=== PATIENT | female | born 1980 | race Caucasian/White ===

== ENCOUNTER 2018-03-03 20:35 | Emergency (ER) | END 2018-03-04 00:44 | disposition home or self-care (01) ==

== ENCOUNTER 2019-03-05 15:13 | Emergency (ER) | payer MEDICAID ==
[~2019-03-05] VITALS: Wt 90.0 kg
[~2019-03-05 15:13] MED LIST: AMOX500C2 PO; IBUP-1542 PO
--- NOTE | 2019-03-05 16:31 | ERD ---
ER Documentation Chief Complaint Chief Complaint FEVER SINCE WEDNESDAY NIGHT HPI Patient is a 38-year-old female with no past medical history presents the ER for concerns of "feeling tired" times 1 week. Patient states that she is also had a dry mouth. She states that she is often thirsty. She states 3 days ago she did notice that her urine was dark. She denies any dysuria or frequency, urgency or hematuria. Patient states days ago she did have a fever two days ago with a T- max of 101 however that has now resolved. Patient denies any chest pain, shortness breath, nausea, vomiting, abdominal pain or loss of consciousness. Patient states she did go to the pharmacy and buy some Pedialyte and after drinking Pedialyte she felt better. Patient does report right lower back pain. Patient denies any falls or trauma. Patient denies saddle anesthesia urine incontinence or stool incontinence. ROS All systems reviewed and are negative except as per history of present illness. Medications Home Meds Active Scripts Cephalexin* (Keflex*) 500 Mg Capsule, 500 MG PO TID for 7 Days, CAP Prov:SHAKEEL MCKINLEY PA-C 03/05/19 Amoxicillin* (Amoxicillin*) 500 Mg Cap, 500 MG PO TID for 10 Days, CAP Prov:ELIF BARON LINOTYPE OPERATOR 03/04/18 Ibuprofen* (Motrin*) 600 Mg Tab, 600 MG PO Q6H PRN for PAIN AND OR ELEVATED TEMP, #30 TAB Prov:ELIF BARON LINOTYPE OPERATOR 03/04/18 Allergies Allergies: Coded Allergies: No Known Allergy (Unverified , 03/03/18) PMhx/Soc Medical and Surgical Hx: pt denies Medical Hx, pt denies Surgical Hx Hx Alcohol Use: No Hx Substance Use: No Hx Tobacco Use: No FmHx Family History: No diabetes Physical Exam Vitals Vital Signs Date Temp Pulse Resp B/P (MAP) Pulse Ox O2 O2 Flow FiO2 Time Delivery Rate 03/05/19 99.1 90 18 130/78 99 15:23 (95) Physical Exam GENERAL: Well-developed, well-nourished female. Appears in no acute distress. Speaking in full sentences. HEAD: Normocephalic, atraumatic. EYES: Pupils are equally reactive bilaterally. EOMs grossly intact. No conjunctival erythema. ENT: Moist mucous membranes. No uvula deviation. No kissing tonsils. NECK: Supple. No meningismus. Normal range of motion of the neck. LUNG: Clear to auscultation bilaterally. No rhonchi, wheezing, rales or coarse breath sounds. HEART: Regular rate and rhythm. No murmurs, rubs or gallops. BACK: No midline tenderness. Tender to palpation of the right lumbar paraspinal muscles. EXTREMITIES: Equal pulses bilaterally. No peripheral clubbing, cyanosis or edema. No unilateral leg swelling. NEUROLOGIC: Alert and oriented. Moving all four extremities without any difficulty. Normal speech. Steady gait. SKIN: Normal color. Warm and dry. No rashes or lesions. Results 24 hrs Laboratory Tests Test 03/05/19 16:31 03/05/19 16:33 03/05/19 16:35 Bedside Urine pH (LAB) 6.0 Bedside Urine Protein (LAB) 1+ Bedside Urine Glucose (UA) Negative Bedside Urine Ketones (LAB) Negative Bedside Urine Blood 2+ Bedside Urine Nitrite (LAB) Negative Bedside Urine Leukocyte Esterase (L 3+ Bedside Glucose 114 mg/dL POC Beta HCG, Qualitative NEGATIVE Current Medications Medications Dose Sig/Yanira Start Time Status Last (Trade) Ordered Route PRN Stop Time Admin Dose Reason Admin Ceftriaxone 1 gm ONCE ONCE 03/05/19 Sodium IM 17:30 (Rocephin) 03/05/19 17:31 Lidocaine 20 ml ONCE ONCE 03/05/19 (Xylocaine SC 17:30 1% (Mdv) 20 03/05/19 17:31 ml) Procedures/MDM MEDICAL DECISION MAKING: This is a 38-year-old female with no past medical history presents the ER for concerns of "feeling tired times 1 week. Patient also admitted to dark urine.. Vital signs were reviewed. Patient was afebrile. UA did show 3+ leukocyte esterase. Urine was negative. Patient was given Rocephin here for concerns of UTI versus early pyelonephritis as patient was complaining of fevers 2 days ago. Patient will be discharged home with prescription for Keflex. Low suspicion for DKA, nephrolithiasis, appendicitis, diverticulitis, constipatis, ectopic , PID, ovarian torsion, or tubo-ovarian abscess. Patient was nontoxic, non-opening prior to discharge. PRESCRIPTIONS: Keflex DISCHARGE: At this time, patient is stable for discharge and outpatient management. I have instructed the patient to follow-up with his/her primary care physician in 1-2 days. Patient should repeat UA in 2 weeks to check for resolution of urinary tract infection. If symptoms persist, patient may need to see a specialist for further examinations and testing. I have instructed the patient to promptly return to the ER at any time for any new or worsening symptoms including increased pain, fever, nausea, vomiting, urinary changes or weakness. The patient and/or family expressed understanding of and agreement with this plan. All questions were answered. Home care instructions were provided. Disclaimer: Inadvertent spelling and grammatical errors are likely due to EHR/dictation software use and do not reflect on the overall quality of patient care. Also, please note that the electronic time recorded on this note does not necessarily reflect the actual time of the patient encounter. Departure Diagnosis: Primary Impression: UTI (urinary tract infection) Urinary tract infection type: site unspecified Hematuria presence: with hematuria Qualified Codes: N39.0 - Urinary tract infection, site not specified; R31.9 - Hematuria, unspecified Condition: Fair Patient Instructions: Understanding Urinary Tract Infections (UTIs) Referrals: [facility] YOU HAVE RECEIVED A MEDICAL SCREENING EXAM AND THE RESULTS INDICATE THAT YOU DO NOT HAVE A CONDITION THAT REQUIRES URGENT TREATMENT IN THE EMERGENCY DEPARTMENT. FURTHER EVALUATION AND TREATMENT OF YOUR CONDITION CAN WAIT UNTIL YOU ARE SEEN IN YOUR DOCTORS OFFICE WITHIN THE NEXT 1-2 DAYS. IT IS YOUR RESPONSIBILITY TO MAKE AN APPOINTMENT FOR FOLOW-UP CARE. IF YOU HAVE A PRIMARY DOCTOR --you should call your primary doctor and schedule an appointment IF YOU DO NOT HAVE A PRIMARY DOCTOR YOU CAN CALL OUR PHYSICIAN REFERRAL HOTLINE AT IF YOU CAN NOT AFFORD TO SEE A PHYSICIAN YOU CAN CHOSE FROM THE FOLLOWING [facility] [address] [facility] [address] [facility] [address] [facility] [address] [facility] [address] [facility]. [facility]. [address] [facility]. [facility] YOU HAVE RECEIVED A MEDICAL SCREENING EXAM AND THE RESULTS INDICATE THAT YOU DO NOT HAVE A CONDITION THAT REQUIRES URGENT TREATMENT IN THE EMERGENCY DEPARTMENT. FURTHER EVALUATION AND TREATMENT OF YOUR CONDITION CAN WAIT UNTIL YOU ARE SEEN IN YOUR DOCTORS OFFICE WITHIN THE NEXT 1-2 DAYS. IT IS YOUR RESPONSIBILITY TO MAKE AN APPOINTMENT FOR FOLOW-UP CARE. IF YOU HAVE A PRIMARY DOCTOR --you should call your primary doctor and schedule and appointment IF YOU DO NOT HAVE A PRIMARY DOCTOR YOU CAN CALL OUR PHYSICIAN REFERRAL HOTLINE AT . IF YOU CAN NOT AFFORD TO SEE A PHYSICIAN YOU CAN CHOSE FROM THE FOLLOWING [facility] INSTITUTIONS: [facility] [address] [place] [address] [facility] [address] [place] [address] [facility] [address] [place] [address] Additional Instructions: Call your primary care doctor TOMORROW for an appointment during the next 1-2 days.See the doctor sooner or return here if your condition worsens before your appointment time. SHAKEEL MCKINLEY PA-C Mar 05, 2019 16:31
[2019-03-05] MEDS ORDERED: CEPH-443 PO (17:07)
[2019-03-05] MEDS ORDERED: LIDOCAINE 1% (MDV) 20 ML INJ SC ONE (17:30)
[2019-03-05] MEDS ORDERED: CEFTRIAXONE 1 GM INJ IM ONE (17:30)
[2019-03-05 17:49] VITALS: BP 126/70; PULSE 88; RESP 18
== END 2019-03-05 17:51 | disposition home or self-care (01) ==
LOC: FTE 15:13
DX: N39.0 Urinary tract infection, site not specified (principal)
CPT/HCPCS: 81003; 81025; 82962; 96372; J0696; Z7502; Z7610

== ENCOUNTER 2019-04-12 19:27 | Inpatient (IN) | payer MEDICAID ==
[~2019-04-12] VITALS: Ht 162.6 cm; Wt 120.0 kg
[~2019-04-12 19:27] MED LIST changes: +CEPH-443 PO
[2019-04-12] MEDS ORDERED: SODIUM CHLORIDE 0.9% 1L BAG IV* STA (20:04)
--- NOTE | 2019-04-12 21:16 | ERD ---
ER Documentation Chief Complaint Chief Complaint R low back pain, dysuria x2d worse today. HPI This is a 38-year-old female with a past medical history of obesity, asthma who is presenting with 3 days of dysuria and right lower back pain. The patient reports that it started with a pressure-like discomfort while urinating. Over the last couple days, she started to develop right-sided lower back pain. She does endorse suprapubic pain. She reports nausea with an episode of nonbilious nonbloody vomiting. She does not endorse having had a fever at home, but she is febrile here. She was also found to be tachycardic. The patient has had no headache or vision changes. The patient does not endorse neck or back pain. The patient denies lightheadedness or dizziness. The patient has had no chest pain or trouble breathing. The patient denies changes to bowel movements. She denies constipation or diarrhea. She denies black or bloody or tarry stools. The patient has had no focal deficits. The patient has had no weakness or numbness or tingling to the face or extremities. ROS All systems reviewed and are negative except as per history of present illness. Medications Home Meds Active Scripts Ibuprofen* (Motrin*) 600 Mg Tab, 600 MG PO Q6H PRN for PAIN AND OR ELEVATED TEMP, #30 TAB Prov:ELIF BARON NP 03/04/18 Discontinued Scripts Cephalexin* (Keflex*) 500 Mg Capsule, 500 MG PO TID for 7 Days, CAP Prov:SHAKEEL MCKINLEY PA-C 03/05/19 Amoxicillin* (Amoxicillin*) 500 Mg Cap, 500 MG PO TID for 10 Days, CAP Prov:ELIF BARON NP 03/04/18 Allergies Allergies: Coded Allergies: No Known Allergy (Unverified , 04/12/19) PMhx/Soc Medical and Surgical Hx: pt denies Surgical Hx Hx Respiratory Disorders: Yes (asthma) Hx Alcohol Use: No Hx Substance Use: No Hx Tobacco Use: No Smoking Status: Never smoker FmHx Family History: No diabetes Physical Exam Vitals Vital Signs Date Temp Pulse Resp B/P (MAP) Pulse Ox O2 O2 Flow FiO2 Time Delivery Rate 04/12/19 98.3 111 20 125/55 100 Room Air 23:00 (78) 04/12/19 100.8 131 16 144/94 99 19:58 (111) Physical Exam Const: No acute distress Head: Atraumatic Eyes: Normal Conjunctiva ENT: Normal External Ears, Nose and Mouth. Neck: Full range of motion. No meningismus. Resp: Clear to auscultation bilaterally Cardio: Regular rhythm, tachycardia, no murmurs Abd: Soft, non distended. Mild suprapubic tenderness. Normal bowel sounds Skin: No petechiae or rashes Back: No midline or flank tenderness. Right lower back tenderness to palpation. Ext: No cyanosis, or edema Neur: Awake and alert. No obvious focal deficits. Psych: Normal Mood and Affect Result Diagram: 04/12/19200904/12/192007 Results 24 hrs Laboratory Tests Test 04/12/19 20:04 04/12/19 20:08 04/12/19 20:09 04/12/19 20:10 Urine NEGATIVE Test Prothrombin Time 14.6 Sec Prothrombin Time 1.1 Ratio INR 1.13 International Normalized Ratio Activated 31.8 Sec Partial Thrombop last Time Sodium Level 134 mmol/L Potassium Level 4.0 mmol/L Chloride Level 100 mmol/L Carbon Dioxide 25 mmol/L Level Anion Gap 9 Blood Urea 10 mg/dl Nitrogen Creatinine 0.92 mg/dl Est Glomerular > 60 mL/min Filtrat Rate mL/min Glucose Level 127 mg/dl Calcium Level 9.2 mg/dl Total Bilirubin 0.6 mg/dl Direct Bilirubin 0.00 mg/dl Indirect 0.6 mg/dl Bilirubin Aspartate Amino 18 IU/L Transf (AST/SGOT ) Alanine < 6 IU/L Aminotransferase (ALT/SGPT) Alkaline 135 IU/L Phosphatase Troponin I < 0.012 ng/ml Total Protein 10.0 g/dl Albumin 3.5 g/dl Globulin 6.50 g/dl Albumin/Globulin 0.53 Ratio POC Venous 1.9 mmol/L Lactate White Blood 25.6 10^3/ul Count Red Blood Count 3.44 10^6/ul Hemoglobin 7.4 g/dl Hematocrit 26.4 % Mean Corpuscular 76.7 fl Volume Mean Corpuscular 21.5 pg Hemoglobin Mean Corpuscular 28.0 g/dl Hemoglobin Rosalind nt Red Cell 20.0 % Distribution Width Platelet Count 834 10^3/UL Mean Platelet 8.5 fl Volume Immature 0.800 % Granulocytes % Neutrophils % % Segmented 67 % Neutrophils % (Manual) Band Neutrophils 3 % % (Manual) Lymphocytes % % Lymphocytes % 27 % (Manual) Monocytes % % Monocytes % 3 % (Manual) Eosinophils % % Basophils % % Nucleated Red 0.0 /100WBC Blood Cells % Immature 0.200 10^3/ul Granulocytes # Neutrophils # 10^3/ul Neutrophils # 17.3 10^3/ul (Manual) Band Neutrophils 0.7 10^3/ul # Lymphocytes 6.9 10^3/ul (Manual) Lymphocytes # 10^3/ul Monocytes # 10^3/ul Monocytes # 0.7 10^3/ul (Manual) Eosinophils # 10^3/ul Basophils # 10^3/ul Nucleated Red 10^3/ul Blood Cells # Pathologist YES Review (Hematolo gy) Platelet INCREASED Estimate Giant Platelets 2 % Polychromasia 3+ Hypochromasia 1+ Poikilocytosis 1+ Anisocytosis 2+ Microcytosis 1+ Test 04/12/19 21:08 Urine Color YELLOW Urine Clarity SLIGHTLY CLOUDY Urine pH 7.0 Urine Specific 1.008 Bono Urine Ketones NEGATIVE mg/dL Urine Nitrite NEGATIVE mg/dL Urine Bilirubin NEGATIVE mg/dL Urine 1+ mg/dL Urobilinogen Urine Leukocyte 3+ Susan/ul Esterase Urine 33 /HPF Microscopic RBC Urine 38 /HPF Microscopic WBC Urine Squamous FEW /HPF Epithelial Cells Urine Amorphous FEW /HPF Crystals Urine Bacteria FEW /HPF Urine Hemoglobin 3+ mg/dL Urine Glucose NEGATIVE mg/dL Urine Total NEGATIVE mg/dl Protein Current Medications Medications Dose Sig/Yanira Start Time Status Last (Trade) Ordered Route PRN Stop Time Admin Dose Reason Admin Sodium 3,620 ml BOLUS OVER 2 04/12/19 DC 04/12/19 Chloride HOURS STAT 20:04 20:25 (NS) IV* 04/12/19 20:05 Vancomycin 250 ml @ ONCE ONCE 04/12/19 DC 04/12/19 HCl 125 mls/hr IVPB 21:30 21:51 04/12/19 23:29 Cefepime HCl 50 ml @ ONCE ONCE 04/12/19 DC 04/12/19 100 mls/hr IVPB 21:30 21:25 04/12/19 21:59 650 mg ONCE ONCE 04/12/19 DC 04/12/19 Acetaminophen PO 22:00 22:47 (Tylenol 04/12/19 22:01 Tab) Ketorolac 15 mg ONCE STAT 04/12/19 DC 04/12/19 Tromethamine IV 21:40 22:46 (Toradol) 04/12/19 21:42 Procedures/MDM MDM The patient's presentation warrants further investigation. Previous medical records, if available, were reviewed. LABS The patient's laboratory testing was obtained and reviewed. No emergent treatment was required unless described below. CBC: Significant leukocytosis, concerning for an infection. Microcytic anemia, does not require emergent transfusion. Thrombocytosis, reactive. Chemistry: No E/o severe acidosis or alkalosis or renal failure or liver di sease or diabetic ketoacidosis PT/INR: No E/o significant coagulopathy Lactate: No E/o severe sepsis Troponin: No E/o acute ischemia Urine: E/o acute infection and hematuria EKG EKG read by me: Rate/Rhythm: Regular rate and rhythm at a rate of sinus tachycardia at 141 bpm Intervals: Normal Burwell: Normal Impression: Sinus tachycardia. Nonspecific repolarization changes without evidence of acute ischemia. IMAGING Imaging and Radiology interpretation reviewed. CXR FINDINGS: Lines/Tubes: None. The cardiomediastinal silhouette is normal in size and contour. No consolidation, pleural effusion, or pneumothorax is seen. Mild left basilar subsegmental atelectasis. Low lung volumes. The osseous structures are unremarkable. IMPRESSION: 1. Mild left basilar subsegmental atelectasis. No consolidation, pleural effusion, or pneumothorax. 2. Low lung volumes. Electronically viewed and signed by Physician Harman on 04/12/2019 20:55 CT Abd/Pelvis FINDINGS: CT abdomen: The lung bases are clear. The heart size is within normal limits. There is no significant pericardial effusion. Hepatic morphology is within normal limits. No gross contour deforming masses. The gallbladder is within normal limits. No evidence of intrahepatic or extrahepatic biliary dilatation. The spleen and pancreas are within normal limits. Both adrenal glands are within normal limits. Both kidneys are visualized. The right kidney is enlarged and there is severe right-sided hydronephrosis. A 2.2 x 1.5 cm stone is noted within the right renal pelvis. There is right renal cortical thinning. Right felipe nephric fatty stranding and fluid is noted. Left kidney appears to be within normal limits without evidence of obstruction or hydronephrosis. The visualized GI tract demonstrates normal caliber loops of small and large bowel. No evidence of bowel obstruction. Stool filled loops of large bowel suggestive of constipation. Unenhanced aorta is unremarkable. Multiple retroperitoneal aortocaval lymph nodes are noted. CT pelvis: The bladder is within normal limits. The uterus is not unremarkable. Rectosigmoid colon is within normal limits. No significant free fluid. No significant pelvic lymphadenopathy. The visualized osseous structures appears to be within normal limits. IMPRESSION: 1. Enlarged right kidney with severe right-sided hydronephrosis. There is a large 2.2 x 1.5 cm staghorn calculus within the right renal pelvis. Large amount of right perinephric fatty stranding and fluid is noted. Findings may be chronic. Findings suggestive of obstructive uropathy and underlying infection. 2. Multiple retroperitoneal aortocaval lymph nodes are noted, probably reactive. 3. No evidence of bowel obstruction. Stool filled loops of large bowel suggestive of constipation. 4. There is left kidney is unremarkable. Electronically viewed and signed by Physician Michael on 04/12/2019 23:36 TREATMENT/DISPOSITION The patient presents for symptoms concerning for urinary tract infection. She is febrile with a tachycardia and significant leukocytosis, meeting criteria for systemic inflammatory response. Given that there is a source, and concern for sepsis. The patient does endorse right-sided flank pain, given the full symptom complex, I am concerned about the possibility of pyelonephritis. The CT of the abdomen and pelvis confirm this. The patient was treated for sepsis. There is no evidence of endorgan damage. I do not suspect severe sepsis. The patient does not have any evidence of peritonitis. The patient does not have clinical symptoms concerning for mesenteric ischemia or ischemic colitis. The patient does not have right upper quadrant tenderness, and I have low suspicion for gallstones, cholecystitis or biliary colic. The patient does not have any epigastric pain. I have low suspicion for gastritis, PUD or GERD. The patient does not have left upper quadrant tenderness. I have low suspicion for pancreatitis. The patient does not have any right lower quadrant tenderness, or periumbilical tenderness. I have low suspicion for appendicitis. The patient d oes not have any left lower quadrant tenderness, and I have low suspicion for diverticulosis or diverticulitis. The patient does not have any flank tenderness. The patient does not have gross hematuria. I have decreased suspicion for nephrolithiasis or renal colic. The patient does not have any p alpable pulsatile mass or severe abdominal pain radiating to the back. I have low suspicion for aortic aneurysm, dissection or rupture. SEPSIS NOTE SIRS Criteria: Fever, tachycardia, leukocytosis Infectious source: UTI End organ damage indicated by: None SEPSIS MANAGEMENT Time to recognize sepsis: 2003. Time to recognize severe sepsis: No severe sepsis at this time. Time to recognize septic shock: No septic shock at this time. 3 HOUR BUNDLE Blood cultures x 2 before abx: Yes 30 ml/kg NS bolus completed Initial lactate 1.9 Repeat lactate not indicated SEPTIC SHOCK ASSESSMENT: NO lactic acid > 4.0 NO persistent hypotension (SBP < 90 or 40 mmHg drop, MAP < 65) despite 30 L/kg IV fluid bolus CRITICAL CARE Critical care time 35 minutes Emergent fluid management while maintaining close respiratory support. Provision of immediate and broad-spectrum antibiotic therapy. Simultaneous assessment for possible sources in order to direct targeted therapy. Consideration for invasive and chemical support to prevent cardiopulmonary collapse. Critical care time is independent of procedures performed. ADMISSION At this time, I feel that the patient requires admission for further evaluation and management. The patient will be admitted to [facility] in accordance with the [facility]'s insurance. The patient was accepted by Dr. Robles at 11:39 PM on April 12, 2019. Disclaimer: Inadvertent spelling and grammatical errors are likely due to EHR/dictation software use and do not reflect on the overall quality of patient care. Note that the electronic time recorded on this note does not necessarily reflect the actual time of the patient encounter. Departure Diagnosis: Primary Impression: Sepsis Sepsis type: sepsis due to unspecified organism Qualified Codes: A41.9 - Sepsis, unspecified organism Additional Impressions: UTI (urinary tract infection) Urinary tract infection type: acute cystitis Hematuria presence: without hematuria Qualified Codes: N30.00 - Acute cystitis without hematuria Fever Fever type: unspecified Qualified Codes: R50.9 - Fever, unspecified Tachycardia Leukocytosis Leukocytosis type: unspecified Qualified Codes: D72.829 - Elevated white blood cell count, unspecified Microcytic anemia Thrombocytosis Dysuria Pyelonephritis Hydronephrosis Hydronephrosis type: with renal calculous obstruction Qualified Codes: N13.2 - Hydronephrosis with renal and ureteral calculous obstruction Staghorn renal calculus Condition: Serious FRANCISCA BELLAMY MD April 12, 2019 21:14
[2019-04-12] MEDS ORDERED: VANCOMYCIN 1 GM (PMX) 250 ML IVPB ONE (21:30)
[2019-04-12] MEDS ORDERED: CEFEPIME 1GM/50 ML (PMX) 50 ML IVPB ONE (21:30)
[2019-04-12] MEDS ORDERED: KETOROLAC 15 MG INJ IV STA (21:40)
[2019-04-12] MEDS ORDERED: ACETAMINOPHEN 325 MG TAB PO ONE (22:00)
[2019-04-13] VITALS (10 sets, daily range): BP systolic 127–145; BP diastolic 61–80; PULSE 91–125; RESP 18–20; Ht 162.6 cm; Wt 120.0 kg
[2019-04-13] MEDS ORDERED: ACETAMINOPHEN 325 MG TAB PO PRN
[2019-04-13] MEDS ORDERED: NACL 0.9% 3 ML SYG IV SCH (00:30)
[2019-04-13] MEDS ORDERED: HYDROmorphONE 0.5 MG/0.5 ML SYG IV PRN (00:30)
[2019-04-13] MEDS ORDERED: BISACODYL (EC) 5 MG TAB PO PRN (00:30)
[2019-04-13] MEDS ORDERED: DOCUSATE SODIUM 100 MG CAP PO PRN (00:30)
[2019-04-13] MEDS ORDERED: TAMSULOSIN (SR) 0.4 MG CAP PO ONE (00:30)
[2019-04-13] MEDS ORDERED: ONDANSETRON 4 MG INJ IV PRN ×2 (00:30)
[2019-04-13] MEDS: SOD CHLORIDE 0.9% 1,000 ML IV SCH ×4 (00:32→22:26)
--- NOTE | 2019-04-13 01:08 | HP ---
Date/Time of Note Date/Time of Note DATE: 04/13/19 TIME: 01:02 Assessment/Plan VTE Prophylaxis SCD applied (from Nsg): Yes Pharmacological prophylaxis: NA/contraindicated Pharm contraindication: low risk/ambulating Assessment/Plan Hospital Course This is a 38-year-old female being admitted to the telemetry floor for: 1. sepsis: Secondary to pyelonephritis. Patient did receive vancomycin and cefepime in the emergency department. Will switch to ceftriaxone 2 g IV every 24 hours. Await urinalysis, urine culture results. Trend lactic acid levels, the initial one was less than 2. IV fluid hydration with normal saline. 2. Staghorn calculus causing obstructive uropathy: CT scan did show a staghorn colliculi with signs of possible obstruction. Creatinine at the current time is within normal values. IV fluid hydration with normal saline, Flomax daily. Strain the urine. Will consult urology 3. pyelonephritis: Antibiotics as per #1. 4. Microcytic anemia: Urinalysis does have hemoglobin however given infection this is not reliable for acute bleed. She denies any cintia hematuria. She denies any hematochezia. Or melena. Will check a stool occult blood. Will discuss with patient regarding her menstruation. Monitor CBC closely. Iron and ferritin in the a.m. 5. Morbid obesity: a1c, lipid panel, tsh. encourage diet and lifestyle modification 6. DVT GI prophylaxis: SCDs, no GI prophylaxis indicated next Further treatment strategy will be implemented as per the clinical course. Result Diagram: 04/12/19200904/12/192007 Results 24hrs Laboratory Tests Test 04/12/19 20:04 04/12/19 20:08 04/12/19 20:09 04/12/19 20:10 Urine NEGATIVE Test Prothrombin Time 14.6 Prothrombin Time 1.1 Ratio INR International 1.13 Normalized Ratio Activated 31.8 Partial Thrombopl ast Time Sodium Level 134 L Potassium Level 4.0 Chloride Level 100 Carbon Dioxide 25 Level Anion Gap 9 Blood Urea 10 Nitrogen Creatinine 0.92 Est Glomerular > 60 Filtrat Rate mL/min Glucose Level 127 Calcium Level 9.2 Total Bilirubin 0.6 Direct Bilirubin 0.00 Indirect 0.6 Bilirubin Aspartate Amino 18 Transf (AST/SGOT) Alanine < 6 L Aminotransferase (ALT/SGPT) Alkaline 135 H Phosphatase Troponin I < 0.012 Total Protein 10.0 H Albumin 3.5 Globulin 6.50 H Albumin/Globulin 0.53 Ratio POC Venous 1.9 Lactate White Blood Count 25.6 H Red Blood Count 3.44 L Hemoglobin 7.4 L Hematocrit 26.4 L Mean Corpuscular 76.7 L Volume Mean Corpuscular 21.5 L Hemoglobin Mean Corpuscular 28.0 L Hemoglobin Concen t Red Cell 20.0 H Distribution Width Platelet Count 834 H Mean Platelet 8.5 Volume Immature 0.800 H Granulocytes % Neutrophils % Segmented 67 Neutrophils % (Manual) Band Neutrophils 3 % (Manual) Lymphocytes % Lymphocytes % 27 (Manual) Monocytes % Monocytes % 3 (Manual) Eosinophils % Basophils % Nucleated Red 0.0 Blood Cells % Immature 0.200 H Granulocytes # Neutrophils # Neutrophils # 17.3 H (Manual) Band Neutrophils 0.7 H # Lymphocytes 6.9 H (Manual) Lymphocytes # Monocytes # Monocytes # 0.7 (Manual) Eosinophils # Basophils # Nucleated Red Blood Cells # Pathologist YES Review (Hematolog y) Platelet Estimate INCREASED Giant Platelets 2 H Polychromasia 3+ Hypochromasia 1+ Poikilocytosis 1+ Anisocytosis 2+ Microcytosis 1+ Test 04/12/19 21:08 Urine Color YELLOW Urine Clarity SLIGHTLY CLOUDY A Urine pH 7.0 Urine Specific 1.008 [place] Urine Ketones NEGATIVE Urine Nitrite NEGATIVE Urine Bilirubin NEGATIVE Urine 1+ H Urobilinogen Urine Leukocyte 3+ H Esterase Urine Microscopic 33 H RBC Urine Microscopic 38 H WBC Urine Squamous FEW Epithelial Cells Urine Amorphous FEW A Crystals Urine Bacteria FEW A Urine Hemoglobin 3+ H Urine Glucose NEGATIVE Urine Total NEGATIVE Protein HPI/ROS Admit Date/Time Admit Date/Time Hx of Present Illness Chief complaint: Dysuria, lower back pain x3 days This is a 38-year-old female with a past medical history of obesity, asthma who is presenting with 3 days of dysuria and right lower back pain. The patient reports that it started with a pressure-like discomfort while urinating. Over the last couple days, she started to develop right-sided lower back pain. Reports suprapubic pain. She reports nausea with an episode of nonbilious nonbl oody vomiting. Patient denies any fevers or chills at home. Upon arrival to the emergency department patient was found to be febrile as well as tachycardic. She had a CT of the abdomen pelvis performed in the emergency department which showed: Enlarged right kidney with severe right-sided hydronephrosis. There is a large 2.2 x 1.5 cm staghorn calculus within the right renal pelvis. Large amount of right perinephric fatty stranding and fluid is noted. Findings may be chronic. Findings suggestive of obstructive uropathy and underlying infection. Allergies: NKDA Medications: None ROS Const: As per HPI Eyes : No pain discharge or redness or change in visual acuity ENT: No pain, sore throat, congestion, congestion, dysphagia or discharge Respiratory: No shortness of breath, cough, sputum, wheezing, or pleuritic pain Cardiovascular: No chest pain, palpitation, PND, or edema GI : no change in appetite, abdominal pain, nausea, vomiting, diarrhea, con stipation, or change in the color his stool Genitourinary: As per HPI Musculoskeletal: No joint pain, back pain, neck pain, restricted range of motion in neck or joints Skin: No rash, bruising or hives Neuro: No headache, dizziness, syncope, seizure, focal weakness Endocrine: No polyuria, polydipsia, temperature intolerance Psych: No hallucination, depression, anxiety or suicidal ideation PMH/Family/Social Past Medical History Asthma Medications Current Medications Ondansetron HCl (Zofran Inj) 4 mg ER BRIDGE PRN IV NAUSEA/VOMITING; Start 04/13/19 at 00:00; Stop 04/13/19 at 23:59 Acetaminophen (Tylenol Tab) 650 mg ER BRIDGE PRN PO .MILD PAIN 1-3 OR TEMP; Start 04/13/19 at 00:00; Stop 04/13/19 at 23:59 Sodium Chloride 1,000 ml @ 100 mls/hr Q10H IV Last administered on 04/13/19at 00:32; Admin Dose 100 MLS/HR; Start 04/13/19 at 00:04 IV Flush (NS 3 ml) 3 ml PER PROTOCOL IV ; Start 04/13/19 at 00:30 Ondansetron HCl (Zofran Inj) 4 mg Q6H PRN IV NAUSEA/VOMITING; Start 04/13/19 at 00:30 Acetaminophen (Tylenol Tab) 650 mg Q6H PRN PO .PAIN 1-3 OR TEMP; Start 04/13/19 at 00:30 Hydromorphone HCl (Dilaudid) 0.5 mg Q4H PRN IV .PAIN 7-10; Start 04/13/19 at 00:30 Docusate Sodium (Colace) 100 mg Q12H PRN PO .CONSTIPATION; Start 04/13/19 at 00:30 Bisacodyl (Dulcolax) 5 mg DAILY PRN PO .CONSTIPATION; Start 04/13/19 at 00:30 Ceftriaxone Sodium 50 ml @ 100 mls/hr Q24H IVPB ; Start 04/13/19 at 04:00 Tamsulosin HCl (Flomax) 0.4 mg HS PO ; Start 04/13/19 at 21:00 Coded Allergies: No Known Allergy (Unverified , 04/12/19) Past Surgical History Past Surgical Hx: no surgical history Family History Significant Family History: no pertinent family hx Social History Alcohol Use: none Smoking Status: Never smoker Drug Use: none Exam/Review of Systems Vital Signs Vitals Vital Signs Date Temp Pulse Resp B/P (MAP) Pulse Ox O2 O2 Flow FiO2 Time Delivery Rate 04/12/19 98.3 117 21 129/73 99 Room Air 23:51 (91) Exam Exam General: Patient is currently lying in bed in no acute distress, patient skin does look pale but she states that that is her normal skin color. HEENT: Atraumatic, normocephalic. The pupils are equal, round and reactive. Extraocular motor are intact Neck: Supple with full range of motion. No rigidity or meningismus Chest: Nontender Lungs: Clear to auscultation bilaterally no crackles rales or wheezing Heart: Normal S1-S2, Regular rhythm and rate. No murmur, S3, or S4 Abdomen: Soft , nontender, nondistended , bowel sounds are present. No guarding no rebound tenderness , No masses or organomegaly. Genitourinary: Suprapubic tenderness palpation, Musculoskeletal: Right lower back pain to palpation Extremities: Normal to inspection, no edema no cyanosis Neurologic: Normal mental status, speech normal, cranial nerves II through XII are intact, motor and sensory are intact, Additional Comments PROCEDURE: XR Chest. CLINICAL INDICATION: Possible Sepsis. TECHNIQUE: Single view chest x-ray. COMPARISON: None. FINDINGS: Lines/Tubes: None. The cardiomediastinal silhouette is normal in size and contour. No consolidation, pleural effusion, or pneumothorax is seen. Mild left basilar subsegmental atelectasis. Low lung volumes. The osseous structures are unremarkable. IMPRESSION: 1. Mild left basilar subsegmental atelectasis. No consolidation, pleural effusion, or pneumothorax. 2. Low lung volumes. RPTAT: HH Physician Harman Date Time Electronically viewed and signed by Physician Harman on 04/12/2019 20:55 RP/ CC: FRANCISCA BELLAMY MD [id number] PROCEDURE: CT ABDOMEN AND PELVIS WITHOUT CONTRAST. CLINICAL INDICATION: Abdominal pain TECHNIQUE: CT scan of the abdomen and pelvis without contrast was performed on a multidetector high-resolution CT scanner. The patient was scanned without intravenous contrast. Coronal and sagittal reformatted images were obtained from the axial source images. Images were reviewed on a high-resolution PACS workstation. The total exam CTDI equals 23.6 mGy and the total exam DLP equals 1513.2 mGy-cm. One or more of the following dose reduction techniques were used: Automated exposure control. Adjustment of the mA and/or kV according to patient size. Use of iterative reconstruction technique. DICOM images are available COMPARISON: None FINDINGS: CT abdomen: The lung bases are clear. The heart size is within normal limits. There is no significant pericardial effusion. Hepatic morphology is within normal limits. No gross contour deforming masses. The gallbladder is within normal limits. No evidence of intrahepatic or extrahepatic biliary dilatation. The spleen and pancreas are within normal limits. Both adrenal glands are within normal limits. Both kidneys are visualized. The right kidney is enlarged and there is severe right-sided hydronephrosis. A 2.2 x 1.5 cm stone is noted within the right renal pelvis. There is right renal cortical thinning. Right perinephric fatty stranding and fluid is noted. Left kidney appears to be within normal limits without evidence of obstruction or hydronephrosis. The visualized GI tract demonstrates normal caliber loops of small and large bowel. No evidence of bowel obstruction. Stool filled loops of large bowel suggestive of constipation. Unenhanced aorta is unremarkable. Multiple retroperitoneal aortocaval lymph nodes are noted. CT pelvis: The bladder is within normal limits. The uterus is not unremarkable. Rectosigmoid colon is within normal limits. No significant free fluid. No significant pelvic lymphadenopathy. The visualized osseous structures appears to be within normal limits. IMPRESSION: 1. Enlarged right kidney with severe right-sided hydronephrosis. There is a large 2.2 x 1.5 cm staghorn calculus within the right renal pelvis. Large amount of right perinephric fatty stranding and fluid is noted. Findings may be chronic. Findings suggestive of obstructive uropathy and underlying infection. 2. Multiple retroperitoneal aortocaval lymph nodes are noted, probably reactive. 3. No evidence of bowel obstruction. Stool filled loops of large bowel suggestive of constipation. 4. There is left kidney is unremarkable. RPTAT: [facility] Physician Michael Date Time Electronically viewed and signed by Physician Michael on 04/12/2019 23:36 JL/ CC: FRANCISCA BELLAMY MD [id number] BETH MON April 13, 2019 01:08
[2019-04-13] MEDS: CEFTRIAXONE 2 GM/50 ML (PMX) 50 ML IVPB SCH (03:45)
--- NOTE | 2019-04-13 15:17 | PN ---
Date/Time of Note Date/Time of Note DATE: 04/13/19 TIME: 15:17 Assessment/Plan VTE Prophylaxis Risk score (from Ns)>0 risk: 2 SCD applied (from Ns): No SCD contraindicated: other Pharmacological prophylaxis: NA/contraindicated Pharm contraindication: anticoag not tolerated Lines/Catheters IV Catheter Type (from [facility]): Peripheral IV Urinary Cath still in place: No Assessment/Plan Hospital Course SUBJECTIVE: Denies any abdominal pain or flank pain. Remains afebrile. OBJECTIVE: Physical Exam General: Morbidly obese 38 year-old female lying in bed in no apparent distress. HEENT: Normocephalic, atraumatic. Eyes: Anicteric sclerae, conjunctivae clear. ENT: Nasal septum midline, oral mucosa moist. Neck: Short and obese. Respiratory: Bilaterally clear breath sounds. No use of accessory muscles of respiration. No adventitious breath sounds. Cardiovascular: S1, S2 heard. Regular rate and rhythm. Abdomen: Soft, nontender, and nondistended. Bowel sounds positive in all 4 quadrants. Genitourinary: Deferred. Extremities: No cyanosis, no clubbing, no edema. Peripheral pulses palpable. Neurologic: Cranial nerves II through XII grossly intact. The patient is awake, alert, and oriented. Skin: Normal skin turgor. No skin rashes. Labs & Vitals per chart ASSESSMENT & PLAN This is a 28-year-old female with comorbidities including obesity and asthma who presented to the emergency room with chief complaint of dysuria, lower back pain with CT scan showing severe right-sided hydronephrosis with a 2.2 x 1.5 cm staghorn calculus within the right renal pelvis. 1. Sepsis with leukocytosis, febrile illness, and tachycardia, present on admission. -Pancultures pending. -Continue empiric antimicrobials. -Continue IV fluids. 2. 2.2 x 1.5 cm staghorn calculus within the right renal pelvis. -Continue IV hydration. -Continue Flomax. -Urology consult has been obtained. -Continue pain control. 3. Microcytic, hypochromic anemia. -Iron panel showing iron deficiency. -Start iron supplements. 4. Morbid obesity. -BMI of more than 45 kg/m. -Weight reduction advised. 5. History of asthma. -No evidence of any exacerbation. 6. Fluids, electrolytes, and nutrition. -Regular diet. 7. DVT prophylaxis -Bilateral SCDs. 8. Plan. -Continue empiric antimicrobials. -Continue pain control. -Continue IV hydration. -Await urology evaluation. The patient was seen in collaboration with Dr. Mc. Result Diagram: 04/12/19200904/12/192007 Results 24hrs Laboratory Tests Test 04/12/19 20:04 04/12/19 20:08 04/12/19 20:09 04/12/19 20:10 Urine NEGATIVE Test Prothrombin Time 14.6 Prothrombin Time 1.1 Ratio INR International 1.13 Normalized Ratio Activated 31.8 Partial Thrombopl ast Time Sodium Level 134 L Potassium Level 4.0 Chloride Level 100 Carbon Dioxide 25 Level Anion Gap 9 Blood Urea 10 Nitrogen Creatinine 0.92 Est Glomerular > 60 Filtrat Rate mL/min Glucose Level 127 Calcium Level 9.2 Total Bilirubin 0.6 Direct Bilirubin 0.00 Indirect 0.6 Bilirubin Aspartate Amino 18 Transf (AST/SGOT) Alanine < 6 L Aminotransferase (ALT/SGPT) Alkaline 135 H Phosphatase Troponin I < 0.012 Total Protein 10.0 H Albumin 3.5 Globulin 6.50 H Albumin/Globulin 0.53 Ratio POC Venous 1.9 Lactate White Blood Count 25.6 H Red Blood Count 3.44 L Hemoglobin 7.4 L Hematocrit 26.4 L Mean Corpuscular 76.7 L Volume Mean Corpuscular 21.5 L Hemoglobin Mean Corpuscular 28.0 L Hemoglobin Concen t Red Cell 20.0 H Distribution Width Platelet Count 834 H Mean Platelet 8.5 Volume Immature 0.800 H Granulocytes % Neutrophils % Segmented 67 Neutrophils % (Manual) Band Neutrophils 3 % (Manual) Lymphocytes % Lymphocytes % 27 (Manual) Monocytes % Monocytes % 3 (Manual) Eosinophils % Basophils % Nucleated Red 0.0 Blood Cells % Immature 0.200 H Granulocytes # Neutrophils # Neutrophils # 17.3 H (Manual) Band Neutrophils 0.7 H # Lymphocytes 6.9 H (Manual) Lymphocytes # Monocytes # Monocytes # 0.7 (Manual) Eosinophils # Basophils # Nucleated Red Blood Cells # Pathologist YES Review (Hematolog y) Platelet Estimate INCREASED Giant Platelets 2 H Polychromasia 3+ Hypochromasia 1+ Poikilocytosis 1+ Anisocytosis 2+ Microcytosis 1+ Test 04/12/19 21:08 04/13/19 00:53 04/13/19 05:07 Urine Color YELLOW Urine Clarity SLIGHTLY CLOUDY A Urine pH 7.0 Urine Specific 1.008 [place] Urine Ketones NEGATIVE Urine Nitrite NEGATIVE Urine Bilirubin NEGATIVE Urine 1+ H Urobilinogen Urine Leukocyte 3+ H Esterase Urine Microscopic 33 H RBC Urine Microscopic 38 H WBC Urine Squamous FEW Epithelial Cells Urine Amorphous FEW A Crystals Urine Bacteria FEW A Urine Hemoglobin 3+ H Urine Glucose NEGATIVE Urine Total NEGATIVE Protein Lactic Acid Level 1.0 0.9 Iron Level 17 L Total Iron 153 L Binding Capacity Percent Iron 11 L Saturation Ferritin 229.0 H Exam/Review of Systems Exam Vitals Vital Signs Date Temp Pulse Resp B/P (MAP) Pulse Ox O2 O2 Flow FiO2 Time Delivery Rate 04/13/19 95 12:12 04/13/19 98.6 20 137/66 98 11:44 (89) 04/13/19 Room Air 02:39 Intake and Output 04/12/19 04/12/19 04/13/19 1515:00 23:00 07:00 IntakeIntake Total 550 ml BalanceBalance 550 ml Results Results 24hrs Laboratory Tests Test 04/12/19 20:04 04/12/19 20:08 04/12/19 20:09 04/12/19 20:10 Urine NEGATIVE Test Prothrombin Time 14.6 Prothrombin Time 1.1 Ratio INR International 1.13 Normalized Ratio Activated 31.8 Partial Thrombopl ast Time Sodium Level 134 L Potassium Level 4.0 Chloride Level 100 Carbon Dioxide 25 Level Anion Gap 9 Blood Urea 10 Nitrogen Creatinine 0.92 Est Glomerular > 60 Filtrat Rate mL/min Glucose Level 127 Calcium Level 9.2 Total Bilirubin 0.6 Direct Bilirubin 0.00 Indirect 0.6 Bilirubin Aspartate Amino 18 Transf (AST/SGOT) Alanine < 6 L Aminotransferase (ALT/SGPT) Alkaline 135 H Phosphatase Troponin I < 0.012 Total Protein 10.0 H Albumin 3.5 Globulin 6.50 H Albumin/Globulin 0.53 Ratio POC Venous 1.9 Lactate White Blood Count 25.6 H Red Blood Count 3.44 L Hemoglobin 7.4 L Hematocrit 26.4 L Mean Corpuscular 76.7 L Volume Mean Corpuscular 21.5 L Hemoglobin Mean Corpuscular 28.0 L Hemoglobin Concen t Red Cell 20.0 H Distribution Width Platelet Count 834 H Mean Platelet 8.5 Volume Immature 0.800 H Granulocytes % Neutrophils % Segmented 67 Neutrophils % (Manual) Band Neutrophils 3 % (Manual) Lymphocytes % Lymphocytes % 27 (Manual) Monocytes % Monocytes % 3 (Manual) Eosinophils % Basophils % Nucleated Red 0.0 Blood Cells % Immature 0.200 H Granulocytes # Neutrophils # Neutrophils # 17.3 H (Manual) Band Neutrophils 0.7 H # Lymphocytes 6.9 H (Manual) Lymphocytes # Monocytes # Monocytes # 0.7 (Manual) Eosinophils # Basophils # Nucleated Red Blood Cells # Pathologist YES Review (Hematolog y) Platelet Estimate INCREASED Giant Platelets 2 H Polychromasia 3+ Hypochromasia 1+ Poikilocytosis 1+ Anisocytosis 2+ Microcytosis 1+ Test 04/12/19 21:08 04/13/19 00:53 04/13/19 05:07 Urine Color YELLOW Urine Clarity SLIGHTLY CLOUDY A Urine pH 7.0 Urine Specific 1.008 [place] Urine Ketones NEGATIVE Urine Nitrite NEGATIVE Urine Bilirubin NEGATIVE Urine 1+ H Urobilinogen Urine Leukocyte 3+ H Esterase Urine Microscopic 33 H RBC Urine Microscopic 38 H WBC Urine Squamous FEW Epithelial Cells Urine Amorphous FEW A Crystals Urine Bacteria FEW A Urine Hemoglobin 3+ H Urine Glucose NEGATIVE Urine Total NEGATIVE Protein Lactic Acid Level 1.0 0.9 Iron Level 17 L Total Iron 153 L Binding Capacity Percent Iron 11 L Saturation Ferritin 229.0 H Medications Medication Current Medications Ondansetron HCl (Zofran Inj) 4 mg ER BRIDGE PRN IV NAUSEA/VOMITING; Start 04/13/19 at 00:00; Stop 04/13/19 at 23:59 Acetaminophen (Tylenol Tab) 650 mg ER BRIDGE PRN PO .MILD PAIN 1-3 OR TEMP; Start 04/13/19 at 00:00; Stop 04/13/19 at 23:59 Sodium Chloride 1,000 ml @ 100 mls/hr Q10H IV Last administered on 04/13/19at 10:42; Admin Dose 100 MLS/HR; Start 04/13/19 at 00:04 IV Flush (NS 3 ml) 3 ml PER PROTOCOL IV ; Start 04/13/19 at 00:30 Ondansetron HCl (Zofran Inj) 4 mg Q6H PRN IV NAUSEA/VOMITING; Start 04/13/19 at 00:30 Acetaminophen (Tylenol Tab) 650 mg Q6H PRN PO .PAIN 1-3 OR TEMP; Start 04/13/19 at 00:30 Hydromorphone HCl (Dilaudid) 0.5 mg Q4H PRN IV .PAIN 7-10; Start 04/13/19 at 00:30 Docusate Sodium (Colace) 100 mg Q12H PRN PO .CONSTIPATION; Start 04/13/19 at 00:30 Bisacodyl (Dulcolax) 5 mg DAILY PRN PO .CONSTIPATION; Start 04/13/19 at 00:30 Ceftriaxone Sodium 50 ml @ 100 mls/hr Q24H IVPB Last administered on 04/13/19at 03:45; Admin Dose 100 MLS/HR; Start 04/13/19 at 04:00 Tamsulosin HCl (Flomax) 0.4 mg HS PO ; Start 04/13/19 at 21:00 VIVEK PADGETT NP April 13, 2019 15:17
[2019-04-13] MEDS: SOD FERRIC GLUC COMPLX 125 MG in SOD CHLORIDE 0.9% 100 ML IVPB SCH (17:21)
--- NOTE | 2019-04-13 20:03 | CONS ---
Assessment/Plan Assessment/Plan Hospital Course (Demo Recall) 38-year-old female presented to the emergency room with a 3 days history of right flank pain , nausea and dysuria. She underwent a CT scan of the abdomen and pelvis and that showed: 1. Enlarged right kidney with severe right-sided hydronephrosis. There is a large 2.2 x 1.5 cm staghorn calculus within the right renal pelvis. Large amount of right perinephric fatty stranding and fluid is noted. Findings may be chronic. Findings suggestive of obstructive uropathy and underlying infection. 2. Multiple retroperitoneal aortocaval lymph nodes are noted, probably reactive. 3. No evidence of bowel obstruction. Stool filled loops of large bowel suggestive of constipation. 4. There is left kidney is unremarkable. Patient denies any prior history of kidney stone. She is a 3 para 3. Her youngest child is 2 years old and she denies having any kidney problem during her . Presently she is comfortable and has no severe pain. Her white count is very high. On the exam there is no flank tenderness. She has morbid obesity and weighs 264 pounds (120kg) Impression right renal stone measuring 2.2 x 1.5 cm. Pyelonephritis and urinary tract infection Plan: Continue the antibiotic, await results of urine culture, if her white count comes down and she responds to the antibiotic then she could be discharged on oral antibiotics and follow-up as an outpatient with [facility]. If however her white count remains high and she continues to have fever then we may have to do a cystoscopy and to put the JJ stent to drain the kidney. And at a later date deal was a stone. We could not break the stone when she is infected. And most likely to remove her stone she will need ureteroscopy and laser lithotripsy. She may not be a candidate for extracorporeal shockwave lithotripsy or for percutaneous nephrostolithotomy and that is because of her excessive weight which is mostly in her abdomen. Consultation Date/Type/Reason Admit Date/Time Date of Consultation: April 13, 2019 Type of Consult Urology Reason for Consultation Right renal staghorn calculus Requesting Provider: BETH MON Date/Time of Note DATE: 04/13/19 TIME: 19:51 Hx of Present Illness 38-year-old female presented to the emergency room with a 3 days history of right flank pain , nausea and dysuria. She underwent a CT scan of the abdomen and pelvis and that showed: 1. Enlarged right kidney with severe right-sided hydronephrosis. There is a large 2.2 x 1.5 cm staghorn calculus within the right renal pelvis. Large amount of right perinephric fatty stranding and fluid is noted. Findings may be chroni c. Findings suggestive of obstructive uropathy and underlying infection. 2. Multiple retroperitoneal aortocaval lymph nodes are noted, probably reactive. 3. No evidence of bowel obstruction. Stool filled loops of large bowel suggestive of constipation. 4. There is left kidney is unremarkable. Patient denies any prior history of kidney stone. She is a 3 para 3. Her youngest child is 2 years old and she denies having any kidney problem during her . Constitutional: febrile (She states that she did not feel febrile however when she came in she had fever) Eyes: no complaints ENT: no complaints Respiratory: other (History of asthma last asthmatic attack was at age 14) Cardiovascular: no complaints Gastrointestinal: nausea; No vomiting Genitourinary: flank pain (Right side) Musculoskeletal: no complaints Skin: no complaints Neurologic: no complaints Endocrine: no complaints Immunologic: no complaints Past Medical History Medical History: other (Morbid obesity and anemia) Home Meds Active Scripts Ibuprofen* (Motrin*) 600 Mg Tab, 600 MG PO Q6H PRN for PAIN AND OR ELEVATED TEMP, #30 TAB Prov:ELIF BARON NP 03/04/18 Discontinued Scripts Cephalexin* (Keflex*) 500 Mg Capsule, 500 MG PO TID for 7 Days, CAP Prov:SHAKEEL MCKINLEY PA-C 03/05/19 Amoxicillin* (Amoxicillin*) 500 Mg Cap, 500 MG PO TID for 10 Days, CAP Prov:ELIF BARON NP 03/04/18 Medications Current Medications Ondansetron HCl (Zofran Inj) 4 mg ER BRIDGE PRN IV NAUSEA/VOMITING; Start 04/13/19 at 00:00; Stop 04/13/19 at 23:59 Acetaminophen (Tylenol Tab) 650 mg ER BRIDGE PRN PO .MILD PAIN 1-3 OR TEMP; Start 04/13/19 at 00:00; Stop 04/13/19 at 23:59 Sodium Chloride 1,000 ml @ 100 mls/hr Q10H IV Last administered on 04/13/19at 10:42; Admin Dose 100 MLS/HR; Start 04/13/19 at 00:04 IV Flush (NS 3 ml) 3 ml PER PROTOCOL IV ; Start 04/13/19 at 00:30 Ondansetron HCl (Zofran Inj) 4 mg Q6H PRN IV NAUSEA/VOMITING; Start 04/13/19 at 00:30 Acetaminophen (Tylenol Tab) 650 mg Q6H PRN PO .PAIN 1-3 OR TEMP; Start 04/13/19 at 00:30 Hydromorphone HCl (Dilaudid) 0.5 mg Q4H PRN IV .PAIN 7-10; Start 04/13/19 at 00:30 Docusate Sodium (Colace) 100 mg Q12H PRN PO .CONSTIPATION; Start 04/13/19 at 00:30 Bisacodyl (Dulcolax) 5 mg DAILY PRN PO .CONSTIPATION; Start 04/13/19 at 00:30 Ceftriaxone Sodium 50 ml @ 100 mls/hr Q24H IVPB Last administered on 04/13/19at 03:45; Admin Dose 100 MLS/HR; Start 04/13/19 at 04:00 Tamsulosin HCl (Flomax) 0.4 mg HS PO ; Start 04/13/19 at 21:00 Ferric Sodium Gluconate Complex 125 mg/Sodium Chloride 100 ml @ 100 mls/hr DAILY@1300 IVPB Last administered on 04/13/19at 17:21; Admin Dose 100 MLS/HR; Start 04/13/19 at 17:30; Stop 04/15/19 at 13:59 Allergies: Coded Allergies: No Known Allergy (Unverified , 04/12/19) Past Surgical History Past Surgical Hx: no surgical history Social History Alcohol Use: none Smoking Status: Unknown if ever smoked Drug Use: none Exam/Review of Systems Exam Vitals Vital Signs Date Temp Pulse Resp B/P (MAP) Pulse Ox O2 O2 Flow FiO2 Time Delivery Rate 04/13/19 96 16:02 04/13/19 98.6 20 145/75 97 15:28 (98) 04/13/19 Room Air 02:39 Intake and Output 04/12/19 04/12/19 04/13/19 1515:00 23:00 07:00 IntakeIntake Total 550 ml BalanceBalance 550 ml Constitutional: alert, oriented Psych: no complaints Head: normocephalic Eyes: nl conjunctiva ENMT: nl external ears & nose Neck: supple Respiratory: normal air movement; No wheezing Cardiovascular: No jugular venous distention (JVD) Gastrointestinal: soft; No mass Genitourinary - Female: No CVA tenderness (At the moment there was no flank tenderness) Musculoskeletal: nl extremities to inspection Extremities: No calf tenderness Neurological: nl mental status Results Result Diagram: 04/12/19200904/12/192007 Results 24hrs Laboratory Tests Test 04/12/19 20:04 04/12/19 20:08 04/12/19 20:09 04/12/19 20:10 Urine NEGATIVE Test Prothrombin Time 14.6 Prothrombin Time 1.1 Ratio INR International 1.13 Normalized Ratio Activated 31.8 Partial Thrombopl ast Time Sodium Level 134 L Potassium Level 4.0 Chloride Level 100 Carbon Dioxide 25 Level Anion Gap 9 Blood Urea 10 Nitrogen Creatinine 0.92 Est Glomerular > 60 Filtrat Rate mL/min Glucose Level 127 Calcium Level 9.2 Total Bilirubin 0.6 Direct Bilirubin 0.00 Indirect 0.6 Bilirubin Aspartate Amino 18 Transf (AST/SGOT) Alanine < 6 L Aminotransferase (ALT/SGPT) Alkaline 135 H Phosphatase Troponin I < 0.012 Total Protein 10.0 H Albumin 3.5 Globulin 6.50 H Albumin/Globulin 0.53 Ratio POC Venous 1.9 Lactate White Blood Count 25.6 H Red Blood Count 3.44 L Hemoglobin 7.4 L Hematocrit 26.4 L Mean Corpuscular 76.7 L Volume Mean Corpuscular 21.5 L Hemoglobin Mean Corpuscular 28.0 L Hemoglobin Concen t Red Cell 20.0 H Distribution Width Platelet Count 834 H Mean Platelet 8.5 Volume Immature 0.800 H Granulocytes % Neutrophils % Segmented 67 Neutrophils % (Manual) Band Neutrophils 3 % (Manual) Lymphocytes % Lymphocytes % 27 (Manual) Monocytes % Monocytes % 3 (Manual) Eosinophils % Basophils % Nucleated Red 0.0 Blood Cells % Immature 0.200 H Granulocytes # Neutrophils # Neutrophils # 17.3 H (Manual) Band Neutrophils 0.7 H # Lymphocytes 6.9 H (Manual) Lymphocytes # Monocytes # Monocytes # 0.7 (Manual) Eosinophils # Basophils # Nucleated Red Blood Cells # Pathologist YES Review (Hematolog y) Platelet Estimate INCREASED Giant Platelets 2 H Polychromasia 3+ Hypochromasia 1+ Poikilocytosis 1+ Anisocytosis 2+ Microcytosis 1+ Test 04/12/19 21:08 04/13/19 00:53 04/13/19 05:07 Urine Color YELLOW Urine Clarity SLIGHTLY CLOUDY A Urine pH 7.0 Urine Specific 1.008 [place] Urine Ketones NEGATIVE Urine Nitrite NEGATIVE Urine Bilirubin NEGATIVE Urine 1+ H Urobilinogen Urine Leukocyte 3+ H Esterase Urine Microscopic 33 H RBC Urine Microscopic 38 H WBC Urine Squamous FEW Epithelial Cells Urine Amorphous FEW A Crystals Urine Bacteria FEW A Urine Hemoglobin 3+ H Urine Glucose NEGATIVE Urine Total NEGATIVE Protein Lactic Acid Level 1.0 0.9 Iron Level 17 L Total Iron 153 L Binding Capacity Percent Iron 11 L Saturation Ferritin 229.[address] scan of the abdomen and pelvis: 1. Enlarged right kidney with severe right-sided hydronephrosis. There is a large 2.2 x 1.5 cm staghorn calculus within the right renal pelvis. Large amount of right perinephric fatty stranding and fluid is noted. Findings may be c hronic. Findings suggestive of obstructive uropathy and underlying infection. 2. Multiple retroperitoneal aortocaval lymph nodes are noted, probably reactive. 3. No evidence of bowel obstruction. Stool filled loops of large bowel suggestive of constipation. 4. There is left kidney is unremarkable. Medications Medication Current Medications Ondansetron HCl (Zofran Inj) 4 mg ER BRIDGE PRN IV NAUSEA/VOMITING; Start 04/13/19 at 00:00; Stop 04/13/19 at 23:59 Acetaminophen (Tylenol Tab) 650 mg ER BRIDGE PRN PO .MILD PAIN 1-3 OR TEMP; Start 04/13/19 at 00:00; Stop 04/13/19 at 23:59 Sodium Chloride 1,000 ml @ 100 mls/hr Q10H IV Last administered on 04/13/19at 10:42; Admin Dose 100 MLS/HR; Start 04/13/19 at 00:04 IV Flush (NS 3 ml) 3 ml PER PROTOCOL IV ; Start 04/13/19 at 00:30 Ondansetron HCl (Zofran Inj) 4 mg Q6H PRN IV NAUSEA/VOMITING; Start 04/13/19 at 00:30 Acetaminophen (Tylenol Tab) 650 mg Q6H PRN PO .PAIN 1-3 OR TEMP; Start 04/13/19 at 00:30 Hydromorphone HCl (Dilaudid) 0.5 mg Q4H PRN IV .PAIN 7-10; Start 04/13/19 at 00:30 Docusate Sodium (Colace) 100 mg Q12H PRN PO .CONSTIPATION; Start 04/13/19 at 00:30 Bisacodyl (Dulcolax) 5 mg DAILY PRN PO .CONSTIPATION; Start 04/13/19 at 00:30 Ceftriaxone Sodium 50 ml @ 100 mls/hr Q24H IVPB Last administered on 04/13/19at 03:45; Admin Dose 100 MLS/HR; Start 04/13/19 at 04:00 Tamsulosin HCl (Flomax) 0.4 mg HS PO ; Start 04/13/19 at 21:00 Ferric Sodium Gluconate Complex 125 mg/Sodium Chloride 100 ml @ 100 mls/hr DAILY@1300 IVPB Last administered on 04/13/19at 17:21; Admin Dose 100 MLS/HR; Start 04/13/19 at 17:30; Stop 04/15/19 at 13:59 CORTNEY PETTY MD April 13, 2019 20:03
[2019-04-13] MEDS ORDERED: TAMSULOSIN (SR) 0.4 MG CAP PO SCH (21:00)
[2019-04-14 02:21] VITALS: BP 137/73; PULSE 116; RESP 20
[2019-04-14] MEDS: CEFTRIAXONE 2 GM/50 ML (PMX) 50 ML IVPB SCH (03:46)
[2019-04-14] MEDS ORDERED: SOD CHLORIDE 0.9% 250 ML IV* ONE (07:51)
[2019-04-14 08:13] VITALS: BP 137/73; PULSE 120; RESP 22
[2019-04-14] MEDS: SOD FERRIC GLUC COMPLX 125 MG in SOD CHLORIDE 0.9% 100 ML IVPB SCH (14:16)
[2019-04-14 15:06] VITALS: BP 123/57; PULSE 113; RESP 20
[2019-04-14] MEDS: SOD CHLORIDE 0.9% 1,000 ML IV SCH ×2 (16:04→20:00)
--- NOTE | 2019-04-14 17:24 | PN ---
Date/Time of Note Date/Time of Note DATE: 04/14/19 TIME: 17:21 Assessment/Plan VTE Prophylaxis Risk score (from Ns)>0 risk: 1 SCD applied (from [facility] [place] SCD contraindicated: other Pharmacological prophylaxis: NA/contraindicated Pharm contraindication: other Lines/Catheters IV Catheter Type (from [facility]): Peripheral IV Urinary Cath still in place: No Assessment/Plan Hospital Course SUBJECTIVE: Denies any abdominal pain or flank pain. Remains afebrile. OBJECTIVE: Physical Exam General: Morbidly obese 38 year-old female lying in bed in no apparent distress. HEENT: Normocephalic, atraumatic. Eyes: Anicteric sclerae, conjunctivae clear. ENT: Nasal septum midline, oral mucosa moist. Neck: Short and obese. Respiratory: Bilaterally clear breath sounds. No use of accessory muscles of respiration. No adventitious breath sounds. Cardiovascular: S1, S2 heard. Regular rate and rhythm. Abdomen: Soft, nontender, and nondistended. Bowel sounds positive in all 4 quadrants. Genitourinary: Deferred. Extremities: No cyanosis, no clubbing, no edema. Peripheral pulses palpable. Neurologic: Cranial nerves II through XII grossly intact. The patient is awake, alert, and oriented. Skin: Normal skin turgor. No skin rashes. Labs & Vitals per chart ASSESSMENT & PLAN This is a 28-year-old female with comorbidities including obesity and asthma who presented to the emergency room with chief complaint of dysuria, lower back pain with CT scan showing severe right-sided hydronephrosis with a 2.2 x 1.5 cm staghorn calculus within the right renal pelvis. 1. Sepsis with leukocytosis, febrile illness, and tachycardia, present on admission. -Urine culture positive for Gram-negative rods. -Continue empiric antimicrobials. -Continue IV fluids. 2. Complicated urinary tract infection. -Urine culture positive for gram-negative rods with colony count more than 100,000 CFU per mL. -Continue empiric antimicrobials. -Await final cultures. 3. 2.2 x 1.5 cm staghorn calculus within the right renal pelvis. -Continue IV hydration. -Continue Flomax. -Urology following. -Continue pain control. 3. Microcytic, hypochromic anemia. -Iron panel showing iron deficiency. -On iron supplements. -2 units of PRBC ordered. -Obtain fecal occult blood. 4. Morbid obesity. -BMI of more than 45 kg/m. -Weight reduction advised. 5. History of asthma. -No evidence of any exacerbation. 6. Fluids, electrolytes, and nutrition. -Regular diet. 7. DVT prophylaxis -Bilateral SCDs. 8. Plan. -Continue empiric antimicrobials. -Continue pain control. -Continue IV hydration. -Await further urology inputs. The patient was seen in collaboration with Dr. Mc. Result Diagram: 04/14/19 0611 04/14/19 0439 Results 24hrs Laboratory Tests Test 04/14/19 04:39 04/14/19 06:11 White Blood Count 14.9 #H 16.5 H Red Blood Count 2.77 L 2.93 L Hemoglobin 6.0 *L 6.3 *L Hematocrit 21.6 L 22.7 L Mean Corpuscular Volume 78.0 L 77.5 L Mean Corpuscular Hemoglobin 21.7 L 21.5 L Mean Corpuscular Hemoglobin Concent 27.8 L 27.8 L Red Cell Distribution Width 19.9 H 19.9 H Platelet Count 583 #H 605 H Mean Platelet Volume 8.6 8.4 Immature Granulocytes % 0.600 H 0.700 H Neutrophils % 68.4 64.9 Segmented Neutrophils % (Manual) 65 70 Band Neutrophils % (Manual) 2 Lymphocytes % 23.4 26.8 Lymphocytes % (Manual) 27 29 Monocytes % 6.7 6.7 Monocytes % (Manual) 6 Eosinophils % 0.5 0.5 Basophils % 0.4 0.4 Nucleated Red Blood Cells % 0.0 0.0 Immature Granulocytes # 0.090 H 0.120 H Neutrophils # 10.2 H 10.7 H Neutrophils # (Manual) 9.7 H Band Neutrophils # 0.2 Lymphocytes (Manual) 4.0 H 4.7 H Lymphocytes # 3.5 H 4.4 H Monocytes # 1.0 H 1.1 H Monocytes # (Manual) 0.8 Eosinophils # 0.1 0.1 Basophils # 0.1 0.1 Nucleated Red Blood Cells # 0.0 0.0 Platelet Estimate INCREASED INCREASED Giant Platelets 1 H 1 H Polychromasia 2+ 2+ Hypochromasia 1+ 2+ Anisocytosis 1+ 1+ Microcytosis 1+ 1+ Sodium Level 136 Potassium Level 3.8 Chloride Level 105 Carbon Dioxide Level 24 Anion Gap 7 Blood Urea Nitrogen 6 L Creatinine 0.71 Est Glomerular Filtrat Rate mL/min > 60 Glucose Level 99 Hemoglobin A1c Calcium Level 8.2 L Phosphorus Level 3.9 Magnesium Level 1.9 Total Bilirubin 0.3 Direct Bilirubin 0.00 Indirect Bilirubin 0.3 Aspartate Amino Transf (AST/SGOT) 22 Alanine Aminotransferase (ALT/SGPT) < 6 L Alkaline Phosphatase 111 Total Protein 7.8 # Albumin 2.8 L Globulin 5.00 H Albumin/Globulin Ratio 0.56 Triglycerides Level 101 Cholesterol Level 100 LDL Cholesterol, Calculated 66 HDL Cholesterol 14 L Cholesterol/HDL Ratio 7.1 Thyroid Stimulating Hormone (TSH) 2.360 Eosinophils % (Manual) 1 Pathologist Review (Hematology) YES Spherocytes 1+ Exam/Review of Systems Exam Vitals Vital Signs Date Temp Pulse Resp B/P (MAP) Pulse Ox O2 O2 Flow FiO2 Time Delivery Rate 04/14/19 98.9 113 20 123/57 98 15:06 (79) 04/13/19 Room Air 02:39 Intake and Output 04/13/19 04/13/19 04/14/19 1515:00 23:00 07:00 IntakeIntake Total 750 ml 1700 ml 700 ml BalanceBalance 750 ml 1700 ml 700 ml Results Results 24hrs Laboratory Tests Test 04/14/19 04:39 04/14/19 06:11 White Blood Count 14.9 #H 16.5 H Red Blood Count 2.77 L 2.93 L Hemoglobin 6.0 *L 6.3 *L Hematocrit 21.6 L 22.7 L Mean Corpuscular Volume 78.0 L 77.5 L Mean Corpuscular Hemoglobin 21.7 L 21.5 L Mean Corpuscular Hemoglobin Concent 27.8 L 27.8 L Red Cell Distribution Width 19.9 H 19.9 H Platelet Count 583 #H 605 H Mean Platelet Volume 8.6 8.4 Immature Granulocytes % 0.600 H 0.700 H Neutrophils % 68.4 64.9 Segmented Neutrophils % (Manual) 65 70 Band Neutrophils % (Manual) 2 Lymphocytes % 23.4 26.8 Lymphocytes % (Manual) 27 29 Monocytes % 6.7 6.7 Monocytes % (Manual) 6 Eosinophils % 0.5 0.5 Basophils % 0.4 0.4 Nucleated Red Blood Cells % 0.0 0.0 Immature Granulocytes # 0.090 H 0.120 H Neutrophils # 10.2 H 10.7 H Neutrophils # (Manual) 9.7 H Band Neutrophils # 0.2 Lymphocytes (Manual) 4.0 H 4.7 H Lymphocytes # 3.5 H 4.4 H Monocytes # 1.0 H 1.1 H Monocytes # (Manual) 0.8 Eosinophils # 0.1 0.1 Basophils # 0.1 0.1 Nucleated Red Blood Cells # 0.0 0.0 Platelet Estimate INCREASED INCREASED Giant Platelets 1 H 1 H Polychromasia 2+ 2+ Hypochromasia 1+ 2+ Anisocytosis 1+ 1+ Microcytosis 1+ 1+ Sodium Level 136 Potassium Level 3.8 Chloride Level 105 Carbon Dioxide Level 24 Anion Gap 7 Blood Urea Nitrogen 6 L Creatinine 0.71 Est Glomerular Filtrat Rate mL/min > 60 Glucose Level 99 Hemoglobin A1c Calcium Level 8.2 L Phosphorus Level 3.9 Magnesium Level 1.9 Total Bilirubin 0.3 Direct Bilirubin 0.00 Indirect Bilirubin 0.3 Aspartate Amino Transf (AST/SGOT) 22 Alanine Aminotransferase (ALT/SGPT) < 6 L Alkaline Phosphatase 111 Total Protein 7.8 # Albumin 2.8 L Globulin 5.00 H Albumin/Globulin Ratio 0.56 Triglycerides Level 101 Cholesterol Level 100 LDL Cholesterol, Calculated 66 HDL Cholesterol 14 L Cholesterol/HDL Ratio 7.1 Thyroid Stimulating Hormone (TSH) 2.360 Eosinophils % (Manual) 1 Pathologist Review (Hematology) YES Spherocytes 1+ Medications Medication Current Medications Sodium Chloride 1,000 ml @ 100 mls/hr Q10H IV Last administered on 04/13/19at 22:26; Admin Dose 100 MLS/HR; Start 04/13/19 at 00:04 IV Flush (NS 3 ml) 3 ml PER PROTOCOL IV ; Start 04/13/19 at 00:30 Ondansetron HCl (Zofran Inj) 4 mg Q6H PRN IV NAUSEA/VOMITING; Start 04/13/19 at 00:30 Acetaminophen (Tylenol Tab) 650 mg Q6H PRN PO .PAIN 1-3 OR TEMP; Start 04/13/19 at 00:30 Hydromorphone HCl (Dilaudid) 0.5 mg Q4H PRN IV .PAIN 7-10; Start 04/13/19 at 00:30 Docusate Sodium (Colace) 100 mg Q12H PRN PO .CONSTIPATION; Start 04/13/19 at 00:30 Bisacodyl (Dulcolax) 5 mg DAILY PRN PO .CONSTIPATION; Start 04/13/19 at 00:30 Ceftriaxone Sodium 50 ml @ 100 mls/hr Q24H IVPB Last administered on 04/14/19at 03:46; Admin Dose 100 MLS/HR; Start 04/13/19 at 04:00 Tamsulosin HCl (Flomax) 0.4 mg HS PO Last administered on 04/13/19at 21:33; Admin Dose 0.4 MG; Start 04/13/19 at 21:00 Ferric Sodium Gluconate Complex 125 mg/Sodium Chloride 100 ml @ 100 mls/hr DAILY@1300 IVPB Last administered on 04/14/19at 14:16; Admin Dose 100 MLS/HR; Start 04/13/19 at 17:30; Stop 04/15/19 at 13:59 VIVEK PADGETT NP April 14, 2019 17:24
--- NOTE | 2019-04-14 19:13 | CONS ---
Consult Date/Type/Reason Admit Date/Time April 12, 2019 at 23:42 Initial Consult Date 04/13/19 Type of Consultation: Urology Reason for Consultation Right renal stone and urinary tract infection Requesting Provider: BETH MON Date/Time of Note DATE: 04/14/19 TIME: 19:10 Subjective The patient states that she is feeling better, she has no pain and she denies any dysuria Objective Vitals Vital Signs Date Temp Pulse Resp B/P (MAP) Pulse Ox O2 O2 Flow FiO2 Time Delivery Rate 04/14/19 98.9 113 20 123/57 98 15:06 (79) 04/13/19 Room Air 02:39 Intake and Output 04/13/19 04/13/19 04/14/19 1515:00 23:00 07:00 IntakeIntake Total 750 ml 1700 ml 700 ml BalanceBalance 750 ml 1700 ml 700 ml Exam Obese abdomen, there is no flank tenderness. Urine culture showing 100,000 colony per mL of gram-negative rods. Results/Medications Result Diagram: 04/14/19 0611 04/14/19 0439 Results 24 hrs Laboratory Tests Test 04/14/19 04:39 04/14/19 06:11 White Blood Count 14.9 #H 16.5 H Red Blood Count 2.77 L 2.93 L Hemoglobin 6.0 *L 6.3 *L Hematocrit 21.6 L 22.7 L Mean Corpuscular Volume 78.0 L 77.5 L Mean Corpuscular Hemoglobin 21.7 L 21.5 L Mean Corpuscular Hemoglobin Concent 27.8 L 27.8 L Red Cell Distribution Width 19.9 H 19.9 H Platelet Count 583 #H 605 H Mean Platelet Volume 8.6 8.4 Immature Granulocytes % 0.600 H 0.700 H Neutrophils % 68.4 64.9 Segmented Neutrophils % (Manual) 65 70 Band Neutrophils % (Manual) 2 Lymphocytes % 23.4 26.8 Lymphocytes % (Manual) 27 29 Monocytes % 6.7 6.7 Monocytes % (Manual) 6 Eosinophils % 0.5 0.5 Basophils % 0.4 0.4 Nucleated Red Blood Cells % 0.0 0.0 Immature Granulocytes # 0.090 H 0.120 H Neutrophils # 10.2 H 10.7 H Neutrophils # (Manual) 9.7 H Band Neutrophils # 0.2 Lymphocytes (Manual) 4.0 H 4.7 H Lymphocytes # 3.5 H 4.4 H Monocytes # 1.0 H 1.1 H Monocytes # (Manual) 0.8 Eosinophils # 0.1 0.1 Basophils # 0.1 0.1 Nucleated Red Blood Cells # 0.0 0.0 Platelet Estimate INCREASED INCREASED Giant Platelets 1 H 1 H Polychromasia 2+ 2+ Hypochromasia 1+ 2+ Anisocytosis 1+ 1+ Microcytosis 1+ 1+ Sodium Level 136 Potassium Level 3.8 Chloride Level 105 Carbon Dioxide Level 24 Anion Gap 7 Blood Urea Nitrogen 6 L Creatinine 0.71 Est Glomerular Filtrat Rate mL/min > 60 Glucose Level 99 Hemoglobin A1c Calcium Level 8.2 L Phosphorus Level 3.9 Magnesium Level 1.9 Total Bilirubin 0.3 Direct Bilirubin 0.00 Indirect Bilirubin 0.3 Aspartate Amino Transf (AST/SGOT) 22 Alanine Aminotransferase (ALT/SGPT) < 6 L Alkaline Phosphatase 111 Total Protein 7.8 # Albumin 2.8 L Globulin 5.00 H Albumin/Globulin Ratio 0.56 Triglycerides Level 101 Cholesterol Level 100 LDL Cholesterol, Calculated 66 HDL Cholesterol 14 L Cholesterol/HDL Ratio 7.1 Thyroid Stimulating Hormone (TSH) 2.360 Eosinophils % (Manual) 1 Pathologist Review (Hematology) YES Spherocytes 1+ Home Meds Active Scripts Ibuprofen* (Motrin*) 600 Mg Tab, 600 MG PO Q6H PRN for PAIN AND OR ELEVATED TEMP, #30 TAB Prov:ELIF BARON NP 03/04/18 Discontinued Scripts Cephalexin* (Keflex*) 500 Mg Capsule, 500 MG PO TID for 7 Days, CAP Prov:SHAKEEL MCKINLEY PA-C 03/05/19 Amoxicillin* (Amoxicillin*) 500 Mg Cap, 500 MG PO TID for 10 Days, CAP Prov:ELIF BRAON NP 03/04/18 Medications Current Medications Sodium Chloride 1,000 ml @ 100 mls/hr Q10H IV Last administered on 04/13/19at 22:26; Admin Dose 100 MLS/HR; Start 04/13/19 at 00:04 IV Flush (NS 3 ml) 3 ml PER PROTOCOL IV ; Start 04/13/19 at 00:30 Ondansetron HCl (Zofran Inj) 4 mg Q6H PRN IV NAUSEA/VOMITING; Start 04/13/19 at 00:30 Acetaminophen (Tylenol Tab) 650 mg Q6H PRN PO .PAIN 1-3 OR TEMP; Start 04/13/19 at 00:30 Hydromorphone HCl (Dilaudid) 0.5 mg Q4H PRN IV .PAIN 7-10; Start 04/13/19 at 00:30 Docusate Sodium (Colace) 100 mg Q12H PRN PO .CONSTIPATION; Start 04/13/19 at 00:30 Bisacodyl (Dulcolax) 5 mg DAILY PRN PO .CONSTIPATION; Start 04/13/19 at 00:30 Ceftriaxone Sodium 50 ml @ 100 mls/hr Q24H IVPB Last administered on 04/14/19at 03:46; Admin Dose 100 MLS/HR; Start 04/13/19 at 04:00 Ferric Sodium Gluconate Complex 125 mg/Sodium Chloride 100 ml @ 100 mls/hr DAILY@1300 IVPB Last administered on 04/14/19at 14:16; Admin Dose 100 MLS/HR; Start 04/13/19 at 17:30; Stop 04/15/19 at 13:59 Assessment/Plan Hospital Course (Demo Recall) 38-year-old female presented to the emergency room with a 3 days history of right flank pain , nausea and dysuria. She underwent a CT scan of the abdomen and pelvis and that showed: 1. Enlarged right kidney with severe right-sided hydronephrosis. There is a large 2.2 x 1.5 cm staghorn calculus within the right renal pelvis. Large amount of right perinephric fatty stranding and fluid is noted. Findings may be chronic. Findings suggestive of obstructive uropathy and underlying infection. 2. Multiple retroperitoneal aortocaval lymph nodes are noted, probably reactive. 3. No evidence of bowel obstruction. Stool filled loops of large bowel suggestive of constipation. 4. There is left kidney is unremarkable. Patient denies any prior history of kidney stone. She is a 3 para 3. Her youngest child is 2 years old and she denies having any kidney problem during her . Presently she is comfortable and has no severe pain. Her white count is very high. On the exam there is no flank tenderness. She has morbid obesity and weighs 264 pounds (120kg) Impression right renal stone measuring 2.2 x 1.5 cm. Pyelonephritis and urinary tract infection Plan: Continue the antibiotic, urine culture did show 100,000 colony per mL of gram-negative rods, sensitivities pending. Because of her severe anemia she is getting blood transfusions today. Her white count did go up a little to 16.5. CORTNEY PETTY MD April 14, 2019 19:13
[2019-04-14 19:49] VITALS: BP 128/62; PULSE 117; RESP 20
[2019-04-15 01:47] VITALS: BP 127/59; PULSE 115; RESP 16
[2019-04-15] MEDS: CEFTRIAXONE 2 GM/50 ML (PMX) 50 ML IVPB SCH (04:02)
[2019-04-15] MEDS: SOD CHLORIDE 0.9% 1,000 ML IV SCH ×3 (05:53→18:58)
[2019-04-15 07:39] VITALS: BP 119/56; PULSE 114; RESP 18
[2019-04-15] MEDS: SOD FERRIC GLUC COMPLX 125 MG in SOD CHLORIDE 0.9% 100 ML IVPB SCH (14:12)
[2019-04-15 14:31] VITALS: BP 146/65; PULSE 120; RESP 18
--- NOTE | 2019-04-15 15:26 | PN ---
Date/Time of Note Date/Time of Note DATE: 04/15/19 TIME: 15:24 Assessment/Plan VTE Prophylaxis Risk score (from Ns)>0 risk: 1 SCD applied (from Ns): Yes Pharmacological prophylaxis: NA/contraindicated Pharm contraindication: low risk/ambulating Lines/Catheters IV C[facility]ter Type (from [facility]): Peripheral IV Urinary Cath still in place: No Assessment/Plan Hospital Course SUBJECTIVE: Denies any abdominal pain or flank pain. Remains afebrile. OBJECTIVE: Physical Exam General: Morbidly obese 38 year-old female lying in bed in no apparent distress. HEENT: Normocephalic, atraumatic. Eyes: Anicteric sclerae, conjunctivae clear. ENT: Nasal septum midline, oral mucosa moist. Neck: Short and obese. Respiratory: Bilaterally clear breath sounds. No use of accessory muscles of respiration. No adventitious breath sounds. Cardiovascular: S1, S2 heard. Regular rate and rhythm. Abdomen: Soft, nontender, and nondistended. Bowel sounds positive in all 4 quadrants. Genitourinary: Deferred. Extremities: No cyanosis, no clubbing, no edema. Peripheral pulses palpable. Neurologic: Cranial nerves II through XII grossly intact. The patient is awake, alert, and oriented. Skin: Normal skin turgor. No skin rashes. Labs & Vitals per chart ASSESSMENT & PLAN This is a 28-year-old female with comorbidities including obesity and asthma who presented to the emergency room with chief complaint of dysuria, lower back pain with CT scan showing severe right-sided hydronephrosis with a 2.2 x 1.5 cm staghorn calculus within the right renal pelvis. 1. Sepsis with leukocytosis, febrile illness, and tachycardia, present on admission. -Urine culture positive for Proteus mirabilis. -Continue antimicrobials as per sensitivities. -Continue IV fluids. 2. Complicated urinary tract infection. -Urine culture positive for Proteus mirabilis with colony count more than 100,000 CFU per mL. -Continue antimicrobials. 3. 2.2 x 1.5 cm staghorn calculus within the right renal pelvis. -Continue IV hydration. -Continue Flomax. -Urology following. -Continue pain control. 3. Microcytic, hypochromic anemia. -Iron panel showing iron deficiency. -On iron supplements. -S/P 2 units of PRBC on 04/14/2019. -Obtain fecal occult blood. 4. Morbid obesity. -BMI of more than 45 kg/m. -Weight reduction advised. 5. History of asthma. -No evidence of any exacerbation. 6. Fluids, electrolytes, and nutrition. -Regular diet. 7. DVT prophylaxis -Bilateral SCDs. 8. Plan. -Continue antimicrobials. -Continue pain control. -Await further urology inputs. The patient was seen in collaboration with Dr. Mc. Result Diagram: 04/15/1942704/15/19427 Results 24hrs Laboratory Tests Test 04/15/19 04:28 White Blood Count 16.6 H Red Blood Count 3.26 L Hemoglobin 7.5 L Hematocrit 25.7 L Mean Corpuscular Volume 78.8 L Mean Corpuscular Hemoglobin 23.0 L Mean Corpuscular Hemoglobin Concent 29.2 L Red Cell Distribution Width 19.9 H Platelet Count 522 H Mean Platelet Volume 8.5 Immature Granulocytes % 0.600 H Neutrophils % 67.5 Lymphocytes % 24.3 Monocytes % 6.8 Eosinophils % 0.4 Basophils % 0.4 Nucleated Red Blood Cells % 0.0 Immature Granulocytes # 0.100 H Neutrophils # 11.2 H Lymphocytes # 4.0 H Monocytes # 1.1 H Eosinophils # 0.1 Basophils # 0.1 Nucleated Red Blood Cells # 0.0 Sodium Level 137 Potassium Level 4.0 Chloride Level 106 Carbon Dioxide Level 24 Anion Gap 7 Blood Urea Nitrogen 5 L Creatinine 0.64 Est Glomerular Filtrat Rate mL/min > 60 Glucose Level 97 Calcium Level 8.2 L Phosphorus Level 4.3 Magnesium Level 1.8 Exam/Review of Systems Exam Vitals Vital Signs Date Temp Pulse Resp B/P (MAP) Pulse Ox O2 O2 Flow FiO2 Time Delivery Rate 04/15/19 99.8 120 18 146/65 97 14:31 (92) 04/13/19 Room Air 02:39 Intake and Output 04/14/19 04/14/19 04/15/19 1515:00 23:00 07:00 IntakeIntake Total 350 ml 1680 ml 1530 ml BalanceBalance 350 ml 1680 ml 1530 ml Results Results 24hrs Laboratory Tests Test 04/15/19 04:28 White Blood Count 16.6 H Red Blood Count 3.26 L Hemoglobin 7.5 L Hematocrit 25.7 L Mean Corpuscular Volume 78.8 L Mean Corpuscular Hemoglobin 23.0 L Mean Corpuscular Hemoglobin Concent 29.2 L Red Cell Distribution Width 19.9 H Platelet Count 522 H Mean Platelet Volume 8.5 Immature Granulocytes % 0.600 H Neutrophils % 67.5 Lymphocytes % 24.3 Monocytes % 6.8 Eosinophils % 0.4 Basophils % 0.4 Nucleated Red Blood Cells % 0.0 Immature Granulocytes # 0.100 H Neutrophils # 11.2 H Lymphocytes # 4.0 H Monocytes # 1.1 H Eosinophils # 0.1 Basophils # 0.1 Nucleated Red Blood Cells # 0.0 Sodium Level 137 Potassium Level 4.0 Chloride Level 106 Carbon Dioxide Level 24 Anion Gap 7 Blood Urea Nitrogen 5 L Creatinine 0.64 Est Glomerular Filtrat Rate mL/min > 60 Glucose Level 97 Calcium Level 8.2 L Phosphorus Level 4.3 Magnesium Level 1.8 Medications Medication Current Medications Sodium Chloride 1,000 ml @ 100 mls/hr Q10H IV Last administered on 04/15/19at 05:53; Admin Dose 100 MLS/HR; Start 04/13/19 at 00:04 IV Flush (NS 3 ml) 3 ml PER PROTOCOL IV ; Start 04/13/19 at 00:30 Ondansetron HCl (Zofran Inj) 4 mg Q6H PRN IV NAUSEA/VOMITING; Start 04/13/19 at 00:30 Acetaminophen (Tylenol Tab) 650 mg Q6H PRN PO .PAIN 1-3 OR TEMP; Start 04/13/19 at 00:30 Hydromorphone HCl (Dilaudid) 0.5 mg Q4H PRN IV .PAIN 7-10; Start 04/13/19 at 00:30 Docusate Sodium (Colace) 100 mg Q12H PRN PO .CONSTIPATION; Start 04/13/19 at 00:30 Bisacodyl (Dulcolax) 5 mg DAILY PRN PO .CONSTIPATION; Start 04/13/19 at 00:30 Ceftriaxone Sodium 50 ml @ 100 mls/hr Q24H IVPB Last administered on 04/15/19at 04:02; Admin Dose 100 MLS/HR; Start 04/13/19 at 04:00 VIVEK PADGETT NP Apr 15, 2019 15:26
--- NOTE | 2019-04-15 16:22 | CONS ---
Consult Date/Type/Reason Admit Date/Time April 12, 2019 at 23:42 Initial Consult Date 04/13/19 Type of Consultation: Urology Reason for Consultation Urinary tract infection, right renal staghorn calculus and hydronephrosis Requesting Provider: BETH MON Date/Time of Note DATE: 04/15/19 TIME: 16:19 Subjective Patient states that she is feeling comfortable, she denies any dysuria and no hematuria and no flank pain Objective Vitals Vital Signs Date Temp Pulse Resp B/P (MAP) Pulse Ox O2 O2 Flow FiO2 Time Delivery Rate 04/15/19 99.8 120 18 146/65 97 14:31 (92) 04/13/19 Room Air 02:39 Intake and Output 04/14/19 04/14/19 04/15/19 1515:00 23:00 07:00 IntakeIntake Total 350 ml 1680 ml 1530 ml BalanceBalance 350 ml 1680 ml 1530 ml Exam Obese abdomen, no tenderness. Results/Medications Result Diagram: 04/15/19 0428 04/15/19 0428 Results 24 hrs Laboratory Tests Test 04/15/19 04:28 White Blood Count 16.6 H Red Blood Count 3.26 L Hemoglobin 7.5 L Hematocrit 25.7 L Mean Corpuscular Volume 78.8 L Mean Corpuscular Hemoglobin 23.0 L Mean Corpuscular Hemoglobin Concent 29.2 L Red Cell Distribution Width 19.9 H Platelet Count 522 H Mean Platelet Volume 8.5 Immature Granulocytes % 0.600 H Neutrophils % 67.5 Lymphocytes % 24.3 Monocytes % 6.8 Eosinophils % 0.4 Basophils % 0.4 Nucleated Red Blood Cells % 0.0 Immature Granulocytes # 0.100 H Neutrophils # 11.2 H Lymphocytes # 4.0 H Monocytes # 1.1 H Eosinophils # 0.1 Basophils # 0.1 Nucleated Red Blood Cells # 0.0 Sodium Level 137 Potassium Level 4.0 Chloride Level 106 Carbon Dioxide Level 24 Anion Gap 7 Blood Urea Nitrogen 5 L Creatinine 0.64 Est Glomerular Filtrat Rate mL/min > 60 Glucose Level 97 Calcium Level 8.2 L Phosphorus Level 4.3 Magnesium Level 1.8 Home Meds Active Scripts Ibuprofen* (Motrin*) 600 Mg Tab, 600 MG PO Q6H PRN for PAIN AND OR ELEVATED TEMP, #30 TAB Prov:ELIF BARON NP 03/04/18 Discontinued Scripts Cephalexin* (Keflex*) 500 Mg Capsule, 500 MG PO TID for 7 Days, CAP Prov:SHAKEEL MCKINLEY PA-C 03/05/19 Amoxicillin* (Amoxicillin*) 500 Mg Cap, 500 MG PO TID for 10 Days, CAP Prov:ELIF BARON NP 03/04/18 Medications Current Medications Sodium Chloride 1,000 ml @ 100 mls/hr Q10H IV Last administered on 04/15/19at 05:53; Admin Dose 100 MLS/HR; Start 04/13/19 at 00:04 IV Flush (NS 3 ml) 3 ml PER PROTOCOL IV ; Start 04/13/19 at 00:30 Ondansetron HCl (Zofran Inj) 4 mg Q6H PRN IV NAUSEA/VOMITING; Start 04/13/19 at 00:30 Acetaminophen (Tylenol Tab) 650 mg Q6H PRN PO .PAIN 1-3 OR TEMP; Start 04/13/19 at 00:30 Hydromorphone HCl (Dilaudid) 0.5 mg Q4H PRN IV .PAIN 7-10; Start 04/13/19 at 00:30 Docusate Sodium (Colace) 100 mg Q12H PRN PO .CONSTIPATION; Start 04/13/19 at 00:30 Bisacodyl (Dulcolax) 5 mg DAILY PRN PO .CONSTIPATION; Start 04/13/19 at 00:30 Levofloxacin/ Dextrose 150 ml @ 100 mls/hr Q24H IVPB ; Start 04/15/19 at 17:00 Assessment/Plan Hospital Course (Demo Recall) 38-year-old female presented to the emergency room with a 3 days history of right flank pain , nausea and dysuria. She underwent a CT scan of the abdomen and pelvis and that showed: 1. Enlarged right kidney with severe right-sided hydronephrosis. There is a large 2.2 x 1.5 cm staghorn calculus within the right renal pelvis. Large amount of right perinephric fatty stranding and fluid is noted. Findings may be chronic. Findings suggestive of obstructive uropathy and underlying infection. 2. Multiple retroperitoneal aortocaval lymph nodes are noted, probably reactive. 3. No evidence of bowel obstruction. Stool filled loops of large bowel suggestive of constipation. 4. There is left kidney is unremarkable. Patient denies any prior history of kidney stone. She is a 3 para 3. Her youngest child is 2 years old and she denies having any kidney problem during her . Presently she is comfortable and has no severe pain. Her white count is high. On the exam there is no flank tenderness. She has morbid obesity and weighs 264 pounds (120kg) Impression right renal stone measuring 2.2 x 1.5 cm. Pyelonephritis and urinary tract infection Plan: Continue the antibiotic, urine culture did show 100,000 colony per mL of gram-negative rods, sensitive to all antibiotic tested. Her CBC continues to show leukocytosis. She may be discharged once her white count is normal. CORTNEY PETTY MD Apr 15, 2019 16:22
[2019-04-15] MEDS: LEVOFLOXACIN 750MG/D5W (PMX) 150 ML IVPB SCH (18:46)
[2019-04-15 20:00] VITALS: BP 111/56; PULSE 127; RESP 18
[2019-04-16] MEDS: ACETAMINOPHEN 325 MG TAB PO PRN ×2 (00:23→21:35)
[2019-04-16 02:00] VITALS: BP 139/84; PULSE 118; RESP 18
[2019-04-16 07:52] VITALS: BP 124/60; PULSE 121; RESP 18
--- NOTE | 2019-04-16 14:20 | CONS ---
DATE OF ADMISSION: 04/12/2019 DATE OF CONSULTATION: 04/16/2019 TYPE OF CONSULTATION: Infectious disease. REASON FOR CONSULTATION: Antibiotic management. HISTORY OF PRESENT ILLNESS: Jade Biggs is a 38-year-old female who came to the emergency room on 04/12/2019 with right lower back pain, dysuria for 2 days' duration. Problems include: 1. Obesity. 2. Asthma. She presents with 3 days of dysuria and right lower back pain. She noted pressure-like discomfort wh ile urinating. She developed right-sided lower back pain and also suprapubic pain. She reports naus ea with an episode of vomiting. She had no fever at home, but she has fever in the emergency room wh en admitted and was also tachycardic. PAST MEDICAL HISTORY: As outlined. FAMILY HISTORY: Noncontributory. SOCIAL HISTORY: She does not smoke, drink or abuse drugs. ALLERGIES: NONE TO PENICILLIN, SULFA OR FOODS. MEDICATIONS: Per chart. REVIEW OF SYSTEMS: Noncontributory. HOSPITAL COURSE: On admission, temperature was 100.8. White count was 25.6, H and H 7.4 and 26.4, p latelet count 834,000. BUN and creatinine 10/0.92, blood sugar was 127. She had 67 neutrophils, 3% bands. The patient was started on vancomycin and cefepime. Chest x-ray showed mild left basilar sub segmental atelectasis, no consolidation, pleural effusion or pneumothorax. CT scan of the abdomen an d pelvis showed enlarged right kidney with severe right-sided hydronephrosis, has a large 2.2 x 1.5 c m staghorn calculus within the right renal pelvis, large amount of right perinephric fat stranding an d fluid is noted. Findings may be chronic, suggestive of obstructive uropathy and underlying infecti on, multiple retroperitoneal aortocaval lymph nodes are noted, probably reactive, probable constipati on. Left kidney is unremarkable. She has right flank pain and probable pyelonephritis. Currently, she was started on vancomycin and cefepime. Urine cultures are growing out Proteus mirabilis sensiti ve to virtually everything. The patient was seen by Dr. Petty on 04/13/2019. Findings are suggest jahaira of obstructive uropathy and underlying infection. PHYSICAL EXAMINATION: HEENT: Within normal limits. NECK: Supple. LYMPH NODES: None palpable. CHEST: Decreased breath sounds at the bases. HEART: Without murmur or gallop. She is tachycardic. ABDOMEN: Soft, nontender. She has mild suprapubic tenderness and right flank pain. EXTREMITIES: Without cyanosis, clubbing or edema. RECTAL AND GENITAL: Deferred. NEUROLOGIC: No focal neurological abnormality. The patient felt better on 04/14/2019. She denied pain or dysuria. White count came down to 16.5. She has urinary tract infection with right renal staghorn calculus. Currently, she is on Levaquin an d the rest of her antibiotics were discontinued. I agree with the current regimen and the question i s whether something else to be done about the staghorn calculus to see if that can be broken up with lithotripsy or with some other method. According to Dr. Petty, she may be discharged once her whit e count is within normal limits. I will dictate my findings to the hospitalist and to Dr. Suazo. Dictated By: GAYLE LOCK MD, JD/NTS Conf#: [id number] DID#: [id number] CC: BETH MON MD; CORTNEY PETTY MD;*[facility]*
--- NOTE | 2019-04-16 14:33 | PN ---
Date/Time of Note Date/Time of Note DATE: 04/16/19 TIME: 14:32 Assessment/Plan VTE Prophylaxis Risk score (from Ns)>0 risk: 1 SCD applied (from Ns): Yes Pharmacological prophylaxis: NA/contraindicated Pharm contraindication: low risk/ambulating Lines/Catheters IV Catheter Type (from [facility]): Peripheral IV Urinary Cath still in place: No Assessment/Plan Hospital Course SUBJECTIVE: Denies any abdominal pain or flank pain. Remains afebrile. OBJECTIVE: Physical Exam General: Morbidly obese 38 year-old female lying in bed in no apparent distress. HEENT: Normocephalic, atraumatic. Eyes: Anicteric sclerae, conjunctivae clear. ENT: Nasal septum midline, oral mucosa moist. Neck: Short and obese. Respiratory: Bilaterally clear breath sounds. No use of accessory muscles of respiration. No adventitious breath sounds. Cardiovascular: S1, S2 heard. Regular rate and rhythm. Abdomen: Soft, nontender, and nondistended. Bowel sounds positive in all 4 quadrants. Genitourinary: Deferred. Extremities: No cyanosis, no clubbing, no edema. Peripheral pulses palpable. Neurologic: Cranial nerves II through XII grossly intact. The patient is awake, alert, and oriented. Skin: Normal skin turgor. No skin rashes. Labs & Vitals per chart ASSESSMENT & PLAN This is a 28-year-old female with comorbidities including obesity and asthma who presented to the emergency room with chief complaint of dysuria, lower back pain with CT scan showing severe right-sided hydronephrosis with a 2.2 x 1.5 cm staghorn calculus within the right renal pelvis. 1. Sepsis with leukocytosis, febrile illness, and tachycardia, present on admission. -Urine culture positive for Proteus mirabilis. -Continue antimicrobials as per sensitivities. -Continue IV fluids. 2. Complicated urinary tract infection. -Urine culture positive for Proteus mirabilis with colony count more than 100,000 CFU per mL. -Continue antimicrobials. 3. 2.2 x 1.5 cm staghorn calculus within the right renal pelvis. -Continue IV hydration. -Continue Flomax. -Urology following. -Continue pain control. 3. Microcytic, hypochromic anemia. -Iron panel showing iron deficiency. -On iron supplements. -S/P 2 units of PRBC on 04/14/2019. -Stool OBX1 negative. 4. Morbid obesity. -BMI of more than 45 kg/m. -Weight reduction advised. 5. History of asthma. -No evidence of any exacerbation. 6. Fluids, electrolytes, and nutrition. -Regular diet. 7. DVT prophylaxis -Bilateral SCDs. 8. Plan. -Continue antimicrobials. -Continue pain control. -WBC is trending up. Obtain ID consult for expert opinion. The patient was seen in collaboration with Dr. Mc. Result Diagram: 04/16/195 04/16/195 Results 24hrs Laboratory Tests Test 04/16/19 04:45 04/16/19 06:45 04/16/19 13:43 White Blood Count 25.6 #H Red Blood Count 3.91 L Hemoglobin 9.0 L Hematocrit 30.8 L Mean Corpuscular Volume 78.8 L Mean Corpuscular Hemoglobin 23.0 L Mean Corpuscular 29.2 L Hemoglobin Concent Red Cell Distribution Width 20.9 H Platelet Count 349 # Mean Platelet Volume 9.3 Immature Granulocytes % 1.100 H Neutrophils % 80.0 H Lymphocytes % 13.0 L Monocytes % 5.7 Eosinophils % 0.0 Basophils % 0.2 Nucleated Red Blood Cells % 0.0 Immature Granulocytes # 0.290 H Neutrophils # 20.5 H Lymphocytes # 3.3 H Monocytes # 1.5 H Eosinophils # 0.0 Basophils # 0.1 Nucleated Red Blood Cells # 0.0 Sodium Level 137 Potassium Level 3.8 Chloride Level 105 Carbon Dioxide Level 24 Anion Gap 8 Blood Urea Nitrogen 7 Creatinine 0.59 Est Glomerular Filtrat > 60 Rate mL/min Glucose Level 108 Calcium Level 8.5 Phosphorus Level 4.8 Magnesium Level 1.7 Lab Scanned Report BLOOD TRANSFUSION Stool Occult Blood NEGATIVE Exam/Review of Systems Exam Vitals Vital Signs Date Temp Pulse Resp B/P (MAP) Pulse Ox O2 O2 Flow FiO2 Time Delivery Rate 04/16/19 100.1 121 18 124/60 97 07:52 (81) 04/13/19 Room Air 02:39 Intake and Output 04/15/19 04/15/19 04/16/19 1515:00 23:00 07:00 IntakeIntake Total 1020 ml 1100 ml 1690 ml BalanceBalance 1020 ml 1100 ml 1690 ml Results Results 24hrs Laboratory Tests Test 04/16/19 04:45 04/16/19 06:45 04/16/19 13:43 White Blood Count 25.6 #H Red Blood Count 3.91 L Hemoglobin 9.0 L Hematocrit 30.8 L Mean Corpuscular Volume 78.8 L Mean Corpuscular Hemoglobin 23.0 L Mean Corpuscular 29.2 L Hemoglobin Concent Red Cell Distribution Width 20.9 H Platelet Count 349 # Mean Platelet Volume 9.3 Immature Granulocytes % 1.100 H Neutrophils % 80.0 H Lymphocytes % 13.0 L Monocytes % 5.7 Eosinophils % 0.0 Basophils % 0.2 Nucleated Red Blood Cells % 0.0 Immature Granulocytes # 0.290 H Neutrophils # 20.5 H Lymphocytes # 3.3 H Monocytes # 1.5 H Eosinophils # 0.0 Basophils # 0.1 Nucleated Red Blood Cells # 0.0 Sodium Level 137 Potassium Level 3.8 Chloride Level 105 Carbon Dioxide Level 24 Anion Gap 8 Blood Urea Nitrogen 7 Creatinine 0.59 Est Glomerular Filtrat > 60 Rate mL/min Glucose Level 108 Calcium Level 8.5 Phosphorus Level 4.8 Magnesium Level 1.7 Lab Scanned Report BLOOD TRANSFUSION Stool Occult Blood NEGATIVE Medications Medication Current Medications IV Flush (NS 3 ml) 3 ml PER PROTOCOL IV ; Start 04/13/19 at 00:30 Ondansetron HCl (Zofran Inj) 4 mg Q6H PRN IV NAUSEA/VOMITING; Start 04/13/19 at 00:30 Acetaminophen (Tylenol Tab) 650 mg Q6H PRN PO .PAIN 1-3 OR TEMP Last administered on 04/16/19 00:23; Admin Dose 650 MG; Start 04/13/19 at 00:30 Hydromorphone HCl (Dilaudid) 0.5 mg Q4H PRN IV .PAIN 7-10; Start 04/13/19 at 00:30 Docusate Sodium (Colace) 100 mg Q12H PRN PO .CONSTIPATION Last administered on 04/16/19 09:11; Admin Dose 100 MG; Start 04/13/19 at 00:30 Bisacodyl (Dulcolax) 5 mg DAILY PRN PO .CONSTIPATION Last administered on 04/16/19 09:11; Admin Dose 5 MG; Start 04/13/19 at 00:30 Levofloxacin/ Dextrose 150 ml @ 100 mls/hr Q24H IVPB Last administered on 6/1/19at 18:46; Admin Dose 100 MLS/HR; Start 04/15/19 at 17:00 VIVEK PADGETT NP Apr 16, 2019 14:33
[2019-04-16 15:26] VITALS: BP 139/65; PULSE 120; RESP 18
[2019-04-16] MEDS: LEVOFLOXACIN 750MG/D5W (PMX) 150 ML IVPB SCH (16:31)
--- NOTE | 2019-04-16 17:35 | CONS ---
Consult Date/Type/Reason Admit Date/Time April 12, 2019 at 23:42 Initial Consult Date 04/13/19 Type of Consultation: Urology Reason for Consultation Right kidney stone with urinary tract infection and hydronephrosis Requesting Provider: BETH MON Date/Time of Note DATE: 04/16/19 TIME: 17:32 Subjective Patient denies any pain. She has no fever. She voids well and the urine is clear Objective Vitals Vital Signs Date Temp Pulse Resp B/P (MAP) Pulse Ox O2 O2 Flow FiO2 Time Delivery Rate 04/16/19 98.7 120 18 139/65 97 15:26 (89) 04/13/19 Room Air 02:39 Intake and Output 04/15/19 04/15/19 04/16/19 1515:00 23:00 07:00 IntakeIntake Total 1020 ml 1100 ml 1690 ml BalanceBalance 1020 ml 1100 ml 1690 ml Exam There is no flank tenderness. The abdomen is obese. Results/Medications Result Diagram: 04/16/19 0445 04/16/19 0445 Results 24 hrs Laboratory Tests Test 04/16/19 04:45 04/16/19 06:45 04/16/19 13:43 White Blood Count 25.6 #H Red Blood Count 3.91 L Hemoglobin 9.0 L Hematocrit 30.8 L Mean Corpuscular Volume 78.8 L Mean Corpuscular Hemoglobin 23.0 L Mean Corpuscular 29.2 L Hemoglobin Concent Red Cell Distribution Width 20.9 H Platelet Count 349 # Mean Platelet Volume 9.3 Immature Granulocytes % 1.100 H Neutrophils % 80.0 H Lymphocytes % 13.0 L Monocytes % 5.7 Eosinophils % 0.0 Basophils % 0.2 Nucleated Red Blood Cells % 0.0 Immature Granulocytes # 0.290 H Neutrophils # 20.5 H Lymphocytes # 3.3 H Monocytes # 1.5 H Eosinophils # 0.0 Basophils # 0.1 Nucleated Red Blood Cells # 0.0 Sodium Level 137 Potassium Level 3.8 Chloride Level 105 Carbon Dioxide Level 24 Anion Gap 8 Blood Urea Nitrogen 7 Creatinine 0.59 Est Glomerular Filtrat > 60 Rate mL/min Glucose Level 108 Calcium Level 8.5 Phosphorus Level 4.8 Magnesium Level 1.7 Lab Scanned Report BLOOD TRANSFUSION Stool Occult Blood NEGATIVE Home Meds Active Scripts Ibuprofen* (Motrin*) 600 Mg Tab, 600 MG PO Q6H PRN for PAIN AND OR ELEVATED TEMP, #30 TAB Prov:ELIF BARON NP 03/04/18 Discontinued Scripts Cephalexin* (Keflex*) 500 Mg Capsule, 500 MG PO TID for 7 Days, CAP Prov:SHAKEEL MCKINLEY PA-C 03/05/19 Amoxicillin* (Amoxicillin*) 500 Mg Cap, 500 MG PO TID for 10 Days, CAP Prov:ELIF BARON [employer] 03/04/18 Medications Current Medications IV Flush (NS 3 ml) 3 ml PER PROTOCOL IV ; Start 04/13/19 at 00:30 Ondansetron HCl (Zofran Inj) 4 mg Q6H PRN IV NAUSEA/VOMITING; Start 04/13/19 at 00:30 Acetaminophen (Tylenol Tab) 650 mg Q6H PRN PO .PAIN 1-3 OR TEMP Last administered on 04/16/19at 00:23; Admin Dose 650 MG; Start 04/13/19 at 00:30 Hydromorphone HCl (Dilaudid) 0.5 mg Q4H PRN IV .PAIN 7-10; Start 04/13/19 at 00:30 Docusate Sodium (Colace) 100 mg Q12H PRN PO .CONSTIPATION Last administered on 04/16/19 09:11; Admin Dose 100 MG; Start 04/13/19 at 00:30 Bisacodyl (Dulcolax) 5 mg DAILY PRN PO .CONSTIPATION Last administered on 04/16/19 09:11; Admin Dose 5 MG; Start 04/13/19 at 00:30 Levofloxacin/ Dextrose 150 ml @ 100 mls/hr Q24H IVPB Last administered on 04/16/19 16:31; Admin Dose 100 MLS/HR; Start 04/15/19 at 17:00 Assessment/Plan Hospital Course (Demo Recall) 38-year-old female presented to the emergency room with a 3 days history of right flank pain , nausea and dysuria. She underwent a CT scan of the abdomen and pelvis and that showed: 1. Enlarged right kidney with severe right-sided hydronephrosis. There is a large 2.2 x 1.5 cm staghorn calculus within the right renal pelvis. Large amount of right perinephric fatty stranding and fluid is noted. Findings may be chronic. Findings suggestive of obstructive uropathy and underlying infection. 2. Multiple retroperitoneal aortocaval lymph nodes are noted, probably reactive. 3. No evidence of bowel obstruction. Stool filled loops of large bowel suggestive of constipation. 4. There is left kidney is unremarkable. Patient denies any prior history of kidney stone. She is a 3 para 3. Her youngest child is 2 years old and she denies having any kidney problem during her . Presently she is comfortable and has no pain. Her white count is did go higher. On the exam there is no flank tenderness. She has morbid obesity and weighs 264 pounds (120kg) Impression right renal stone measuring 2.2 x 1.5 cm. Pyelonephritis and urinary tract infection Plan: Continue the IV antibiotic, repeat the CT scan of the abdomen and pelvis without contrast. If she still hydronephrotic and the stone remains obstructing and her white count remains high then I will have to do a cystoscopy and inserted JJ stent to drain the kidney. I did explain that to her and the importance not to leave the JJ stent for too long to avoid any encrustation. CORTNEY PETTY MD Apr 16, 2019 17:35
[2019-04-16 19:40] VITALS: BP 130/65; RESP 18
[2019-04-16 19:50] VITALS: PULSE 114; RESP 18
[2019-04-17] VITALS (16 sets, daily range): BP systolic 117–144; BP diastolic 60–82; PULSE 98–109; RESP 16–25
--- NOTE | 2019-04-17 10:39 | PREAC ---
Date/Time of Note Date/Time of Note DATE: 04/17/19 TIME: 10:35 Anesthesia Eval and Record Evaluation Time Pre-Procedure Interview DATE: 04/17/19 TIME: 10:35 Age 38 Sex female NPO: 8 hrs (breakfast at 8:30 am today, case for 1729 as an add-on today. ) Preoperative diagnosis RIGHT hydronephrosis, RIGHT renal pelvis STAGHORN calculus, UTI Planned procedure cystoscopy, insertion R JJ stent Dr Peck, pt has UTI, already on abx and has ID consult Past Medical History Past Medical History: Includes Pulm: Asthma (last symptom was at age 14 ) GI: Morbid obesity (bmi 45) Heme: Anemia (s/p 2 units PRBC 04/14/19, stool OB x 1 negative ) Surgery & Anesthesia Issues No known issue (had an epidural for her 3rd baby) Meds Anticoagulation: No Beta Mandie within 24 hr: No Reason Beta Mandie not given: Pt. not on B-Mandie Active Scripts Ibuprofen* (Motrin*) 600 Mg Tab, 600 MG PO Q6H PRN for PAIN AND OR ELEVATED TEMP, #30 TAB Prov:ELIF BARON NP 03/04/18 Discontinued Scripts Cephalexin* (Keflex*) 500 Mg Capsule, 500 MG PO TID for 7 Days, CAP Prov:SHAKEEL MCKINLEY PA-C 03/05/19 Amoxicillin* (Amoxicillin*) 500 Mg Cap, 500 MG PO TID for 10 Days, CAP Prov:ELIF BARON NP 03/04/18 Current Medications IV Flush (NS 3 ml) 3 ml PER PROTOCOL IV ; Start 04/13/19 at 00:30 Ondansetron HCl (Zofran Inj) 4 mg Q6H PRN IV NAUSEA/VOMITING; Start 04/13/19 at 00:30 Acetaminophen (Tylenol Tab) 650 mg Q6H PRN PO .PAIN 1-3 OR TEMP Last administered on 04/16/19at 21:35; Admin Dose 650 MG; Start 04/13/19 at 00:30 Hydromorphone HCl (Dilaudid) 0.5 mg Q4H PRN IV .PAIN 7-10; Start 04/13/19 at 00:30 Docusate Sodium (Colace) 100 mg Q12H PRN PO .CONSTIPATION Last administered on 04/16/19at 09:11; Admin Dose 100 MG; Start 04/13/19 at 00:30 Bisacodyl (Dulcolax) 5 mg DAILY PRN PO .CONSTIPATION Last administered on 04/16/19at 09:11; Admin Dose 5 MG; Start 04/13/19 at 00:30 Levofloxacin/ Dextrose 150 ml @ 100 mls/hr Q24H IVPB Last administered on 04/16/19at 16:31; Admin Dose 100 MLS/HR; Start 04/15/19 at 17:00 Meds reviewed: Yes Allergies Coded Allergies: No Known Allergy (Unverified , 04/12/19) Allergies Reviewed: Yes Labs/Studies Labs Reviewed: Reviewed by anesthesiologist Result Diagram: 04/17/19 0434 04/17/194 Laboratory Tests 04/17/19 04:34 test: Negative Studies: CXR Pre-procedure Exam Last vitals Vital Signs Date Temp Pulse Resp B/P (MAP) Pulse Ox O2 O2 Flow FiO2 Time Delivery Rate 04/17/19 98.9 109 18 130/73 97 07:33 (92) 04/16/19 Room Air 19:50 Airway: Adequate mouth opening, Adequate thyromental dist Mallampati: Mallampati II (large face, thick short neck, morbidly obese, recommend glidescope) Teeth: Normal Lung: Normal Heart: Normal ASA Physical Status ASA physical status: 2 Emergency: E Planned Anesthetic General/MAC: ETT (patient informed about awake extubation to protect her airway and prevent respiratory complications. verbalized understanding. ) Planned Pain Management Parenteral pain med, Local by surgeon Pre-operative Attestations Prior to commencing anesthesia and surgery, the patient was re-evaluated, there was verification of: *The patient's identity *The results of appropriate recent lab work and preoperative vital signs *The above evaluation not changing prior to induction *Anesthetic plan, risk benefits, alternative and complications discussed with patient/family; questions answered; patient/family understands, accepts and wishes to proceed. SRINI DAY Apr 17, 2019 10:39
--- NOTE | 2019-04-17 13:38 | CONS ---
Assessment/Plan Assessment/Plan Hospital Course (Demo Recall) Patient is alert feels good looks comfortable still with low-grade fevers, T-max 102 current 98.9 WBC 24.6 platelets 469 neutrophils 79.6 BUN 9 creatinine 0.58 Microbiology: Blood cultures negative urine culture grew Proteus mirabilis resistant only to Macrobid Antimicrobials: Levaquin Physical examination: This is a morbidly obese well-developed middle-aged woman who is awake in no distress. Head atraumatic normocephalic neck is is obese chest rise symmetrical breath sounds diminished bases heart S1-S2 abdomen soft bowel sounds present Assessment: 1. Right-sided hydronephrosis with a staghorn calculus suggestive of obstructive uropathy and underlying infection 2. Morbid morbid obesity 3. Persistent leukocytosis secondary to #1 Plan: Patient remains stable scheduled for cystoscopy with JJ stent insertion, continue antibiotics, follow intraoperative cultures Consultation Date/Type/Reason Admit Date/Time April 12, 2019 at 23:42 Initial Consult Date 04/13/19 Type of Consult id Requesting Provider: BETH MON Date/Time of Note DATE: 04/17/19 TIME: 13:37 Exam/Review of Systems Exam Vitals Vital Signs Date Temp Pulse Resp B/P (MAP) Pulse Ox O2 O2 Flow FiO2 Time Delivery Rate 04/17/19 98.9 109 18 130/73 97 07:33 (92) 04/16/19 Room Air 19:50 Intake and Output 04/16/19 04/16/19 04/17/19 1515:00 23:00 07:00 IntakeIntake Total 1160 ml 520 ml BalanceBalance 1160 ml 520 ml Results Result Diagram: 04/17/19 0434 04/17/19 0434 Results 24hrs Laboratory Tests Test 04/16/19 13:43 04/17/19 04:34 04/17/19 08:13 Stool Occult Blood NEGATIVE White Blood Count 24.6 H Red Blood Count 3.49 L Hemoglobin 8.2 L Hematocrit 28.2 L Mean Corpuscular Volume 80.8 L Mean Corpuscular Hemoglobin 23.5 L Mean Corpuscular Hemoglobin Concent 29.1 L Red Cell Distribution Width 20.8 H Platelet Count 469 #H Mean Platelet Volume 9.0 Immature Granulocytes % 1.100 H Neutrophils % 79.6 H Lymphocytes % 13.2 L Monocytes % 5.7 Eosinophils % 0.2 Basophils % 0.2 Nucleated Red Blood Cells % 0.0 Immature Granulocytes # 0.280 H Neutrophils # 19.6 H Lymphocytes # 3.3 H Monocytes # 1.4 H Eosinophils # 0.0 Basophils # 0.1 Nucleated Red Blood Cells # 0.0 Sodium Level 136 Potassium Level 4.0 Chloride Level 103 Carbon Dioxide Level 27 Anion Gap 6 Blood Urea Nitrogen 9 Creatinine 0.58 Est Glomerular Filtrat Rate mL/min > 60 Glucose Level 93 Calcium Level 8.5 Phosphorus Level 4.2 Magnesium Level 1.9 Lab Scanned Report REFERENCE LAB Medications Medication Current Medications IV Flush (NS 3 ml) 3 ml PER PROTOCOL IV ; Start 04/13/19 at 00:30 Ondansetron HCl (Zofran Inj) 4 mg Q6H PRN IV NAUSEA/VOMITING; Start 04/13/19 at 00:30 Acetaminophen (Tylenol Tab) 650 mg Q6H PRN PO .PAIN 1-3 OR TEMP Last administered on 04/16/19 21:35; Admin Dose 650 MG; Start 04/13/19 at 00:30 Hydromorphone HCl (Dilaudid) 0.5 mg Q4H PRN IV .PAIN 7-10; Start 04/13/19 at 00:30 Docusate Sodium (Colace) 100 mg Q12H PRN PO .CONSTIPATION Last administered on 04/16/19 09:11; Admin Dose 100 MG; Start 04/13/19 at 00:30 Bisacodyl (Dulcolax) 5 mg DAILY PRN PO .CONSTIPATION Last administered on 04/16/19 09:11; Admin Dose 5 MG; Start 04/13/19 at 00:30 Levofloxacin/ Dextrose 150 ml @ 100 mls/hr Q24H IVPB Last administered on 04/16/19 16:31; Admin Dose 100 MLS/HR; Start 04/15/19 at 17:00 KVNG JI NP Apr 17, 2019 13:38
--- NOTE | 2019-04-17 14:33 | PN ---
Date/Time of Note Date/Time of Note DATE: 04/17/19 TIME: 14:25 Assessment/Plan VTE Prophylaxis Risk score (from Ns)>0 risk: 1 SCD applied (from [facility] [place]): Yes Pharmacological prophylaxis: NA/contraindicated Pharm contraindication: surgical contra Lines/Catheters IV [facility]atheter Type (from [facility] [place] Urinary Cath still in place: No Assessment/Plan Hospital Course This is a 28-year-old female with comorbidities including obesity and asthma who presented to the emergency room with chief complaint of dysuria, lower back pain with CT scan showing severe right-sided hydronephrosis with a 2.2 x 1.5 cm staghorn calculus within the right renal pelvis. 1. Sepsis with leukocytosis, febrile illness, and tachycardia, present on admission. -Urine culture positive for Proteus mirabilis. -Continue antimicrobials as per sensitivities. -Continue IV fluids. 2. Complicated urinary tract infection. -Urine culture positive for Proteus mirabilis with colony count more than 100,000 CFU per mL. -Continue antimicrobials. 3. 2.2 x 1.5 cm staghorn calculus within the right renal pelvis. -Continue IV hydration. -Continue Flomax. -Urology following, plan for cystoscopy and stent placement today -Continue pain control. 3. Microcytic, hypochromic anemia. -Iron panel showing iron deficiency. -On iron supplements. -S/P 2 units of PRBC on 04/14/2019. -Stool OBX1 negative. 4. Morbid obesity. -BMI of more than 45 kg/m. -Weight reduction advised. 5. History of asthma. -No evidence of any exacerbation. 6. Fluids, electrolytes, and nutrition. -Regular diet. 7. DVT prophylaxis -Bilateral SCDs. DC planning: Cystoscopy today Result Diagram: 04/17/19 0434 04/17/19 0434 Results 24hrs Laboratory Tests Test 04/17/19 04:34 04/17/19 08:13 White Blood Count 24.6 H Red Blood Count 3.49 L Hemoglobin 8.2 L Hematocrit 28.2 L Mean Corpuscular Volume 80.8 L Mean Corpuscular Hemoglobin 23.5 L Mean Corpuscular Hemoglobin Concent 29.1 L Red Cell Distribution Width 20.8 H Platelet Count 469 #H Mean Platelet Volume 9.0 Immature Granulocytes % 1.100 H Neutrophils % 79.6 H Lymphocytes % 13.2 L Monocytes % 5.7 Eosinophils % 0.2 Basophils % 0.2 Nucleated Red Blood Cells % 0.0 Immature Granulocytes # 0.280 H Neutrophils # 19.6 H Lymphocytes # 3.3 H Monocytes # 1.4 H Eosinophils # 0.0 Basophils # 0.1 Nucleated Red Blood Cells # 0.0 Sodium Level 136 Potassium Level 4.0 Chloride Level 103 Carbon Dioxide Level 27 Anion Gap 6 Blood Urea Nitrogen 9 Creatinine 0.58 Est Glomerular Filtrat Rate mL/min > 60 Glucose Level 93 Calcium Level 8.5 Phosphorus Level 4.2 Magnesium Level 1.9 Lab Scanned Report REFERENCE LAB Subjective 24 Hr Interval Summary Constitutional: no complaints Exam/Review of Systems Exam Vitals Vital Signs Date Temp Pulse Resp B/P (MAP) Pulse Ox O2 O2 Flow FiO2 Time Delivery Rate 04/17/19 98.9 109 18 130/73 97 07:33 (92) 04/16/19 Room Air 19:50 Intake and Output 04/16/19 04/16/19 04/17/19 1515:00 23:00 07:00 IntakeIntake Total 1160 ml 520 ml BalanceBalance 1160 ml 520 ml Constitutional: alert, oriented Respiratory: clear to auscultation Cardiovascular: regular rate and rhythm Gastrointestinal: soft; No distended Musculoskeletal: nl extremities to inspection Results Results 24hrs Laboratory Tests Test 04/17/19 04:34 04/17/19 08:13 White Blood Count 24.6 H Red Blood Count 3.49 L Hemoglobin 8.2 L Hematocrit 28.2 L Mean Corpuscular Volume 80.8 L Mean Corpuscular Hemoglobin 23.5 L Mean Corpuscular Hemoglobin Concent 29.1 L Red Cell Distribution Width 20.8 H Platelet Count 469 #H Mean Platelet Volume 9.0 Immature Granulocytes % 1.100 H Neutrophils % 79.6 H Lymphocytes % 13.2 L Monocytes % 5.7 Eosinophils % 0.2 Basophils % 0.2 Nucleated Red Blood Cells % 0.0 Immature Granulocytes # 0.280 H Neutrophils # 19.6 H Lymphocytes # 3.3 H Monocytes # 1.4 H Eosinophils # 0.0 Basophils # 0.1 Nucleated Red Blood Cells # 0.0 Sodium Level 136 Potassium Level 4.0 Chloride Level 103 Carbon Dioxide Level 27 Anion Gap 6 Blood Urea Nitrogen 9 Creatinine 0.58 Est Glomerular Filtrat Rate mL/min > 60 Glucose Level 93 Calcium Level 8.5 Phosphorus Level 4.2 Magnesium Level 1.9 Lab Scanned Report REFERENCE LAB Medications Medication Current Medications IV Flush (NS 3 ml) 3 ml PER PROTOCOL IV ; Start 04/13/19 at 00:30 Ondansetron HCl (Zofran Inj) 4 mg Q6H PRN IV NAUSEA/VOMITING; Start 04/13/19 at 00:30 Acetaminophen (Tylenol Tab) 650 mg Q6H PRN PO .PAIN 1-3 OR TEMP Last administered on 04/16/19 21:35; Admin Dose 650 MG; Start 04/13/19 at 00:30 Hydromorphone HCl (Dilaudid) 0.5 mg Q4H PRN IV .PAIN 7-10; Start 04/13/19 at 00:30 Docusate Sodium (Colace) 100 mg Q12H PRN PO .CONSTIPATION Last administered on 04/16/19 09:11; Admin Dose 100 MG; Start 04/13/19 at 00:30 Bisacodyl (Dulcolax) 5 mg DAILY PRN PO .CONSTIPATION Last administered on 04/16/19 09:11; Admin Dose 5 MG; Start 04/13/19 at 00:30 Levofloxacin/ Dextrose 150 ml @ 100 mls/hr Q24H IVPB Last administered on 04/16/19 16:31; Admin Dose 100 MLS/HR; Start 04/15/19 at 17:00 PIETER FIGUEROA Apr 17, 2019 14:33
[2019-04-17] MEDS ORDERED: IOHEXOL 300MG/ML 30 ML BTL ONE (17:34)
--- NOTE | 2019-04-17 17:35 | HPN ---
Date/Time of Note Date/Time of Note DATE: 04/17/19 TIME: 17:34 Interval H&P Admission Note Pt. seen H&P reviewed: No system changes Repeated CT scan of the abdomen and pelvis continue to show right hydronephrosis with obstruction. Therefore decision was made to do cystoscopy and inserted JJ stent. Once the kidney is drained and her white count is normal she may be discharged and then she will follow with [facility] for further management of the stone removal and replacement of the stent and eventually removal of the stent. I did discussed all of that with the patient in detail and she understood and she will follow-up as instructed. CORTNEY PETTY MD Apr 17, 2019 17:35
[2019-04-17] MEDS ORDERED: MIDAZOLAM 1 MG/ML 2 ML INJ ONE (17:46)
[2019-04-17] MEDS ORDERED: FENTAnyl 50 MCG/ML VIAL ONE (17:46)
[2019-04-17] MEDS ORDERED: CEFAZOLIN 1 GM INJ ONE (17:59)
[2019-04-17] MEDS ORDERED: ONDANSETRON 4 MG INJ ONE (18:07)
[2019-04-17] MEDS ORDERED: KETAMINE (50 MG/ML) 10 ML VIAL ONE (18:17)
--- NOTE | 2019-04-17 18:40 | PAC ---
Date/Time of Note Date/Time of Note DATE: 04/17/19 TIME: 18:39 Post-Anesthesia Notes Post-Anesthesia Note Last documented vital signs Vital Signs Date Temp Pulse Resp B/P (MAP) Pulse Ox O2 O2 Flow FiO2 Time Delivery Rate 04/17/19 98.5 109 18 136/82 98 1840 (100) 115/62 105 100% 18 98.5 04/16/19 Room Air 19:50 Activity: WNL Respiratory function: WNL Cardiovascular function: WNL Mental status: Baseline Pain reasonably controlled: Yes Hydration appropriate: Yes Nausea/Vomiting absent: Yes NIMA RUSSELL DO Apr 17, 2019 18:40
[2019-04-17] MEDS ORDERED: LABETALOL HCL 20MG INJ IV PRN (19:00)
[2019-04-17] MEDS ORDERED: hydrALAzine 20 MG INJ IV PRN (19:00)
[2019-04-17] MEDS ORDERED: ONDANSETRON 4 MG INJ IV PRN (19:00)
--- NOTE | 2019-04-17 19:01 | OPR ---
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 Patient has been on antibiotic and she continued to have leukocytosis ev en though she has no fever. Procedure Description The patient was brought to the operating room and was given spinal anesthesia. She already has been on antibiotic. Timeout was done and the patient was identified by her name, the birthdate, the procedure on the side of the procedure. The patient was positioned in the lithotomy position and the genital area was prepped and draped in the usual sterile manner. #21 Sur[place]amese cystoscope sheath was introduced into the bladder and urine was collected for culture and sensitivity. The right ureteral orifice was then visualized spot films were taken between the bladder all the way up to the kidney. The right ureteral orifice was then cannulated with a 5 Sur[place]amese open ended ureteral catheter. A 0.035 zip wire was advanced through the open ended under fluoroscopy all the way up to the kidney. The open-ended was advanced on the zip wire and into the kidney. The zip wire was removed and I did aspirate then from the kidney urine that was purulent urine and foul-smelling urine. That was sent for culture and sensitivity. Then I reintroduced the zip wire and removed the open ended. I then advanced the 6 Sur[place]amese by 24 cm long JJ stent on the wire. I had its proximal end curling into the kidney and the distal end curling into the bladder. One could see purulent urine draining out from the JJ stent into the bladder. The patient tolerated the procedure well and was transferred to the recovery room in a stable and satisfactory condition. CORTNEY PETTY MD Apr 17, 2019 19:01
[2019-04-17] MEDS: LEVOFLOXACIN 750MG/D5W (PMX) 150 ML IVPB SCH (21:36)
[2019-04-18 01:41] VITALS: BP 138/70; PULSE 105; RESP 18
[2019-04-18 07:46] VITALS: BP 161/72; PULSE 98; RESP 20
[2019-04-18] MEDS ORDERED: SOD CHLORIDE 0.9% 250 ML IV* ONE (10:21)
--- NOTE | 2019-04-18 13:59 | PN ---
Date/Time of Note Date/Time of Note DATE: 04/18/19 TIME: 13:58 Assessment/Plan VTE Prophylaxis Risk score (from Ns)>0 risk: 1 SCD applied (from Ns): Yes Pharmacological prophylaxis: NA/contraindicated Pharm contraindication: other Lines/Catheters IV Catheter Type [facility]from [facility]): Saline Lock Urinary Cath still in place: No Assessment/Plan Hospital Course This is a 28-year-old female with comorbidities including obesity and asthma who presented to the emergency room with chief complaint of dysuria, lower back pain with CT scan showing severe right-sided hydronephrosis with a 2.2 x 1.5 cm staghorn calculus within the right renal pelvis. 1. Sepsis with leukocytosis, febrile illness, and tachycardia, present on admission. -Urine culture positive for Proteus mirabilis. -Continue antimicrobials as per sensitivities. -Continue IV fluids -Patient with persistent leukocytosis and tachycardia 2. Complicated urinary tract infection. -Urine culture positive for Proteus mirabilis with colony count more than 100,000 CFU per mL. -Continue antimicrobials. 3. 2.2 x 1.5 cm staghorn calculus within the right renal pelvis. -Continue IV hydration. -Continue Flomax. -Urology following, status post cystoscopy and stent placement -Continue pain control. 3. Microcytic, hypochromic anemia. -Iron panel showing iron deficiency. -On iron supplements. -S/P 2 units of PRBC on 04/14/2019. -Stool OBX1 negative -Transfuse another unit today 4. Morbid obesity. -BMI of more than 45 kg/m. -Weight reduction advised. 5. History of asthma. -No evidence of any exacerbation. 6. Fluids, electrolytes, and nutrition. -Regular diet. 7. DVT prophylaxis -Bilateral SCDs. DC planning: Anticipate DC home tomorrow Result Diagram: 04/18/1942604/18/19426 Results 24hrs Laboratory Tests Test 04/18/19 04:27 White Blood Count 17.9 #H Red Blood Count 3.33 L Hemoglobin 7.8 L Hematocrit 27.1 L Mean Corpuscular Volume 81.4 L Mean Corpuscular Hemoglobin 23.4 L Mean Corpuscular Hemoglobin Concent 28.8 L Red Cell Distribution Width 20.7 H Platelet Count 484 H Mean Platelet Volume 8.9 Immature Granulocytes % 0.700 H Neutrophils % 74.3 Lymphocytes % 18.3 Monocytes % 6.1 Eosinophils % 0.3 Basophils % 0.3 Nucleated Red Blood Cells % 0.0 Immature Granulocytes # 0.130 H Neutrophils # 13.3 H Lymphocytes # 3.3 H Monocytes # 1.1 H Eosinophils # 0.1 Basophils # 0.1 Nucleated Red Blood Cells # 0.0 Sodium Level 138 Potassium Level 4.0 Chloride Level 105 Carbon Dioxide Level 26 Anion Gap 7 Blood Urea Nitrogen 10 Creatinine 0.61 Est Glomerular Filtrat Rate mL/min > 60 Glucose Level 85 Calcium Level 8.3 L Subjective 24 Hr Interval Summary Constitutional: no complaints Exam/Review of Systems Exam Vitals Vital Signs Date Temp Pulse Resp B/P (MAP) Pulse Ox O2 O2 Flow FiO2 Time Delivery Rate 04/18/19 98.6 98 20 161/72 98 07:46 (101) 04/17/19 Room Air 19:25 Intake and Output 04/17/19 04/17/19 04/18/19 1515:00 23:00 07:00 IntakeIntake Total 480 ml 340 ml 360 ml OutputOutput Total 700 ml BalanceBalance 480 ml 340 ml -340 ml Constitutional: alert, oriented Respiratory: clear to auscultation Cardiovascular: regular rate and rhythm Gastrointestinal: soft; No distended Musculoskeletal: nl extremities to inspection Results Results 24hrs Laboratory Tests Test 04/18/19 04:27 White Blood Count 17.9 #H Red Blood Count 3.33 L Hemoglobin 7.8 L Hematocrit 27.1 L Mean Corpuscular Volume 81.4 L Mean Corpuscular Hemoglobin 23.4 L Mean Corpuscular Hemoglobin Concent 28.8 L Red Cell Distribution Width 20.7 H Platelet Count 484 H Mean Platelet Volume 8.9 Immature Granulocytes % 0.700 H Neutrophils % 74.3 Lymphocytes % 18.3 Monocytes % 6.1 Eosinophils % 0.3 Basophils % 0.3 Nucleated Red Blood Cells % 0.0 Immature Granulocytes # 0.130 H Neutrophils # 13.3 H Lymphocytes # 3.3 H Monocytes # 1.1 H Eosinophils # 0.1 Basophils # 0.1 Nucleated Red Blood Cells # 0.0 Sodium Level 138 Potassium Level 4.0 Chloride Level 105 Carbon Dioxide Level 26 Anion Gap 7 Blood Urea Nitrogen 10 Creatinine 0.61 Est Glomerular Filtrat Rate mL/min > 60 Glucose Level 85 Calcium Level 8.3 L Medications Medication Current Medications IV Flush (NS 3 ml) 3 ml PER PROTOCOL IV ; Start 04/13/19 at 00:30 Ondansetron HCl (Zofran Inj) 4 mg Q6H PRN IV NAUSEA/VOMITING; Start 04/13/19 at 00:30 Acetaminophen (Tylenol Tab) 650 mg Q6H PRN PO .PAIN 1-3 OR TEMP Last administered on 04/16/19 21:35; Admin Dose 650 MG; Start 04/13/19 at 00:30 Hydromorphone HCl (Dilaudid) 0.5 mg Q4H PRN IV .PAIN 7-10; Start 04/13/19 at 00:30 Docusate Sodium (Colace) 100 mg Q12H PRN PO .CONSTIPATION Last administered on 04/16/19 09:11; Admin Dose 100 MG; Start 04/13/19 at 00:30 Bisacodyl (Dulcolax) 5 mg DAILY PRN PO .CONSTIPATION Last administered on 09:11; Admin Dose 5 MG; Start 04/13/19 at 00:30 Levofloxacin/ Dextrose 150 ml @ 100 mls/hr Q24H IVPB Last administered on 04/17/19 21:36; Admin Dose 100 MLS/HR; Start 04/15/19 at 17:00 PIETER FIGUEROA Apr 18, 2019 13:59
--- NOTE | 2019-04-18 14:33 | CONS ---
Assessment/Plan Assessment/Plan Hospital Course (Demo Recall) Patient feels better status post cystoscopy with JJ stent placement yesterday. No fevers overnight. WBC 17.9 neutrophils 74.3 BUN 10 creatinine 0.61 Microbiology: Blood cultures negative urine culture grew Proteus mirabilis resistant only to Macrobid Antimicrobials: Levaquin Physical examination: This is a morbidly obese well-developed middle-aged woman who is awake in no distress. Head atraumatic normocephalic neck is is obese chest rise symmetrical breath sounds diminished bases heart S1-S2 abdomen soft bowel sounds present Assessment: 1. Right-sided hydronephrosis with a staghorn calculus suggestive of obstructive uropathy and underlying infection 2. Morbid morbid obesity 3. Persistent leukocytosis secondary to #1 Plan: Patient is doing better, WBC trending down, continue antibiotics, follow urology recommendations, anticipate discharge on oral Levaquin Consultation Date/Type/Reason Admit Date/Time April 12, 2019 at 23:42 Initial Consult Date 04/13/19 Type of Consult id Requesting Provider: BETH MON Date/Time of Note DATE: 04/18/19 TIME: 14:31 Exam/Review of Systems Exam Vitals Vital Signs Date Temp Pulse Resp B/P (MAP) Pulse Ox O2 O2 Flow FiO2 Time Delivery Rate 04/18/19 98.6 98 20 161/72 98 07:46 (101) 04/17/19 Room Air 19:25 Intake and Output 04/17/19 04/17/19 04/18/19 1515:00 23:00 07:00 IntakeIntake Total 480 ml 340 ml 360 ml OutputOutput Total 700 ml BalanceBalance 480 ml 340 ml -340 ml Results Result Diagram: 04/18/19 0427 04/18/19 0427 Results 24hrs Laboratory Tests Test 04/18/19 04:27 White Blood Count 17.9 #H Red Blood Count 3.33 L Hemoglobin 7.8 L Hematocrit 27.1 L Mean Corpuscular Volume 81.4 L Mean Corpuscular Hemoglobin 23.4 L Mean Corpuscular Hemoglobin Concent 28.8 L Red Cell Distribution Width 20.7 H Platelet Count 484 H Mean Platelet Volume 8.9 Immature Granulocytes % 0.700 H Neutrophils % 74.3 Lymphocytes % 18.3 Monocytes % 6.1 Eosinophils % 0.3 Basophils % 0.3 Nucleated Red Blood Cells % 0.0 Immature Granulocytes # 0.130 H Neutrophils # 13.3 H Lymphocytes # 3.3 H Monocytes # 1.1 H Eosinophils # 0.1 Basophils # 0.1 Nucleated Red Blood Cells # 0.0 Sodium Level 138 Potassium Level 4.0 Chloride Level 105 Carbon Dioxide Level 26 Anion Gap 7 Blood Urea Nitrogen 10 Creatinine 0.61 Est Glomerular Filtrat Rate mL/min > 60 Glucose Level 85 Calcium Level 8.3 L Medications Medication Current Medications IV Flush (NS 3 ml) 3 ml PER PROTOCOL IV ; Start 04/13/19 at 00:30 Ondansetron HCl (Zofran Inj) 4 mg Q6H PRN IV NAUSEA/VOMITING; Start 04/13/19 at 00:30 Acetaminophen (Tylenol Tab) 650 mg Q6H PRN PO .PAIN 1-3 OR TEMP Last administered on 04/16/19 21:35; Admin Dose 650 MG; Start 04/13/19 at 00:30 Hydromorphone HCl (Dilaudid) 0.5 mg Q4H PRN IV .PAIN 7-10; Start 04/13/19 at 00:30 Docusate Sodium (Colace) 100 mg Q12H PRN PO .CONSTIPATION Last administered on 04/16/19 09:11; Admin Dose 100 MG; Start 04/13/19 at 00:30 Bisacodyl (Dulcolax) 5 mg DAILY PRN PO .CONSTIPATION Last administered on 04/16/19 09:11; Admin Dose 5 MG; Start 04/13/19 at 00:30 Levofloxacin/ Dextrose 150 ml @ 100 mls/hr Q24H IVPB Last administered on 04/17/19 21:36; Admin Dose 100 MLS/HR; Start 04/15/19 at 17:00 KVNG JI NP Apr 18, 2019 14:33
[2019-04-18] MEDS: LEVOFLOXACIN 750MG/D5W (PMX) 150 ML IVPB SCH (17:06)
--- NOTE | 2019-04-18 20:06 | CONS ---
Consult Date/Type/Reason Admit Date/Time April 12, 2019 at 23:42 Initial Consult Date 04/13/19 Type of Consultation: Urology Reason for Consultation Right renal stone ,hydronephrosis and urinary tract infection Requesting Provider: BETH MON Date/Time of Note DATE: 04/18/19 TIME: 20:00 Subjective And is feeling better and has no complaint except for some back ache Objective Vitals Vital Signs Date Temp Pulse Resp B/P (MAP) Pulse Ox O2 O2 Flow FiO2 Time Delivery Rate 04/18/19 98.6 98 20 161/72 98 07:46 (101) 04/17/19 Room Air 19:25 Intake and Output 04/17/19 04/17/19 04/18/19 1515:00 23:00 07:00 IntakeIntake Total 480 ml 340 ml 360 ml OutputOutput Total 700 ml BalanceBalance 480 ml 340 ml -340 ml Exam Abdomen very obese and there is no tenderness. Results/Medications Result Diagram: 04/18/19 0427 04/18/19 0427 Results 24 hrs Laboratory Tests Test 04/18/19 04:27 White Blood Count 17.9 #H Red Blood Count 3.33 L Hemoglobin 7.8 L Hematocrit 27.1 L Mean Corpuscular Volume 81.4 L Mean Corpuscular Hemoglobin 23.4 L Mean Corpuscular Hemoglobin Concent 28.8 L Red Cell Distribution Width 20.7 H Platelet Count 484 H Mean Platelet Volume 8.9 Immature Granulocytes % 0.700 H Neutrophils % 74.3 Lymphocytes % 18.3 Monocytes % 6.1 Eosinophils % 0.3 Basophils % 0.3 Nucleated Red Blood Cells % 0.0 Immature Granulocytes # 0.130 H Neutrophils # 13.3 H Lymphocytes # 3.3 H Monocytes # 1.1 H Eosinophils # 0.1 Basophils # 0.1 Nucleated Red Blood Cells # 0.0 Sodium Level 138 Potassium Level 4.0 Chloride Level 105 Carbon Dioxide Level 26 Anion Gap 7 Blood Urea Nitrogen 10 Creatinine 0.61 Est Glomerular Filtrat Rate mL/min > 60 Glucose Level 85 Calcium Level 8.3 L Home Meds Active Scripts Ibuprofen* (Motrin*) 600 Mg Tab, 600 MG PO Q6H PRN for PAIN AND OR ELEVATED TEMP, #30 TAB Prov:ELIF BARON NP 4/20/18 Discontinued Scripts Cephalexin* (Keflex*) 500 Mg Capsule, 500 MG PO TID for 7 Days, CAP Prov:SHAKEEL MCKINLEY PA-C 03/05/19 Amoxicillin* (Amoxicillin*) 500 Mg Cap, 500 MG PO TID for 10 Days, CAP Prov:ELIF BARON NP 03/04/18 Medications Current Medications IV Flush (NS 3 ml) 3 ml PER PROTOCOL IV ; Start 04/13/19 at 00:30 Ondansetron HCl (Zofran Inj) 4 mg Q6H PRN IV NAUSEA/VOMITING; Start 04/13/19 at 00:30 Acetaminophen (Tylenol Tab) 650 mg Q6H PRN PO .PAIN 1-3 OR TEMP Last administered on 04/16/19 21:35; Admin Dose 650 MG; Start 04/13/19 at 00:30 Hydromorphone HCl (Dilaudid) 0.5 mg Q4H PRN IV .PAIN 7-10; Start 04/13/19 at 00:30 Docusate Sodium (Colace) 100 mg Q12H PRN PO .CONSTIPATION Last administered on 04/16/19 09:11; Admin Dose 100 MG; Start 04/13/19 at 00:30 Bisacodyl (Dulcolax) 5 mg DAILY PRN PO .CONSTIPATION Last administered on 04/16/19 09:11; Admin Dose 5 MG; Start 04/13/19 at 00:30 Levofloxacin/ Dextrose 150 ml @ 100 mls/hr Q24H IVPB Last administered on 04/18/19 17:06; Admin Dose 100 MLS/HR; Start 04/15/19 at 17:00 Imaging KUB done today was reported as a stone is not seen. But as I looked at it and compared it to the x-rays at the time of the surgery the stone still at the same location. Assessment/Plan Hospital Course (Demo Recall) 38-year-old female presented to the emergency room with a 3 days history of right flank pain , nausea and dysuria. She underwent a CT scan of the abdomen and pelvis and that showed: 1. Enlarged right kidney with severe right-sided hydronephrosis. There is a lar ge 2.2 x 1.5 cm staghorn calculus within the right renal pelvis. Large amount of right perinephric fatty stranding and fluid is noted. Findings may be chronic. Findings suggestive of obstructive uropathy and underlying infection. 2. Multiple retroperitoneal aortocaval lymph nodes are noted, probably reactive. 3. No evidence of bowel obstruction. Stool filled loops of large bowel suggestive of constipation. 4. There is left kidney is unremarkable. Patient underwent a cystoscopy and insertion of right ureteral JJ stent on 04/17/2019. Large amount of purulent material was aspirated from the kidney. The patient is feeling better today. she does have some discomfort in her back. The white count has come down to 17.9 The urine cultures from the bladder and the right kidney are still pending Continue the antibiotics and recheck her CBC in a.m. CORTNEY PETTY MD Apr 18, 2019 20:06
[2019-04-18] MEDS: ACETAMINOPHEN 325 MG TAB PO PRN (20:14)
[2019-04-18 20:20] VITALS: BP 141/81; PULSE 102; RESP 18
[2019-04-19 01:18] VITALS: BP 140/70; PULSE 98; RESP 18
[2019-04-19 07:37] VITALS: BP 132/68; PULSE 92; RESP 17
--- NOTE | 2019-04-19 08:21 | CONS ---
Consult Date/Type/Reason Admit Date/Time April 12, 2019 at 23:42 Initial Consult Date 04/13/19 Type of Consultation: Urology Reason for Consultation Right renal stone and pyelonephritis Requesting Provider: BETH MON Date/Time of Note DATE: 04/19/19 TIME: 08:17 Subjective Patient is feeling much better, she denies having any pain. She is voiding well. Objective Vitals Vital Signs Date Temp Pulse Resp B/P (MAP) Pulse Ox O2 O2 Flow FiO2 Time Delivery Rate 04/19/19 99.6 92 17 132/68 97 Room Air 07:37 (89) Intake and Output 04/18/19 04/18/19 04/19/19 1515:00 23:00 07:00 IntakeIntake Total 480 ml 1300 ml 240 ml BalanceBalance 480 ml 1300 ml 240 ml Exam The abdomen is soft and obese. The KUB done today showed the stone to be on the upper edge of the JJ stent. Results/Medications Result Diagram: 04/19/19 0515 04/18/19 0427 Results 24 hrs Laboratory Tests Test 04/19/19 05:15 White Blood Count 13.1 #H Red Blood Count 3.60 L Hemoglobin 8.6 L Hematocrit 29.4 L Mean Corpuscular Volume 81.7 L Mean Corpuscular Hemoglobin 23.9 L Mean Corpuscular Hemoglobin Concent 29.3 L Red Cell Distribution Width 20.3 H Platelet Count 473 H Mean Platelet Volume 9.1 Immature Granulocytes % 0.900 H Neutrophils % 67.9 Lymphocytes % 23.4 Monocytes % 6.8 Eosinophils % 0.7 Basophils % 0.3 Nucleated Red Blood Cells % 0.0 Immature Granulocytes # 0.120 H Neutrophils # 8.9 H Lymphocytes # 3.1 H Monocytes # 0.9 Eosinophils # 0.1 Basophils # 0.0 Nucleated Red Blood Cells # 0.0 Home Meds Active Scripts Ibuprofen* (Motrin*) 600 Mg Tab, 600 MG PO Q6H PRN for PAIN AND OR ELEVATED TEMP, #30 TAB Prov:ELIF BARON NP 03/04/18 Discontinued Scripts Cephalexin* (Keflex*) 500 Mg Capsule, 500 MG PO TID for 7 Days, CAP Prov:SHAKEEL MCKINLEYC 03/05/19 Amoxicillin* (Amoxicillin*) 500 Mg Cap, 500 MG PO TID for 10 Days, CAP Prov:ELIF BARON FORMULA BOTTLER 03/04/18 Medications Current Medications IV Flush (NS 3 ml) 3 ml PER PROTOCOL IV ; Start 04/13/19 at 00:30 Ondansetron HCl (Zofran Inj) 4 mg Q6H PRN IV NAUSEA/VOMITING; Start 04/13/19 at 00:30 Acetaminophen (Tylenol Tab) 650 mg Q6H PRN PO .PAIN 1-3 OR TEMP Last administered on 04/18/19 20:14; Admin Dose 650 MG; Start 04/13/19 at 00:30 Hydromorphone HCl (Dilaudid) 0.5 mg Q4H PRN IV .PAIN 7-10; Start 04/13/19 at 00:30 Docusate Sodium (Colace) 100 mg Q12H PRN PO .CONSTIPATION Last administered on 04/16/19 09:11; Admin Dose 100 MG; Start 04/13/19 at 00:30 Bisacodyl (Dulcolax) 5 mg DAILY PRN PO .CONSTIPATION Last administered on 04/16/19 09:11; Admin Dose 5 MG; Start 04/13/19 at 00:30 Levofloxacin/ Dextrose 150 ml @ 100 mls/hr Q24H IVPB Last administered on 04/18/19 17:06; Admin Dose 100 MLS/HR; Start 04/15/19 at 17:00 Assessment/Plan Hospital Course (Demo Recall) 38-year-old female presented to the emergency room with a 3 days history of right flank pain , nausea and dysuria. She underwent a CT scan of the abdomen and pelvis and that showed: 1. Enlarged right kidney with severe right-sided hydronephrosis. There is a large 2.2 x 1.5 cm staghorn calculus within the right renal pelvis. Large amount of right perinephric fatty stranding and fluid is noted. Findings may be chronic. Findings suggestive of obstructive uropathy and underlying infection. 2. Multiple retroperitoneal aortocaval lymph nodes are noted, probably reactive. 3. No evidence of bowel obstruction. Stool filled loops of large bowel suggestive of constipation. 4. There is left kidney is unremarkable. Patient underwent a cystoscopy and insertion of right ureteral JJ stent on 04/17/2019. Large amount of purulent material was aspirated from the kidney. The patient is feeling better today. she does have some discomfort in her back. The white count has come down to 13.1 The urine cultures from the bladder and the right kidney are still pending but the original urine culture on 04/12/2019 showed Proteus mirabilis that is sensitive to all antibiotic except nitrofurantoin. The patient may be discharged home on Cipro 500 mg twice a day for the next 2 weeks and she should go to [facility] for follow-up in the next 1 to 2 weeks. I did show her the pictures of her stone and the JJ stent in the kidney and discussed with her the importance of the follow-up, treatment of the stone and removal of the JJ stent. He did understand and promised to do that CORTNEY PETTY MD Apr 19, 2019 08:21
[2019-04-19] MEDS ORDERED: CEFTRIAXONE 1 GM/50 ML (PMX) 50 ML IVPB SCH (10:30)
[2019-04-19] MEDS ORDERED: CIPR500T4 PO (11:31)
--- NOTE | 2019-04-19 11:32 | PDOCDIS ---
Discharge Instructions CONDITION [id number] Patient Condition: [id number] Good HOME CARE INSTRUCTIONS: [id number] Diet Instructions: [id number] Reduced Calorie ACTIVITY: [id number] Activity Restrictions: [id number] No Restrictions FOLLOW UP/APPOINTMENTS Follow-up Plan FOLLOW UP WITH A PCP IN 1-2 WEEKS, FOLLOW UP WITH A UROLOGIST FOR REMOVAL OF URETAL STENT PIETER FIGUEROA Apr 19, 2019 11:32
--- NOTE | 2019-04-19 14:49 | DS ---
Date/Time of Note Date/Time of Note DATE: 04/19/19 TIME: 14:46 Discharge Summary Admission/Discharge Info Admit Date/Time April 12, 2019 at 23:42 Discharge Date/Time Apr 19, 2019 at 13:20 Discharge Diagnosis This is a 28-year-old female with comorbidities including obesity and asthma who presented to the emergency room with chief complaint of dysuria, lower back pain with CT scan showing severe right-sided hydronephrosis with a 2.2 x 1.5 cm staghorn calculus within the right renal pelvis. 1. Sepsis with leukocytosis, febrile illness, and tachycardia, present on admission -Sepsis resolved -Urine culture positive for Proteus mirabilis. -Status post antibiotics and fluids 2. Complicated urinary tract infection. -Urine culture positive for Proteus mirabilis with colony count more than 100,000 CFU per mL. -Status post antibiotics, DC with Cipro 3. 2.2 x 1.5 cm staghorn calculus within the right renal pelvis. -Status post IV hydration and Flomax -Urology following, status post cystoscopy and stent placement 3. Microcytic, hypochromic anemia. -Iron panel showing iron deficiency. -On iron supplements. -S/P 3 units of PRBC -Stool OBX1 negative 4. Morbid obesity. -BMI of more than 45 kg/m. -Weight reduction advised. 5. History of asthma. -No evidence of any exacerbation. Patient Condition: Good Hospital Course Patient is a 28-year-old female with comorbidities including obesity and asthma who presented to the emergency room with chief complaint of dysuria, lower back pain with CT scan showing severe right-sided hydronephrosis with a 2.2 x 1.5 cm staghorn calculus within the right renal pelvis. Patient received IV antibiotics and fluids as well as Flomax, patient had persistent pain and sepsis and ultimately required a cystoscopy and stent placement with urology. Patient did have anemia and was transfused packed red blood cells. Sepsis did resolve and patient was stable for DC. On day of discharge patient vitals, labs and physical exam are stable. Home Meds Active Scripts Ciprofloxacin Hcl* (Ciprofloxacin Hcl*) 500 Mg Tablet, 500 MG PO BID for 4 Days, #8 TAB Prov:PIETER FIGUEROA 04/19/19 Ibuprofen* (Motrin*) 600 Mg Tab, 600 MG PO Q6H PRN for PAIN AND OR ELEVATED TEMP, #30 TAB Prov:ELIF BARON NP 03/04/18 Discontinued Scripts Cephalexin* (Keflex*) 500 Mg Capsule, 500 MG PO TID for 7 Days, CAP Prov:SHAKEEL MCKINLEY PA-C 03/05/19 Amoxicillin* (Amoxicillin*) 500 Mg Cap, 500 MG PO TID for 10 Days, CAP Prov:ELIF BARON NP 03/04/18 Follow-up Plan FOLLOW UP WITH A PCP IN 1-2 WEEKS, FOLLOW UP WITH A UROLOGIST FOR REMOVAL OF URETAL STENT Primary Care Provider Care Physician No Primary Time spent on discharge: > 30 minutes PIETER FIGUEROA Apr 19, 2019 14:49
--- NOTE | 2019-04-19 16:32 | CONS ---
Assessment/Plan Assessment/Plan Hospital Course (Demo Recall) 1230 Feels good Microbiology: Blood cultures negative urine culture grew Proteus mirabilis re sistant only to Macrobid Antimicrobials: Levaquin Physical examination: This is a morbidly obese well-developed middle-aged woman who is awake in no distress. Head atraumatic normocephalic neck is is obese chest rise symmetrical breath sounds diminished bases heart S1-S2 abdomen soft bowel sounds present Assessment: 1. Right-sided hydronephrosis with a staghorn calculus suggestive of obstruct jahaira uropathy and underlying infection 2. Morbid morbid obesity 3. Persistent leukocytosis secondary to #1 Plan: Stable, ok dc on oral Levaquin to complete 2 weeks Consultation Date/Type/Reason Admit Date/Time April 12, 2019 at 23:42 Initial Consult Date 04/13/19 Type of Consult id Requesting Provider: BETH MON Date/Time of Note DATE: 04/19/19 TIME: 16:31 Exam/Review of Systems Exam Vitals Vital Signs Date Temp Pulse Resp B/P (MAP) Pulse Ox O2 O2 Flow FiO2 Time Delivery Rate 04/19/19 99.6 92 17 132/68 97 Room Air 07:37 (89) Intake and Output 04/18/19 04/18/19 04/19/19 1515:00 23:00 07:00 IntakeIntake Total 480 ml 1300 ml 240 ml BalanceBalance 480 ml 1300 ml 240 ml Results Result Diagram: 04/19/19 0515 04/18/19 0427 Results 24hrs Laboratory Tests Test 04/19/19 05:15 White Blood Count 13.1 #H Red Blood Count 3.60 L Hemoglobin 8.6 L Hematocrit 29.4 L Mean Corpuscular Volume 81.7 L Mean Corpuscular Hemoglobin 23.9 L Mean Corpuscular Hemoglobin Concent 29.3 L Red Cell Distribution Width 20.3 H Platelet Count 473 H Mean Platelet Volume 9.1 Immature Granulocytes % 0.900 H Neutrophils % 67.9 Lymphocytes % 23.4 Monocytes % 6.8 Eosinophils % 0.7 Basophils % 0.3 Nucleated Red Blood Cells % 0.0 Immature Granulocytes # 0.120 H Neutrophils # 8.9 H Lymphocytes # 3.1 H Monocytes # 0.9 Eosinophils # 0.1 Basophils # 0.0 Nucleated Red Blood Cells # 0.0 KVNG JI NP Apr 19, 2019 16:32
== END 2019-04-19 13:20 | disposition home or self-care (01) | DRG 854 ==
LOC: E/R 19:27 → 6WM 23:42 → 2NE 04-13 21:50
PROVIDERS: ADMIT Family Medicine; ATTEND Internal Medicine
PROC: 30233N1 Transfusion of Nonautologous Red Blood Cells into Peripheral Vein, Percutaneous Approach (ICD-10-PCS; 2019-04-14)
PROC: 0T768DZ Dilation of Right Ureter with Intraluminal Device, Via Natural or Artificial Opening Endoscopic (ICD-10-PCS; principal; 2019-04-17 17:30)
DX: A41.9 Sepsis, unspecified organism (principal); N13.6 Pyonephrosis; Z68.42 Body mass index [BMI] 45.0-49.9, adult; N11.1 Chronic obstructive pyelonephritis; E66.01 Morbid (severe) obesity due to excess calories; N20.0 Calculus of kidney; D50.9 Iron deficiency anemia, unspecified; B96.4 Proteus (mirabilis) (morganii) as the cause of diseases classified elsewhere
CPT/HCPCS: 36415; 36430; 71045; 74018; 74176; 74430; 80048; 80053; 80061; 81001; 82270; 82728; 83036; 83540; 83605; 83735; 84100; 84443; 84484; 84703; 85025; 85610; 85730; 86850; 86900; 86901; 86920; 87045; 87075; 87086; 87102; 93005; 96374; 96375; C2617; J0690; J0692; J0696; J1885; J1956; J2250; J2405; J2916; J3010; J3370; J7030; J7040; P9016; Q9967

== ENCOUNTER 2019-05-08 22:19 | Inpatient (IN) | payer MEDICAID ==
[~2019-05-08] VITALS: Ht 162.6 cm; Wt 120.0 kg
[~2019-05-08 22:19] MED LIST changes: -AMOX500C2 PO; -CEPH-443 PO; +CIPR500T4 PO
[2019-05-08 22:28] VITALS: Ht 162.6 cm; Wt 120.0 kg
[2019-05-08] MEDS ORDERED: morphine 4 MG/ML VIAL IV STA (23:24)
[2019-05-08] MEDS ORDERED: SOD CHLORIDE 0.9% 1,000 ML IV STA (23:24)
[2019-05-08] MEDS ORDERED: ONDANSETRON 4 MG INJ IV STA (23:24)
[2019-05-09] MEDS ORDERED: ACET-141 PO (02:46)
[2019-05-09] MEDS ORDERED: ASCO500C7 PO (02:46)
[2019-05-09] MEDS ORDERED: FER325 PO (02:46)
[2019-05-09] MEDS ORDERED: ONDANSETRON 4 MG INJ IV PRN ×2 (03:00→03:30)
[2019-05-09] MEDS ORDERED: PIPER-TAZO 3.375 GM IV (PMX) 100 ML IVPB ONE (03:00)
[2019-05-09] MEDS ORDERED: ACETAMINOPHEN 325 MG TAB PO PRN (03:00)
[2019-05-09] MEDS ORDERED: VANCOMYCIN 1 GM (PMX) 250 ML IVPB ONE (03:00)
[2019-05-09] MEDS ORDERED: NACL 0.9% 3 ML SYG IV SCH (03:30)
[2019-05-09] MEDS ORDERED: HYDROmorphONE 0.5 MG/0.5 ML SYG IV PRN (03:30)
[2019-05-09] MEDS ORDERED: VANCOMYCIN IV PER PHARMACY XX SCH (03:30)
[2019-05-09] MEDS ORDERED: HYDROCODONE/APAP (5/325) TAB PO PRN (03:30)
[2019-05-09] MEDS ORDERED: VANCOMYCIN 1 GM in 250 ML IVPB ONE (06:00)
--- NOTE | 2019-05-09 07:29 | HP ---
Date/Time of Note Date/Time of Note DATE: 05/09/19 TIME: 07:26 Assessment/Plan VTE Prophylaxis SCD applied (from Nsg): Yes Pharmacological prophylaxis: NA/contraindicated Pharm contraindication: low risk/ambulating Lines/Catheters IV Catheter Type (from Nrsg): Saline Lock Assessment/Plan Hospital Course This is a 38-year-old female being admitted to the telemetry floor for: 1. sepsis: Secondary to pyelonephritis. Patient did receive vancomycin and cefepime in the emergency department. Previous urine micro showed Proteus mirabilis. Vancomycin and meropenem at the current time. 2. Complicated UTI with severe right-sided hydronephrosis: In the setting of stent placement and history of staghorn calculus. Patient did have a ureteral stent placed which he currently has. Renal function appears to be within normal values. Vancomycin and meropenem. Will consult urology 3.suspect right iliopsoas muscle abscess: CT of the abdomen pelvis shows: Right iliopsoas and iliacus muscles with surrounding stranding suspicious for underlying abscess. Broad-spectrum antibiotic to vancomycin and meropenem. General surgery has been consulted. 4. History of Staghorn calculus: s/p right ureteral stent. urology consult placed. 5. pyelonephritis: Antibiotics as per #1. 6. Iron deficiency anemia: Continue iron supplement, monitor H&H 7. Morbid obesity: a1c. encourage diet and lifestyle modification 6. DVT GI prophylaxis: SCDs, no GI prophylaxis indicated next Further treatment strategy will be implemented as per the clinical course Result Diagram: 05/09/19 0058 05/09/19 0058 Results 24hrs Laboratory Tests Test 05/08/19 23:10 05/08/19 23:14 05/09/19 00:58 Urine Color NADEEM Urine Clarity CLOUDY A Urine pH 5.0 Urine Specific [place] 1.021 Urine Ketones TRACE A Urine Nitrite NEGATIVE Urine Bilirubin NEGATIVE Urine Urobilinogen NEGATIVE Urine Leukocyte Esterase 2+ H Urine Microscopic RBC 0 Urine Microscopic WBC 85 H Urine Squamous Epithelial Cells MANY A Urine Bacteria FEW A Urine Mucus MODERATE Urine Hemoglobin NEGATIVE Urine Glucose NEGATIVE Urine Total Protein 2+ H Bedside Urine pH (LAB) 6.0 Bedside Urine Protein (LAB) 2+ H Bedside Urine Glucose (UA) Negative Bedside Urine Ketones (LAB) 1+ H Bedside Urine Blood Trace-intact H Bedside Urine Nitrite (LAB) Negative Bedside Urine Leukocyte Esterase 1+ H (L POC Beta HCG, Qualitative NEGATIVE White Blood Count 21.3 #H Red Blood Count 3.31 L Hemoglobin 8.1 L Hematocrit 27.2 L Mean Corpuscular Volume 82.2 Mean Corpuscular Hemoglobin 24.5 L Mean Corpuscular 29.8 L Hemoglobin Concent Red Cell Distribution Width 18.8 H Platelet Count 508 H Mean Platelet Volume 8.9 Immature Granulocytes % 0.700 H Neutrophils % 84.3 H Lymphocytes % 9.3 L Monocytes % 5.5 Eosinophils % 0.0 Basophils % 0.2 Nucleated Red Blood Cells % 0.0 Immature Granulocytes # 0.150 H Neutrophils # 17.9 H Lymphocytes # 2.0 Monocytes # 1.2 H Eosinophils # 0.0 Basophils # 0.0 Nucleated Red Blood Cells # 0.0 Sodium Level 137 Potassium Level 4.0 Chloride Level 101 Carbon Dioxide Level 24 Anion Gap 12 Blood Urea Nitrogen 8 Creatinine 0.59 Est Glomerular Filtrat > 60 Rate mL/min Glucose Level 96 Calcium Level 8.6 Total Bilirubin 0.4 Direct Bilirubin 0.00 Indirect Bilirubin 0.4 Aspartate Amino Transf (AST/SGOT) 19 Alanine 8 L Aminotransferase (ALT/SGPT) Alkaline Phosphatase 110 Total Protein 8.2 H Albumin 3.0 L Globulin 5.20 H Albumin/Globulin Ratio 0.57 Lipase 11 L HPI/ROS Admit Date/Time Admit Date/Time Hx of Present Illness Chief complaint: Right flank pain This is a 38-year female with a past medical history of nephrolithiasis status post ureteral stent who presents to the emergency department with complaints of right-sided flank pain. Patient reports that she started experiencing right- sided flank pain on Wednesday and then today started noticing some swelling in her right flank. She reported that her urine was clear however then prior to coming to the hospital he became dark. She denies any fevers. Allergies: NKDA Medications: See JAN ROS Const: As per HPI Eyes : No pain discharge or redness or change in visual acuity ENT: No pain, sore throat, congestion, congestion, dysphagia or discharge Respiratory: No shortness of breath, cough, sputum, wheezing, or pleuritic pain Cardiovascular: No chest pain, palpitation, PND, or edema GI : no change in appetite, abdominal pain, nausea, vomiting, diarrhea, constipation, or change in the color his stool Genitourinary: As per HPI Musculoskeletal: No joint pain, back pain, neck pain, restricted range of motion in neck or joints Skin: No rash, bruising or hives Neuro: No headache, dizziness, syncope, seizure, focal weakness Endocrine: No polyuria, polydipsia, temperature intolerance Psych: No hallucination, depression, anxiety or suicidal ideation PMH/Family/Social Past Medical History Asthma, nephrolithiasis Medications Current Medications Ondansetron HCl (Zofran Inj) 4 mg BRIDGE ORDER PRN IV NAUSEA/VOMITING; Start 05/09/19 at 03:00; Stop 05/10/19 at 02:59 Acetaminophen (Tylenol Tab) 650 mg ER BRIDGE PRN PO .MILD PAIN 1-3 OR TEMP; Start 05/09/19 at 03:00; Stop 05/10/19 at 02:59 Sodium Chloride 1,000 ml @ 80 mls/hr [id number] IV ; Start 05/09/19 at 03:07 IV Flush (NS 3 ml) 3 ml PER PROTOCOL IV ; Start 05/09/19 at 03:30 Ondansetron HCl (Zofran Inj) 4 mg Q6H PRN IV NAUSEA/VOMITING; Start 05/09/19 at 03:30 Acetaminophen (Tylenol Tab) 650 mg Q6H PRN PO .PAIN 1-3 OR TEMP; Start 05/09/19 at 03:30 Acetaminophen/ Hydrocodone Bitart ([place] (5/325)) 1 tab Q6H PRN PO .MOD PAIN 4- 6; Start 05/09/19 at 03:30 Hydromorphone HCl (Dilaudid) 1 mg Q4H PRN IV .SEVERE PAIN 7-10; Start 05/09/19 at 03:30 Vancomycin HCl (Vanco Iv Per Pharmacy) VANCOMYCIN PER PHARMACY PER PROTOCOL XX ; Start 05/09/19 at 03:30 Meropenem/Sodium Chloride 50 ml @ 100 mls/hr Q12 IVPB ; Start 05/09/19 at 09:00 Vancomycin HCl 250 ml @ 125 mls/hr ONCE ONCE IVPB ; Start 05/09/19 at 06:00; Stop 05/09/19 at 07:59 Vancomycin HCl 1.5 gm/Sodium Chloride 250 ml @ 83.333 mls/ hr Q12H IVPB ; Start 05/09/19 at 18:00 Coded Allergies: No Known Allergy (Unverified , 05/09/19) Past Surgical History Cystoscopy and insertion of right ureteral JJ stent on 04/17 Family History Significant Family History: no pertinent family hx Social History Alcohol Use: none Smoking Status: Never smoker Drug Use: none Exam/Review of Systems Vital Signs Vitals Vital Signs Date Temp Pulse Resp B/P (MAP) Pulse Ox O2 O2 Flow FiO2 Time Delivery Rate 05/09/19 115 16 123/71 97 Room Air 05:24 (88) 05/08/19 99.4 22:28 Exam Exam General: Patient currently lying in bed in no acute distress HEENT: Atraumatic, normocephalic. The pupils are equal, round and reactive. Extraocular motor are intact Neck: Supple with full range of motion. No rigidity or meningismus Chest: Nontender Lungs: Clear to auscultation bilaterally no crackles rales or wheezing Heart: Normal S1-S2, Regular rhythm and rate. No murmur, S3, or S4 Abdomen: Soft, morbidly obese, right flank pain to palpation Extremities: Normal to inspection, no edema no cyanosis Neurologic: Normal mental status, speech normal, cranial nerves II through XII are intact, motor and sensory are intact, Additional Comments PROCEDURE: CT Abdomen and pelvis without contrast. CLINICAL INDICATION: Abdominal pain. TECHNIQUE: CT scan of the abdomen and pelvis was performed on a multi- detector high-resolution CT scanner. Contiguous axial images were obtained from the lung bases to the ischial tuberosities without intravenous contrast. Coronal and sagittal reformatted images were also obtained. Images were reviewed on the PACS workstation. DICOM images are available. One or more of the following dose reduction techniques were used: - Automated exposure control. - Adjustment of the mA and/or kV according to patient size. - Use of iterative reconstruction technique. Exam CTD/vol = 23.10 mGy. Total exam DLP = 1472.35 mGy-cm. COMPARISON: 04/16/2019. FINDINGS: Evaluation of the lung bases demonstrates mild bibasilar atelectasis. Abdomen: The liver is normal in size. There is no focal mass or dilatation of the biliary tree. The gallbladder is distended with multiple isodense gallstones. The spleen, pancreas and bilateral adrenal glands are within normal limits. Again demonstrated is severe right-sided hydronephrosis with cortical thinning. There is moderate right-sided perinephric stranding and fluid. There is stranding and enlargement of the right iliopsoas and iliacus muscles with po brittany defined fluid collections. There is a right-sided ureteral stent with calcifications surrounding the proximal pigtail within the right renal pelvis. The left kidney is normal in size with no contour deforming mass identified. There is no radiopaque renal calculus identified. There is no retroperitoneal adenopathy. The abdominal aorta is of normal caliber. Evaluation of the bowel is limited by lack of contrast. There is no bowel obstruction or free air. A normal appendix is identified. There is no diverticulosis or diverticulitis. There is no ascites. Pelvis: The bladder contains a ureteral stent. The uterus and adnexa are within normal limits. There is no significant pelvic adenopathy or free fluid. Again demonstrated is a prominence of the left labia measuring approximately 3.5 x 2.7 cm. Evaluation of the osseous structures demonstrates no suspicious lytic or blastic lesion. IMPRESSION: Severe right-sided hydronephrosis with perinephric stranding and fluid, unc hanged from 04/16/2019. Underlying infection cannot be excluded. There is a right-sided ureteral stent with calcifications surrounding the proximal pigtail within the renal pelvis which is unchanged. Enlargement of the right iliopsoas and iliacus muscles with surrounding stranding suspicious for underlying abscess, increased compared with the prior study. There is increased posterior extension. Distended gallbladder with multiple gallstones. Prominence of the left labia, unchanged. Clinically correlate. .Wilmer Munguia MD, MD Date Time Electronically viewed and signed by .Wilmer Munguia MD, MD on 05/09/2019 01:12 .T/ CC: SHUN ZIMMERMAN [id number] BETH MON May 09, 2019 07:29
--- NOTE | 2019-05-09 08:44 | CONS ---
Assessment/Plan Assessment/Plan Hospital Course (Demo Recall) 38-year-old female was hospitalized earlier this month with right renal stone with obstruction. She underwent cystoscopy and insertion of right ureteral JJ stent on 04/17/2019. Patient was supposed to follow-up with [facility] but she did not. She comes back today feeling discomfort in the right side of the abdomen. She denies any fever or chills and no back pain. CT scan of the abdomen and pelvis showed: Severe right-sided hydronephrosis with perinephric stranding and fluid, unchanged from 04/16/2019. Underlying infection cannot be excluded. There is a right-sided ureteral stent with calcifications surrounding the proximal pigtail within the renal pelvis which is unchanged. Enlargement of the right iliopsoas and iliacus muscles with surrounding strandi ng suspicious for underlying abscess, increased compared with the prior study. There is increased posterior extension. Distended gallbladder with multiple gallstones. Prominence of the left labia, unchanged. Clinically correlate. We will do straight cath collect urine for culture and sensitivity. Cover her with antibiotics. If the inflammation around the psoas muscle does not improve then she will need the radiologist to do percutaneous drainage of the abscess. Once she is stable again she should go to [facility] for further care of her kidney problem. Consultation Date/Type/Reason Admit Date/Time May 09, 2019 Date of Consultation: May 09, 2019 Type of Consult Urology Reason for Consultation Right hydronephrosis and right renal stone Requesting Provider: BETH MON Date/Time of Note DATE: 05/09/19 TIME: 08:34 Hx of Present Illness 38-year-old female was hospitalized earlier this month with right renal stone with obstruction. She underwent cystoscopy and insertion of right ureteral JJ stent on 04/17/2019. Patient was supposed to follow-up with [facility] but she did not. She comes back today feeling discomfort in the right side of the abdomen. She denies any fever or chills and no back pain. Past Medical History Medical History: other (As per history of present illness) Home Meds Reported Medications Acetaminophen* (Acetaminophen*) 500 MG Extra Strength Tablet, 500 MG PO Q4H PRN for PAIN AND OR ELEVATED TEMP, TAB 05/09/19 Ferrous Sulfate* (Ferrous Sulfate*) 325 Mg Tabec, 325 MG PO DAILY, TAB 05/09/19 Ascorbic Acid* (Vitamin C*) 500 Mg Capsule.sa, 500 MG PO DAILY, CAP 05/09/19 Discontinued Scripts Ciprofloxacin Hcl* (Ciprofloxacin Hcl*) 500 Mg Tablet, 500 MG PO BID for 4 Days, #8 TAB Prov:PIETER FIGUEROA 04/19/19 Ibuprofen* (Motrin*) 600 Mg Tab, 600 MG PO Q6H PRN for PAIN AND OR ELEVATED TEMP, #30 TAB Prov:ELIF BARON NP 03/04/18 Medications Current Medications Ondansetron HCl (Zofran Inj) 4 mg BRIDGE ORDER PRN IV NAUSEA/VOMITING; Start 05/09/19 at 03:00; Stop 05/10/19 at 02:59 Acetaminophen (Tylenol Tab) 650 mg ER BRIDGE PRN PO .MILD PAIN 1-3 OR TEMP Last administered on 05/09/19at 07:56; Admin Dose 650 MG; Start 05/09/19 at 03:00; Stop 05/10/19 at 02:59 Sodium Chloride 1,000 ml @ 80 mls/hr [id number] IV ; Start 05/09/19 at 03:07 IV Flush (NS 3 ml) 3 ml PER PROTOCOL IV ; Start 05/09/19 at 03:30 Ondansetron HCl (Zofran Inj) 4 mg Q6H PRN IV NAUSEA/VOMITING; Start 05/09/19 at 03:30 Acetaminophen (Tylenol Tab) 650 mg Q6H PRN PO .PAIN 1-3 OR TEMP; Start 05/09/19 at 03:30 Acetaminophen/ Hydrocodone Bitart ([employer] (5/325)) 1 tab Q6H PRN PO .MOD PAIN 4-6; Start 05/09/19 at 03:30 Hydromorphone HCl (Dilaudid) 1 mg Q4H PRN IV .SEVERE PAIN 7-10; Start 05/09/19 at 03:30 Vancomycin HCl (Vanco Iv Per Pharmacy) VANCOMYCIN PER PHARMACY PER PROTOCOL XX ; Start 05/09/19 at 03:30 Meropenem/Sodium Chloride 50 ml @ 100 mls/hr Q12 IVPB ; Start 05/09/19 at 09:00 Vancomycin HCl 1.5 gm/Sodium Chloride 250 ml @ 83.333 mls/ hr Q12H IVPB ; Start 05/09/19 at 18:00 Ascorbic Acid (Vitamin C) 500 mg DAILY PO ; Start 05/09/19 at 09:00 Ferrous Sulfate (Ferrous Sulfate (Ec)) 325 mg DAILY PO ; Start 05/09/19 at 09:00 Allergies: Coded Allergies: No Known Allergy (Unverified , 05/09/19) Past Surgical History Past Surgical Hx: other (Cystoscopy and insertion of right ureteral JJ stent) Social History Alcohol Use: none Smoking Status: Never smoker Drug Use: none Exam/Review of Systems Exam Vitals Vital Signs Date Temp Pulse Resp B/P (MAP) Pulse Ox O2 O2 Flow FiO2 Time Delivery Rate 05/09/19 99.9 07:56 05/09/19 116 18 138/77 98 Room Air 07:52 (97) Exam Patient is awake and alert. There is no flank tenderness. Abdomen is very obese and she does have discomfort in the right side of the abdomen. Results Result Diagram: 05/09/19 0058 05/09/19 0058 Results 24hrs Laboratory Tests Test 05/08/19 23:10 05/08/19 23:14 05/09/19 00:58 05/09/19 07:59 Urine Color NADEEM Urine Clarity CLOUDY A Urine pH 5.0 Urine Specific 1.021 [place] Urine Ketones TRACE A Urine Nitrite NEGATIVE Urine Bilirubin NEGATIVE Urine Urobilinogen NEGATIVE Urine Leukocyte 2+ H Esterase Urine Microscopic 0 RBC Urine Microscopic 85 H WBC Urine Squamous MANY A Epithelial Cells Urine Bacteria FEW A Urine Mucus MODERATE Urine Hemoglobin NEGATIVE Urine Glucose NEGATIVE Urine Total 2+ H Protein Bedside Urine pH 6.0 (LAB) Bedside Urine 2+ H Protein (LAB) Bedside Urine Negative Glucose (UA) Bedside Urine 1+ H Ketones (LAB) Bedside Urine Trace-intact H Blood Bedside Urine Negative Nitrite (LAB) Bedside Urine 1+ H Leukocyte Esterase (L POC Beta HCG, NEGATIVE Qualitative White Blood Count 21.3 #H Red Blood Count 3.31 L Hemoglobin 8.1 L Hematocrit 27.2 L Mean Corpuscular 82.2 Volume Mean Corpuscular 24.5 L Hemoglobin Mean Corpuscular 29.8 L Hemoglobin Concent Red Cell 18.8 H Distribution Width Platelet Count 508 H Mean Platelet 8.9 Volume Immature 0.700 H Granulocytes % Neutrophils % 84.3 H Lymphocytes % 9.3 L Monocytes % 5.5 Eosinophils % 0.0 Basophils % 0.2 Nucleated Red 0.0 Blood Cells % Immature 0.150 H Granulocytes # Neutrophils # 17.9 H Lymphocytes # 2.0 Monocytes # 1.2 H Eosinophils # 0.0 Basophils # 0.0 Nucleated Red 0.0 Blood Cells # Sodium Level 137 Potassium Level 4.0 Chloride Level 101 Carbon Dioxide 24 Level Anion Gap 12 Blood Urea 8 Nitrogen Creatinine 0.59 Est Glomerular > 60 Filtrat Rate mL/min Glucose Level 96 Calcium Level 8.6 Total Bilirubin 0.4 Direct Bilirubin 0.00 Indirect Bilirubin 0.4 Aspartate Amino 19 Transf (AST/SGOT) Alanine 8 L Aminotransferase ( ALT/SGPT) Alkaline 110 Phosphatase Total Protein 8.2 H Albumin 3.0 L Globulin 5.20 H Albumin/Globulin 0.57 Ratio Lipase 11 L Prothrombin Time Pending Prothrombin Time 1.4 Ratio INR International 1.44 Normalized Ratio Activated 33.[address] Time Test 05/09/19 08:06 POC Venous Lactate 1.[address] scan of the abdomen and pelvis showed: Severe right-sided hydronephrosis with perinephric stranding and fluid, unchanged from 04/16/2019. Underlying infection cannot be excluded. There is a right-sided ureteral stent with calcifications surrounding the proximal pigtail within the renal pelvis which is unchanged. Enlargement of the right iliopsoas and iliacus muscles with surrounding stranding suspicious for underlying abscess, increased compared with the prior study. There is increased posterior extension. Distended gallbladder with multiple gallstones. Prominence of the left labia, unchanged. Clinically correlate. Medications Medication Current Medications Ondansetron HCl (Zofran Inj) 4 mg BRIDGE ORDER PRN IV NAUSEA/VOMITING; Start 05/09/19 at 03:00; Stop 05/10/19 at 02:59 Acetaminophen (Tylenol Tab) 650 mg ER BRIDGE PRN PO .MILD PAIN 1-3 OR TEMP Last administered on 05/09/19at 07:56; Admin Dose 650 MG; Start 05/09/19 at 03:00; Stop 05/10/19 at 02:59 Sodium Chloride 1,000 ml @ 80 mls/hr [id number] IV ; Start 05/09/19 at 03:07 IV Flush (NS 3 ml) 3 ml PER PROTOCOL IV ; Start 05/09/19 at 03:30 Ondansetron HCl (Zofran Inj) 4 mg Q6H PRN IV NAUSEA/VOMITING; Start 05/09/19 at 03:30 Acetaminophen (Tylenol Tab) 650 mg Q6H PRN PO .PAIN 1-3 OR TEMP; Start 05/09/19 at 03:30 Acetaminophen/ Hydrocodone Bitart ([employer] (5/325)) 1 tab Q6H PRN PO .MOD PAIN 4- 6; Start 05/09/19 at 03:30 Hydromorphone HCl (Dilaudid) 1 mg Q4H PRN IV .SEVERE PAIN 7-10; Start 05/09/19 at 03:30 Vancomycin HCl (Vanco Iv Per Pharmacy) VANCOMYCIN PER PHARMACY PER PROTOCOL XX ; Start 05/09/19 at 03:30 Meropenem/Sodium Chloride 50 ml @ 100 mls/hr Q12 IVPB ; Start 05/09/19 at 09:00 Vancomycin HCl 1.5 gm/Sodium Chloride 250 ml @ 83.333 mls/ hr Q12H IVPB ; Start 05/09/19 at 18:00 Ascorbic Acid (Vitamin C) 500 mg DAILY PO ; Start 05/09/19 at 09:00 Ferrous Sulfate (Ferrous Sulfate (Ec)) 325 mg DAILY PO ; Start 05/09/19 at 09:00 CORTNEY PETTY MD May 09, 2019 08:44
--- NOTE | 2019-05-09 09:03 | CONS ---
Assessment/Plan Assessment/Plan Problems: (1) Retroperitoneal abscess Assessment/Plan (Daily) Patient with infected right ureteral stent, hydronephrosis, retroperitoneal inflammation. Currently patient is stable no evidence of abscess to drain. Agree with antibiotics. Consultation Date/Type/Reason Admit Date/Time May 09, 2019 Date of Consultation: May 09, 2019 Type of Consult Surgical Date/Time of Note DATE: 05/09/19 TIME: 09:00 Hx of Present Illness 38-year-old female was hospitalized earlier this month with right renal stone with obstruction. She underwent cystoscopy and insertion of right ureteral JJ stent on 04/17/2019. Patient was supposed to follow-up with [facility] but she did not. She comes back today feeling discomfort in the right side of the abdomen. She denies any fever or chills and no back pain. CT scan of the abdomen and pelvis showed: Severe right-sided hydronephrosis with perinephric stranding and fluid, unchanged from 04/16/2019. Underlying infection cannot be excluded. There is a right-sided ureteral stent with calcifications surrounding the proximal pigtail within the renal pelvis which is unchanged. Enlargement of the right iliopsoas and iliacus muscles with surrounding stranding suspicious for underlying abscess, increased compared with the prior study. There is increased posterior extension. Distended gallbladder with multiple gallstones. Constitutional: no complaints, improved Eyes: no complaints ENT: no complaints Respiratory: no complaints Cardiovascular: no complaints Gastrointestinal: no complaints Genitourinary: dysuria, discharge, flank pain, hematuria Musculoskeletal: back pain Skin: no complaints Neurologic: no complaints Endocrine: no complaints Lymphatic: no complaints Psychological: no complaints, nl mood/affect Immunologic: no complaints Additional Comments Anemia Past Medical History Medical History: gallstones, other (As per history of present illness) Home Meds Reported Medications Acetaminophen* (Acetaminophen*) 500 MG Extra Strength Tablet, 500 MG PO Q4H PRN for PAIN AND OR ELEVATED TEMP, TAB 05/09/19 Ferrous Sulfate* (Ferrous Sulfate*) 325 Mg Tabec, 325 MG PO DAILY, TAB 05/09/19 Ascorbic Acid* (Vitamin C*) 500 Mg Capsule.sa, 500 MG PO DAILY, CAP 05/09/19 Discontinued Scripts Ciprofloxacin Hcl* (Ciprofloxacin Hcl*) 500 Mg Tablet, 500 MG PO BID for 4 Days, #8 TAB Prov:PIETER FIGUEROA 04/19/19 Ibuprofen* (Motrin*) 600 Mg Tab, 600 MG PO Q6H PRN for PAIN AND OR ELEVATED TEMP, #30 TAB Prov:ELIF BARON NP 03/04/18 Medications Current Medications Ondansetron HCl (Zofran Inj) 4 mg BRIDGE ORDER PRN IV NAUSEA/VOMITING; Start 05/09/19 at 03:00; Stop 05/10/19 at 02:59 Acetaminophen (Tylenol Tab) 650 mg ER BRIDGE PRN PO .MILD PAIN 1-3 OR TEMP Last administered on 05/09/19at 07:56; Admin Dose 650 MG; Start 05/09/19 at 03:00; Stop 05/10/19 at 02:59 Sodium Chloride 1,000 ml @ 80 mls/hr [id number] IV ; Start 05/09/19 at 03:07 IV Flush (NS 3 ml) 3 ml PER PROTOCOL IV ; Start 05/09/19 at 03:30 Ondansetron HCl (Zofran Inj) 4 mg Q6H PRN IV NAUSEA/VOMITING; Start 05/09/19 at 03:30 Acetaminophen (Tylenol Tab) 650 mg Q6H PRN PO .PAIN 1-3 OR TEMP; Start 05/09/19 at 03:30 Acetaminophen/ Hydrocodone Bitart ([place] (5/325)) 1 tab Q6H PRN PO .MOD PAIN 4- 6; Start 05/09/19 at 03:30 Hydromorphone HCl (Dilaudid) 1 mg Q4H PRN IV .SEVERE PAIN 7-10; Start 05/09/19 at 03:30 Vancomycin HCl (Vanco Iv Per Pharmacy) VANCOMYCIN PER PHARMACY PER PROTOCOL XX ; Start 05/09/19 at 03:30 Meropenem/Sodium Chloride 50 ml @ 100 mls/hr Q12 IVPB ; Start 05/09/19 at 09:00 Vancomycin HCl 1.5 gm/Sodium Chloride 250 ml @ 83.333 mls/ hr Q12H IVPB ; Start 05/09/19 at 18:00 Ascorbic Acid (Vitamin C) 500 mg DAILY PO ; Start 05/09/19 at 09:00 Ferrous Sulfate (Ferrous Sulfate (Ec)) 325 mg DAILY PO ; Start 05/09/19 at 09:00 Allergies: Coded Allergies: No Known Allergy (Unverified , 05/09/19) Past Surgical History Past Surgical Hx: other (Cystoscopy and insertion of right ureteral JJ stent) Social History Alcohol Use: none Smoking Status: Never smoker Drug Use: none Exam/Review of Systems Exam Vitals Vital Signs Date Temp Pulse Resp B/P (MAP) Pulse Ox O2 O2 Flow FiO2 Time Delivery Rate 05/09/19 99.9 07:56 05/09/19 116 18 138/77 98 Room Air 07:52 (97) Constitutional: alert, oriented, well developed Psych: no complaints, nl mood/affect Head: normocephalic, atraumatic Eyes: nl conjunctiva, EOMI, nl lids, nl sclera, PERRL ENMT: nl external ears & nose, nl lips & teeth, nl nasal mucosa & septum Neck: supple, non-tender Respiratory: clear to auscultation, normal air movement Cardiovascular: regular rate and rhythm, nl pulses Gastrointestinal: soft, nl liver, spleen, non-tender, other (Mild tenderness right flank.) Musculoskeletal: nl extremities to inspection, nl gait and stance Extremities: normal pulses Neurological: [employer]SPORTATION [employer] II-XII intact, nl mental status, nl speech, nl strength Skin: nl turgor; No rash or lesions Lymph: nl lymph nodes Results Result Diagram: 05/09/19 0058 05/09/19 0058 Results 24hrs Laboratory Tests Test 05/08/19 23:10 05/08/19 23:14 05/09/19 00:58 05/09/19 07:59 Urine Color NADEEM Urine Clarity CLOUDY A Urine pH 5.0 Urine Specific 1.021 [place] Urine Ketones TRACE A Urine Nitrite NEGATIVE Urine Bilirubin NEGATIVE Urine Urobilinogen NEGATIVE Urine Leukocyte 2+ H Esterase Urine Microscopic 0 RBC Urine Microscopic 85 H WBC Urine Squamous MANY A Epithelial Cells Urine Bacteria FEW A Urine Mucus MODERATE Urine Hemoglobin NEGATIVE Urine Glucose NEGATIVE Urine Total 2+ H Protein Bedside Urine pH 6.0 (LAB) Bedside Urine 2+ H Protein (LAB) Bedside Urine Negative Glucose (UA) Bedside Urine 1+ H Ketones (LAB) Bedside Urine Trace-intact H Blood Bedside Urine Negative Nitrite (LAB) Bedside Urine 1+ H Leukocyte Esterase (L POC Beta HCG, NEGATIVE Qualitative White Blood Count 21.3 #H Red Blood Count 3.31 L Hemoglobin 8.1 L Hematocrit 27.2 L Mean Corpuscular 82.2 Volume Mean Corpuscular 24.5 L Hemoglobin Mean Corpuscular 29.8 L Hemoglobin Concent Red Cell 18.8 H Distribution Width Platelet Count 508 H Mean Platelet 8.9 Volume Immature 0.700 H Granulocytes % Neutrophils % 84.3 H Lymphocytes % 9.3 L Monocytes % 5.5 Eosinophils % 0.0 Basophils % 0.2 Nucleated Red 0.0 Blood Cells % Immature 0.150 H Granulocytes # Neutrophils # 17.9 H Lymphocytes # 2.0 Monocytes # 1.2 H Eosinophils # 0.0 Basophils # 0.0 Nucleated Red 0.0 Blood Cells # Sodium Level 137 Potassium Level 4.0 Chloride Level 101 Carbon Dioxide 24 Level Anion Gap 12 Blood Urea 8 Nitrogen Creatinine 0.59 Est Glomerular > 60 Filtrat Rate mL/min Glucose Level 96 Calcium Level 8.6 Total Bilirubin 0.4 Direct Bilirubin 0.00 Indirect Bilirubin 0.4 Aspartate Amino 19 Transf (AST/SGOT) Alanine 8 L Aminotransferase ( ALT/SGPT) Alkaline 110 Phosphatase Total Protein 8.2 H Albumin 3.0 L Globulin 5.20 H Albumin/Globulin 0.57 Ratio Lipase 11 L Prothrombin Time 17.6 #H Prothrombin Time 1.4 Ratio INR International 1.44 Normalized Ratio Activated 33.[address] Time Test 05/09/19 08:06 POC Venous Lactate 1.0 Medications Medication Current Medications Ondansetron HCl (Zofran Inj) 4 mg BRIDGE ORDER PRN IV NAUSEA/VOMITING; Start 05/09/19 at 03:00; Stop 05/10/19 at 02:59 Acetaminophen (Tylenol Tab) 650 mg ER BRIDGE PRN PO .MILD PAIN 1-3 OR TEMP Last administered on 05/09/19at 07:56; Admin Dose 650 MG; Start 05/09/19 at 03:00; Stop 05/10/19 at 02:59 Sodium Chloride 1,000 ml @ 80 mls/hr [id number] IV ; Start 05/09/19 at 03:07 IV Flush (NS 3 ml) 3 ml PER PROTOCOL IV ; Start 05/09/19 at 03:30 Ondansetron HCl (Zofran Inj) 4 mg Q6H PRN IV NAUSEA/VOMITING; Start 05/09/19 at 03:30 Acetaminophen (Tylenol Tab) 650 mg Q6H PRN PO .PAIN 1-3 OR TEMP; Start 05/09/19 at 03:30 Acetaminophen/ Hydrocodone Bitart ([place] (5/325)) 1 tab Q6H PRN PO .MOD PAIN 4- 6; Start 05/09/19 at 03:30 Hydromorphone HCl (Dilaudid) 1 mg Q4H PRN IV .SEVERE PAIN 7-10; Start 05/09/19 at 03:30 Vancomycin HCl (Vanco Iv Per Pharmacy) VANCOMYCIN PER PHARMACY PER PROTOCOL XX ; Start 05/09/19 at 03:30 Meropenem/Sodium Chloride 50 ml @ 100 mls/hr Q12 IVPB ; Start 05/09/19 at 09:00 Vancomycin HCl 1.5 gm/Sodium Chloride 250 ml @ 83.333 mls/ hr Q12H IVPB ; Start 05/09/19 at 18:00 Ascorbic Acid (Vitamin C) 500 mg DAILY PO ; Start 05/09/19 at 09:00 Ferrous Sulfate (Ferrous Sulfate (Ec)) 325 mg DAILY PO ; Start 05/09/19 at 09:00 SVEN RAMOS MD May 09, 2019 09:03
[2019-05-09 09:31] VITALS: BP 126/65; PULSE 118
[2019-05-09] MEDS: MEROPENEM 1 GM/50ML(PMX) 50 ML IVPB SCH ×2 (09:54→21:12)
[2019-05-09] MEDS: SOD CHLORIDE 0.9% 1,000 ML IV SCH ×2 (09:54→15:37)
[2019-05-09] MEDS: FERROUS SULFATE (EC) 325 MG TAB PO SCH (09:54)
[2019-05-09] MEDS: ASCORBIC ACID 500 MG TAB PO SCH (09:55)
[2019-05-09 10:00] VITALS: BP 126/65; PULSE 118; RESP 18
--- NOTE | 2019-05-09 14:29 | PN ---
Date/Time of Note Date/Time of Note DATE: 05/09/19 TIME: 14:28 Assessment/Plan VTE Prophylaxis Pharmacological prophylaxis: NA/contraindicated Pharm contraindication: low risk/ambulating Lines/Catheters IV Catheter Type (from Nrs): Peripheral IV Urinary Cath still in place: No Assessment/Plan Hospital Course SUBJECTIVE: Continues to have some right-sided abdominal pain. OBJECTIVE: Physical Exam General: Morbidly obese 38 year-old female lying in bed in no apparent distress. HEENT: Normocephalic, atraumatic. Eyes: Anicteric sclerae, conjunctivae clear. ENT: Nasal septum midline, oral mucosa moist. Neck: Short and obese. Respiratory: Bilaterally clear breath sounds. No use of accessory muscles of respiration. No adventitious breath sounds. Cardiovascular: S1, S2 heard. Regular rate and rhythm. Abdomen: Soft and nondistended. Bowel sounds positive in all 4 quadrants. Genitourinary: Tenderness in the right flank. Extremities: No cyanosis, no clubbing, no edema. Peripheral pulses palpable. Neurologic: Cranial nerves II through XII grossly intact. The patient is awake, alert, and oriented. Skin: Normal skin turgor. No skin rashes. ASSESSMENT & PLAN 38-year-old female with comorbidities including obesity, asthma, and iron deficiency anemia with a staghorn calculus within the right renal pelvis status post cystoscopy and stent placement, who was discharged on April 19, 2019, to be followed up with [facility], who came back to the emergency room on 05/09/2019 with chief complaint of right flank pain with underlying sepsis and abdominal imaging showing severe right-sided hydronephrosis with perinephric stranding, who was admitted to inpatient setting for further treatment and evaluation. 1. Sepsis with leukocytosis and tachycardia, secondary to underlying complicated urinary tract infection, present on admission. Continue empiric antimicrobials. Urine cultures pending. Continue IV hydration. 2. Severe right-sided hydronephrosis. Status post right ureteral stenting on 04/17/2019. Being followed by urology. 3. Enlargement of the right iliopsoas and iliacus muscles. Is status post evaluation by general surgery who recommended no surgical intervention as there is no evidence of any underlying abscess. 4. Iron deficiency anemia. Continue iron supplements. 5. History of asthma. No evidence of any exacerbation. 6. Morbid obesity. Weight reduction and lifestyle changes advised. 7. DVT prophylaxis. Bilateral SCDs. 8. Plan. Continue antimicrobials. Await clinical improvement. The patient was seen in collaboration with Dr. Mc. Result Diagram: 05/09/19 0058 05/09/19 0058 Results 24hrs Laboratory Tests Test 05/08/19 23:10 05/08/19 23:14 05/09/19 00:58 05/09/19 07:59 Urine Color NADEEM Urine Clarity CLOUDY A Urine pH 5.0 Urine Specific 1.021 [place] Urine Ketones TRACE A Urine Nitrite NEGATIVE Urine Bilirubin NEGATIVE Urine Urobilinogen NEGATIVE Urine Leukocyte 2+ H Esterase Urine Microscopic 0 RBC Urine Microscopic 85 H WBC Urine Squamous MANY A Epithelial Cells Urine Bacteria FEW A Urine Mucus MODERATE Urine Hemoglobin NEGATIVE Urine Glucose NEGATIVE Urine Total 2+ H Protein Bedside Urine pH 6.0 (LAB) Bedside Urine 2+ H Protein (LAB) Bedside Urine Negative Glucose (UA) Bedside Urine 1+ H Ketones (LAB) Bedside Urine Trace-intact H Blood Bedside Urine Negative Nitrite (LAB) Bedside Urine 1+ H Leukocyte Esterase (L POC Beta HCG, NEGATIVE Qualitative White Blood Count 21.3 #H Red Blood Count 3.31 L Hemoglobin 8.1 L Hematocrit 27.2 L Mean Corpuscular 82.2 Volume Mean Corpuscular 24.5 L Hemoglobin Mean Corpuscular 29.8 L Hemoglobin Concent Red Cell 18.8 H Distribution Width Platelet Count 508 H Mean Platelet 8.9 Volume Immature 0.700 H Granulocytes % Neutrophils % 84.3 H Lymphocytes % 9.3 L Monocytes % 5.5 Eosinophils % 0.0 Basophils % 0.2 Nucleated Red 0.0 Blood Cells % Immature 0.150 H Granulocytes # Neutrophils # 17.9 H Lymphocytes # 2.0 Monocytes # 1.2 H Eosinophils # 0.0 Basophils # 0.0 Nucleated Red 0.0 Blood Cells # Sodium Level 137 Potassium Level 4.0 Chloride Level 101 Carbon Dioxide 24 Level Anion Gap 12 Blood Urea 8 Nitrogen Creatinine 0.59 Est Glomerular > 60 Filtrat Rate mL/min Glucose Level 96 Calcium Level 8.6 Total Bilirubin 0.4 Direct Bilirubin 0.00 Indirect Bilirubin 0.4 Aspartate Amino 19 Transf (AST/SGOT) Alanine 8 L Aminotransferase ( ALT/SGPT) Alkaline 110 Phosphatase Total Protein 8.2 H Albumin 3.0 L Globulin 5.20 H Albumin/Globulin 0.57 Ratio Lipase 11 L Prothrombin Time 17.6 #H Prothrombin Time 1.4 Ratio INR International 1.44 Normalized Ratio Activated 33.[address] Time Test 05/09/19 08:06 POC Venous Lactate 1.0 Exam/Review of Systems Exam Vitals Vital Signs Date Temp Pulse Resp B/P (MAP) Pulse Ox O2 O2 Flow FiO2 Time Delivery Rate 05/09/19 98.4 14:06 05/09/19 118 18 126/65 99 Room Air 10:00 (85) Results Results 24hrs Laboratory Tests Test 05/08/19 23:10 05/08/19 23:14 05/09/19 00:58 05/09/19 07:59 Urine Color NADEEM Urine Clarity CLOUDY A Urine pH 5.0 Urine Specific 1.021 [place] Urine Ketones TRACE A Urine Nitrite NEGATIVE Urine Bilirubin NEGATIVE Urine Urobilinogen NEGATIVE Urine Leukocyte 2+ H Esterase Urine Microscopic 0 RBC Urine Microscopic 85 H WBC Urine Squamous MANY A Epithelial Cells Urine Bacteria FEW A Urine Mucus MODERATE Urine Hemoglobin NEGATIVE Urine Glucose NEGATIVE Urine Total 2+ H Protein Bedside Urine pH 6.0 (LAB) Bedside Urine 2+ H Protein (LAB) Bedside Urine Negative Glucose (UA) Bedside Urine 1+ H Ketones (LAB) Bedside Urine Trace-intact H Blood Bedside Urine Negative Nitrite (LAB) Bedside Urine 1+ H Leukocyte Esterase (L POC Beta HCG, NEGATIVE Qualitative White Blood Count 21.3 #H Red Blood Count 3.31 L Hemoglobin 8.1 L Hematocrit 27.2 L Mean Corpuscular 82.2 Volume Mean Corpuscular 24.5 L Hemoglobin Mean Corpuscular 29.8 L Hemoglobin Concent Red Cell 18.8 H Distribution Width Platelet Count 508 H Mean Platelet 8.9 Volume Immature 0.700 H Granulocytes % Neutrophils % 84.3 H Lymphocytes % 9.3 L Monocytes % 5.5 Eosinophils % 0.0 Basophils % 0.2 Nucleated Red 0.0 Blood Cells % Immature 0.150 H Granulocytes # Neutrophils # 17.9 H Lymphocytes # 2.0 Monocytes # 1.2 H Eosinophils # 0.0 Basophils # 0.0 Nucleated Red 0.0 Blood Cells # Sodium Level 137 Potassium Level 4.0 Chloride Level 101 Carbon Dioxide 24 Level Anion Gap 12 Blood Urea 8 Nitrogen Creatinine 0.59 Est Glomerular > 60 Filtrat Rate mL/min Glucose Level 96 Calcium Level 8.6 Total Bilirubin 0.4 Direct Bilirubin 0.00 Indirect Bilirubin 0.4 Aspartate Amino 19 Transf (AST/SGOT) Alanine 8 L Aminotransferase ( ALT/SGPT) Alkaline 110 Phosphatase Total Protein 8.2 H Albumin 3.0 L Globulin 5.20 H Albumin/Globulin 0.57 Ratio Lipase 11 L Prothrombin Time 17.6 #H Prothrombin Time 1.4 Ratio INR International 1.44 Normalized Ratio Activated 33.[address] Time Test 05/09/19 08:06 POC Venous Lactate 1.0 Medications Medication Current Medications Sodium Chloride 1,000 ml @ 80 mls/hr [id number] IV Last administered on 05/09/19at 09:54; Admin Dose 80 MLS/HR; Start 05/09/19 at 03:07 IV Flush (NS 3 ml) 3 ml PER PROTOCOL IV ; Start 05/09/19 at 03:30 Ondansetron HCl (Zofran Inj) 4 mg Q6H PRN IV NAUSEA/VOMITING; Start 05/09/19 at 03:30 Acetaminophen (Tylenol Tab) 650 mg Q6H PRN PO .PAIN 1-3 OR TEMP; Start 05/09/19 at 03:30 Acetaminophen/ Hydrocodone Bitart ([place] (5/325)) 1 tab Q6H PRN PO .MOD PAIN 4- 6; Start 05/09/19 at 03:30 Hydromorphone HCl (Dilaudid) 1 mg Q4H PRN IV .SEVERE PAIN 7-10; Start 05/09/19 at 03:30 Vancomycin HCl (Vanco Iv Per Pharmacy) VANCOMYCIN PER PHARMACY PER PROTOCOL XX ; Start 05/09/19 at 03:30 Meropenem/Sodium Chloride 50 ml @ 100 mls/hr Q12 IVPB Last administered on 05/09/19at 09:54; Admin Dose 100 MLS/HR; Start 05/09/19 at 09:00 Vancomycin HCl 1.5 gm/Sodium Chloride 250 ml @ 83.333 mls/ hr Q12H IVPB ; Start 05/09/19 at 18:00 Ascorbic Acid (Vitamin C) 500 mg DAILY PO Last administered on 05/09/19at 09:55; Admin Dose 500 MG; Start 05/09/19 at 09:00 Ferrous Sulfate (Ferrous Sulfate (Ec)) 325 mg DAILY PO Last administered on 05/09/19at 09:54; Admin Dose 325 MG; Start 05/09/19 at 09:00 VIVEK PADGETT NP 25, 2019 14:28
[2019-05-09 14:45] VITALS: BP 139/70; PULSE 100; RESP 18
[2019-05-09] MEDS: VANCOMYCIN HCL 1.5 GM in SOD CHLORIDE 0.9% 250 ML IVPB SCH (17:27)
--- NOTE | 2019-05-09 18:06 | CONS ---
DATE OF ADMISSION: 05/09/2019 DATE OF CONSULTATION: 05/09/2019 TYPE OF CONSULTATION: Infectious disease. REASON FOR CONSULTATION: Antibiotic management. HISTORY OF PRESENT ILLNESS: Jade Biggs is a 38-year-old female who comes in with right fl ank pain. She has medical history of nephrolithiasis status post ureteral stent. She presents to [facility] emergency department with complaints of right-sided flank pain. She reports that she started exper iencing right-sided flank pain on Wednesday which was 3 days ago and then today started noticing some swelling in her right flank. Her urine was clear; however prior to coming to the hospital, it became dark. She denies fever. PAST MEDICAL HISTORY: As outlined, includes asthma and nephrolithiasis. PAST SURGICAL HISTORY: Cystoscopy and insertion of right ureteral JJ stent on 04/17/2019. FAMILY HISTORY: Noncontributory. SOCIAL HISTORY: She does not smoke, drink or abuse drugs. ALLERGIES: NONE TO PENICILLIN, SULFA OR FOODS. MEDICATIONS: Per chart. REVIEW OF SYSTEMS: As per HPI. PHYSICAL EXAMINATION: GENERAL: The patient is lying in bed in no acute distress. VITAL SIGNS: Stable. She is afebrile. SKIN: Without generalized rash. HEENT: Within normal limits. NECK: Supple. LYMPH NODES: None palpable. CHEST: Decreased breath sounds at the bases. HEART: Without murmur or gallop. ABDOMEN: Soft, morbidly obese. She has right flank pain on palpation. EXTREMITIES: Without cyanosis, clubbing or edema. RECTAL AND GENITAL: Deferred. NEUROLOGIC: No focal neurological abnormality. HOSPITAL COURSE: CT scan of the abdomen and pelvis without contrast shows severe right-sided hydrone phrosis with perinephric stranding and fluid unchanged from 04/16/2019. Underlying infection cannot be excluded. There is a right-sided ureteral stent with calcifications surrounding the proximal pigt ail within the right pelvis which is unchanged. Enlargement of the right iliopsoas and iliacus muscl e with surrounding stranding suspicious for underlying abscess, increased compared with prior study, there is increased posterior extension, distended gallbladder with multiple stones, prominence of lef t labia unchanged. As noted, she was afebrile. White count was 21.3 with 84% neutrophils, H and H o f 8.1 and 27.2, platelet count 508,000. BUN and creatinine is 8/0.59, glucose of 96. The patient wa s felt to be septic secondary to pyelonephritis. She was started on vancomycin and cefepime. Previo us urine micro showed Proteus mirabilis. Vancomycin and meropenem is now on board. She was seen by Dr. Petty in urology and he was the one who put the JJ stent. She has no flank tenderness as of no w. We will continue her on current regimen. She was seen by . She has a history of gallst ones as well. We will continue her on her current regimen of vancomycin and meropenem. I will dicta te my findings to the hospitalist and the aforementioned consultants. Dictated By: GAYLE LOCK MD, JD/NTS Conf#: [id number] DID#: [id number] CC: CORTNEY PETTY MD; BETH MON MD;*[facility]*
[2019-05-09] MEDS: ACETAMINOPHEN 325 MG TAB PO PRN (18:53)
[2019-05-09 19:14] VITALS: BP 130/74; PULSE 114; RESP 18
[2019-05-10 01:25] VITALS: BP 124/65; PULSE 112; RESP 18
[2019-05-10] MEDS: SOD CHLORIDE 0.9% 1,000 ML IV SCH ×2 (01:31→16:48)
[2019-05-10] MEDS: ACETAMINOPHEN 325 MG TAB PO PRN ×2 (05:10→16:48)
--- NOTE | 2019-05-10 05:42 | PN ---
Date/Time of Note Date/Time of Note DATE: 05/10/19 TIME: 05:42 Assessment/Plan VTE Prophylaxis Risk score (from Ns)>0 risk: 2 SCD applied (from Ns): Yes Pharmacological prophylaxis: NA/contraindicated Pharm contraindication: other Lines/Catheters IV C[facility]ter Type (from [facility] Peripheral IV Urinary Cath still in place: No Assessment/Plan Hospital Course SUBJECTIVE: Continues to have some right-sided abdominal pain. OBJECTIVE: Physical Exam General: Morbidly obese 38 year-old female lying in bed in no apparent distress. HEENT: Normocephalic, atraumatic. Eyes: Anicteric sclerae, conjunctivae clear. ENT: Nasal septum midline, oral mucosa moist. Neck: Short and obese. Respiratory: Bilaterally clear breath sounds. No use of accessory muscles of respiration. No adventitious breath sounds. Cardiovascular: S1, S2 heard. Regular rate and rhythm. Abdomen: Soft and nondistended. Bowel sounds positive in all 4 quadrants. Genitourinary: Tenderness in the right flank. Extremities: No cyanosis, no clubbing, no edema. Peripheral pulses palpable. Neurologic: Cranial nerves II through XII grossly intact. The patient is awake, alert, and oriented. Skin: Normal skin turgor. No skin rashes. ASSESSMENT & PLAN 38-year-old female with comorbidities including obesity, asthma, and iron deficiency anemia with a staghorn calculus within the right renal pelvis status post cystoscopy and stent placement, who was discharged on April 19, 2019, to be followed up with [facility], who came back to the emergency room on 05/09/2019 with chief complaint of right flank pain with underlying sepsis and abdominal imaging showing severe right-sided hydronephrosis with perinephric stranding, who was admitted to inpatient setting for further treatment and evaluation. 1. Sepsis with leukocytosis and tachycardia, secondary to underlying complicated urinary tract infection, present on admission. Continue empiric antimicrobials. Urine cultures pending. Continue IV hydration. 2. Severe right-sided hydronephrosis. Status post right ureteral stenting on 04/17/2019. Being followed by urology. 3. Enlargement of the right iliopsoas and iliacus muscles. Is status post evaluation by general surgery who recommended no surgical intervention as there is no evidence of any underlying abscess. 4. Iron deficiency anemia. Continue iron supplements. 5. History of asthma. No evidence of any exacerbation. 6. Morbid obesity. Weight reduction and lifestyle changes advised. 7. DVT prophylaxis. Bilateral SCDs. 8. Plan. Continue antimicrobials. Await clinical improvement. The patient was seen in collaboration with Dr. Mc. Result Diagram: 05/09/19 0058 05/09/19 0058 Results 24hrs Laboratory Tests Test 05/09/19 07:59 05/09/19 08:06 05/10/19 04:51 Prothrombin Time 17.6 #H Prothrombin Time Ratio 1.4 INR International Normalized Ratio 1.44 Activated Partial Thromboplast Time 33.9 POC Venous Lactate 1.0 White Blood Count Pending Red Blood Count Pending Hemoglobin Pending Hematocrit Pending Mean Corpuscular Volume Pending Mean Corpuscular Hemoglobin Pending Mean Corpuscular Hemoglobin Concent Pending Red Cell Distribution Width Pending Platelet Count Pending Mean Platelet Volume Pending Exam/Review of Systems Exam Vitals Vital Signs Date Temp Pulse Resp B/P (MAP) Pulse Ox O2 O2 Flow FiO2 Time Delivery Rate 05/10/19 98.2 112 18 124/65 96 Room Air 01:25 (84) Intake and Output 05/09/19 05/09/19 05/10/19 1515:00 23:00 07:00 IntakeIntake Total 530 ml 1420 ml 1100 ml OutputOutput Total 300 ml BalanceBalance 530 ml 1120 ml 1100 ml Results Results 24hrs Laboratory Tests Test 05/09/19 07:59 05/09/19 08:06 05/10/19 04:51 Prothrombin Time 17.6 #H Prothrombin Time Ratio 1.4 INR International Normalized Ratio 1.44 Activated Partial Thromboplast Time 33.9 POC Venous Lactate 1.0 White Blood Count Pending Red Blood Count Pending Hemoglobin Pending Hematocrit Pending Mean Corpuscular Volume Pending Mean Corpuscular Hemoglobin Pending Mean Corpuscular Hemoglobin Concent Pending Red Cell Distribution Width Pending Platelet Count Pending Mean Platelet Volume Pending Medications Medication Current Medications Sodium Chloride 1,000 ml @ 80 mls/hr [id number] IV Last administered on 05/10/19at 01:31; Admin Dose 80 MLS/HR; Start 05/09/19 at 03:07 IV Flush (NS 3 ml) 3 ml PER PROTOCOL IV ; Start 05/09/19 at 03:30 Ondansetron HCl (Zofran Inj) 4 mg Q6H PRN IV NAUSEA/VOMITING; Start 05/09/19 at 03:30 Acetaminophen (Tylenol Tab) 650 mg Q6H PRN PO .PAIN 1-3 OR TEMP Last administered on 05/10/19at 05:10; Admin Dose 650 MG; Start 05/09/19 at 03:30 Acetaminophen/ Hydrocodone Bitart ([place] (5/325)) 1 tab Q6H PRN PO .MOD PAIN 4- 6; Start 05/09/19 at 03:30 Hydromorphone HCl (Dilaudid) 1 mg Q4H PRN IV .SEVERE PAIN 7-10; Start 05/09/19 at 03:30 Vancomycin HCl (Vanco Iv Per Pharmacy) VANCOMYCIN PER PHARMACY PER PROTOCOL XX ; Start 05/09/19 at 03:30 Meropenem/Sodium Chloride 50 ml @ 100 mls/hr Q12 IVPB Last administered on 05/09/19at 21:12; Admin Dose 100 MLS/HR; Start 05/09/19 at 09:00 Vancomycin HCl 1.5 gm/Sodium Chloride 250 ml @ 83.333 mls/ hr Q12H IVPB Last administered on 05/09/19at 17:27; Admin Dose 83.333 MLS/HR; Start 05/09/19 at 18:00 Ascorbic Acid (Vitamin C) 500 mg DAILY PO Last administered on 05/09/19at 09:55; Admin Dose 500 MG; Start 05/09/19 at 09:00 Ferrous Sulfate (Ferrous Sulfate (Ec)) 325 mg DAILY PO Last administered on 05/09/19at 09:54; Admin Dose 325 MG; Start 05/09/19 at 09:00 Miscellaneous Information (*Rx Drug Level Order Reminder*) ROMY TR AT 1700 1700 ONCE XX ; Start 05/10/19 at 17:00; Stop 05/10/19 at 17:01 VIVEK PADGETT NP May 10, 2019 05:42
[2019-05-10] MEDS: VANCOMYCIN HCL 1.5 GM in SOD CHLORIDE 0.9% 250 ML IVPB SCH ×2 (05:59→18:10)
[2019-05-10 08:23] VITALS: BP 130/76; PULSE 111; RESP 18
--- NOTE | 2019-05-10 08:37 | CONS ---
Consult Date/Type/Reason Admit Date/Time May 09, 2019 at 03:01 Initial Consult Date 05/09/19 Type of Consultation: Urology Reason for Consultation Right hydronephrosis and right renal stones and urinary tract infection Requesting Provider: BETH MON Date/Time of Note DATE: 05/10/19 TIME: 08:35 Subjective Patient states that she is feeling better, she has mild right flank pain. Objective Vitals Vital Signs Date Temp Pulse Resp B/P (MAP) Pulse Ox O2 O2 Flow FiO2 Time Delivery Rate 05/10/19 98.9 111 18 130/76 98 Room Air 08:23 (94) Intake and Output 05/09/19 05/09/19 05/10/19 1515:00 23:00 07:00 IntakeIntake Total 530 ml 1420 ml 1460 ml OutputOutput Total 300 ml BalanceBalance 530 ml 1120 ml 1460 ml Exam Very obese abdomen and soft abdomen. Results/Medications Result Diagram: 05/10/19 0451 05/10/19 0451 Results 24 hrs Laboratory Tests Test 05/10/19 04:51 White Blood Count 19.8 H Red Blood Count 3.12 L Hemoglobin 7.5 L Hematocrit 26.2 L Mean Corpuscular Volume 84.0 Mean Corpuscular Hemoglobin 24.0 L Mean Corpuscular Hemoglobin Concent 28.6 L Red Cell Distribution Width 19.3 H Platelet Count 503 H Mean Platelet Volume 8.6 Immature Granulocytes % 0.700 H Neutrophils % 74.5 Lymphocytes % 16.8 Monocytes % 7.2 Eosinophils % 0.5 Basophils % 0.3 Nucleated Red Blood Cells % 0.0 Immature Granulocytes # 0.140 H Neutrophils # 14.8 H Lymphocytes # 3.3 H Monocytes # 1.4 H Eosinophils # 0.1 Basophils # 0.1 Nucleated Red Blood Cells # 0.0 Sodium Level 136 Potassium Level 4.1 Chloride Level 105 Carbon Dioxide Level 25 Anion Gap 6 Blood Urea Nitrogen 5 L Creatinine 0.56 Est Glomerular Filtrat Rate mL/min > 60 Glucose Level 94 Calcium Level 8.0 L Phosphorus Level 3.8 Magnesium Level 1.8 Total Bilirubin 0.3 Direct Bilirubin 0.00 Indirect Bilirubin 0.3 Aspartate Amino Transf (AST/SGOT) 20 Alanine Aminotransferase (ALT/SGPT) 8 L Alkaline Phosphatase 104 Total Protein 7.6 Albumin 2.7 L Globulin 4.90 H Albumin/Globulin Ratio 0.55 Home Meds Reported Medications Acetaminophen* (Acetaminophen*) 500 MG Extra Strength Tablet, 500 MG PO Q4H PRN for PAIN AND OR ELEVATED TEMP, TAB 05/09/19 Ferrous Sulfate* (Ferrous Sulfate*) 325 Mg Tabec, 325 MG PO DAILY, TAB 05/09/19 Ascorbic Acid* (Vitamin C*) 500 Mg Capsule.sa, 500 MG PO DAILY, CAP 05/09/19 Discontinued Scripts Ciprofloxacin Hcl* (Ciprofloxacin Hcl*) 500 Mg Tablet, 500 MG PO BID for 4 Days, #8 TAB Prov:PIETER FIGUEROA 04/19/19 Ibuprofen* (Motrin*) 600 Mg Tab, 600 MG PO Q6H PRN for PAIN AND OR ELEVATED TEMP, #30 TAB Prov:ELIF BARON NP 03/04/18 Medications Current Medications Sodium Chloride 1,000 ml @ 80 mls/hr [id number] IV Last administered on 05/10/19at 01:31; Admin Dose 80 MLS/HR; Start 05/09/19 at 03:07 IV Flush (NS 3 ml) 3 ml PER PROTOCOL IV ; Start 05/09/19 at 03:30 Ondansetron HCl (Zofran Inj) 4 mg Q6H PRN IV NAUSEA/VOMITING; Start 05/09/19 at 03:30 Acetaminophen (Tylenol Tab) 650 mg Q6H PRN PO .PAIN 1-3 OR TEMP Last administered on 05/10/19at 05:10; Admin Dose 650 MG; Start 05/09/19 at 03:30 Acetaminophen/ Hydrocodone Bitart ([place] (5/325)) 1 tab Q6H PRN PO .MOD PAIN 4- 6; Start 05/09/19 at 03:30 Hydromorphone HCl (Dilaudid) 1 mg Q4H PRN IV .SEVERE PAIN 7-10; Start 05/09/19 at 03:30 Vancomycin HCl (Vanco Iv Per Pharmacy) VANCOMYCIN PER PHARMACY PER PROTOCOL XX ; Start 05/09/19 at 03:30 Meropenem/Sodium Chloride 50 ml @ 100 mls/hr Q12 IVPB Last administered on 05/09/19at 21:12; Admin Dose 100 MLS/HR; Start 05/09/19 at 09:00 Vancomycin HCl 1.5 gm/Sodium Chloride 250 ml @ 83.333 mls/ hr Q12H IVPB Last administered on 05/10/19at 05:59; Admin Dose 83.333 MLS/HR; Start 05/09/19 at 18:00 Ascorbic Acid (Vitamin C) 500 mg DAILY PO Last administered on 05/09/19at 09:55; Admin Dose 500 MG; Start 05/09/19 at 09:00 Ferrous Sulfate (Ferrous Sulfate (Ec)) 325 mg DAILY PO Last administered on 05/09/19at 09:54; Admin Dose 325 MG; Start 05/09/19 at 09:00 Miscellaneous Information (*Rx Drug Level Order Reminder*) VANCO TR AT 1700 1700 ONCE XX ; Start 05/10/19 at 17:00; Stop 05/10/19 at 17:01 Assessment/Plan Hospital Course (Demo Recall) 38-year-old female was hospitalized earlier this month with right renal stone with obstruction. She underwent cystoscopy and insertion of right ureteral JJ stent on 04/17/2019. Patient was supposed to follow-up with [facility] ut she did not. She comes back today feeling discomfort in the right side of the abdomen. She denies any fever or chills and no back pain. CT scan of the abdomen and pelvis showed: Severe right-sided hydronephrosis with perinephric stranding and fluid, unchanged from 04/16/2019. Underlying infection cannot be excluded. There is a right-sided ureteral stent with calcifications surrounding the proximal pigtail within the renal pelvis which is unchanged. Enlargement of the right iliopsoas and iliacus muscles with surrounding stranding suspicious for underlying abscess, increased compared with the prior study. There is increased posterior extension. Distended gallbladder with multiple gallstones. Prominence of the left labia, unchanged. Clinically correlate. The patient is feeling better today her white count has come down a little. She did let the nurse do straight cath on her yesterday for a urine culture. The result is pending. She is also anemic Continue the IV antibiotics and monitor her CBC. CORTNEY PETTY MD May 10, 2019 08:37
[2019-05-10] MEDS: ASCORBIC ACID 500 MG TAB PO SCH (09:14)
[2019-05-10] MEDS: MEROPENEM 1 GM/50ML(PMX) 50 ML IVPB SCH ×2 (09:14→23:48)
[2019-05-10] MEDS: FERROUS SULFATE (EC) 325 MG TAB PO SCH (09:15)
--- NOTE | 2019-05-10 16:14 | CONS ---
Assessment/Plan Assessment/Plan Hospital Course (Demo Recall) Patient is alert feels better still with right flank pain, no fevers overnight. T-max 100 WBC 19.8 H&H 7.5 and 26.2 platelets 543 no shift BUN 5 creatinine 0.56 Microbiology: Urine culture preliminary negative Antimicrobials: Patient is on Vanco Merrem CT of the abdomen revealed severe right-sided hydronephrosis with perinephric stranding and fluid unchanged from previous. Right-sided ureteral stent unchanged. Enlargement of the right iliopsoas psoas and iliopsoas muscles with surrounding stranding suspicious for underlying abscess, increased compared with prior study. Distended gallbladder with multiple gallstones. Please see full report in the chart Physical examination: This is a morbidly obese well-developed middle-aged woman who is alert in no distress. Head atraumatic normocephalic sclera nonicteric neck is obese chest rise symmetrical breath sounds diminished bases. Heart: S1- S2. Abdomen soft bowel sounds present. Extremities without cyanosis Assessment: 1. Right hydronephrosis/acute pyelonephritis/kidney stones 2. Resolving sepsis 3. Morbid obesity Plan: Patient is doing better, continue on current antibiotics, follow urology recommendations, no evidence of abscess per surgical note Consultation Date/Type/Reason Admit Date/Time May 09, 2019 at 03:01 Initial Consult Date 05/09/19 Type of Consult id Requesting Provider: BETH MON Date/Time of Note DATE: 05/10/19 TIME: 16:11 Exam/Review of Systems Exam Vitals Vital Signs Date Temp Pulse Resp B/P (MAP) Pulse Ox O2 O2 Flow FiO2 Time Delivery Rate 05/10/19 98.9 111 18 130/76 98 Room Air 08:23 (94) Intake and Output 05/09/19 05/09/19 05/10/19 1515:00 23:00 07:00 IntakeIntake Total 530 ml 1420 ml 1460 ml OutputOutput Total 300 ml BalanceBalance 530 ml 1120 ml 1460 ml Results Result Diagram: 05/10/19 0451 05/10/19 0451 Results 24hrs Laboratory Tests Test 05/10/19 04:51 White Blood Count 19.8 H Red Blood Count 3.12 L Hemoglobin 7.5 L Hematocrit 26.2 L Mean Corpuscular Volume 84.0 Mean Corpuscular Hemoglobin 24.0 L Mean Corpuscular Hemoglobin Concent 28.6 L Red Cell Distribution Width 19.3 H Platelet Count 503 H Mean Platelet Volume 8.6 Immature Granulocytes % 0.700 H Neutrophils % 74.5 Lymphocytes % 16.8 Monocytes % 7.2 Eosinophils % 0.5 Basophils % 0.3 Nucleated Red Blood Cells % 0.0 Immature Granulocytes # 0.140 H Neutrophils # 14.8 H Lymphocytes # 3.3 H Monocytes # 1.4 H Eosinophils # 0.1 Basophils # 0.1 Nucleated Red Blood Cells # 0.0 Sodium Level 136 Potassium Level 4.1 Chloride Level 105 Carbon Dioxide Level 25 Anion Gap 6 Blood Urea Nitrogen 5 L Creatinine 0.56 Est Glomerular Filtrat Rate mL/min > 60 Glucose Level 94 Hemoglobin A1c 5.3 Calcium Level 8.0 L Phosphorus Level 3.8 Magnesium Level 1.8 Total Bilirubin 0.3 Direct Bilirubin 0.00 Indirect Bilirubin 0.3 Aspartate Amino Transf (AST/SGOT) 20 Alanine Aminotransferase (ALT/SGPT) 8 L Alkaline Phosphatase 104 Total Protein 7.6 Albumin 2.7 L Globulin 4.90 H Albumin/Globulin Ratio 0.55 Medications Medication Current Medications Sodium Chloride 1,000 ml @ 80 mls/hr [id number] IV Last administered on 05/10/19at 01:31; Admin Dose 80 MLS/HR; Start 05/09/19 at 03:07 IV Flush (NS 3 ml) 3 ml PER PROTOCOL IV ; Start 05/09/19 at 03:30 Ondansetron HCl (Zofran Inj) 4 mg Q6H PRN IV NAUSEA/VOMITING; Start 05/09/19 at 03:30 Acetaminophen (Tylenol Tab) 650 mg Q6H PRN PO .PAIN 1-3 OR TEMP Last administered on 05/10/19at 05:10; Admin Dose 650 MG; Start 05/09/19 at 03:30 Acetaminophen/ Hydrocodone Bitart ([place] (5/325)) 1 tab Q6H PRN PO .MOD PAIN 4- 6; Start 05/09/19 at 03:30 Hydromorphone HCl (Dilaudid) 1 mg Q4H PRN IV .SEVERE PAIN 7-10; Start 05/09/19 at 03:30 Vancomycin HCl (Vanco Iv Per Pharmacy) VANCOMYCIN PER PHARMACY PER PROTOCOL XX ; Start 05/09/19 at 03:30 Meropenem/Sodium Chloride 50 ml @ 100 mls/hr Q12 IVPB Last administered on 05/10/19 09:14; Admin Dose 100 MLS/HR; Start 05/09/19 at 09:00 Vancomycin HCl 1.5 gm/Sodium Chloride 250 ml @ 83.333 mls/ hr Q12H IVPB Last administered on 05/10/19at 05:59; Admin Dose 83.333 MLS/HR; Start 05/09/19 at 18:00 Ascorbic Acid (Vitamin C) 500 mg DAILY PO Last administered on 05/10/19at 09:14; Admin Dose 500 MG; Start 05/09/19 at 09:00 Ferrous Sulfate (Ferrous Sulfate (Ec)) 325 mg DAILY PO Last administered on 05/10/19at 09:15; Admin Dose 325 MG; Start 05/09/19 at 09:00 Miscellaneous Information (*Rx Drug Level Order Reminder*) VANCO TR AT 1700 1700 ONCE XX ; Start 05/10/19 at 17:00; Stop 05/10/19 at 17:01 KVNG JI NP May 10, 2019 16:14
[2019-05-10 19:20] VITALS: BP 134/67; PULSE 110; RESP 20
[2019-05-11 02:15] VITALS: BP 129/59; PULSE 125; RESP 20
[2019-05-11] MEDS: ACETAMINOPHEN 325 MG TAB PO PRN (02:18)
[2019-05-11] MEDS: SOD CHLORIDE 0.9% 1,000 ML IV SCH ×2 (05:07→20:57)
[2019-05-11] MEDS: VANCOMYCIN HCL 1.5 GM in SOD CHLORIDE 0.9% 250 ML IVPB SCH ×2 (05:47→20:45)
[2019-05-11 07:16] VITALS: BP 136/61; PULSE 115; RESP 18
[2019-05-11] MEDS: ASCORBIC ACID 500 MG TAB PO SCH (08:33)
[2019-05-11] MEDS: FERROUS SULFATE (EC) 325 MG TAB PO SCH (08:33)
--- NOTE | 2019-05-11 08:42 | CONS ---
Consult Date/Type/Reason Admit Date/Time May 09, 2019 at 03:01 Initial Consult Date 05/09/19 Type of Consultation: Urology Reason for Consultation Right hydronephrosis, possible psoas abscess Requesting Provider: BETH MON Date/Time of Note DATE: 05/11/19 TIME: 08:39 Subjective States that she feels some pain in her back Objective Vitals Vital Signs Date Temp Pulse Resp B/P (MAP) Pulse Ox O2 O2 Flow FiO2 Time Delivery Rate 05/11/19 98.9 115 18 136/61 96 07:16 (86) 05/10/19 Room Air 08:23 Intake and Output 05/10/19 05/10/19 05/11/19 1515:00 23:00 07:00 IntakeIntake Total 1140 ml 1610 ml 700 ml OutputOutput Total 650 ml 1150 ml 700 ml BalanceBalance 490 ml 460 ml 0 ml Exam I tried to check for any area of pain over the flank and if there is any erythematous area and it is very hard to feel any mass. I did review the CT scan with the radiologist and she may have a collection of fluid/abscess in the right psoas and flank area. Results/Medications Result Diagram: 05/11/19 0448 05/11/19 0436 Results 24 hrs Laboratory Tests Test 05/10/19 17:07 05/11/19 04:36 05/11/19 04:48 Vancomycin Level Trough 9.6 L Sodium Level 138 Potassium Level 3.5 Chloride Level 106 Carbon Dioxide Level 24 Anion Gap 8 Blood Urea Nitrogen 6 L Creatinine 0.53 Est Glomerular Filtrat Rate mL/min > 60 Glucose Level 102 Calcium Level 7.6 L Total Bilirubin 0.3 Direct Bilirubin 0.00 Indirect Bilirubin 0.3 Aspartate Amino Transf (AST/SGOT) 22 Alanine Aminotransferase (ALT/SGPT) 9 L Alkaline Phosphatase 103 Total Protein 7.2 Albumin 2.6 L Globulin 4.60 H Albumin/Globulin Ratio 0.56 White Blood Count 20.8 H Red Blood Count 3.10 L Hemoglobin 7.5 L Hematocrit 26.2 L Mean Corpuscular Volume 84.5 Mean Corpuscular Hemoglobin 24.2 L Mean Corpuscular Hemoglobin Concent 28.6 L Red Cell Distribution Width 18.9 H Platelet Count 526 H Mean Platelet Volume 8.8 Immature Granulocytes % 1.200 H Neutrophils % 73.9 Lymphocytes % 17.6 Monocytes % 6.5 Eosinophils % 0.5 Basophils % 0.3 Nucleated Red Blood Cells % 0.0 Immature Granulocytes # 0.250 H Neutrophils # 15.4 H Lymphocytes # 3.7 H Monocytes # 1.3 H Eosinophils # 0.1 Basophils # 0.1 Nucleated Red Blood Cells # 0.0 Phosphorus Level 3.9 Magnesium Level 1.8 Home Meds Reported Medications Acetaminophen* (Acetaminophen*) 500 MG Extra Strength Tablet, 500 MG PO Q4H PRN for PAIN AND OR ELEVATED TEMP, TAB 05/09/19 Ferrous Sulfate* (Ferrous Sulfate*) 325 Mg Tabec, 325 MG PO DAILY, TAB 05/09/19 Ascorbic Acid* (Vitamin C*) 500 Mg Capsule.sa, 500 MG PO DAILY, CAP 05/09/19 Discontinued Scripts Ciprofloxacin Hcl* (Ciprofloxacin Hcl*) 500 Mg Tablet, 500 MG PO BID for 4 Days, #8 TAB Prov:PIETER FIGUEROA 04/19/19 Ibuprofen* (Motrin*) 600 Mg Tab, 600 MG PO Q6H PRN for PAIN AND OR ELEVATED TEMP, #30 TAB Prov:ELIF BARON NP 03/04/18 Medications Current Medications Sodium Chloride 1,000 ml @ 80 mls/hr [id number] IV Last administered on 05/10/19at 16:48; Admin Dose 80 MLS/HR; Start 05/09/19 at 03:07 IV Flush (NS 3 ml) 3 ml PER PROTOCOL IV ; Start 05/09/19 at 03:30 Ondansetron HCl (Zofran Inj) 4 mg Q6H PRN IV NAUSEA/VOMITING; Start 05/09/19 at 03:30 Acetaminophen (Tylenol Tab) 650 mg Q6H PRN PO .PAIN 1-3 OR TEMP Last administered on 05/11/19at 02:18; Admin Dose 650 MG; Start 05/09/19 at 03:30 Acetaminophen/ Hydrocodone Bitart ([place] (5/325)) 1 tab Q6H PRN PO .MOD PAIN 4- 6; Start 05/09/19 at 03:30 Hydromorphone HCl (Dilaudid) 1 mg Q4H PRN IV .SEVERE PAIN 7-10; Start 05/09/19 at 03:30 Vancomycin HCl (Vanco Iv Per Pharmacy) VANCOMYCIN PER PHARMACY PER PROTOCOL XX ; Start 05/09/19 at 03:30 Meropenem/Sodium Chloride 50 ml @ 100 mls/hr Q12 IVPB Last administered on 05/10/19at 23:48; Admin Dose 100 MLS/HR; Start 05/09/19 at 09:00 Vancomycin HCl 1.5 gm/Sodium Chloride 250 ml @ 83.333 mls/ hr Q12H IVPB Last administered on 05/11/19at 05:47; Admin Dose 83.333 MLS/HR; Start 05/09/19 at 18:00 Ascorbic Acid (Vitamin C) 500 mg DAILY PO Last administered on 05/11/19at 08:33; Admin Dose 500 MG; Start 05/09/19 at 09:00 Ferrous Sulfate (Ferrous Sulfate (Ec)) 325 mg DAILY PO Last administered on 05/11/19at 08:33; Admin Dose 325 MG; Start 05/09/19 at 09:00 Assessment/Plan Hospital Course (Demo Recall) 38-year-old female was hospitalized earlier this month with right renal stone with obstruction. She underwent cystoscopy and insertion of right ureteral JJ stent on 04/17/2019. Patient was supposed to follow-up with [facility] but she did not. She comes back today feeling discomfort in the right side of the abdomen. She denies any fever or chills and no back pain. CT scan of the abdomen and pelvis showed: Severe right-sided hydronephrosis with perinephric stranding and fluid, unchanged from 04/16/2019. Underlying infection cannot be excluded. There is a right-sided ureteral stent with calcifications surrounding the proximal pigtail within the renal pelvis which is unchanged. Enlargement of the right iliopsoas and iliacus muscles with surrounding stranding suspicious for underlying abscess, increased compared with the prior study. There is increased posterior extension. Distended gallbladder with multiple gallstones. Prominence of the left labia, unchanged. Clinically correlate. Patient states she has some pain in the back. I tried to check for any area of pain over the flank and if there is any erythematous area and it is very hard to feel any mass. I did review the CT scan with the radiologist and she may have a collection of fluid/abscess in the right psoas and flank area. I did order a CT scan of the abdomen and pelvis with IV contrast to better delineate the area of the abscess and if she does have an abscess we will need the radiologist to drain it under CT guidance. CORTNEY PETTY MD May 11, 2019 08:42
[2019-05-11] MEDS ORDERED: SOD CHLORIDE 0.9% 100 ML ONE (08:52)
[2019-05-11] MEDS ORDERED: IOHEXOL 300MG/ML 150 ML BTL ONE (08:52)
--- NOTE | 2019-05-11 09:43 | PN ---
Date/Time of Note Date/Time of Note DATE: 05/11/19 TIME: 09:42 Assessment/Plan VTE Prophylaxis Risk score (from Ns)>0 risk: 2 SCD applied (from Ns): Yes Pharmacological prophylaxis: NA/contraindicated Pharm contraindication: other (Anemia) Lines/Catheters IV Catheter Type (from [facility], [place]): Peripheral IV Urinary Cath still in place: No Assessment/Plan Hospital Course SUBJECTIVE: Continues to have some right-sided abdominal pain. OBJECTIVE: Physical Exam General: Morbidly obese 38 year-old female lying in bed in no apparent distress. HEENT: Normocephalic, atraumatic. Eyes: Anicteric sclerae, conjunctivae clear. ENT: Nasal septum midline, oral mucosa moist. Neck: Short and obese. Respiratory: Bilaterally clear breath sounds. No use of accessory muscles of respiration. No adventitious breath sounds. Cardiovascular: S1, S2 heard. Regular rate and rhythm. Abdomen: Soft and nondistended. Bowel sounds positive in all 4 quadrants. Genitourinary: Tenderness in the right flank. Extremities: No cyanosis, no clubbing, no edema. Peripheral pulses palpable. Neurologic: Cranial nerves II through XII grossly intact. The patient is awake, alert, and oriented. Skin: Normal skin turgor. No skin rashes. ASSESSMENT & PLAN 38-year-old female with comorbidities including obesity, asthma, and iron deficiency anemia with a staghorn calculus within the right renal pelvis status post cystoscopy and stent placement, who was discharged on April 19, 2019, to be followed up with [facility], who came back to the emergency room on 05/09/2019 with chief complaint of right flank pain with underlying sepsis and abdominal imaging showing severe right-sided hydronephrosis with perinephric stranding, who was admitted to inpatient setting for further treatment and evaluation. 1. S/P sepsis with leukocytosis and tachycardia, secondary to underlying complicated urinary tract infection, present on admission. Continue empiric antimicrobials. Urine cultures inconclusive. 2. Severe right-sided hydronephrosis. Status post right ureteral stenting on 04/17/2019. Being followed by urology. 3. Enlargement of the right iliopsoas and iliacus muscles. Status post evaluation by general surgery who recommended no surgical i ntervention as there is no evidence of any underlying abscess. Repeat CT scan of the abdomen and pelvis with IV contrast ordered for further evaluation. 4. Iron deficiency anemia. Continue iron supplements. 5. History of asthma. No evidence of any exacerbation. 6. Morbid obesity. Weight reduction and lifestyle changes advised. 7. DVT prophylaxis. Bilateral SCDs. 8. Plan. Continue antimicrobials. Await repeat CT scan. Await clinical improvement. The patient was seen in collaboration with Dr. Mc. Result Diagram: 05/11/19 0448 05/11/19 0436 Results 24hrs Laboratory Tests Test 05/10/19 17:07 05/11/19 04:36 05/11/19 04:48 Vancomycin Level Trough 9.6 L Sodium Level 138 Potassium Level 3.5 Chloride Level 106 Carbon Dioxide Level 24 Anion Gap 8 Blood Urea Nitrogen 6 L Creatinine 0.53 Est Glomerular Filtrat Rate mL/min > 60 Glucose Level 102 Calcium Level 7.6 L Total Bilirubin 0.3 Direct Bilirubin 0.00 Indirect Bilirubin 0.3 Aspartate Amino Transf (AST/SGOT) 22 Alanine Aminotransferase (ALT/SGPT) 9 L Alkaline Phosphatase 103 Total Protein 7.2 Albumin 2.6 L Globulin 4.60 H Albumin/Globulin Ratio 0.56 White Blood Count 20.8 H Red Blood Count 3.10 L Hemoglobin 7.5 L Hematocrit 26.2 L Mean Corpuscular Volume 84.5 Mean Corpuscular Hemoglobin 24.2 L Mean Corpuscular Hemoglobin Concent 28.6 L Red Cell Distribution Width 18.9 H Platelet Count 526 H Mean Platelet Volume 8.8 Immature Granulocytes % 1.200 H Neutrophils % 73.9 Lymphocytes % 17.6 Monocytes % 6.5 Eosinophils % 0.5 Basophils % 0.3 Nucleated Red Blood Cells % 0.0 Immature Granulocytes # 0.250 H Neutrophils # 15.4 H Lymphocytes # 3.7 H Monocytes # 1.3 H Eosinophils # 0.1 Basophils # 0.1 Nucleated Red Blood Cells # 0.0 Phosphorus Level 3.9 Magnesium Level 1.8 Exam/Review of Systems Exam Vitals Vital Signs Date Temp Pulse Resp B/P (MAP) Pulse Ox O2 O2 Flow FiO2 Time Delivery Rate 05/11/19 98.9 115 18 136/61 96 07:16 (86) 05/10/19 Room Air 08:23 Intake and Output 05/10/19 05/10/19 05/11/19 1515:00 23:00 07:00 IntakeIntake Total 1140 ml 1610 ml 700 ml OutputOutput Total 650 ml 1150 ml 700 ml BalanceBalance 490 ml 460 ml 0 ml Results Results 24hrs Laboratory Tests Test 05/10/19 17:07 05/11/19 04:36 05/11/19 04:48 Vancomycin Level Trough 9.6 L Sodium Level 138 Potassium Level 3.5 Chloride Level 106 Carbon Dioxide Level 24 Anion Gap 8 Blood Urea Nitrogen 6 L Creatinine 0.53 Est Glomerular Filtrat Rate mL/min > 60 Glucose Level 102 Calcium Level 7.6 L Total Bilirubin 0.3 Direct Bilirubin 0.00 Indirect Bilirubin 0.3 Aspartate Amino Transf (AST/SGOT) 22 Alanine Aminotransferase (ALT/SGPT) 9 L Alkaline Phosphatase 103 Total Protein 7.2 Albumin 2.6 L Globulin 4.60 H Albumin/Globulin Ratio 0.56 White Blood Count 20.8 H Red Blood Count 3.10 L Hemoglobin 7.5 L Hematocrit 26.2 L Mean Corpuscular Volume 84.5 Mean Corpuscular Hemoglobin 24.2 L Mean Corpuscular Hemoglobin Concent 28.6 L Red Cell Distribution Width 18.9 H Platelet Count 526 H Mean Platelet Volume 8.8 Immature Granulocytes % 1.200 H Neutrophils % 73.9 Lymphocytes % 17.6 Monocytes % 6.5 Eosinophils % 0.5 Basophils % 0.3 Nucleated Red Blood Cells % 0.0 Immature Granulocytes # 0.250 H Neutrophils # 15.4 H Lymphocytes # 3.7 H Monocytes # 1.3 H Eosinophils # 0.1 Basophils # 0.1 Nucleated Red Blood Cells # 0.0 Phosphorus Level 3.9 Magnesium Level 1.8 Medications Medication Current Medications Sodium Chloride 1,000 ml @ 80 mls/hr [id number] IV Last administered on 05/10/19at 16:48; Admin Dose 80 MLS/HR; Start 05/09/19 at 03:07 IV Flush (NS 3 ml) 3 ml PER PROTOCOL IV ; Start 05/09/19 at 03:30 Ondansetron HCl (Zofran Inj) 4 mg Q6H PRN IV NAUSEA/VOMITING; Start 05/09/19 at 03:30 Acetaminophen (Tylenol Tab) 650 mg Q6H PRN PO .PAIN 1-3 OR TEMP Last administered on 05/11/19at 02:18; Admin Dose 650 MG; Start 05/09/19 at 03:30 Acetaminophen/ Hydrocodone Bitart ([place] (5/325)) 1 tab Q6H PRN PO .MOD PAIN 4- 6; Start 05/09/19 at 03:30 Hydromorphone HCl (Dilaudid) 1 mg Q4H PRN IV .SEVERE PAIN 7-10; Start 05/09/19 at 03:30 Vancomycin HCl (Vanco Iv Per Pharmacy) VANCOMYCIN PER PHARMACY PER PROTOCOL XX ; Start 05/09/19 at 03:30 Meropenem/Sodium Chloride 50 ml @ 100 mls/hr Q12 IVPB Last administered on 05/10/19at 23:48; Admin Dose 100 MLS/HR; Start 05/09/19 at 09:00 Vancomycin HCl 1.5 gm/Sodium Chloride 250 ml @ 83.333 mls/ hr Q12H IVPB Last administered on 05/11/19at 05:47; Admin Dose 83.333 MLS/HR; Start 05/09/19 at 18:00 Ascorbic Acid (Vitamin C) 500 mg DAILY PO Last administered on 05/11/19at 08:33; Admin Dose 500 MG; Start 05/09/19 at 09:00 Ferrous Sulfate (Ferrous Sulfate (Ec)) 325 mg DAILY PO Last administered on 05/11/19 08:33; Admin Dose 325 MG; Start 05/09/19 at 09:00 VIVEK PADGETT NP May 11, 2019 09:43
[2019-05-11] MEDS: MEROPENEM 1 GM/50ML(PMX) 50 ML IVPB SCH (09:47)
[2019-05-11 14:22] VITALS: BP 137/64; PULSE 115; RESP 18
--- NOTE | 2019-05-11 15:00 | CONS ---
Assessment/Plan Assessment/Plan Hospital Course (Demo Recall) Patient is alert feels ok, no fevers Microbiology: Urine culture negative Antimicrobials: Vanco, Merrem CT of the abdomen: 1. Right xanthogranulomatous pyelonephritis. There is a large abscess infiltrating into the right psoas muscle measuring approximately 3.8 x 4.1 x 13.6 cm. There is infiltration of the right iliacus muscle and right lateral abdominal wall muscles. With extension of the abscess posteriorly into the right paraspinal soft tissues at the level of L5 with component measuring approximately 3.6 x 8.1 x 9.5 cm. Findings appear slightly increased when compared to the prior examination. 2. 1.3 cm calculus remains within the right renal pelvis. A right double-J ureteral stent is in place. 3. Gallbladder sludge versus cholelithiasis. Physical examination: This is a morbidly obese well-developed middle-aged woman who is alert in no distress. Head atraumatic normocephalic sclera nonicteric neck is obese chest rise symmetrical breath sounds diminished bases. Heart: S1- S2. Abdomen soft bowel sounds present. Extremities without cyanosis Assessment: 1. Acute pyelonephritis with abscess 2. Resolving sepsis 3. Morbid obesity Plan: Stable, continue antibiotics, plan for IR guided abscess drainage, follow urology recommendations Consultation Date/Type/Reason Admit Date/Time May 09, 2019 at 03:01 Initial Consult Date 05/09/19 Type of Consult id Requesting Provider: BETH MON Date/Time of Note DATE: 05/11/19 TIME: 14:58 Exam/Review of Systems Exam Vitals Vital Signs Date Temp Pulse Resp B/P (MAP) Pulse Ox O2 O2 Flow FiO2 Time Delivery Rate 05/11/19 98.3 115 18 137/64 98 14:22 (88) 05/10/19 Room Air 08:23 Intake and Output 05/10/19 05/10/19 05/11/19 1515:00 23:00 07:00 IntakeIntake Total 1140 ml 1610 ml 700 ml OutputOutput Total 650 ml 1150 ml 700 ml BalanceBalance 490 ml 460 ml 0 ml Results Result Diagram: 05/11/19 0448 05/11/19 0436 Results 24hrs Laboratory Tests Test 05/10/19 17:07 05/11/19 04:36 05/11/19 04:48 Vancomycin Level Trough 9.6 L Sodium Level 138 Potassium Level 3.5 Chloride Level 106 Carbon Dioxide Level 24 Anion Gap 8 Blood Urea Nitrogen 6 L Creatinine 0.53 Est Glomerular Filtrat Rate mL/min > 60 Glucose Level 102 Calcium Level 7.6 L Total Bilirubin 0.3 Direct Bilirubin 0.00 Indirect Bilirubin 0.3 Aspartate Amino Transf (AST/SGOT) 22 Alanine Aminotransferase (ALT/SGPT) 9 L Alkaline Phosphatase 103 Total Protein 7.2 Albumin 2.6 L Globulin 4.60 H Albumin/Globulin Ratio 0.56 White Blood Count 20.8 H Red Blood Count 3.10 L Hemoglobin 7.5 L Hematocrit 26.2 L Mean Corpuscular Volume 84.5 Mean Corpuscular Hemoglobin 24.2 L Mean Corpuscular Hemoglobin Concent 28.6 L Red Cell Distribution Width 18.9 H Platelet Count 526 H Mean Platelet Volume 8.8 Immature Granulocytes % 1.200 H Neutrophils % 73.9 Lymphocytes % 17.6 Monocytes % 6.5 Eosinophils % 0.5 Basophils % 0.3 Nucleated Red Blood Cells % 0.0 Immature Granulocytes # 0.250 H Neutrophils # 15.4 H Lymphocytes # 3.7 H Monocytes # 1.3 H Eosinophils # 0.1 Basophils # 0.1 Nucleated Red Blood Cells # 0.0 Phosphorus Level 3.9 Magnesium Level 1.8 Medications Medication Current Medications Sodium Chloride 1,000 ml @ 80 mls/hr [id number] IV Last administered on 05/10/19at 16:48; Admin Dose 80 MLS/HR; Start 05/09/19 at 03:07 IV Flush (NS 3 ml) 3 ml PER PROTOCOL IV ; Start 05/09/19 at 03:30 Ondansetron HCl (Zofran Inj) 4 mg Q6H PRN IV NAUSEA/VOMITING; Start 05/09/19 at 03:30 Acetaminophen (Tylenol Tab) 650 mg Q6H PRN PO .PAIN 1-3 OR TEMP Last adminis tered on 05/11/19at 02:18; Admin Dose 650 MG; Start 05/09/19 at 03:30 Acetaminophen/ Hydrocodone Bitart ([place] (5/325)) 1 tab Q6H PRN PO .MOD PAIN 4- 6; Start 05/09/19 at 03:30 Hydromorphone HCl (Dilaudid) 1 mg Q4H PRN IV .SEVERE PAIN 7-10; Start 05/09/19 at 03:30 Vancomycin HCl (Vanco Iv Per Pharmacy) VANCOMYCIN PER PHARMACY PER PROTOCOL XX ; Start 05/09/19 at 03:30 Meropenem/Sodium Chloride 50 ml @ 100 mls/hr Q12 IVPB Last administered on 05/11/19 09:47; Admin Dose 100 MLS/HR; Start 05/09/19 at 09:00 Vancomycin HCl 1.5 gm/Sodium Chloride 250 ml @ 83.333 mls/ hr Q12H IVPB Last administered on 05/11/19 05:47; Admin Dose 83.333 MLS/HR; Start 05/09/19 at 18:00 Ascorbic Acid (Vitamin C) 500 mg DAILY PO Last administered on 05/11/19 08:33; Admin Dose 500 MG; Start 05/09/19 at 09:00 Ferrous Sulfate (Ferrous Sulfate (Ec)) 325 mg DAILY PO Last administered on 05/11/19 08:33; Admin Dose 325 MG; Start 05/09/19 at 09:00 KVNG JI NP May 11, 2019 15:00
[2019-05-11] MEDS ORDERED: FENTAnyl 50 MCG/ML VIAL ONE (16:58)
[2019-05-11] MEDS ORDERED: MIDAZOLAM 1 MG/ML 2 ML INJ ONE (16:58)
[2019-05-11] MEDS ORDERED: LIDOCAINE 1% (MDV) 20 ML INJ ONE (16:59)
--- NOTE | 2019-05-11 18:23 | HPN ---
Date/Time of Note Date/Time of Note DATE: 05/11/19 TIME: 18:22 Interval H&P Admission Note Pt. seen H&P reviewed: No system changes ANTONINA ESTES MD May 11, 2019 18:22
[2019-05-11 19:45] VITALS: BP 135/63; PULSE 111; RESP 20
[2019-05-12 00:12] VITALS: BP 128/60; PULSE 106; RESP 18
[2019-05-12] MEDS: MEROPENEM 1 GM/50ML(PMX) 50 ML IVPB SCH ×3 (00:30→23:26)
[2019-05-12] MEDS: SOD CHLORIDE 0.9% 1,000 ML IV SCH ×2 (04:00→18:41)
[2019-05-12] MEDS: VANCOMYCIN HCL 1.5 GM in SOD CHLORIDE 0.9% 250 ML IVPB SCH ×2 (05:56→19:44)
[2019-05-12 07:23] VITALS: BP 127/61; PULSE 110; RESP 18
--- NOTE | 2019-05-12 07:48 | CONS ---
Consult Date/Type/Reason Admit Date/Time May 09, 2019 at 03:01 Initial Consult Date 05/09/19 Type of Consultation: Urology Reason for Consultation Right renal stone, right psoas and flank area abscess Requesting Provider: BETH MON Date/Time of Note DATE: 05/12/19 TIME: 07:44 Subjective Patient is feeling much better now. She underwent aspiration and drainage of the perirenal and psoas abscess yesterday. Objective Vitals Vital Signs Date Temp Pulse Resp B/P (MAP) Pulse Ox O2 O2 Flow FiO2 Time Delivery Rate 05/12/19 98.0 110 18 127/61 97 Room Air 07:23 (83) Intake and Output 05/11/19 05/11/19 05/12/19 1515:00 23:00 07:00 IntakeIntake Total 300 ml 1030 ml 490 ml OutputOutput Total 1600 ml 200 ml 700 ml BalanceBalance -1300 ml 830 ml -210 ml Exam The drain is draining large amount of purulent material. It drained 400 mL last night. Results/Medications Result Diagram: 05/12/19 0456 05/12/19 0456 Results 24 hrs Laboratory Tests Test 05/12/19 04:56 White Blood Count 15.9 #H Red Blood Count 3.09 L Hemoglobin 7.5 L Hematocrit 25.2 L Mean Corpuscular Volume 81.6 L Mean Corpuscular Hemoglobin 24.3 L Mean Corpuscular Hemoglobin Concent 29.8 L Red Cell Distribution Width 19.1 H Platelet Count 527 H Mean Platelet Volume 8.8 Immature Granulocytes % 0.800 H Neutrophils % 63.4 Lymphocytes % 25.9 Monocytes % 7.8 Eosinophils % 1.6 Basophils % 0.5 Nucleated Red Blood Cells % 0.0 Immature Granulocytes # 0.120 H Neutrophils # 10.1 H Lymphocytes # 4.1 H Monocytes # 1.2 H Eosinophils # 0.3 Basophils # 0.1 Nucleated Red Blood Cells # 0.0 Sodium Level 138 Potassium Level 3.6 Chloride Level 105 Carbon Dioxide Level 27 Anion Gap 6 Blood Urea Nitrogen 6 L Creatinine 0.57 Est Glomerular Filtrat Rate mL/min > 60 Glucose Level 96 Calcium Level 7.8 L Phosphorus Level 4.5 Magnesium Level 2.0 Total Bilirubin 0.2 Direct Bilirubin 0.00 Indirect Bilirubin 0.2 Aspartate Amino Transf (AST/SGOT) 32 Alanine Aminotransferase (ALT/SGPT) 16 Alkaline Phosphatase 104 Total Protein 7.1 Albumin 2.5 L Globulin 4.60 H Albumin/Globulin Ratio 0.54 Home Meds Reported Medications Acetaminophen* (Acetaminophen*) 500 MG Extra Strength Tablet, 500 MG PO Q4H PRN for PAIN AND OR ELEVATED TEMP, TAB 05/09/19 Ferrous Sulfate* (Ferrous Sulfate*) 325 Mg Tabec, 325 MG PO DAILY, TAB 05/09/19 Ascorbic Acid* (Vitamin C*) 500 Mg Capsule.sa, 500 MG PO DAILY, CAP 05/09/19 Discontinued Scripts Ciprofloxacin Hcl* (Ciprofloxacin Hcl*) 500 Mg Tablet, 500 MG PO BID for 4 Days, #8 TAB Prov:PIETER FIGUEROA 04/19/19 Ibuprofen* (Motrin*) 600 Mg Tab, 600 MG PO Q6H PRN for PAIN AND OR ELEVATED TE MP, #30 TAB Prov:ELIF BARON ELECTRICIAN 03/04/18 Medications Current Medications IV Flush (NS 3 ml) 3 ml PER PROTOCOL IV ; Start 05/09/19 at 03:30 Ondansetron HCl (Zofran Inj) 4 mg Q6H PRN IV NAUSEA/VOMITING; Start 05/09/19 at 03:30 Acetaminophen (Tylenol Tab) 650 mg Q6H PRN PO .PAIN 1-3 OR TEMP Last administered on 05/11/19at 02:18; Admin Dose 650 MG; Start 05/09/19 at 03:30 Acetaminophen/ Hydrocodone Bitart ([place] (5/325)) 1 tab Q6H PRN PO .MOD PAIN 4- 6; Start 05/09/19 at 03:30 Hydromorphone HCl (Dilaudid) 1 mg Q4H PRN IV .SEVERE PAIN 7-10; Start 05/09/19 at 03:30 Vancomycin HCl (Vanco Iv Per Pharmacy) VANCOMYCIN PER PHARMACY PER PROTOCOL XX ; Start 05/09/19 at 03:30 Meropenem/Sodium Chloride 50 ml @ 100 mls/hr Q12 IVPB Last administered on 05/12/19at 00:30; Admin Dose 100 MLS/HR; Start 05/09/19 at 09:00 Vancomycin HCl 1.5 gm/Sodium Chloride 250 ml @ 83.333 mls/ hr Q12H IVPB Last administered on 05/12/19at 05:56; Admin Dose 83.333 MLS/HR; Start 05/09/19 at 18:00 Ascorbic Acid (Vitamin C) 500 mg DAILY PO Last administered on 05/11/19at 08:33; Admin Dose 500 MG; Start 05/09/19 at 09:00 Ferrous Sulfate (Ferrous Sulfate (Ec)) 325 mg DAILY PO Last administered on 05/11/19at 08:33; Admin Dose 325 MG; Start 05/09/19 at 09:00 Miscellaneous Information (*Order Clarification Bulletin) MEDICATION REQUIRES CLARIFICATI... Q8H XX ; Start 05/12/19 at 03:30 Sodium Chloride 1,000 ml @ 80 mls/hr [id number] IV ; Start 05/12/19 at 04:00 Assessment/Plan Hospital Course (Demo Recall) 38-year-old female was hospitalized earlier this month with right renal stone with obstruction. She underwent cystoscopy and insertion of right ureteral JJ stent on 04/17/2019. Patient was supposed to follow-up with [facility] but she did not. She comes back today feeling discomfort in the right side of the abdomen. She denies any fever or chills and no back pain. CT scan of the abdomen and pelvis showed: Severe right-sided hydronephrosis with perinephric stranding and fluid, unchanged from 04/16/2019. Underlying infection cannot be excluded. There is a right-sided ureteral stent with calcifications surrounding the proximal pigtail within the renal pelvis which is unchanged. Enlargement of the right iliopsoas and iliacus muscles with surrounding stranding suspicious for underlying abscess, increased compared with the prior study. There is increased posterior extension. Distended gallbladder with multiple gallstones. Prominence of the left labia, unchanged. Clinically correlate. CT scan of the abdomen and pelvis with IV contrast done on 05/11/2019 showed: 1. Right xanthogranulomatous pyelonephritis. There is a large abscess infiltrating into the right psoas muscle measuring approximately 3.8 x 4.1 x 13.6 cm. There is infiltration of the right iliacus muscle and right lateral a bdominal wall muscles. With extension of the abscess posteriorly into the right paraspinal soft tissues at the level of L5 with component measuring approximately 3.6 x 8.1 x 9.5 cm. Findings appear slightly increased when compared to the prior examination. 2. 1.3 cm calculus remains within the right renal pelvis. A right double-J ureteral stent is in place. 3. Gallbladder sludge versus cholelithiasis. With these findings on the CT scan the patient underwent aspiration and drainage of the abscess. The drain had a 400 mL output last night. Continue the antibiotics and keep the drain in place. CORTNEY PETTY MD May 12, 2019 07:48
--- NOTE | 2019-05-12 09:04 | PN ---
Date/Time of Note Date/Time of Note DATE: 05/12/19 TIME: 09:04 Assessment/Plan VTE Prophylaxis Risk score (from Ns)>0 risk: 2 SCD applied (from Ns): Yes Pharmacological prophylaxis: NA/contraindicated Pharm contraindication: other (Anemia) Lines/Catheters [facility] ([facility] Peripheral IV Urinary Cath still in place: No Assessment/Plan Hospital Course SUBJECTIVE: Continues to have some right-sided abdominal pain. OBJECTIVE: Physical Exam General: Morbidly obese 38 year-old female lying in bed in no apparent distress. HEENT: Normocephalic, atraumatic. Eyes: Anicteric sclerae, conjunctivae clear. ENT: Nasal septum midline, oral mucosa moist. Neck: Short and obese. Respiratory: Bilaterally clear breath sounds. No use of accessory muscles of respiration. No adventitious breath sounds. Cardiovascular: S1, S2 heard. Regular rate and rhythm. Abdomen: Soft and nondistended. Bowel sounds positive in all 4 quadrants. Right flank area drain that is draining milky secretions. Genitourinary: Tenderness in the right flank. Extremities: No cyanosis, no clubbing, no edema. Peripheral pulses palpable. Neurologic: Cranial nerves II through XII grossly intact. The patient is awake, alert, and oriented. Skin: Normal skin turgor. No skin rashes. ASSESSMENT & PLAN 38-year-old female with comorbidities including obesity, asthma, and iron deficiency anemia with a staghorn calculus within the right renal pelvis status post cystoscopy and stent placement, who was discharged on April 19, 2019, to be followed up with [facility], who came back to the emergency room on 05/09/2019 with chief complaint of right flank pain with underlying sepsis and abdominal imaging showing severe right-sided hydronephrosis with perinephric stranding, who was admitted to inpatient setting for further treatment and evaluation. 1. S/P sepsis with leukocytosis and tachycardia, secondary to underlying complicated urinary tract infection, present on admission. Continue empiric antimicrobials. Urine cultures inconclusive. 2. Severe right-sided hydronephrosis. Status post right ureteral stenting on 04/17/2019. Being followed by urology. 3. Right psoas muscle abscess. Status post IR guided drain placement on 05/11/2019. 4. Iron deficiency anemia. Continue iron supplements. 5. History of asthma. No evidence of any exacerbation. 6. Morbid obesity. Weight reduction and lifestyle changes advised. 7. DVT prophylaxis. Bilateral SCDs. 8. Plan. Continue antimicrobials. Await cultures from the drain. Await clinical improvement. The patient was seen in collaboration with Dr. Mc. Result Diagram: 05/12/19 0456 05/12/19 0456 Results 24hrs Laboratory Tests Test 05/12/19 04:56 White Blood Count 15.9 #H Red Blood Count 3.09 L Hemoglobin 7.5 L Hematocrit 25.2 L Mean Corpuscular Volume 81.6 L Mean Corpuscular Hemoglobin 24.3 L Mean Corpuscular Hemoglobin Concent 29.8 L Red Cell Distribution Width 19.1 H Platelet Count 527 H Mean Platelet Volume 8.8 Immature Granulocytes % 0.800 H Neutrophils % 63.4 Lymphocytes % 25.9 Monocytes % 7.8 Eosinophils % 1.6 Basophils % 0.5 Nucleated Red Blood Cells % 0.0 Immature Granulocytes # 0.120 H Neutrophils # 10.1 H Lymphocytes # 4.1 H Monocytes # 1.2 H Eosinophils # 0.3 Basophils # 0.1 Nucleated Red Blood Cells # 0.0 Sodium Level 138 Potassium Level 3.6 Chloride Level 105 Carbon Dioxide Level 27 Anion Gap 6 Blood Urea Nitrogen 6 L Creatinine 0.57 Est Glomerular Filtrat Rate mL/min > 60 Glucose Level 96 Calcium Level 7.8 L Phosphorus Level 4.5 Magnesium Level 2.0 Total Bilirubin 0.2 Direct Bilirubin 0.00 Indirect Bilirubin 0.2 Aspartate Amino Transf (AST/SGOT) 32 Alanine Aminotransferase (ALT/SGPT) 16 Alkaline Phosphatase 104 Total Protein 7.1 Albumin 2.5 L Globulin 4.60 H Albumin/Globulin Ratio 0.54 Exam/Review of Systems Exam Vitals Vital Signs Date Temp Pulse Resp B/P (MAP) Pulse Ox O2 O2 Flow FiO2 Time Delivery Rate 05/12/19 98.0 110 18 127/61 97 Room Air 07:23 (83) Intake and Output 05/11/19 05/11/19 05/12/19 1515:00 23:00 07:00 IntakeIntake Total 300 ml 1030 ml 490 ml OutputOutput Total 1600 ml 200 ml 700 ml BalanceBalance -1300 ml 830 ml -210 ml Results Results 24hrs Laboratory Tests Test 05/12/19 04:56 White Blood Count 15.9 #H Red Blood Count 3.09 L Hemoglobin 7.5 L Hematocrit 25.2 L Mean Corpuscular Volume 81.6 L Mean Corpuscular Hemoglobin 24.3 L Mean Corpuscular Hemoglobin Concent 29.8 L Red Cell Distribution Width 19.1 H Platelet Count 527 H Mean Platelet Volume 8.8 Immature Granulocytes % 0.800 H Neutrophils % 63.4 Lymphocytes % 25.9 Monocytes % 7.8 Eosinophils % 1.6 Basophils % 0.5 Nucleated Red Blood Cells % 0.0 Immature Granulocytes # 0.120 H Neutrophils # 10.1 H Lymphocytes # 4.1 H Monocytes # 1.2 H Eosinophils # 0.3 Basophils # 0.1 Nucleated Red Blood Cells # 0.0 Sodium Level 138 Potassium Level 3.6 Chloride Level 105 Carbon Dioxide Level 27 Anion Gap 6 Blood Urea Nitrogen 6 L Creatinine 0.57 Est Glomerular Filtrat Rate mL/min > 60 Glucose Level 96 Calcium Level 7.8 L Phosphorus Level 4.5 Magnesium Level 2.0 Total Bilirubin 0.2 Direct Bilirubin 0.00 Indirect Bilirubin 0.2 Aspartate Amino Transf (AST/SGOT) 32 Alanine Aminotransferase (ALT/SGPT) 16 Alkaline Phosphatase 104 Total Protein 7.1 Albumin 2.5 L Globulin 4.60 H Albumin/Globulin Ratio 0.54 Medications Medication Current Medications IV Flush (NS 3 ml) 3 ml PER PROTOCOL IV ; Start 05/09/19 at 03:30 Ondansetron HCl (Zofran Inj) 4 mg Q6H PRN IV NAUSEA/VOMITING; Start 05/09/19 at 03:30 Acetaminophen (Tylenol Tab) 650 mg Q6H PRN PO .PAIN 1-3 OR TEMP Last administered on 05/11/19at 02:18; Admin Dose 650 MG; Start 05/09/19 at 03:30 Acetaminophen/ Hydrocodone Bitart ([place] (5/325)) 1 tab Q6H PRN PO .MOD PAIN 4- 6; Start 05/09/19 at 03:30 Hydromorphone HCl (Dilaudid) 1 mg Q4H PRN IV .SEVERE PAIN 7-10; Start 05/09/19 at 03:30 Vancomycin HCl (Vanco Iv Per Pharmacy) VANCOMYCIN PER PHARMACY PER PROTOCOL XX ; Start 05/09/19 at 03:30 Meropenem/Sodium Chloride 50 ml @ 100 mls/hr Q12 IVPB Last administered on 05/12/19at 00:30; Admin Dose 100 MLS/HR; Start 05/09/19 at 09:00 Vancomycin HCl 1.5 gm/Sodium Chloride 250 ml @ 83.333 mls/ hr Q12H IVPB Last administered on 05/12/19 05:56; Admin Dose 83.333 MLS/HR; Start 05/09/19 at 18:00 Ascorbic Acid (Vitamin C) 500 mg DAILY PO Last administered on 05/11/19 08:33; Admin Dose 500 MG; Start 05/09/19 at 09:00 Ferrous Sulfate (Ferrous Sulfate (Ec)) 325 mg DAILY PO Last administered on 05/11/19 08:33; Admin Dose 325 MG; Start 05/09/19 at 09:00 Miscellaneous Information (*Order Clarification Bulletin) MEDICATION REQUIRES CLARIFICATI... Q8H XX ; Start 05/12/19 at 03:30 Sodium Chloride 1,000 ml @ 80 mls/hr [id number] IV ; Start 05/12/19 at 04:00 VIVEK PADGETT NP May 12, 2019 09:04
[2019-05-12] MEDS: ASCORBIC ACID 500 MG TAB PO SCH (09:17)
[2019-05-12] MEDS: FERROUS SULFATE (EC) 325 MG TAB PO SCH (09:17)
[2019-05-12 14:32] VITALS: BP 130/62; RESP 18
--- NOTE | 2019-05-12 14:40 | CONS ---
Assessment/Plan Assessment/Plan Hospital Course (Demo Recall) Patient is alert feels good status post right-sided psoas muscle abscess drainage this morning Microbiology: Urine culture negative Antimicrobials: Vanco, Merrem Physical examination: This is a morbidly obese well-developed middle-aged woman who is alert in no distress. Head atraumatic normocephalic sclera nonicteric neck is obese chest rise symmetrical breath sounds diminished bases. Heart: S1- S2. Abdomen soft bowel sounds present, right sided intra-abdominal drainage catheter with bag full of pus like fluid. Extremities without cyanosis Assessment: 1. Acute pyelonephritis with psoas abscess, status post IR guided drainage 2. Resolving sepsis 3. Morbid obesity Plan: Stable, continue antibiotics, await for cultures Consultation Date/Type/Reason Admit Date/Time May 09, 2019 at 03:01 Initial Consult Date 05/09/19 Type of Consult id Requesting Provider: BETH MON Date/Time of Note DATE: 05/12/19 TIME: 14:39 Exam/Review of Systems Exam Vitals Vital Signs Date Temp Pulse Resp B/P (MAP) Pulse Ox O2 O2 Flow FiO2 Time Delivery Rate 05/12/19 98.0 18 130/62 94 Room Air 14:32 (84) 05/12/19 110 07:23 Intake and Output 05/11/19 05/11/19 05/12/19 1515:00 23:00 07:00 IntakeIntake Total 300 ml 1030 ml 490 ml OutputOutput Total 1600 ml 200 ml 700 ml BalanceBalance -1300 ml 830 ml -210 ml Results Result Diagram: 05/12/19 0456 05/12/19 0456 Results 24hrs Laboratory Tests Test 05/12/19 04:56 White Blood Count 15.9 #H Red Blood Count 3.09 L Hemoglobin 7.5 L Hematocrit 25.2 L Mean Corpuscular Volume 81.6 L Mean Corpuscular Hemoglobin 24.3 L Mean Corpuscular Hemoglobin Concent 29.8 L Red Cell Distribution Width 19.1 H Platelet Count 527 H Mean Platelet Volume 8.8 Immature Granulocytes % 0.800 H Neutrophils % 63.4 Lymphocytes % 25.9 Monocytes % 7.8 Eosinophils % 1.6 Basophils % 0.5 Nucleated Red Blood Cells % 0.0 Immature Granulocytes # 0.120 H Neutrophils # 10.1 H Lymphocytes # 4.1 H Monocytes # 1.2 H Eosinophils # 0.3 Basophils # 0.1 Nucleated Red Blood Cells # 0.0 Sodium Level 138 Potassium Level 3.6 Chloride Level 105 Carbon Dioxide Level 27 Anion Gap 6 Blood Urea Nitrogen 6 L Creatinine 0.57 Est Glomerular Filtrat Rate mL/min > 60 Glucose Level 96 Calcium Level 7.8 L Phosphorus Level 4.5 Magnesium Level 2.0 Total Bilirubin 0.2 Direct Bilirubin 0.00 Indirect Bilirubin 0.2 Aspartate Amino Transf (AST/SGOT) 32 Alanine Aminotransferase (ALT/SGPT) 16 Alkaline Phosphatase 104 Total Protein 7.1 Albumin 2.5 L Globulin 4.60 H Albumin/Globulin Ratio 0.54 Medications Medication Current Medications IV Flush (NS 3 ml) 3 ml PER PROTOCOL IV ; Start 05/09/19 at 03:30 Ondansetron HCl (Zofran Inj) 4 mg Q6H PRN IV NAUSEA/VOMITING; Start 05/09/19 at 03:30 Acetaminophen (Tylenol Tab) 650 mg Q6H PRN PO .PAIN 1-3 OR TEMP Last administered on 05/11/19at 02:18; Admin Dose 650 MG; Start 05/09/19 at 03:30 Acetaminophen/ Hydrocodone Bitart ([place] (5/325)) 1 tab Q6H PRN PO .MOD PAIN 4- 6; Start 05/09/19 at 03:30 Hydromorphone HCl (Dilaudid) 1 mg Q4H PRN IV .SEVERE PAIN 7-10; Start 05/09/19 at 03:30 Vancomycin HCl (Vanco Iv Per Pharmacy) VANCOMYCIN PER PHARMACY PER PROTOCOL XX ; Start 05/09/19 at 03:30 Meropenem/Sodium Chloride 50 ml @ 100 mls/hr Q12 IVPB Last administered on 05/12/19at 09:17; Admin Dose 100 MLS/HR; Start 05/09/19 at 09:00 Vancomycin HCl 1.5 gm/Sodium Chloride 250 ml @ 83.333 mls/ hr Q12H IVPB Last administered on 05/12/19at 05:56; Admin Dose 83.333 MLS/HR; Start 05/09/19 at 18:00 Ascorbic Acid (Vitamin C) 500 mg DAILY PO Last administered on 05/12/19at 09:17; Admin Dose 500 MG; Start 05/09/19 at 09:00 Ferrous Sulfate (Ferrous Sulfate (Ec)) 325 mg DAILY PO Last administered on 05/12/19at 09:17; Admin Dose 325 MG; Start 05/09/19 at 09:00 Miscellaneous Information (*Order Clarification Bulletin) MEDICATION REQUIRES CLARIFICATI... Q8H XX ; Start 05/12/19 at 03:30 Sodium Chloride 1,000 ml @ 80 mls/hr [id number] IV ; Start 05/12/19 at 04:00 Miscellaneous Information (*Rx Drug Level Order Reminder*) ROMY YUEN LEVEL PRIOR... 1700 ONCE XX ; Start 05/12/19 at 17:00; Stop 05/12/19 at 17:01 KVNG JI NP May 12, 2019 14:40
[2019-05-12 19:59] VITALS: BP 150/80; PULSE 102; RESP 20
[2019-05-12] MEDS: POLYETHYLENE GLYCOL 17 GM PACKET PO SCH (22:12)
[2019-05-12] MEDS: DOCUSATE SODIUM 100 MG CAP PO SCH (22:13)
[2019-05-13 01:30] VITALS: BP 137/76; PULSE 104; RESP 20
[2019-05-13 02:00] VITALS: BP 138/71; PULSE 100; RESP 17
[2019-05-13] MEDS: SOD CHLORIDE 0.9% 1,000 ML IV SCH (05:00)
[2019-05-13] MEDS: VANCOMYCIN HCL 1.5 GM in SOD CHLORIDE 0.9% 250 ML IVPB SCH ×2 (05:45→17:50)
[2019-05-13 08:01] VITALS: BP 127/82; PULSE 89; RESP 20
[2019-05-13] MEDS: MEROPENEM 1 GM/50ML(PMX) 50 ML IVPB SCH ×2 (08:51→21:33)
[2019-05-13] MEDS: DOCUSATE SODIUM 100 MG CAP PO SCH ×2 (08:51→21:34)
[2019-05-13] MEDS: POLYETHYLENE GLYCOL 17 GM PACKET PO SCH (08:51)
[2019-05-13] MEDS: FERROUS SULFATE (EC) 325 MG TAB PO SCH (08:51)
[2019-05-13] MEDS: ASCORBIC ACID 500 MG TAB PO SCH (08:51)
--- NOTE | 2019-05-13 09:23 | PN ---
Date/Time of Note Date/Time of Note DATE: 05/13/19 TIME: 09:22 Assessment/Plan VTE Prophylaxis Risk score (from Ns)>0 risk: 2 SCD applied (from Ns): Yes Pharmacological prophylaxis: NA/contraindicated Pharm contraindication: other (Anemia) Lines/Catheters IV [facility]ter Type (from [facility]): Peripheral IV Urinary Cath still in place: No Assessment/Plan Hospital Course SUBJECTIVE: Continues to have some right-sided abdominal pain. OBJECTIVE: Physical Exam General: Morbidly obese 38 year-old female lying in bed in no apparent distress. HEENT: Normocephalic, atraumatic. Eyes: Anicteric sclerae, conjunctivae clear. ENT: Nasal septum midline, oral mucosa moist. Neck: Short and obese. Respiratory: Bilaterally clear breath sounds. No use of accessory muscles of respiration. No adventitious breath sounds. Cardiovascular: S1, S2 heard. Regular rate and rhythm. Abdomen: Soft and nondistended. Bowel sounds positive in all 4 quadrants. Right flank area drain that is draining milky secretions. Genitourinary: Tenderness in the right flank. Extremities: No cyanosis, no clubbing, no edema. Peripheral pulses palpable. Neurologic: Cranial nerves II through XII grossly intact. The patient is awake, alert, and oriented. Skin: Normal skin turgor. No skin rashes. ASSESSMENT & PLAN 38-year-old female with comorbidities including obesity, asthma, and iron deficiency anemia with a staghorn calculus within the right renal pelvis status post cystoscopy and stent placement, who was discharged on April 19, 2019, to be followed up with [facility], who came back to the emergency room on 05/09/2019 with chief complaint of right flank pain with underlying sepsis and abdominal imaging showing severe right-sided hydronephrosis with perinephric stranding, who was admitted to inpatient setting for further treatment and evaluation. 1. S/P sepsis with leukocytosis and tachycardia, secondary to underlying complicated urinary tract infection, present on admission. Continue empiric antimicrobials. Urine cultures inconclusive. 2. Severe right-sided hydronephrosis. Status post right ureteral stenting on 04/17/2019. Being followed by urology. 3. Right psoas muscle abscess. Status post IR guided drain placement on 05/11/2019. 4. Iron deficiency anemia. Continue iron supplements. 5. History of asthma. No evidence of any exacerbation. 6. Morbid obesity. Weight reduction and lifestyle changes advised. 7. DVT prophylaxis. Bilateral SCDs. 8. Plan. Continue antimicrobials. Await cultures from the drain. Await clinical improvement. The patient was seen in collaboration with Dr. Mc. Result Diagram: 05/13/19 0455 05/13/19 0455 Results 24hrs Laboratory Tests Test 05/12/19 17:12 05/13/19 04:55 Vancomycin Level Trough 11.7 White Blood Count 10.7 # Red Blood Count 3.13 L Hemoglobin 7.6 L Hematocrit 25.9 L Mean Corpuscular Volume 82.7 Mean Corpuscular Hemoglobin 24.3 L Mean Corpuscular Hemoglobin Concent 29.3 L Red Cell Distribution Width 19.1 H Platelet Count 507 H Mean Platelet Volume 9.0 Immature Granulocytes % 0.500 H Neutrophils % 56.3 Lymphocytes % 32.2 Monocytes % 7.0 Eosinophils % 3.6 Basophils % 0.4 Nucleated Red Blood Cells % 0.0 Immature Granulocytes # 0.050 H Neutrophils # 6.1 Lymphocytes # 3.5 H Monocytes # 0.8 Eosinophils # 0.4 Basophils # 0.0 Nucleated Red Blood Cells # 0.0 Sodium Level 138 Potassium Level 3.6 Chloride Level 106 Carbon Dioxide Level 27 Anion Gap 5 Blood Urea Nitrogen 9 Creatinine 0.43 L Est Glomerular Filtrat Rate mL/min > 60 Glucose Level 101 Calcium Level 7.7 L Phosphorus Level 4.3 Magnesium Level 2.0 Total Bilirubin 0.2 Direct Bilirubin 0.00 Indirect Bilirubin 0.2 Aspartate Amino Transf (AST/SGOT) 29 Alanine Aminotransferase (ALT/SGPT) 15 Alkaline Phosphatase 79 Total Protein 6.9 Albumin 2.4 L Globulin 4.50 H Albumin/Globulin Ratio 0.53 Exam/Review of Systems Exam Vitals Vital Signs Date Temp Pulse Resp B/P (MAP) Pulse Ox O2 O2 Flow FiO2 Time Delivery Rate 05/13/19 97.7 89 20 127/82 97 Room Air 08:01 (97) Intake and Output 05/12/19 05/12/19 05/13/19 1515:00 23:00 07:00 IntakeIntake Total 600 ml 1650 ml 350 ml OutputOutput Total 500 ml 850 ml 850 ml BalanceBalance 100 ml 800 ml -500 ml Results Results 24hrs Laboratory Tests Test 05/12/19 17:12 05/13/19 04:55 Vancomycin Level Trough 11.7 White Blood Count 10.7 # Red Blood Count 3.13 L Hemoglobin 7.6 L Hematocrit 25.9 L Mean Corpuscular Volume 82.7 Mean Corpuscular Hemoglobin 24.3 L Mean Corpuscular Hemoglobin Concent 29.3 L Red Cell Distribution Width 19.1 H Platelet Count 507 H Mean Platelet Volume 9.0 Immature Granulocytes % 0.500 H Neutrophils % 56.3 Lymphocytes % 32.2 Monocytes % 7.0 Eosinophils % 3.6 Basophils % 0.4 Nucleated Red Blood Cells % 0.0 Immature Granulocytes # 0.050 H Neutrophils # 6.1 Lymphocytes # 3.5 H Monocytes # 0.8 Eosinophils # 0.4 Basophils # 0.0 Nucleated Red Blood Cells # 0.0 Sodium Level 138 Potassium Level 3.6 Chloride Level 106 Carbon Dioxide Level 27 Anion Gap 5 Blood Urea Nitrogen 9 Creatinine 0.43 L Est Glomerular Filtrat Rate mL/min > 60 Glucose Level 101 Calcium Level 7.7 L Phosphorus Level 4.3 Magnesium Level 2.0 Total Bilirubin 0.2 Direct Bilirubin 0.00 Indirect Bilirubin 0.2 Aspartate Amino Transf (AST/SGOT) 29 Alanine Aminotransferase (ALT/SGPT) 15 Alkaline Phosphatase 79 Total Protein 6.9 Albumin 2.4 L Globulin 4.50 H Albumin/Globulin Ratio 0.53 Medications Medication Current Medications IV Flush (NS 3 ml) 3 ml PER PROTOCOL IV ; Start 05/09/19 at 03:30 Ondansetron HCl (Zofran Inj) 4 mg Q6H PRN IV NAUSEA/VOMITING; Start 05/09/19 at 03:30 Acetaminophen (Tylenol Tab) 650 mg Q6H PRN PO .PAIN 1-3 OR TEMP Last adminis tered on 05/11/19at 02:18; Admin Dose 650 MG; Start 05/09/19 at 03:30 Acetaminophen/ Hydrocodone Bitart ([place] (5/325)) 1 tab Q6H PRN PO .MOD PAIN 4- 6; Start 05/09/19 at 03:30 Hydromorphone HCl (Dilaudid) 1 mg Q4H PRN IV .SEVERE PAIN 7-10; Start 05/09/19 at 03:30 Vancomycin HCl (Vanco Iv Per Pharmacy) VANCOMYCIN PER PHARMACY PER PROTOCOL XX ; Start 05/09/19 at 03:30 Meropenem/Sodium Chloride 50 ml @ 100 mls/hr Q12 IVPB Last administered on 05/13/19 08:51; Admin Dose 100 MLS/HR; Start 05/09/19 at 09:00 Vancomycin HCl 1.5 gm/Sodium Chloride 250 ml @ 83.333 mls/ hr Q12H IVPB Last administered on 05/13/19 05:45; Admin Dose 83.333 MLS/HR; Start 05/09/19 at 18:00 Ascorbic Acid (Vitamin C) 500 mg DAILY PO Last administered on 05/13/19 08:51; Admin Dose 500 MG; Start 05/09/19 at 09:00 Ferrous Sulfate (Ferrous Sulfate (Ec)) 325 mg DAILY PO Last administered on 05/13/19 08:51; Admin Dose 325 MG; Start 05/09/19 at 09:00 Miscellaneous Information (*Order Clarification Bulletin) MEDICATION REQUIRES CLARIFICATI... Q8H XX ; Start 05/12/19 at 03:30 Sodium Chloride 1,000 ml @ 80 mls/hr [id number] IV Last administered on 05/12/19 18:41; Admin Dose 80 MLS/HR; Start 05/12/19 at 04:00 Docusate Sodium (Colace) 100 mg BID PO Last administered on 05/13/19 08:51; Admin Dose 100 MG; Start 05/12/19 at 21:00 Polyethylene Glycol (Miralax) 17 gm DAILY PO Last administered on 05/13/19 08:51; Admin Dose 17 GM; Start 05/12/19 at 21:00 VIVEK PADGETT NP May 13, 2019 09:23
--- NOTE | 2019-05-13 09:54 | CONS ---
Consult Date/Type/Reason Admit Date/Time May 09, 2019 at 03:01 Initial Consult Date 05/09/19 Type of Consultation: Urology Reason for Consultation Right renal stone, right hydronephrosis and right psoas abscess Requesting Provider: BETH MON Date/Time of Note DATE: 05/13/19 TIME: 09:51 Subjective Patient states that she is feeling much better and has no pain. Objective Vitals Vital Signs Date Temp Pulse Resp B/P (MAP) Pulse Ox O2 O2 Flow FiO2 Time Delivery Rate 05/13/19 97.7 89 20 127/82 97 Room Air 08:01 (97) Intake and Output 05/12/19 05/12/19 05/13/19 1515:00 23:00 07:00 IntakeIntake Total 600 ml 1650 ml 350 ml OutputOutput Total 500 ml 850 ml 850 ml BalanceBalance 100 ml 800 ml -500 ml Exam The drain from the right abscess area is draining a lot of purulent material,500 mL in the past 12 hours Results/Medications Result Diagram: 05/13/19 0455 05/13/19 0455 Results 24 hrs Laboratory Tests Test 05/12/19 17:12 05/13/19 04:55 Vancomycin Level Trough 11.7 White Blood Count 10.7 # Red Blood Count 3.13 L Hemoglobin 7.6 L Hematocrit 25.9 L Mean Corpuscular Volume 82.7 Mean Corpuscular Hemoglobin 24.3 L Mean Corpuscular Hemoglobin Concent 29.3 L Red Cell Distribution Width 19.1 H Platelet Count 507 H Mean Platelet Volume 9.0 Immature Granulocytes % 0.500 H Neutrophils % 56.3 Lymphocytes % 32.2 Monocytes % 7.0 Eosinophils % 3.6 Basophils % 0.4 Nucleated Red Blood Cells % 0.0 Immature Granulocytes # 0.050 H Neutrophils # 6.1 Lymphocytes # 3.5 H Monocytes # 0.8 Eosinophils # 0.4 Basophils # 0.0 Nucleated Red Blood Cells # 0.0 Sodium Level 138 Potassium Level 3.6 Chloride Level 106 Carbon Dioxide Level 27 Anion Gap 5 Blood Urea Nitrogen 9 Creatinine 0.43 L Est Glomerular Filtrat Rate mL/min > 60 Glucose Level 101 Calcium Level 7.7 L Phosphorus Level 4.3 Magnesium Level 2.0 Total Bilirubin 0.2 Direct Bilirubin 0.00 Indirect Bilirubin 0.2 Aspartate Amino Transf (AST/SGOT) 29 Alanine Aminotransferase (ALT/SGPT) 15 Alkaline Phosphatase 79 Total Protein 6.9 Albumin 2.4 L Globulin 4.50 H Albumin/Globulin Ratio 0.53 Home Meds Reported Medications Acetaminophen* (Acetaminophen*) 500 MG Extra Strength Tablet, 500 MG PO Q4H PRN for PAIN AND OR ELEVATED TEMP, TAB 05/09/19 Ferrous Sulfate* (Ferrous Sulfate*) 325 Mg Tabec, 325 MG PO DAILY, TAB 05/09/19 Ascorbic Acid* (Vitamin C*) 500 Mg Capsule.sa, 500 MG PO DAILY, CAP 05/09/19 Discontinued Scripts Ciprofloxacin Hcl* (Ciprofloxacin Hcl*) 500 Mg Tablet, 500 MG PO BID for 4 Days, #8 TAB Prov:PIETER FIGUEROA 04/19/19 Ibuprofen* (Motrin*) 600 Mg Tab, 600 MG PO Q6H PRN for PAIN AND OR ELEVATED TEMP, #30 TAB Prov:ELIF BARON NP 03/04/18 Medications Current Medications IV Flush (NS 3 ml) 3 ml PER PROTOCOL IV ; Start 05/09/19 at 03:30 Ondansetron HCl (Zofran Inj) 4 mg Q6H PRN IV NAUSEA/VOMITING; Start 05/09/19 at 03:30 Acetaminophen (Tylenol Tab) 650 mg Q6H PRN PO .PAIN 1-3 OR TEMP Last administered on 05/11/19at 02:18; Admin Dose 650 MG; Start 05/09/19 at 03:30 Acetaminophen/ Hydrocodone Bitart ([place] (5/325)) 1 tab Q6H PRN PO .MOD PAIN 4- 6; Start 05/09/19 at 03:30 Hydromorphone HCl (Dilaudid) 1 mg Q4H PRN IV .SEVERE PAIN 7-10; Start 05/09/19 at 03:30 Vancomycin HCl (Vanco Iv Per Pharmacy) VANCOMYCIN PER PHARMACY PER PROTOCOL XX ; Start 05/09/19 at 03:30 Meropenem/Sodium Chloride 50 ml @ 100 mls/hr Q12 IVPB Last administered on 05/13/19at 08:51; Admin Dose 100 MLS/HR; Start 05/09/19 at 09:00 Vancomycin HCl 1.5 gm/Sodium Chloride 250 ml @ 83.333 mls/ hr Q12H IVPB Last administered on 05/13/19 05:45; Admin Dose 83.333 MLS/HR; Start 05/09/19 at 18:00 Ascorbic Acid (Vitamin C) 500 mg DAILY PO Last administered on 05/13/19 08:51; Admin Dose 500 MG; Start 05/09/19 at 09:00 Ferrous Sulfate (Ferrous Sulfate (Ec)) 325 mg DAILY PO Last administered on 05/13/19 08:51; Admin Dose 325 MG; Start 05/09/19 at 09:00 Miscellaneous Information (*Order Clarification Bulletin) MEDICATION REQUIRES CLARIFICATI... Q8H XX ; Start 05/12/19 at 03:30 Docusate Sodium (Colace) 100 mg BID PO Last administered on 05/13/19 08:51; Admin Dose 100 MG; Start 05/12/19 at 21:00 Polyethylene Glycol (Miralax) 17 gm DAILY PO Last administered on 05/13/19 08:51; Admin Dose 17 GM; Start 05/12/19 at 21:00 Assessment/Plan Hospital Course (Demo Recall) 38-year-old female was hospitalized earlier this month with right renal stone with obstruction. She underwent cystoscopy and insertion of right ureteral JJ stent on 04/17/2019. Patient was supposed to follow[facility] with [facility] but she did not. She comes back today feeling discomfort in the right side of the abdomen. She denies any fever or chills and no back pain. CT scan of the abdomen and pelvis showed: Severe right-sided hydronephrosis with perinephric stranding and fluid, unchanged from 04/16/2019. Underlying infection cannot be excluded. There is a right-sided ureteral stent with calcifications surrounding the proximal pigtail within the renal pelvis which is unchanged. Enlargement of the right iliopsoas and iliacus muscles with surrounding stranding suspicious for underlying abscess, increased compared with the prior study. There is increased posterior extension. Distended gallbladder with multiple gallstones. Prominence of the left labia, unchanged. Clinically correlate. CT scan of the abdomen and pelvis with IV contrast done on 05/11/2019 showed: 1. Right xanthogranulomatous pyelonephritis. There is a large abscess infiltrating into the right psoas muscle measuring approximately 3.8 x 4.1 x 13.6 cm. There is infiltration of the right iliacus muscle and right lateral abdominal wall muscles. With extension of the abscess posteriorly into the right paraspinal soft tissues at the level of L5 with component measuring approximately 3.6 x 8.1 x 9.5 cm. Findings appear slightly increased when compared to the prior examination. 2. 1.3 cm calculus remains within the right renal pelvis. A right double-J ureteral stent is in place. 3. Gallbladder sludge versus cholelithiasis. With these findings on the CT scan the patient underwent aspiration and drainage of the abscess. The drain had a 500 mL output the past 12 hours. The patient i s feeling better and has less pain. She is voiding well. She denies any dysuria and there is no hematuria. Cultures from the abscess are still pending.. Continue the antibiotics and keep the drain in place. CORTNEY PETTY MD May 13, 2019 09:53
[2019-05-13 14:15] VITALS: BP 139/79; PULSE 84; RESP 18
--- NOTE | 2019-05-13 16:01 | CONS ---
Consultation Date/Type/Reason Admit Date/Time May 09, 2019 at 03:01 Initial Consult Date SUBJECTIVE: Patient is awake, alert, afebrile. Feeling good. S/P abd abscess drainage. Microbiology: Urine culture negative ABD FLUID Cx: GRAM STAIN Final POLYMORPH. LEUKOCYTE 3+ . NO ORGANISM SEEN BODY FLUID CULTURE Preliminary Culture too young to evaluate Antimicrobials: [place], Merrem Physical examination: GEN: This is a morbidly obese well-developed middle-aged woman who is alert in no distress. HENT: Head atraumatic normocephalic, sclera nonicteric, neck is obese PULM: chest rise symmetrical breath sounds diminished bases. Heart: S1-S2. Abdomen: soft, bowel sounds present, right sided intra-abdominal drainage catheter. Extremities without cyanosis Assessment: 1. Acute pyelonephritis with psoas abscess, status post IR guided drainage 2. Resolving sepsis 3. Morbid obesity Plan: Pt is continuing to improve. Stable. Will continue current antibiotics and await for final cultures. Requesting Provider: BETH MON Date/Time of Note DATE: 05/13/19 TIME: 15:55 Exam/Review of Systems Exam Vitals Vital Signs Date Temp Pulse Resp B/P (MAP) Pulse Ox O2 O2 Flow FiO2 Time Delivery Rate 05/13/19 97.8 84 18 139/79 98 14:15 (99) 05/13/19 Room Air 08:01 Intake and Output 05/12/19 05/12/19 05/13/19 1515:00 23:00 07:00 IntakeIntake Total 600 ml 1650 ml 350 ml OutputOutput Total 500 ml 850 ml 850 ml BalanceBalance 100 ml 800 ml -500 ml Results Result Diagram: 05/13/19 0455 05/13/19 0455 Results 24hrs Laboratory Tests Test 05/12/19 17:12 05/13/19 04:55 Vancomycin Level Trough 11.7 White Blood Count 10.7 # Red Blood Count 3.13 L Hemoglobin 7.6 L Hematocrit 25.9 L Mean Corpuscular Volume 82.7 Mean Corpuscular Hemoglobin 24.3 L Mean Corpuscular Hemoglobin Concent 29.3 L Red Cell Distribution Width 19.1 H Platelet Count 507 H Mean Platelet Volume 9.0 Immature Granulocytes % 0.500 H Neutrophils % 56.3 Lymphocytes % 32.2 Monocytes % 7.0 Eosinophils % 3.6 Basophils % 0.4 Nucleated Red Blood Cells % 0.0 Immature Granulocytes # 0.050 H Neutrophils # 6.1 Lymphocytes # 3.5 H Monocytes # 0.8 Eosinophils # 0.4 Basophils # 0.0 Nucleated Red Blood Cells # 0.0 Sodium Level 138 Potassium Level 3.6 Chloride Level 106 Carbon Dioxide Level 27 Anion Gap 5 Blood Urea Nitrogen 9 Creatinine 0.43 L Est Glomerular Filtrat Rate mL/min > 60 Glucose Level 101 Calcium Level 7.7 L Phosphorus Level 4.3 Magnesium Level 2.0 Total Bilirubin 0.2 Direct Bilirubin 0.00 Indirect Bilirubin 0.2 Aspartate Amino Transf (AST/SGOT) 29 Alanine Aminotransferase (ALT/SGPT) 15 Alkaline Phosphatase 79 Total Protein 6.9 Albumin 2.4 L Globulin 4.50 H Albumin/Globulin Ratio 0.53 Medications Medication Current Medications IV Flush (NS 3 ml) 3 ml PER PROTOCOL IV ; Start 05/09/19 at 03:30 Ondansetron HCl (Zofran Inj) 4 mg Q6H PRN IV NAUSEA/VOMITING; Start 05/09/19 at 03:30 Acetaminophen (Tylenol Tab) 650 mg Q6H PRN PO .PAIN 1-3 OR TEMP Last administered on 05/11/19at 02:18; Admin Dose 650 MG; Start 05/09/19 at 03:30 Acetaminophen/ Hydrocodone Bitart ([place] (5/325)) 1 tab Q6H PRN PO .MOD PAIN 4- 6; Start 05/09/19 at 03:30 Hydromorphone HCl (Dilaudid) 1 mg Q4H PRN IV .SEVERE PAIN 7-10; Start 05/09/19 at 03:30 Vancomycin HCl (Vanco Iv Per Pharmacy) VANCOMYCIN PER PHARMACY PER PROTOCOL XX ; Start 05/09/19 at 03:30 Meropenem/Sodium Chloride 50 ml @ 100 mls/hr Q12 IVPB Last administered on 05/13/19at 08:51; Admin Dose 100 MLS/HR; Start 05/09/19 at 09:00 Vancomycin HCl 1.5 gm/Sodium Chloride 250 ml @ 83.333 mls/ hr Q12H IVPB Last administered on 05/13/19at 05:45; Admin Dose 83.333 MLS/HR; Start 05/09/19 at 18:00 Ascorbic Acid (Vitamin C) 500 mg DAILY PO Last administered on 05/13/19 08:51; Admin Dose 500 MG; Start 05/09/19 at 09:00 Ferrous Sulfate (Ferrous Sulfate (Ec)) 325 mg DAILY PO Last administered on 05/13/19 08:51; Admin Dose 325 MG; Start 05/09/19 at 09:00 Miscellaneous Information (*Order Clarification Bulletin) MEDICATION REQUIRES CLARIFICATI... Q8H XX ; Start 05/12/19 at 03:30 Docusate Sodium (Colace) 100 mg BID PO Last administered on 05/13/19 08:51; Admin Dose 100 MG; Start 05/12/19 at 21:00 Polyethylene Glycol (Miralax) 17 gm DAILY PO Last administered on 05/13/19 08:51; Admin Dose 17 GM; Start 05/12/19 at 21:00 ANTONIA DENT May 13, 2019 16:01
[2019-05-13 19:55] VITALS: BP 124/87; PULSE 89; RESP 18
[2019-05-14] MEDS: ACETAMINOPHEN 325 MG TAB PO PRN (01:48)
[2019-05-14] MEDS: VANCOMYCIN HCL 1.5 GM in SOD CHLORIDE 0.9% 250 ML IVPB SCH ×2 (06:26→17:26)
--- NOTE | 2019-05-14 08:29 | PN ---
Date/Time of Note Date/Time of Note DATE: 05/14/19 TIME: 08:27 Assessment/Plan VTE Prophylaxis Risk score (from Nsg)>0 risk: 2 SCD applied (from Nsg): Yes Pharmacological prophylaxis: NA/contraindicated Pharm contraindication: other (Anemia) Lines/Catheters IV Catheter Type (from Nrs): Peripheral IV Urinary Cath still in place: No Assessment/Plan Hospital Course SUBJECTIVE: Denies any abdominal pain. The patient very tearful because her son is hospitalized at [facility]. OBJECTIVE: Physical Exam General: Morbidly obese 38 year-old female lying in bed in no apparent distress. HEENT: Normocephalic, atraumatic. Eyes: Anicteric sclerae, conjunctivae clear. ENT: Nasal septum midline, oral mucosa moist. Neck: Short and obese. Respiratory: Bilaterally clear breath sounds. No use of accessory muscles of respiration. No adventitious breath sounds. Cardiovascular: S1, S2 heard. Regular rate and rhythm. Abdomen: Soft and nondistended. Bowel sounds positive in all 4 quadrants. Right flank area drain that is draining milky secretions. Genitourinary: Tenderness in the right flank. Extremities: No cyanosis, no clubbing, no edema. Peripheral pulses palpable. Neurologic: Cranial nerves II through XII grossly intact. The patient is awake, alert, and oriented. Skin: Normal skin turgor. No skin rashes. ASSESSMENT & PLAN 38-year-old female with comorbidities including obesity, asthma, and iron deficiency anemia with a staghorn calculus within the right renal pelvis status post cystoscopy and stent placement, who was discharged on April 19, 2019, to be followed up with [facility], who came back to the emergency room on 05/09/2019 with chief complaint of right flank pain with underlying sepsis and abdominal imaging showing severe right-sided hydronephrosis with perinephric stranding, who was admitted to inpatient setting for further treatment and evaluation. 1. S/P sepsis with leukocytosis and tachycardia, secondary to underlying complicated urinary tract infection, present on admission. Continue empiric antimicrobials. Urine cultures inconclusive. 2. Severe right-sided hydronephrosis. Status post right ureteral stenting on 04/17/2019. Being followed by urology. 3. Right psoas muscle abscess. Status post IR guided drain placement on 05/11/2019. 4. Iron deficiency anemia. Continue iron supplements. 5. History of asthma. No evidence of any exacerbation. 6. Morbid obesity. Weight reduction and lifestyle changes advised. 7. DVT prophylaxis. Bilateral SCDs. 8. Plan. Continue antimicrobials. Await final cultures from the drain. Await clinical improvement. The patient was seen in collaboration with Dr. Mc. Result Diagram: 05/14/199 05/14/19 0439 Results 24hrs Laboratory Tests Test 05/14/19 04:39 White Blood Count 8.7 Red Blood Count 4.47 # Hemoglobin 10.8 #L Hematocrit 37.0 # Mean Corpuscular Volume 82.8 Mean Corpuscular Hemoglobin 24.2 L Mean Corpuscular Hemoglobin Concent 29.2 L Red Cell Distribution Width 19.0 H Platelet Count 304 # Mean Platelet Volume 9.1 Immature Granulocytes % 0.600 H Neutrophils % 62.0 Lymphocytes % 28.7 Monocytes % 5.7 Eosinophils % 2.4 Basophils % 0.6 Nucleated Red Blood Cells % 0.0 Immature Granulocytes # 0.050 H Neutrophils # 5.4 Lymphocytes # 2.5 Monocytes # 0.5 Eosinophils # 0.2 Basophils # 0.1 Nucleated Red Blood Cells # 0.0 Sodium Level 139 Potassium Level 4.2 Chloride Level 108 Carbon Dioxide Level 26 Anion Gap 5 Blood Urea Nitrogen 9 Creatinine 0.37 L Est Glomerular Filtrat Rate mL/min > 60 Glucose Level 95 Calcium Level 8.0 L Phosphorus Level 4.1 Magnesium Level 2.1 Exam/Review of Systems Exam Vitals Vital Signs Date Temp Pulse Resp B/P (MAP) Pulse Ox O2 O2 Flow FiO2 Time Delivery Rate 05/13/19 98.3 89 18 124/87 98 19:55 (99) 05/13/19 Room Air 08:01 Intake and Output 05/13/19 05/13/19 05/14/19 1515:00 23:00 07:00 IntakeIntake Total 1100 ml 960 ml 480 ml OutputOutput Total 1 ml 200 ml 460 ml BalanceBalance 1099 ml 760 ml 20 ml Results Results 24hrs Laboratory Tests Test 05/14/19 04:39 White Blood Count 8.7 Red Blood Count 4.47 # Hemoglobin 10.8 #L Hematocrit 37.0 # Mean Corpuscular Volume 82.8 Mean Corpuscular Hemoglobin 24.2 L Mean Corpuscular Hemoglobin Concent 29.2 L Red Cell Distribution Width 19.0 H Platelet Count 304 # Mean Platelet Volume 9.1 Immature Granulocytes % 0.600 H Neutrophils % 62.0 Lymphocytes % 28.7 Monocytes % 5.7 Eosinophils % 2.4 Basophils % 0.6 Nucleated Red Blood Cells % 0.0 Immature Granulocytes # 0.050 H Neutrophils # 5.4 Lymphocytes # 2.5 Monocytes # 0.5 Eosinophils # 0.2 Basophils # 0.1 Nucleated Red Blood Cells # 0.0 Sodium Level 139 Potassium Level 4.2 Chloride Level 108 Carbon Dioxide Level 26 Anion Gap 5 Blood Urea Nitrogen 9 Creatinine 0.37 L Est Glomerular Filtrat Rate mL/min > 60 Glucose Level 95 Calcium Level 8.0 L Phosphorus Level 4.1 Magnesium Level 2.1 Medications Medication Current Medications IV Flush (NS 3 ml) 3 ml PER PROTOCOL IV ; Start 05/09/19 at 03:30 Ondansetron HCl (Zofran Inj) 4 mg Q6H PRN IV NAUSEA/VOMITING; Start 05/09/19 at 03:30 Acetaminophen (Tylenol Tab) 650 mg Q6H PRN PO .PAIN 1-3 OR TEMP Last administered on 05/14/19at 01:48; Admin Dose 650 MG; Start 05/09/19 at 03:30 Acetaminophen/ Hydrocodone Bitart ([place] (5/325)) 1 tab Q6H PRN PO .MOD PAIN 4- 6; Start 05/09/19 at 03:30 Hydromorphone HCl (Dilaudid) 1 mg Q4H PRN IV .SEVERE PAIN 7-10; Start 05/09/19 at 03:30 Vancomycin HCl (Vanco Iv Per Pharmacy) VANCOMYCIN PER PHARMACY PER PROTOCOL XX ; Start 05/09/19 at 03:30 Meropenem/Sodium Chloride 50 ml @ 100 mls/hr Q12 IVPB Last administered on 05/13/19at 21:33; Admin Dose 100 MLS/HR; Start 05/09/19 at 09:00 Vancomycin HCl 1.5 gm/Sodium Chloride 250 ml @ 83.333 mls/ hr Q12H IVPB Last administered on 05/14/19at 06:26; Admin Dose 83.333 MLS/HR; Start 05/09/19 at 18:00 Ascorbic Acid (Vitamin C) 500 mg DAILY PO Last administered on 05/13/19at 08:51; Admin Dose 500 MG; Start 05/09/19 at 09:00 Ferrous Sulfate (Ferrous Sulfate (Ec)) 325 mg DAILY PO Last administered on 05/13/19 08:51; Admin Dose 325 MG; Start 05/09/19 at 09:00 Miscellaneous Information (*Order Clarification Bulletin) MEDICATION REQUIRES CLARIFICATI... Q8H XX ; Start 05/12/19 at 03:30 Docusate Sodium (Colace) 100 mg BID PO Last administered on 05/13/19at 21:34; Admin Dose 100 MG; Start 05/12/19 at 21:00 Polyethylene Glycol (Miralax) 17 gm DAILY PO Last administered on 05/13/19 08:51; Admin Dose 17 GM; Start 05/12/19 at 21:00 VIVEK PADGETT NP May 14, 2019 08:29
[2019-05-14 08:36] VITALS: BP 118/75; PULSE 65; RESP 18
[2019-05-14] MEDS: POLYETHYLENE GLYCOL 17 GM PACKET PO SCH (09:28)
[2019-05-14] MEDS: DOCUSATE SODIUM 100 MG CAP PO SCH ×2 (09:28→21:24)
[2019-05-14] MEDS: FERROUS SULFATE (EC) 325 MG TAB PO SCH (09:28)
[2019-05-14] MEDS: ASCORBIC ACID 500 MG TAB PO SCH (09:28)
[2019-05-14] MEDS: MEROPENEM 1 GM/50ML(PMX) 50 ML IVPB SCH ×2 (09:29→21:24)
--- NOTE | 2019-05-14 12:02 | CONS ---
Consultation Date/Type/Reason Admit Date/Time May 09, 2019 at 03:01 Initial Consult Date SUBJECTIVE: Patient is awake, alert, afebrile. Feeling good. S/P abd abscess drainage. Microbiology: Urine culture negative ABD FLUID Cx: GRAM STAIN Final POLYMORPH. LEUKOCYTE 3+ . NO ORGANISM SEEN BODY FLUID CULTURE Preliminary Organism 1 GRAM NEGATIVE [place] QUANTITY 2+ Antimicrobials: Vanco, Merrem Physical examination: GEN: This is a morbidly obese well-developed middle-aged woman who is alert in no distress. HENT: Head atraumatic normocephalic, sclera nonicteric, neck is obese PULM: chest rise symmetrical breath sounds diminished bases. Heart: S1-S2. Abdomen: soft, bowel sounds present, right sided intra-abdominal drainage catheter. Extremities without cyanosis Assessment: 1. Acute pyelonephritis with psoas abscess, status post IR guided drainage 2. Resolving sepsis 3. Morbid obesity Plan: Pt is continuing to improve and remains stable. Will continue current antibiotics and await for final cultures. WBC has improved with current treatment and no fevers. Requesting Provider: BETH MON Date/Time of Note DATE: 05/14/19 TIME: 12:01 Exam/Review of Systems Exam Vitals Vital Signs Date Temp Pulse Resp B/P (MAP) Pulse Ox O2 O2 Flow FiO2 Time Delivery Rate 05/14/19 97.4 65 18 118/75 100 Room Air 08:36 (89) Intake and Output 05/13/19 05/13/19 05/14/19 1515:00 23:00 07:00 IntakeIntake Total 1100 ml 960 ml 480 ml OutputOutput Total 1 ml 200 ml 460 ml BalanceBalance 1099 ml 760 ml 20 ml Results Result Diagram: 05/14/19 0439 05/14/19 0439 Results 24hrs Laboratory Tests Test 05/14/19 04:39 White Blood Count 8.7 Red Blood Count 4.47 # Hemoglobin 10.8 #L Hematocrit 37.0 # Mean Corpuscular Volume 82.8 Mean Corpuscular Hemoglobin 24.2 L Mean Corpuscular Hemoglobin Concent 29.2 L Red Cell Distribution Width 19.0 H Platelet Count 304 # Mean Platelet Volume 9.1 Immature Granulocytes % 0.600 H Neutrophils % 62.0 Lymphocytes % 28.7 Monocytes % 5.7 Eosinophils % 2.4 Basophils % 0.6 Nucleated Red Blood Cells % 0.0 Immature Granulocytes # 0.050 H Neutrophils # 5.4 Lymphocytes # 2.5 Monocytes # 0.5 Eosinophils # 0.2 Basophils # 0.1 Nucleated Red Blood Cells # 0.0 Sodium Level 139 Potassium Level 4.2 Chloride Level 108 Carbon Dioxide Level 26 Anion Gap 5 Blood Urea Nitrogen 9 Creatinine 0.37 L Est Glomerular Filtrat Rate mL/min > 60 Glucose Level 95 Calcium Level 8.0 L Phosphorus Level 4.1 Magnesium Level 2.1 Medications Medication Current Medications IV Flush (NS 3 ml) 3 ml PER PROTOCOL IV ; Start 05/09/19 at 03:30 Ondansetron HCl (Zofran Inj) 4 mg Q6H PRN IV NAUSEA/VOMITING; Start 05/09/19 at 03:30 Acetaminophen (Tylenol Tab) 650 mg Q6H PRN PO .PAIN 1-3 OR TEMP Last administered on 05/14/19at 01:48; Admin Dose 650 MG; Start 05/09/19 at 03:30 Acetaminophen/ Hydrocodone Bitart ([place] (5/325)) 1 tab Q6H PRN PO .MOD PAIN 4- 6; Start 05/09/19 at 03:30 Hydromorphone HCl (Dilaudid) 1 mg Q4H PRN IV .SEVERE PAIN 7-10; Start 05/09/19 at 03:30 Vancomycin HCl (Vanco Iv Per Pharmacy) VANCOMYCIN PER PHARMACY PER PROTOCOL XX ; Start 05/09/19 at 03:30 Meropenem/Sodium Chloride 50 ml @ 100 mls/hr Q12 IVPB Last administered on 05/14/19at 09:29; Admin Dose 100 MLS/HR; Start 05/09/19 at 09:00 Vancomycin HCl 1.5 gm/Sodium Chloride 250 ml @ 83.333 mls/ hr Q12H IVPB Last administered on 05/14/19 06:26; Admin Dose 83.333 MLS/HR; Start 05/09/19 at 18:00 Ascorbic Acid (Vitamin C) 500 mg DAILY PO Last administered on 05/14/19 09:28; Admin Dose 500 MG; Start 05/09/19 at 09:00 Ferrous Sulfate (Ferrous Sulfate (Ec)) 325 mg DAILY PO Last administered on 05/14/19 09:28; Admin Dose 325 MG; Start 05/09/19 at 09:00 Miscellaneous Information (*Order Clarification Bulletin) MEDICATION REQUIRES CLARIFICATI... Q8H XX ; Start 05/12/19 at 03:30 Docusate Sodium (Colace) 100 mg BID PO Last administered on 05/14/19at 09:28; Admin Dose 100 MG; Start 05/12/19 at 21:00 Polyethylene Glycol (Miralax) 17 gm DAILY PO Last administered on 05/14/19at 09:28; Admin Dose 17 GM; Start 05/12/19 at 21:00 ANTONIA DENT May 14, 2019 12:02
[2019-05-14 20:06] VITALS: BP 138/79; PULSE 87; RESP 18
--- NOTE | 2019-05-14 20:41 | CONS ---
Consult Date/Type/Reason Admit Date/Time May 09, 2019 at 03:01 Initial Consult Date 05/09/19 Type of Consultation: Urology Reason for Consultation Right psoas abscess, right renal stone and hydronephrosis Requesting Provider: BETH MON Date/Time of Note DATE: 05/14/19 TIME: 20:35 Subjective Patient states that physically she is okay but mentally she is stressed out because her son who is 13 years old was taken to [facility] Objective Vitals Vital Signs Date Temp Pulse Resp B/P (MAP) Pulse Ox O2 O2 Flow FiO2 Time Delivery Rate 05/14/19 97.4 65 18 118/75 100 Room Air 08:36 (89) Intake and Output 05/13/19 05/13/19 05/14/19 1515:00 23:00 07:00 IntakeIntake Total 1100 ml 960 ml 480 ml OutputOutput Total 1 ml 200 ml 460 ml BalanceBalance 1099 ml 760 ml 20 ml Exam The accordion drain in the left flank area is draining less 100ml in the past 12 hours. Her white count has come down to normal. The culture from the right flank and psoas abscess grew gram-negative rods Results/Medications Result Diagram: 05/14/19 0439 05/14/19 0439 Results 24 hrs Laboratory Tests Test 05/14/19 04:39 White Blood Count 8.7 Red Blood Count 4.47 # Hemoglobin 10.8 #L Hematocrit 37.0 # Mean Corpuscular Volume 82.8 Mean Corpuscular Hemoglobin 24.2 L Mean Corpuscular Hemoglobin Concent 29.2 L Red Cell Distribution Width 19.0 H Platelet Count 304 # Mean Platelet Volume 9.1 Immature Granulocytes % 0.600 H Neutrophils % 62.0 Lymphocytes % 28.7 Monocytes % 5.7 Eosinophils % 2.4 Basophils % 0.6 Nucleated Red Blood Cells % 0.0 Immature Granulocytes # 0.050 H Neutrophils # 5.4 Lymphocytes # 2.5 Monocytes # 0.5 Eosinophils # 0.2 Basophils # 0.1 Nucleated Red Blood Cells # 0.0 Sodium Level 139 Potassium Level 4.2 Chloride Level 108 Carbon Dioxide Level 26 Anion Gap 5 Blood Urea Nitrogen 9 Creatinine 0.37 L Est Glomerular Filtrat Rate mL/min > 60 Glucose Level 95 Calcium Level 8.0 L Phosphorus Level 4.1 Magnesium Level 2.1 Home Meds Reported Medications Acetaminophen* (Acetaminophen*) 500 MG Extra Strength Tablet, 500 MG PO Q4H PRN for PAIN AND OR ELEVATED TEMP, TAB 05/09/19 Ferrous Sulfate* (Ferrous Sulfate*) 325 Mg Tabec, 325 MG PO DAILY, TAB 05/09/19 Ascorbic Acid* (Vitamin C*) 500 Mg Capsule.sa, 500 MG PO DAILY, CAP 05/09/19 Discontinued Scripts Ciprofloxacin Hcl* (Ciprofloxacin Hcl*) 500 Mg Tablet, 500 MG PO BID for 4 Days, #8 TAB Prov:PIETER FIGUEROA 04/19/19 Ibuprofen* (Motrin*) 600 Mg Tab, 600 MG PO Q6H PRN for PAIN AND OR ELEVATED TEMP, #30 TAB Prov:ELIF BARON NP 03/04/18 Medications Current Medications IV Flush (NS 3 ml) 3 ml PER PROTOCOL IV ; Start 05/09/19 at 03:30 Ondansetron HCl (Zofran Inj) 4 mg Q6H PRN IV NAUSEA/VOMITING; Start 05/09/19 at 03:30 Acetaminophen (Tylenol Tab) 650 mg Q6H PRN PO .PAIN 1-3 OR TEMP Last administered on 05/14/19at 01:48; Admin Dose 650 MG; Start 05/09/19 at 03:30 Acetaminophen/ Hydrocodone Bitart ([place] (5/325)) 1 tab Q6H PRN PO .MOD PAIN 4- 6; Start 05/09/19 at 03:30 Hydromorphone HCl (Dilaudid) 1 mg Q4H PRN IV .SEVERE PAIN 7-10; Start 05/09/19 at 03:30 Vancomycin HCl (Vanco Iv Per Pharmacy) VANCOMYCIN PER PHARMACY PER PROTOCOL XX ; Start 05/09/19 at 03:30 Meropenem/Sodium Chloride 50 ml @ 100 mls/hr Q12 IVPB Last administered on 05/14/19at 09:29; Admin Dose 100 MLS/HR; Start 05/09/19 at 09:00 Vancomycin HCl 1.5 gm/Sodium Chloride 250 ml @ 83.333 mls/ hr Q12H IVPB Last administered on 05/14/19at 17:26; Admin Dose 83.333 MLS/HR; Start 05/09/19 at 18:00 Ascorbic Acid (Vitamin C) 500 mg DAILY PO Last administered on 05/14/19 09:28; Admin Dose 500 MG; Start 05/09/19 at 09:00 Ferrous Sulfate (Ferrous Sulfate (Ec)) 325 mg DAILY PO Last administered on 05/14/19:; Admin Dose 325 MG; Start 05/09/19 at 09:00 Docusate Sodium (Colace) 100 mg BID PO Last administered on 05/14/19:; Admin Dose 100 MG; Start 05/12/19 at 21:00 Polyethylene Glycol (Miralax) 17 gm DAILY PO Last administered on 05/14/19; Admin Dose 17 GM; Start 05/12/19 at 21:00 Assessment/Plan Hospital Course (Demo Recall) 38-year-old female was hospitalized earlier this month with right renal stone with obstruction. She underwent cystoscopy and insertion of right ureteral JJ stent on 04/17/2019. Patient was supposed to follow-up with [facility] but she did not. She comes back today feeling discomfort in the right side of the abdomen. She denies any fever or chills and no back pain. CT scan of the abdomen and pelvis showed: Severe right-sided hydronephrosis with perinephric stranding and fluid, unchanged from 04/16/2019. Underlying infection cannot be excluded. There is a right-sided ureteral stent with calcifications surrounding the proximal pigtail within the renal pelvis which is unchanged. Enlargement of the right iliopsoas and iliacus muscles with surrounding stranding suspicious for underlying abscess, increased compared with the prior study. There is increased posterior extension. Distended gallbladder with multiple gallstones. Prominence of the left labia, unchanged. Clinically correlate. CT scan of the abdomen and pelvis with IV contrast done on 05/11/2019 showed: 1. Right xanthogranulomatous pyelonephritis. There is a large abscess infiltrating into the right psoas muscle measuring approximately 3.8 x 4.1 x 13.6 cm. There is infiltration of the right iliacus muscle and right lateral abdominal wall muscles. With extension of the abscess posteriorly into the right paraspinal soft tissues at the level of L5 with component measuring approximately 3.6 x 8.1 x 9.5 cm. Findings appear slightly increased when compared to the prior examination. 2. 1.3 cm calculus remains within the right renal pelvis. A right double-J ureteral stent is in place. 3. Gallbladder sludge versus cholelithiasis. With these findings on the CT scan the patient underwent aspiration and drainage of the abscess. The drainage from the accordion drain is coming down from 500 to 180 to100 The culture showing gram-negative rods. The patient is on vancomycin and meropenem. Continue the present treatment CORTNEY PETTY MD May 14, 2019 20:41
[2019-05-15 01:56] VITALS: BP 133/77; PULSE 89; RESP 16
[2019-05-15] MEDS: VANCOMYCIN HCL 1.5 GM in SOD CHLORIDE 0.9% 250 ML IVPB SCH (05:34)
--- NOTE | 2019-05-15 07:30 | PN ---
Date/Time of Note Date/Time of Note DATE: 05/15/19 TIME: 07:29 Assessment/Plan VTE Prophylaxis Risk score (from Ns)>0 risk: 2 SCD applied (from Ns): Yes Pharmacological prophylaxis: NA/contraindicated Pharm contraindication: other (Anemia) Lines/Catheters IV [facility]ter [facility] (from [facility]): Peripheral IV Urinary Cath still in place: No Assessment/Plan Hospital Course SUBJECTIVE: Denies any abdominal pain. OBJECTIVE: Physical Exam General: Morbidly obese 38 year-old female lying in bed in no apparent distress. HEENT: Normocephalic, atraumatic. Eyes: Anicteric sclerae, conjunctivae clear. ENT: Nasal septum midline, oral mucosa moist. Neck: Short and obese. Respiratory: Bilaterally clear breath sounds. No use of accessory muscles of respiration. No adventitious breath sounds. Cardiovascular: S1, S2 heard. Regular rate and rhythm. Abdomen: Soft and nondistended. Bowel sounds positive in all 4 quadrants. Right flank area drain that is draining milky secretions. Genitourinary: Tenderness in the right flank. Extremities: No cyanosis, no clubbing, no edema. Peripheral pulses palpable. Neurologic: Cranial nerves II through XII grossly intact. The patient is awake, alert, and oriented. Skin: Normal skin turgor. No skin rashes. 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 1. S/P sepsis with leukocytosis and tachycardia, secondary to underlying complicated urinary tract infection, present on admission. Continue empiric antimicrobials. Urine cultures inconclusive. 2. Severe right-sided hydronephrosis. Status post right ureteral stenting on 04/17/2019. Being followed by urology. 3. Right psoas muscle abscess. Status post IR guided drain placement on 05/11/2019. 4. Iron deficiency anemia. Continue iron supplements. 5. History of asthma. No evidence of any exacerbation. 6. Morbid obesity. Weight reduction and lifestyle changes advised. 7. DVT prophylaxis. Bilateral SCDs. 8. Plan. Continue antimicrobials. Await final cultures from the drain. Await clinical improvement. The patient was seen in collaboration with Dr. Guidry. Result Diagram: 05/15/195 05/15/19 0425 Results 24hrs Laboratory Tests Test 05/15/19 04:25 White Blood Count 8.3 Red Blood Count 3.21 #L Hemoglobin 7.8 #L Hematocrit 26.6 #L Mean Corpuscular Volume 82.9 Mean Corpuscular Hemoglobin 24.3 L Mean Corpuscular Hemoglobin Concent 29.3 L Red Cell Distribution Width 18.9 H Platelet Count 512 #H Mean Platelet Volume 9.1 Immature Granulocytes % 0.700 H Neutrophils % 54.1 Lymphocytes % 34.8 Monocytes % 6.2 Eosinophils % 3.4 Basophils % 0.8 Nucleated Red Blood Cells % 0.0 Immature Granulocytes # 0.060 H Neutrophils # 4.5 Lymphocytes # 2.9 Monocytes # 0.5 Eosinophils # 0.3 Basophils # 0.1 Nucleated Red Blood Cells # 0.0 Sodium Level 141 Potassium Level 4.1 Chloride Level 109 Carbon Dioxide Level 26 Anion Gap 6 Blood Urea Nitrogen 8 Creatinine 0.45 Est Glomerular Filtrat Rate mL/min > 60 Glucose Level 92 Calcium Level 8.0 L Phosphorus Level 4.5 Magnesium Level 2.1 Exam/Review of Systems Exam Vitals Vital Signs Date Temp Pulse Resp B/P (MAP) Pulse Ox O2 O2 Flow FiO2 Time Delivery Rate 05/15/19 97.8 89 16 133/77 96 Room Air 01:56 (95) Intake and Output 05/14/19 05/14/19 05/15/19 1515:00 23:00 07:00 IntakeIntake Total 300 ml 1300 ml OutputOutput Total 550 ml 345 ml BalanceBalance 300 ml 750 ml -345 ml Results Results 24hrs Laboratory Tests Test 05/15/19 04:25 White Blood Count 8.3 Red Blood Count 3.21 #L Hemoglobin 7.8 #L Hematocrit 26.6 #L Mean Corpuscular Volume 82.9 Mean Corpuscular Hemoglobin 24.3 L Mean Corpuscular Hemoglobin Concent 29.3 L Red Cell Distribution Width 18.9 H Platelet Count 512 #H Mean Platelet Volume 9.1 Immature Granulocytes % 0.700 H Neutrophils % 54.1 Lymphocytes % 34.8 Monocytes % 6.2 Eosinophils % 3.4 Basophils % 0.8 Nucleated Red Blood Cells % 0.0 Immature Granulocytes # 0.060 H Neutrophils # 4.5 Lymphocytes # 2.9 Monocytes # 0.5 Eosinophils # 0.3 Basophils # 0.1 Nucleated Red Blood Cells # 0.0 Sodium Level 141 Potassium Level 4.1 Chloride Level 109 Carbon Dioxide Level 26 Anion Gap 6 Blood Urea Nitrogen 8 Creatinine 0.45 Est Glomerular Filtrat Rate mL/min > 60 Glucose Level 92 Calcium Level 8.0 L Phosphorus Level 4.5 Magnesium Level 2.1 Medications Medication Current Medications IV Flush (NS 3 ml) 3 ml PER PROTOCOL IV Last administered on 05/15/19 05:34; Admin Dose 3 ML; Start 05/09/19 at 03:30 Ondansetron HCl (Zofran Inj) 4 mg Q6H PRN IV NAUSEA/VOMITING; Start 05/09/19 at 03:30 Acetaminophen (Tylenol Tab) 650 mg Q6H PRN PO .PAIN 1-3 OR TEMP Last administered on 05/14/19at 01:48; Admin Dose 650 MG; Start 05/09/19 at 03:30 Acetaminophen/ Hydrocodone Bitart ([place] (5/325)) 1 tab Q6H PRN PO .MOD PAIN 4- 6; Start 05/09/19 at 03:30 Hydromorphone HCl (Dilaudid) 1 mg Q4H PRN IV .SEVERE PAIN 7-10; Start 05/09/19 at 03:30 Vancomycin HCl (Vanco Iv Per Pharmacy) VANCOMYCIN PER PHARMACY PER PROTOCOL XX ; Start 05/09/19 at 03:30 Meropenem/Sodium Chloride 50 ml @ 100 mls/hr Q12 IVPB Last administered on 05/14/19at 21:24; Admin Dose 100 MLS/HR; Start 05/09/19 at 09:00 Vancomycin HCl 1.5 gm/Sodium Chloride 250 ml @ 83.333 mls/ hr Q12H IVPB Last administered on 05/15/19 05:34; Admin Dose 83.333 MLS/HR; Start 05/09/19 at 18:00 Ascorbic Acid (Vitamin C) 500 mg DAILY PO Last administered on 05/14/19 09:28; Admin Dose 500 MG; Start 6/25/19 at 09:00 Ferrous Sulfate (Ferrous Sulfate (Ec)) 325 mg DAILY PO Last administered on 05/14/19 09:28; Admin Dose 325 MG; Start 05/09/19 at 09:00 Docusate Sodium (Colace) 100 mg BID PO Last administered on 05/14/19at 21:24; Admin Dose 100 MG; Start 05/12/19 at 21:00 Polyethylene Glycol (Miralax) 17 gm DAILY PO Last administered on 05/14/19 09:28; Admin Dose 17 GM; Start 05/12/19 at 21:00 VIVEK PADEGTT NP May 15, 2019 07:30
[2019-05-15 07:43] VITALS: BP 137/73; PULSE 81; RESP 18
[2019-05-15] MEDS: DOCUSATE SODIUM 100 MG CAP PO SCH ×2 (08:56→20:41)
[2019-05-15] MEDS: FERROUS SULFATE (EC) 325 MG TAB PO SCH (08:56)
[2019-05-15] MEDS: ASCORBIC ACID 500 MG TAB PO SCH (08:57)
[2019-05-15] MEDS: POLYETHYLENE GLYCOL 17 GM PACKET PO SCH (08:57)
[2019-05-15] MEDS: MEROPENEM 1 GM/50ML(PMX) 50 ML IVPB SCH (08:57)
[2019-05-15] MEDS: LEVOFLOXACIN 750 MG TABLET PO SCH (13:55)
--- NOTE | 2019-05-15 14:29 | CONS ---
Assessment/Plan Assessment/Plan Hospital Course (Demo Recall) Patient is alert feels good drainage is much less now WBC 8.3 no shift no bands BUN 8 creatinine 0.45 fluid culture grew Proteus mirabilis Microbiology: Urine culture negative, fluid culture grew Proteus mirabilis Antimicrobials: Vanco, Merrem Physical examination: This is a morbidly obese well-developed middle-aged woman who is alert in no distress. Head atraumatic normocephalic sclera nonicteric neck is obese chest rise symmetrical breath sounds diminished bases. Heart: S1- S2. Abdomen soft bowel sounds present, right sided intra-abdominal drainage catheter with bag full of pus like fluid. Extremities without cyanosis Assessment: 1. Acute pyelonephritis with psoas abscess, status post IR guided drainage 2. Resolving sepsis 3. Morbid obesity Plan: Stable, we are going to change antibiotics to oral Levaquin Consultation Date/Type/Reason Admit Date/Time May 09, 2019 at 03:01 Initial Consult Date 05/09/19 Type of Consult id Requesting Provider: BETH MON Date/Time of Note DATE: 05/15/19 TIME: 14:28 Exam/Review of Systems Exam Vitals Vital Signs Date Temp Pulse Resp B/P (MAP) Pulse Ox O2 O2 Flow FiO2 Time Delivery Rate 05/15/19 98.8 81 18 137/73 98 07:43 (94) 05/15/19 Room Air 01:56 Intake and Output 05/14/19 05/14/19 05/15/19 1515:00 23:00 07:00 IntakeIntake Total 300 ml 1300 ml OutputOutput Total 550 ml 345 ml BalanceBalance 300 ml 750 ml -345 ml Results Result Diagram: 05/15/19 0425 05/15/19 0425 Results 24hrs Laboratory Tests Test 05/15/19 04:25 White Blood Count 8.3 Red Blood Count 3.21 #L Hemoglobin 7.8 #L Hematocrit 26.6 #L Mean Corpuscular Volume 82.9 Mean Corpuscular Hemoglobin 24.3 L Mean Corpuscular Hemoglobin Concent 29.3 L Red Cell Distribution Width 18.9 H Platelet Count 512 #H Mean Platelet Volume 9.1 Immature Granulocytes % 0.700 H Neutrophils % 54.1 Lymphocytes % 34.8 Monocytes % 6.2 Eosinophils % 3.4 Basophils % 0.8 Nucleated Red Blood Cells % 0.0 Immature Granulocytes # 0.060 H Neutrophils # 4.5 Lymphocytes # 2.9 Monocytes # 0.5 Eosinophils # 0.3 Basophils # 0.1 Nucleated Red Blood Cells # 0.0 Sodium Level 141 Potassium Level 4.1 Chloride Level 109 Carbon Dioxide Level 26 Anion Gap 6 Blood Urea Nitrogen 8 Creatinine 0.45 Est Glomerular Filtrat Rate mL/min > 60 Glucose Level 92 Calcium Level 8.0 L Phosphorus Level 4.5 Magnesium Level 2.1 Medications Medication Current Medications IV Flush (NS 3 ml) 3 ml PER PROTOCOL IV Last administered on 05/15/19 05:34; Admin Dose 3 ML; Start 05/09/19 at 03:30 Ondansetron HCl (Zofran Inj) 4 mg Q6H PRN IV NAUSEA/VOMITING; Start 05/09/19 at 03:30 Acetaminophen (Tylenol Tab) 650 mg Q6H PRN PO .PAIN 1-3 OR TEMP Last administered on 05/14/19 01:48; Admin Dose 650 MG; Start 05/09/19 at 03:30 Acetaminophen/ Hydrocodone Bitart ([place] (5/325)) 1 tab Q6H PRN PO .MOD PAIN 4- 6; Start 05/09/19 at 03:30 Hydromorphone HCl (Dilaudid) 1 mg Q4H PRN IV .SEVERE PAIN 7-10; Start 05/09/19 at 03:30 Ascorbic Acid (Vitamin C) 500 mg DAILY PO Last administered on 05/15/19 08:57; Admin Dose 500 MG; Start 05/09/19 at 09:00 Ferrous Sulfate (Ferrous Sulfate (Ec)) 325 mg DAILY PO Last administered on 05/15/19 08:56; Admin Dose 325 MG; Start 05/09/19 at 09:00 Docusate Sodium (Colace) 100 mg BID PO Last administered on 05/15/19 08:56; Admin Dose 100 MG; Start 05/12/19 at 21:00 Polyethylene Glycol (Miralax) 17 gm DAILY PO Last administered on 05/14/19 09:28; Admin Dose 17 GM; Start 05/12/19 at 21:00 Levofloxacin (Levaquin) 750 mg DAILY@06 PO Last administered on 05/15/19 13:55; Admin Dose 750 MG; Start 05/15/19 at 13:00 KVNG JI NP May 15, 2019 14:29
[2019-05-15 14:41] VITALS: BP 129/87; PULSE 78; RESP 18
[2019-05-15 20:04] VITALS: BP 135/80; PULSE 84; RESP 18
[2019-05-15 23:58] VITALS: BP 111/87; PULSE 82; RESP 18
[2019-05-16] MEDS: LEVOFLOXACIN 750 MG TABLET PO SCH (05:36)
[2019-05-16 07:24] VITALS: BP 121/78; PULSE 78; RESP 19
--- NOTE | 2019-05-16 07:36 | PN ---
Date/Time of Note Date/Time of Note DATE: 05/16/19 TIME: 07:34 Assessment/Plan VTE Prophylaxis Risk score (from Ns)>0 risk: 1 SCD applied (from Ns): Yes Pharmacological prophylaxis: NA/contraindicated Pharm contraindication: other (Anemia) Lines/Catheters [facility] [place] Urinary Cath still in place: No Assessment/Plan Hospital Course SUBJECTIVE: Denies any abdominal pain. OBJECTIVE: Physical Exam General: Morbidly obese 38 year-old female lying in bed in no apparent distress. HEENT: Normocephalic, atraumatic. Eyes: Anicteric sclerae, conjunctivae clear. ENT: Nasal septum midline, oral mucosa moist. Neck: Short and obese. Respiratory: Bilaterally clear breath sounds. No use of accessory muscles of respiration. No adventitious breath sounds. Cardiovascular: S1, S2 heard. Regular rate and rhythm. Abdomen: Soft and nondistended. Bowel sounds positive in all 4 quadrants. Right flank area drain that is draining milky secretions. Genitourinary: Tenderness in the right flank. Extremities: No cyanosis, no clubbing, no edema. Peripheral pulses palpable. Neurologic: Cranial nerves II through XII grossly intact. The patient is awake, alert, and oriented. Skin: Normal skin turgor. No skin rashes. 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 1. S/P sepsis with leukocytosis and tachycardia, secondary to underlying complicated urinary tract infection, present on admission. Continue empiric antimicrobials. Urine cultures inconclusive. 2. Severe right-sided hydronephrosis. Status post right ureteral stenting on 04/17/2019. Being followed by urology. 3. Right psoas muscle abscess. Status post IR guided drain placement on 05/11/2019. Culture showing Proteus mirabilis. 4. Iron deficiency anemia. Continue iron supplements. 5. History of asthma. No evidence of any exacerbation. 6. Morbid obesity. Weight reduction and lifestyle changes advised. 7. DVT prophylaxis. Bilateral SCDs. 8. Plan. Continue antimicrobials as per ID. Await the drain to be minimal before considering drain discontinuation. DC planning is to home once a decision on the drain is made. The patient was seen in collaboration with Dr. Guidry. Result Diagram: 05/16/199 05/16/19428 Results 24hrs Laboratory Tests Test 05/16/19 04:29 White Blood Count 11.7 #H Red Blood Count 3.56 L Hemoglobin 8.7 L Hematocrit 29.4 L Mean Corpuscular Volume 82.6 Mean Corpuscular Hemoglobin 24.4 L Mean Corpuscular Hemoglobin Concent 29.6 L Red Cell Distribution Width 19.6 H Platelet Count 591 H Mean Platelet Volume 8.8 Immature Granulocytes % 0.700 H Neutrophils % 53.7 Lymphocytes % 36.7 Monocytes % 6.0 Eosinophils % 2.2 Basophils % 0.7 Nucleated Red Blood Cells % 0.0 Immature Granulocytes # 0.080 H Neutrophils # 6.3 Lymphocytes # 4.3 H Monocytes # 0.7 Eosinophils # 0.3 Basophils # 0.1 Nucleated Red Blood Cells # 0.0 Sodium Level 142 Potassium Level 3.8 Chloride Level 108 Carbon Dioxide Level 27 Anion Gap 7 Blood Urea Nitrogen 7 Creatinine 0.60 Est Glomerular Filtrat Rate mL/min > 60 Glucose Level 89 Calcium Level 8.4 Phosphorus Level 4.9 Magnesium Level 2.1 Exam/Review of Systems Exam Vitals Vital Signs Date Temp Pulse Resp B/P (MAP) Pulse Ox O2 O2 Flow FiO2 Time Delivery Rate 05/16/19 98.1 78 19 121/78 98 07:24 (92) 05/15/19 Room Air 23:58 Intake and Output 05/15/19 05/15/19 05/16/19 1515:00 23:00 07:00 IntakeIntake Total 550 ml 400 ml OutputOutput Total 300 ml 1585 ml BalanceBalance 250 ml -1185 ml Results Results 24hrs Laboratory Tests Test 05/16/19 04:29 White Blood Count 11.7 #H Red Blood Count 3.56 L Hemoglobin 8.7 L Hematocrit 29.4 L Mean Corpuscular Volume 82.6 Mean Corpuscular Hemoglobin 24.4 L Mean Corpuscular Hemoglobin Concent 29.6 L Red Cell Distribution Width 19.6 H Platelet Count 591 H Mean Platelet Volume 8.8 Immature Granulocytes % 0.700 H Neutrophils % 53.7 Lymphocytes % 36.7 Monocytes % 6.0 Eosinophils % 2.2 Basophils % 0.7 Nucleated Red Blood Cells % 0.0 Immature Granulocytes # 0.080 H Neutrophils # 6.3 Lymphocytes # 4.3 H Monocytes # 0.7 Eosinophils # 0.3 Basophils # 0.1 Nucleated Red Blood Cells # 0.0 Sodium Level 142 Potassium Level 3.8 Chloride Level 108 Carbon Dioxide Level 27 Anion Gap 7 Blood Urea Nitrogen 7 Creatinine 0.60 Est Glomerular Filtrat Rate mL/min > 60 Glucose Level 89 Calcium Level 8.4 Phosphorus Level 4.9 Magnesium Level 2.1 Medications Medication Current Medications IV Flush (NS 3 ml) 3 ml PER PROTOCOL IV Last administered on 05/15/19 05:34; Admin Dose 3 ML; Start 05/09/19 at 03:30 Ondansetron HCl (Zofran Inj) 4 mg Q6H PRN IV NAUSEA/VOMITING; Start 05/09/19 at 03:30 Acetaminophen (Tylenol Tab) 650 mg Q6H PRN PO .PAIN 1-3 OR TEMP Last administered on 05/14/19at 01:48; Admin Dose 650 MG; Start 05/09/19 at 03:30 Acetaminophen/ Hydrocodone Bitart ([place] (5/325)) 1 tab Q6H PRN PO .MOD PAIN 4- 6; Start 05/09/19 at 03:30 Hydromorphone HCl (Dilaudid) 1 mg Q4H PRN IV .SEVERE PAIN 7-10; Start 05/09/19 at 03:30 Ascorbic Acid (Vitamin C) 500 mg DAILY PO Last administered on 05/15/19at 08:57; Admin Dose 500 MG; Start 05/09/19 at 09:00 Ferrous Sulfate (Ferrous Sulfate (Ec)) 325 mg DAILY PO Last administered on 05/15/19 08:56; Admin Dose 325 MG; Start 05/09/19 at 09:00 Docusate Sodium (Colace) 100 mg BID PO Last administered on 05/15/19 08:56; Admin Dose 100 MG; Start 05/12/19 at 21:00 Polyethylene Glycol (Miralax) 17 gm DAILY PO Last administered on 05/14/19 09:28; Admin Dose 17 GM; Start 05/12/19 at 21:00 Levofloxacin (Levaquin) 750 mg DAILY@06 PO Last administered on 05/16/19at 05:36; Admin Dose 750 MG; Start 05/15/19 at 13:00 VIVEK PADGETT NP May 16, 2019 07:36
--- NOTE | 2019-05-16 08:10 | CONS ---
Consult Date/Type/Reason Admit Date/Time May 09, 2019 at 03:01 Initial Consult Date 05/09/19 Type of Consultation: Urology Reason for Consultation Right psoas abscess, right renal stone and hydronephrosis Requesting Provider: BETH MON Date/Time of Note DATE: 05/16/19 TIME: 08:07 Subjective Patient is feeling better. She is ambulating. Objective Vitals Vital Signs Date Temp Pulse Resp B/P (MAP) Pulse Ox O2 O2 Flow FiO2 Time Delivery Rate 05/16/19 98.1 78 19 121/78 98 07:24 (92) 05/15/19 Room Air 23:58 Intake and Output 05/15/19 05/15/19 05/16/19 1515:00 23:00 07:00 IntakeIntake Total 550 ml 400 ml OutputOutput Total 300 ml 1585 ml BalanceBalance 250 ml -1185 ml Exam The drainage tube drained only 85 mL last night. I did hand irrigated with 10 mL of normal saline and it does irrigate well. Results/Medications Result Diagram: 05/16/19 0429 05/16/19 0429 Results 24 hrs Laboratory Tests Test 05/16/19 04:29 White Blood Count 11.7 #H Red Blood Count 3.56 L Hemoglobin 8.7 L Hematocrit 29.4 L Mean Corpuscular Volume 82.6 Mean Corpuscular Hemoglobin 24.4 L Mean Corpuscular Hemoglobin Concent 29.6 L Red Cell Distribution Width 19.6 H Platelet Count 591 H Mean Platelet Volume 8.8 Immature Granulocytes % 0.700 H Neutrophils % 53.7 Lymphocytes % 36.7 Monocytes % 6.0 Eosinophils % 2.2 Basophils % 0.7 Nucleated Red Blood Cells % 0.0 Immature Granulocytes # 0.080 H Neutrophils # 6.3 Lymphocytes # 4.3 H Monocytes # 0.7 Eosinophils # 0.3 Basophils # 0.1 Nucleated Red Blood Cells # 0.0 Sodium Level 142 Potassium Level 3.8 Chloride Level 108 Carbon Dioxide Level 27 Anion Gap 7 Blood Urea Nitrogen 7 Creatinine 0.60 Est Glomerular Filtrat Rate mL/min > 60 Glucose Level 89 Calcium Level 8.4 Phosphorus Level 4.9 Magnesium Level 2.1 Home Meds Reported Medications Acetaminophen* (Acetaminophen*) 500 MG Extra Strength Tablet, 500 MG PO Q4H PRN for PAIN AND OR ELEVATED TEMP, TAB 05/09/19 Ferrous Sulfate* (Ferrous Sulfate*) 325 Mg Tabec, 325 MG PO DAILY, TAB 05/09/19 Ascorbic Acid* (Vitamin C*) 500 Mg Capsule.sa, 500 MG PO DAILY, CAP 05/09/19 Discontinued Scripts Ciprofloxacin Hcl* (Ciprofloxacin Hcl*) 500 Mg Tablet, 500 MG PO BID for 4 Days, #8 TAB Prov:PIETER FIGUEROA 04/19/19 Ibuprofen* (Motrin*) 600 Mg Tab, 600 MG PO Q6H PRN for PAIN AND OR ELEVATED TEMP, #30 TAB Prov:ELIF BARON NP 03/04/18 Medications Current Medications IV Flush (NS 3 ml) 3 ml PER PROTOCOL IV Last administered on 05/15/19at 05:34; Admin Dose 3 ML; Start 05/09/19 at 03:30 Ondansetron HCl (Zofran Inj) 4 mg Q6H PRN IV NAUSEA/VOMITING; Start 05/09/19 at 03:30 Acetaminophen (Tylenol Tab) 650 mg Q6H PRN PO .PAIN 1-3 OR TEMP Last administered on 05/14/19at 01:48; Admin Dose 650 MG; Start 05/09/19 at 03:30 Acetaminophen/ Hydrocodone Bitart ([place] (5/325)) 1 tab Q6H PRN PO .MOD PAIN 4- 6; Start 05/09/19 at 03:30 Hydromorphone HCl (Dilaudid) 1 mg Q4H PRN IV .SEVERE PAIN 7-10; Start 05/09/19 at 03:30 Ascorbic Acid (Vitamin C) 500 mg DAILY PO Last administered on 05/15/19at 08:57; Admin Dose 500 MG; Start 05/09/19 at 09:00 Ferrous Sulfate (Ferrous Sulfate (Ec)) 325 mg DAILY PO Last administered on 05/15/19 08:56; Admin Dose 325 MG; Start 05/09/19 at 09:00 Docusate Sodium (Colace) 100 mg BID PO Last administered on 05/15/19at 08:56; Admin Dose 100 MG; Start 05/12/19 at 21:00 Polyethylene Glycol (Miralax) 17 gm DAILY PO Last administered on 05/14/19at 09:28; Admin Dose 17 GM; Start 05/12/19 at 21:00 Levofloxacin (Levaquin) 750 mg DAILY@06 PO Last administered on 05/16/19at 05:36; Admin Dose 750 MG; Start 05/15/19 at 13:00 Assessment/Plan Hospital Course (Demo Recall) 38-year-old female was hospitalized earlier this month with right renal stone with obstruction. She underwent cystoscopy and insertion of right ureteral JJ stent on 04/17/2019. Patient was supposed to follow-up with [facility] but she did not. She comes back today feeling discomfort in the right side of the abdomen. She denies any fever or chills and no back pain. CT scan of the abdomen and pelvis showed: Severe right-sided hydronephrosis with perinephric stranding and fluid, unchanged from 04/16/2019. Underlying infection cannot be excluded. There is a right-sided ureteral stent with calcifications surrounding the proximal pigtail within the renal pelvis which is unchanged. Enlargement of the right iliopsoas and iliacus muscles with surrounding stranding suspicious for underlying abscess, increased compared with the prior study. There is increased posterior extension. Distended gallbladder with multiple gallstones. Prominence of the left labia, unchanged. Clinically correlate. CT scan of the abdomen and pelvis with IV contrast done on 05/11/2019 showed: 1. Right xanthogranulomatous pyelonephritis. There is a large abscess infiltrating into the right psoas muscle measuring approximately 3.8 x 4.1 x 13.6 cm. There is infiltration of the right iliacus muscle and right lateral abdominal wall muscles. With extension of the abscess posteriorly into the right paraspinal soft tissues at the level of L5 with component measuring approximately 3.6 x 8.1 x 9.5 cm. Findings appear slightly increased when compared to the prior examination. 2. 1.3 cm calculus remains within the right renal pelvis. A right double-J ureteral stent is in place. 3. Gallbladder sludge versus cholelithiasis. With these findings on the CT scan the patient underwent aspiration and drainage of the abscess. The drainage from the accordion drain is 85 mL in the past 12 hours. We will watch her and when the drainage is minimal then we could do a CT scan again and if there is no more collection then we could take the drain out and then could discharge her. Then she should go to [facility] for further care of her kidney stone. CORTNEY PETTY MD May 16, 2019 08:10
[2019-05-16] MEDS: POLYETHYLENE GLYCOL 17 GM PACKET PO SCH (09:00)
[2019-05-16] MEDS: ASCORBIC ACID 500 MG TAB PO SCH (09:09)
[2019-05-16] MEDS: DOCUSATE SODIUM 100 MG CAP PO SCH ×2 (09:09→21:19)
[2019-05-16] MEDS: FERROUS SULFATE (EC) 325 MG TAB PO SCH (09:09)
--- NOTE | 2019-05-16 12:17 | CONS ---
Assessment/Plan Assessment/Plan Hospital Course (Demo Recall) No acute changes, afebrile, nad Microbiology: Urine culture negative, fluid culture grew Proteus mirabilis Antimicrobials: Levaquin Physical examination: This is a morbidly obese well-developed middle-aged woman who is alert in no distress. Head atraumatic normocephalic sclera nonicteric neck is obese chest rise symmetrical breath sounds diminished bases. Heart: S1- S2. Abdomen soft bowel sounds present, right sided intra-abdominal drainage catheter with bag full of pus like fluid. Extremities without cyanosis Assessment: 1. Acute pyelonephritis with psoas abscess, status post IR guided drainage 2. Resolving sepsis 3. Morbid obesity Plan: Stable, continue abx, monitor drain output Consultation Date/Type/Reason Admit Date/Time May 09, 2019 at 03:01 Initial Consult Date 05/09/19 Type of Consult id Requesting Provider: BETH MON Date/Time of Note DATE: 05/16/19 TIME: 12:15 Exam/Review of Systems Exam Vitals Vital Signs Date Temp Pulse Resp B/P (MAP) Pulse Ox O2 O2 Flow FiO2 Time Delivery Rate 05/16/19 98.1 78 19 121/78 98 07:24 (92) 05/15/19 Room Air 23:58 Intake and Output 05/15/19 05/15/19 05/16/19 1515:00 23:00 07:00 IntakeIntake Total 550 ml 400 ml OutputOutput Total 300 ml 1585 ml BalanceBalance 250 ml -1185 ml Results Result Diagram: 05/16/19 0429 05/16/19 0429 Results 24hrs Laboratory Tests Test 05/16/19 04:29 White Blood Count 11.7 #H Red Blood Count 3.56 L Hemoglobin 8.7 L Hematocrit 29.4 L Mean Corpuscular Volume 82.6 Mean Corpuscular Hemoglobin 24.4 L Mean Corpuscular Hemoglobin Concent 29.6 L Red Cell Distribution Width 19.6 H Platelet Count 591 H Mean Platelet Volume 8.8 Immature Granulocytes % 0.700 H Neutrophils % 53.7 Lymphocytes % 36.7 Monocytes % 6.0 Eosinophils % 2.2 Basophils % 0.7 Nucleated Red Blood Cells % 0.0 Immature Granulocytes # 0.080 H Neutrophils # 6.3 Lymphocytes # 4.3 H Monocytes # 0.7 Eosinophils # 0.3 Basophils # 0.1 Nucleated Red Blood Cells # 0.0 Sodium Level 142 Potassium Level 3.8 Chloride Level 108 Carbon Dioxide Level 27 Anion Gap 7 Blood Urea Nitrogen 7 Creatinine 0.60 Est Glomerular Filtrat Rate mL/min > 60 Glucose Level 89 Calcium Level 8.4 Phosphorus Level 4.9 Magnesium Level 2.1 Medications Medication Current Medications IV Flush (NS 3 ml) 3 ml PER PROTOCOL IV Last administered on 05/15/19 05:34; Admin Dose 3 ML; Start 05/09/19 at 03:30 Ondansetron HCl (Zofran Inj) 4 mg Q6H PRN IV NAUSEA/VOMITING; Start 05/09/19 at 03:30 Acetaminophen (Tylenol Tab) 650 mg Q6H PRN PO .PAIN 1-3 OR TEMP Last administered on 05/14/19 01:48; Admin Dose 650 MG; Start 05/09/19 at 03:30 Acetaminophen/ Hydrocodone Bitart ([place] (5/325)) 1 tab Q6H PRN PO .MOD PAIN 4- 6; Start 05/09/19 at 03:30 Hydromorphone HCl (Dilaudid) 1 mg Q4H PRN IV .SEVERE PAIN 7-10; Start 05/09/19 at 03:30 Ascorbic Acid (Vitamin C) 500 mg DAILY PO Last administered on 05/16/19 09:09; Admin Dose 500 MG; Start 05/09/19 at 09:00 Ferrous Sulfate (Ferrous Sulfate (Ec)) 325 mg DAILY PO Last administered on 05/16/19 09:09; Admin Dose 325 MG; Start 05/09/19 at 09:00 Docusate Sodium (Colace) 100 mg BID PO Last administered on 05/16/19 09:09; Admin Dose 100 MG; Start 05/12/19 at 21:00 Polyethylene Glycol (Miralax) 17 gm DAILY PO Last administered on 05/14/19 09:28; Admin Dose 17 GM; Start 05/12/19 at 21:00 Levofloxacin (Levaquin) 750 mg DAILY@06 PO Last administered on 05/16/19 05:36; Admin Dose 750 MG; Start 05/15/19 at 13:00 KVNG JI NP May 16, 2019 12:17
[2019-05-16 19:58] VITALS: BP 137/65; PULSE 82; RESP 16
[2019-05-17 01:59] VITALS: BP 139/65; PULSE 88; RESP 20
[2019-05-17] MEDS: LEVOFLOXACIN 750 MG TABLET PO SCH (06:21)
--- NOTE | 2019-05-17 08:02 | CONS ---
Consult Date/Type/Reason Admit Date/Time May 09, 2019 at 03:01 Initial Consult Date 05/09/19 Type of Consultation: Urology Reason for Consultation Right psoas abscess, right hydronephrosis, right renal stone Requesting Provider: BETH MON Date/Time of Note DATE: 05/17/19 TIME: 08:00 Subjective Patient is feeling better physically but she is still concerned about her son who was hospitalized at [facility] Objective Vitals Vital Signs Date Temp Pulse Resp B/P (MAP) Pulse Ox O2 O2 Flow FiO2 Time Delivery Rate 05/17/19 97.7 88 20 139/65 98 01:59 (89) 05/15/19 Room Air 23:58 Intake and Output 05/16/19 05/16/19 05/17/19 1515:00 23:00 07:00 IntakeIntake Total 400 ml 680 ml OutputOutput Total 600 ml 30 ml 945 ml BalanceBalance -200 ml 650 ml -945 ml Exam The accordion drain is draining less 75 mL in the last 24 hours Results/Medications Result Diagram: 05/17/19 0424 05/17/19 0424 Results 24 hrs Laboratory Tests Test 05/17/19 04:24 White Blood Count 12.6 H Red Blood Count 3.20 L Hemoglobin 7.9 L Hematocrit 26.7 L Mean Corpuscular Volume 83.4 Mean Corpuscular Hemoglobin 24.7 L Mean Corpuscular Hemoglobin Concent 29.6 L Red Cell Distribution Width 20.2 H Platelet Count 526 H Mean Platelet Volume 8.8 Immature Granulocytes % 0.500 H Neutrophils % 59.1 Lymphocytes % 32.4 Monocytes % 5.7 Eosinophils % 1.9 Basophils % 0.4 Nucleated Red Blood Cells % 0.0 Immature Granulocytes # 0.060 H Neutrophils # 7.4 Lymphocytes # 4.1 H Monocytes # 0.7 Eosinophils # 0.2 Basophils # 0.1 Nucleated Red Blood Cells # 0.0 Sodium Level 141 Potassium Level 3.7 Chloride Level 107 Carbon Dioxide Level 30 Anion Gap 4 L Blood Urea Nitrogen 7 Creatinine 0.57 Est Glomerular Filtrat Rate mL/min > 60 Glucose Level 93 Calcium Level 8.1 L Phosphorus Level 5.1 H Magnesium Level 2.0 Home Meds Reported Medications Acetaminophen* (Acetaminophen*) 500 MG Extra Strength Tablet, 500 MG PO Q4H PRN for PAIN AND OR ELEVATED TEMP, TAB 05/09/19 Ferrous Sulfate* (Ferrous Sulfate*) 325 Mg Tabec, 325 MG PO DAILY, TAB 05/09/19 Ascorbic Acid* (Vitamin C*) 500 Mg Capsule.sa, 500 MG PO DAILY, CAP 05/09/19 Medications Current Medications IV Flush (NS 3 ml) 3 ml PER PROTOCOL IV Last administered on 05/15/19at 05:34; Admin Dose 3 ML; Start 05/09/19 at 03:30 Ondansetron HCl (Zofran Inj) 4 mg Q6H PRN IV NAUSEA/VOMITING; Start 05/09/19 at 03:30 Acetaminophen (Tylenol Tab) 650 mg Q6H PRN PO .PAIN 1-3 OR TEMP Last admin istered on 05/14/19at 01:48; Admin Dose 650 MG; Start 05/09/19 at 03:30 Acetaminophen/ Hydrocodone Bitart ([place] (5/325)) 1 tab Q6H PRN PO .MOD PAIN 4- 6; Start 05/09/19 at 03:30 Hydromorphone HCl (Dilaudid) 1 mg Q4H PRN IV .SEVERE PAIN 7-10; Start 05/09/19 at 03:30 Ascorbic Acid (Vitamin C) 500 mg DAILY PO Last administered on 05/16/19at 09:09; Admin Dose 500 MG; Start 05/09/19 at 09:00 Ferrous Sulfate (Ferrous Sulfate (Ec)) 325 mg DAILY PO Last administered on 05/16/19at 09:09; Admin Dose 325 MG; Start 05/09/19 at 09:00 Docusate Sodium (Colace) 100 mg BID PO Last administered on 05/16/19at 21:19; Admin Dose 100 MG; Start 05/12/19 at 21:00 Polyethylene Glycol (Miralax) 17 gm DAILY PO Last administered on 05/14/19at 09:28; Admin Dose 17 GM; Start 05/12/19 at 21:00 Levofloxacin (Levaquin) 750 mg DAILY@06 PO Last administered on 05/17/19 06:21; Admin Dose 750 MG; Start 05/15/19 at 13:00 Assessment/Plan Hospital Course (Demo Recall) 38-year-old female was hospitalized earlier this month with right renal stone with obstruction. She underwent cystoscopy and insertion of right ureteral JJ stent on 04/17/2019. Patient was supposed to follow-up with [facility] but she did not. She comes back today feeling discomfort in the right side of the abdomen. She denies any fever or chills and no back pain. CT scan of the abdomen and pelvis showed: Severe right-sided hydronephrosis with perinephric stranding and fluid, unchanged from 04/16/2019. Underlying infection cannot be excluded. There is a right-sided ureteral stent with calcifications surrounding the proximal pigtail within the renal pelvis which is unchanged. Enlargement of the right iliopsoas and iliacus muscles with surrounding stranding suspicious for underlying abscess, increased compared with the prior study. There is increased posterior extension. Distended gallbladder with multiple gallstones. Prominence of the left labia, unchanged. Clinically correlate. CT scan of the abdomen and pelvis with IV contrast done on 05/11/2019 showed: 1. Right xanthogranulomatous pyelonephritis. There is a large abscess infiltrating into the right psoas muscle measuring approximately 3.8 x 4.1 x 13.6 cm. There is infiltration of the right iliacus muscle and right lateral abdominal wall muscles. With extension of the abscess posteriorly into the right paraspinal soft tissues at the level of L5 with component measuring approximately 3.6 x 8.1 x 9.5 cm. Findings appear slightly increased when compared to the prior examination. 2. 1.3 cm calculus remains within the right renal pelvis. A right double-J ureteral stent is in place. 3. Gallbladder sludge versus cholelithiasis. With these findings on the CT scan the patient underwent aspiration and drainage of the abscess. The drainage from the accordion drain is 75 mL in the past 24 hours. We will watch her and when the drainage is minimal then we could do a CT scan again and if there is no more collection then we could take the drain out and then could discharge her. Then she should go to [facility] for further care of her kidney stone. CORTNEY PETTY MD May 17, 2019 08:02
[2019-05-17 08:30] VITALS: BP 129/70; PULSE 78; RESP 20
[2019-05-17] MEDS: POLYETHYLENE GLYCOL 17 GM PACKET PO SCH (09:00)
[2019-05-17] MEDS: ASCORBIC ACID 500 MG TAB PO SCH (09:07)
[2019-05-17] MEDS: FERROUS SULFATE (EC) 325 MG TAB PO SCH (09:07)
[2019-05-17] MEDS: DOCUSATE SODIUM 100 MG CAP PO SCH ×2 (09:07→21:00)
--- NOTE | 2019-05-17 13:55 | CONS ---
Assessment/Plan Assessment/Plan Hospital Course (Demo Recall) Patient is alert and feels good denies pain no fevers abdominal drainage decreasing Microbiology: Urine culture negative, fluid culture grew Proteus mirabilis Antimicrobials: Levaquin Physical examination: This is a morbidly obese well-developed middle-aged woman who is alert in no distress. Head atraumatic normocephalic sclera nonicteric neck is obese chest rise symmetrical breath sounds diminished bases. Heart: S1- S2. Abdomen soft bowel sounds present, right sided intra-abdominal drainage catheter with bag full of pus like fluid. Extremities without cyanosis Assessment: 1. Acute pyelonephritis with psoas abscess, status post IR guided drainage 2. Resolving sepsis 3. Morbid obesity Plan: Remains stable, continue abx, monitor drain output, if white blood cell c ount continues to increase consider repeat CT of the abdomen Consultation Date/Type/Reason Admit Date/Time May 09, 2019 at 03:01 Initial Consult Date 05/09/19 Type of Consult id Requesting Provider: BETH MON Date/Time of Note DATE: 05/17/19 TIME: 13:54 Exam/Review of Systems Exam Vitals Vital Signs Date Temp Pulse Resp B/P (MAP) Pulse Ox O2 O2 Flow FiO2 Time Delivery Rate 05/17/19 98.0 78 20 129/70 96 08:30 (89) 05/15/19 Room Air 23:58 Intake and Output 05/16/19 05/16/19 05/17/19 1414:59 22:59 06:59 IntakeIntake Total 400 ml 680 ml OutputOutput Total 600 ml 30 ml 945 ml BalanceBalance -200 ml 650 ml -945 ml Results Result Diagram: 05/17/19 0424 05/17/19 0424 Results 24hrs Laboratory Tests Test 05/17/19 04:24 White Blood Count 12.6 H Red Blood Count 3.20 L Hemoglobin 7.9 L Hematocrit 26.7 L Mean Corpuscular Volume 83.4 Mean Corpuscular Hemoglobin 24.7 L Mean Corpuscular Hemoglobin Concent 29.6 L Red Cell Distribution Width 20.2 H Platelet Count 526 H Mean Platelet Volume 8.8 Immature Granulocytes % 0.500 H Neutrophils % 59.1 Lymphocytes % 32.4 Monocytes % 5.7 Eosinophils % 1.9 Basophils % 0.4 Nucleated Red Blood Cells % 0.0 Immature Granulocytes # 0.060 H Neutrophils # 7.4 Lymphocytes # 4.1 H Monocytes # 0.7 Eosinophils # 0.2 Basophils # 0.1 Nucleated Red Blood Cells # 0.0 Sodium Level 141 Potassium Level 3.7 Chloride Level 107 Carbon Dioxide Level 30 Anion Gap 4 L Blood Urea Nitrogen 7 Creatinine 0.57 Est Glomerular Filtrat Rate mL/min > 60 Glucose Level 93 Calcium Level 8.1 L Phosphorus Level 5.1 H Magnesium Level 2.0 Medications Medication Current Medications IV Flush (NS 3 ml) 3 ml PER PROTOCOL IV Last administered on 05/15/19 05:34; Admin Dose 3 ML; Start 05/09/19 at 03:30 Ondansetron HCl (Zofran Inj) 4 mg Q6H PRN IV NAUSEA/VOMITING; Start 05/09/19 at 03:30 Acetaminophen (Tylenol Tab) 650 mg Q6H PRN PO .PAIN 1-3 OR TEMP Last administered on 05/14/19 01:48; Admin Dose 650 MG; Start 05/09/19 at 03:30 Acetaminophen/ Hydrocodone Bitart ([place] (5/325)) 1 tab Q6H PRN PO .MOD PAIN 4- 6; Start 05/09/19 at 03:30 Hydromorphone HCl (Dilaudid) 1 mg Q4H PRN IV .SEVERE PAIN 7-10; Start 05/09/19 at 03:30 Ascorbic Acid (Vitamin C) 500 mg DAILY PO Last administered on 05/17/19 09:07; Admin Dose 500 MG; Start 05/09/19 at 09:00 Ferrous Sulfate (Ferrous Sulfate (Ec)) 325 mg DAILY PO Last administered on 05/17/19 09:07; Admin Dose 325 MG; Start 05/09/19 at 09:00 Docusate Sodium (Colace) 100 mg BID PO Last administered on 05/17/19 09:07; Admin Dose 100 MG; Start 05/12/19 at 21:00 Polyethylene Glycol (Miralax) 17 gm DAILY PO Last administered on 05/14/19 09:28; Admin Dose 17 GM; Start 05/12/19 at 21:00 Levofloxacin (Levaquin) 750 mg DAILY@06 PO Last administered on 05/17/19 06:21; Admin Dose 750 MG; Start 05/15/19 at 13:00 KVNG JI NP May 17, 2019 13:55
[2019-05-17 15:32] VITALS: BP 133/70; PULSE 82; RESP 20
--- NOTE | 2019-05-17 19:46 | PN ---
Date/Time of Note Date/Time of Note DATE: 05/17/19 TIME: 19:42 Assessment/Plan VTE Prophylaxis Risk score (from Ns)>0 risk: 3 SCD applied (from Ns): Yes SCD contraindicated: low risk/ambulating Pharmacological prophylaxis: NA/contraindicated Pharm contraindication: low risk/ambulating Lines/Catheters IV Catheter Type (from [facility]): [place] [facility] Urinary Cath still in place: No Assessment/Plan Hospital Course A/P 1. Rt Psoas abscess; sp IR drain placement; cont drain care; home w drain care/ outpt CT possible, im concerned about lack of f/u on last dc. 2. Nephrolithiasis; chr [place]. sp JJ stent 3. Anemia 4. Cholelithiasis 5. Asthma 6. Ac stress 7. Obesity 8. [place]/ [facility]? 9. Sepsis/ pyelo; proteus 10. S: events noted O: vss PE no pallor reg s1s2 no mrg ctab bs dimin; mild tender no rrg no edema Result Diagram: 05/17/19 0424 05/17/19 0424 Results 24hrs Laboratory Tests Test 05/17/19 04:24 White Blood Count 12.6 H Red Blood Count 3.20 L Hemoglobin 7.9 L Hematocrit 26.7 L Mean Corpuscular Volume 83.4 Mean Corpuscular Hemoglobin 24.7 L Mean Corpuscular Hemoglobin Concent 29.6 L Red Cell Distribution Width 20.2 H Platelet Count 526 H Mean Platelet Volume 8.8 Immature Granulocytes % 0.500 H Neutrophils % 59.1 Lymphocytes % 32.4 Monocytes % 5.7 Eosinophils % 1.9 Basophils % 0.4 Nucleated Red Blood Cells % 0.0 Immature Granulocytes # 0.060 H Neutrophils # 7.4 Lymphocytes # 4.1 H Monocytes # 0.7 Eosinophils # 0.2 Basophils # 0.1 Nucleated Red Blood Cells # 0.0 Sodium Level 141 Potassium Level 3.7 Chloride Level 107 Carbon Dioxide Level 30 Anion Gap 4 L Blood Urea Nitrogen 7 Creatinine 0.57 Est Glomerular Filtrat Rate mL/min > 60 Glucose Level 93 Calcium Level 8.1 L Phosphorus Level 5.1 H Magnesium Level 2.0 Exam/Review of Systems Exam Vitals Vital Signs Date Temp Pulse Resp B/P (MAP) Pulse Ox O2 O2 Flow FiO2 Time Delivery Rate 05/17/19 98.3 82 20 133/70 98 Room Air 15:32 (91) Intake and Output 05/16/19 05/16/19 05/17/19 1515:00 23:00 07:00 IntakeIntake Total 400 ml 680 ml OutputOutput Total 600 ml 30 ml 945 ml BalanceBalance -200 ml 650 ml -945 ml Results Results 24hrs Laboratory Tests Test 05/17/19 04:24 White Blood Count 12.6 H Red Blood Count 3.20 L Hemoglobin 7.9 L Hematocrit 26.7 L Mean Corpuscular Volume 83.4 Mean Corpuscular Hemoglobin 24.7 L Mean Corpuscular Hemoglobin Concent 29.6 L Red Cell Distribution Width 20.2 H Platelet Count 526 H Mean Platelet Volume 8.8 Immature Granulocytes % 0.500 H Neutrophils % 59.1 Lymphocytes % 32.4 Monocytes % 5.7 Eosinophils % 1.9 Basophils % 0.4 Nucleated Red Blood Cells % 0.0 Immature Granulocytes # 0.060 H Neutrophils # 7.4 Lymphocytes # 4.1 H Monocytes # 0.7 Eosinophils # 0.2 Basophils # 0.1 Nucleated Red Blood Cells # 0.0 Sodium Level 141 Potassium Level 3.7 Chloride Level 107 Carbon Dioxide Level 30 Anion Gap 4 L Blood Urea Nitrogen 7 Creatinine 0.57 Est Glomerular Filtrat Rate mL/min > 60 Glucose Level 93 Calcium Level 8.1 L Phosphorus Level 5.1 H Magnesium Level 2.0 Medications Medication Current Medications IV Flush (NS 3 ml) 3 ml PER PROTOCOL IV Last administered on 05/15/19at 05:34; Admin Dose 3 ML; Start 05/09/19 at 03:30 Ondansetron HCl (Zofran Inj) 4 mg Q6H PRN IV NAUSEA/VOMITING; Start 05/09/19 at 03:30 Acetaminophen (Tylenol Tab) 650 mg Q6H PRN PO .PAIN 1-3 OR TEMP Last administered on 05/14/19at 01:48; Admin Dose 650 MG; Start 05/09/19 at 03:30 Acetaminophen/ Hydrocodone Bitart ([place] (5/325)) 1 tab Q6H PRN PO .MOD PAIN 4- 6; Start 05/09/19 at 03:30 Hydromorphone HCl (Dilaudid) 1 mg Q4H PRN IV .SEVERE PAIN 7-10; Start 05/09/19 at 03:30 Ascorbic Acid (Vitamin C) 500 mg DAILY PO Last administered on 05/17/19 09:07; Admin Dose 500 MG; Start 05/09/19 at 09:00 Ferrous Sulfate (Ferrous Sulfate (Ec)) 325 mg DAILY PO Last administered on 05/17/19 09:07; Admin Dose 325 MG; Start 05/09/19 at 09:00 Docusate Sodium (Colace) 100 mg BID PO Last administered on 05/17/19 09:07; Admin Dose 100 MG; Start 05/12/19 at 21:00 Polyethylene Glycol (Miralax) 17 gm DAILY PO Last administered on 05/14/19 09:28; Admin Dose 17 GM; Start 05/12/19 at 21:00 Levofloxacin (Levaquin) 750 mg DAILY@06 PO Last administered on 05/17/19 06:21; Admin Dose 750 MG; Start 05/15/19 at 13:00 GONZALEZ DAVIS MD May 17, 2019 19:46
[2019-05-17 19:57] VITALS: BP 130/79; PULSE 84; RESP 18
[2019-05-17] MEDS ORDERED: ALBUTEROL HFA 8 GM INHALER INH PRN (20:00)
[2019-05-17] MEDS ORDERED: HYDROCODONE/APAP (10/325) TAB PO PRN (20:00)
[2019-05-18 02:02] VITALS: BP 127/80; PULSE 108; RESP 18
[2019-05-18] MEDS: LEVOFLOXACIN 750 MG TABLET PO SCH (05:58)
[2019-05-18 07:45] VITALS: BP 129/70; PULSE 93; RESP 18
[2019-05-18] MEDS: ENOXAPARIN 40 MG/0.4 ML SYG SC SCH (09:00)
[2019-05-18] MEDS: DOCUSATE SODIUM 100 MG CAP PO SCH ×2 (09:00→21:21)
[2019-05-18] MEDS: FAMOTIDINE 20 MG TAB PO SCH (09:00)
[2019-05-18] MEDS: POLYETHYLENE GLYCOL 17 GM PACKET PO SCH (09:00)
[2019-05-18] MEDS: FERROUS SULFATE (EC) 325 MG TAB PO SCH (09:11)
[2019-05-18] MEDS: ASCORBIC ACID 500 MG TAB PO SCH (09:12)
--- NOTE | 2019-05-18 11:56 | CONS ---
Assessment/Plan Assessment/Plan Hospital Course (Demo Recall) ID PROGRESS NOTE CURRENT ABX: DAY # 9.5 =>Levaquin s/p Merrem 05/09 - 05/1505/17/19 0424 05/17/19 0424 24H INTERVAL SUMMARY * POD #7-> S/P 05/11/[address] guided left back/psoas fluid collection catheter placement. * Awake, ambulatory in room -- still draining per RN DRAINED 40ML OF PURULENT DRAINAGE * Taking POs, feeling well, no complaints, positive affect DIAGNOSTIC IMAGING * 05/11/19 CT: IMPRESSION: * 1. Right xanthogranulomatous pyelonephritis. There is a large abscess infiltrating into the right psoas muscle measuring approximately 3.8 x 4.1 x 13.6 cm. There is infiltration of the right iliacus muscle and right lateral abdominal wall muscles. With extension of the abscess posteriorly into the right paraspinal soft tissues at the level of L5 with component measuring approximately 3.6 x 8.1 x 9.5 cm. Findings appear slightly increased when compared to the prior examination. * 2. 1.3 cm calculus remains within the right renal pelvis. A right double-J ureteral stent is in place. * 3. Gallbladder sludge versus cholelithiasis. MICRO * 05/12/19 FLUID CX (+) BODY FLUID CULTURE Final Organism 1 PROTEUS MIRABILIS QUANTITY 2+ P. MIRAB M.I.C. RX --------- --- AMPICILLIN <=2 S CEFOTAXIME S CIPROFLOXACIN <=0.25 S GENTAMICIN <=1 S LEVOFLOXACIN <=0.12 S TOBRAMYCIN <=1 S TRIMETHOPRIM/SULFAMETHOXAZOLE <=20 S * 04/17/19 CYSTOSCOPY Proteus Mirabilis PHYSICAL EXAMINATION: GENERAL: VSS, NAD HEENT: AT, NC, NECK: Supple, CHEST: Rise symmetrical HEART: Pulse RRR ABDOMEN: Soft, obese -- DRAIN NOTED Right side EXTREMITIES: Warm, dry SKIN: No rash, no diaphoresis ID ASSESSMENT 38 yo F admit with: 1. SIRS -> Resolving sepsis 2. Acute GNR pyelonephritis with psoas abscess * POD #7-> S/P 05/11/[address] guided left back/psoas fluid collection catheter placement. 3. Hx of obstructive uropathy w/nephrolithiasis * s/p cystoscopy w/right JJ Stent placement 04/17/19 4. Gallbladder sludge versus cholelithiasis per CT 5. Anemia 6. Hx of COPD-> ASTHMA 7. Morbid obesity w/possible Obesity hypoventilation ABX ALLERGIES: KNDA INVASIVES: PIV CURRENT ABX: DAY # 9.5 =>Levaquin #3.5 s/p Merrem 05/09 - 05/15 ID RECOMMENDATIONS/PLAN: 1. Continue current ABX -- will check CBC, ESR in am Consultation Date/Type/Reason Admit Date/Time May 09, 2019 at 03:01 Initial Consult Date 05/09/19 Requesting Provider: BETH MON Date/Time of Note DATE: 05/18/19 TIME: 11:54 Exam/Review of Systems Exam Vitals Vital Signs Date Temp Pulse Resp B/P (MAP) Pulse Ox O2 O2 Flow FiO2 Time Delivery Rate 05/18/19 98.0 93 18 129/70 96 07:45 (89) 05/17/19 Room Air 15:32 Intake and Output 05/17/19 05/17/19 05/18/19 1515:00 23:00 07:00 IntakeIntake Total 600 ml 800 ml OutputOutput Total 60 ml BalanceBalance 600 ml 740 ml Results Result Diagram: 05/17/19 0424 05/17/19 0424 Medications Medication Current Medications IV Flush (NS 3 ml) 3 ml PER PROTOCOL IV Last administered on 05/15/19at 05:34; Admin Dose 3 ML; Start 05/09/19 at 03:30 Ondansetron HCl (Zofran Inj) 4 mg Q6H PRN IV NAUSEA/VOMITING; Start 05/09/19 at 03:30 Acetaminophen (Tylenol Tab) 650 mg Q6H PRN PO .PAIN 1-3 OR TEMP Last administered on 05/14/19at 01:48; Admin Dose 650 MG; Start 05/09/19 at 03:30 Hydromorphone HCl (Dilaudid) 1 mg Q4H PRN IV .SEVERE PAIN 7-10; Start 05/09/19 at 03:30 Ascorbic Acid (Vitamin C) 500 mg DAILY PO Last administered on 05/18/19at 09:12; Admin Dose 500 MG; Start 05/09/19 at 09:00 Ferrous Sulfate (Ferrous Sulfate (Ec)) 325 mg DAILY PO Last administered on 05/18/19at 09:11; Admin Dose 325 MG; Start 05/09/19 at 09:00 Docusate Sodium (Colace) 100 mg BID PO Last administered on 05/17/19at 09:07; Admin Dose 100 MG; Start 05/12/19 at 21:00 Polyethylene Glycol (Miralax) 17 gm DAILY PO Last administered on 05/14/19at 09:28; Admin Dose 17 GM; Start 05/12/19 at 21:00 Levofloxacin (Levaquin) 750 mg DAILY@06 PO Last administered on 05/18/19at 05:58; Admin Dose 750 MG; Start 05/15/19 at 13:00 Enoxaparin Sodium (Lovenox) 40 mg DAILY SC ; Start 05/18/19 at 09:00 Acetaminophen/ Hydrocodone Bitart ([place] (10/325)) 1 tab Q4H PRN PO MODERATE PAIN LEVEL 4-6; Start 05/17/19 at 20:00 Famotidine (Pepcid) 20 mg DAILY PO ; Start 05/18/19 at 09:00 Albuterol (Ventolin Hfa) 2 puff Q4H RESP THERAPY PRN INH SHORTNESS OF BREATH; Start 05/17/19 at 20:00 FABY MALLORY NP May 18, 2019 11:56
[2019-05-18 14:07] VITALS: BP 134/74; PULSE 89; RESP 16
--- NOTE | 2019-05-18 15:02 | PN ---
Date/Time of Note Date/Time of Note DATE: 05/18/19 TIME: 15:01 Assessment/Plan VTE Prophylaxis Risk score (from Nsg)>0 risk: 7 SCD applied (from Nsg): Yes SCD contraindicated: low risk/ambulating Pharmacological prophylaxis: LMWH Lines/Catheters IV Catheter Type (from Nrsg): [place] Urinary Cath still in place: No Assessment/Plan Hospital Course A/P 1. Rt Psoas abscess; sp IR drain placement; cont drain care; home w drain care/ outpt CT possible, however, im concerned about lack of f/u on last dc. 2. Nephrolithiasis; chr [place]. sp JJ stent 3. Anemia 4. Cholelithiasis 5. Asthma 6. Ac stress 7. Obesity 8. [place]/ [facility]? 9. Sepsis/ pyelo; proteus S: 05/17 events noted 05/18 no fever O: vss PE no pallor reg s1s2 no mrg ctab bs dimin; mild tender no rrg; overweight. drain c/d/i no edema Result Diagram: 05/17/1942305/17/19423 Exam/Review of Systems Exam Vitals Vital Signs Date Temp Pulse Resp B/P (MAP) Pulse Ox O2 O2 Flow FiO2 Time Delivery Rate 05/18/19 98.7 89 16 134/74 98 Room Air 14:07 (94) Intake and Output 05/17/19 05/17/19 05/18/19 1414:59 22:59 06:59 IntakeIntake Total 600 ml 800 ml OutputOutput Total 60 ml BalanceBalance 600 ml 740 ml Medications Medication Current Medications IV Flush (NS 3 ml) 3 ml PER PROTOCOL IV Last administered on 05/15/19at 05:34; Admin Dose 3 ML; Start 05/09/19 at 03:30 Ondansetron HCl (Zofran Inj) 4 mg Q6H PRN IV NAUSEA/VOMITING; Start 05/09/19 at 03:30 Acetaminophen (Tylenol Tab) 650 mg Q6H PRN PO .PAIN 1-3 OR TEMP Last administered on 05/14/19at 01:48; Admin Dose 650 MG; Start 05/09/19 at 03:30 Hydromorphone HCl (Dilaudid) 1 mg Q4H PRN IV .SEVERE PAIN 7-10; Start 05/09/19 at 03:30 Ascorbic Acid (Vitamin C) 500 mg DAILY PO Last administered on 05/18/19at 09:12; Admin Dose 500 MG; Start 05/09/19 at 09:00 Ferrous Sulfate (Ferrous Sulfate (Ec)) 325 mg DAILY PO Last administered on 05/18/19at 09:11; Admin Dose 325 MG; Start 05/09/19 at 09:00 Docusate Sodium (Colace) 100 mg BID PO Last administered on 05/17/19at 09:07; Admin Dose 100 MG; Start 05/12/19 at 21:00 Polyethylene Glycol (Miralax) 17 gm DAILY PO Last administered on 05/14/19at 0 9:28; Admin Dose 17 GM; Start 05/12/19 at 21:00 Levofloxacin (Levaquin) 750 mg DAILY@06 PO Last administered on 05/18/19at 05:58; Admin Dose 750 MG; Start 05/15/19 at 13:00 Enoxaparin Sodium (Lovenox) 40 mg DAILY SC ; Start 05/18/19 at 09:00 Acetaminophen/ Hydrocodone Bitart ([place] (10/325)) 1 tab Q4H PRN PO MODERATE PAIN LEVEL 4-6; Start 05/17/19 at 20:00 Famotidine (Pepcid) 20 mg DAILY PO ; Start 05/18/19 at 09:00 Albuterol (Ventolin Hfa) 2 puff Q4H RESP THERAPY PRN INH SHORTNESS OF BREATH; Start 05/17/19 at 20:00 GONZALEZ DAVIS MD May 18, 2019 15:02
[2019-05-18 19:45] VITALS: BP 119/69; PULSE 87; RESP 20
[2019-05-19 02:10] VITALS: BP 136/74; PULSE 96; RESP 20
[2019-05-19] MEDS: LEVOFLOXACIN 750 MG TABLET PO SCH (05:53)
[2019-05-19 07:14] VITALS: BP 126/74; PULSE 97; RESP 18
[2019-05-19] MEDS: DOCUSATE SODIUM 100 MG CAP PO SCH ×2 (08:30→21:00)
[2019-05-19] MEDS: ASCORBIC ACID 500 MG TAB PO SCH (08:30)
[2019-05-19] MEDS: FAMOTIDINE 20 MG TAB PO SCH (08:30)
[2019-05-19] MEDS: FERROUS SULFATE (EC) 325 MG TAB PO SCH (08:30)
[2019-05-19] MEDS: ENOXAPARIN 40 MG/0.4 ML SYG SC SCH (08:38)
[2019-05-19] MEDS: POLYETHYLENE GLYCOL 17 GM PACKET PO SCH (09:00)
--- NOTE | 2019-05-19 11:31 | CONS ---
Assessment/Plan Assessment/Plan Hospital Course (Demo Recall) ID PROGRESS NOTE CURRENT ABX: DAY # 10.5 =>Levaquin #4.5 s/p Merrem 05/09 - 05/1505/19/19 0432 05/19/19 0432 24H INTERVAL SUMMARY * POD #8-> S/P 05/11/[address] guided left back/psoas fluid collection catheter placement. * WBC slightly improved -- ESR HIGH @ 125 -- concern persistent infection * Awake, ambulatory in room -- Minimal drainage per patient overnight * Yesterday -- RN reporting about 30 + 40 ml per shift on 05/18/19 = Total ~70cc * Taking POs, feeling well, no complaints, positive affect DIAGNOSTIC IMAGING * 05/11/19 CT: IMPRESSION: * 1. Right xanthogranulomatous pyelonephritis. There is a large abscess infiltrating into the right psoas muscle measuring approximately 3.8 x 4.1 x 13.6 cm. There is infiltration of the right iliacus muscle and right lateral abdominal wall muscles. With extension of the abscess posteriorly into the right paraspinal soft tissues at the level of L5 with component measuring approximately 3.6 x 8.1 x 9.5 cm. Findings appear slightly increased when compared to the prior examination. * 2. 1.3 cm calculus remains within the right renal pelvis. A right double-J ureteral stent is in place. * 3. Gallbladder sludge versus cholelithiasis. MICRO * 05/12/19 FLUID CX (+) BODY FLUID CULTURE Final Organism 1 PROTEUS MIRABILIS QUANTITY 2+ P. MIRAB M.I.C. RX --------- --- AMPICILLIN <=2 S CEFOTAXIME S CIPROFLOXACIN <=0.25 S GENTAMICIN <=1 S LEVOFLOXACIN <=0.12 S TOBRAMYCIN <=1 S TRIMETHOPRIM/SULFAMETHOXAZOLE <=20 S * 04/17/19 CYSTOSCOPY Proteus Mirabilis PHYSICAL EXAMINATION: GENERAL: VSS, NAD HEENT: AT, NC, NECK: Supple, CHEST: Rise symmetrical HEART: Pulse RRR ABDOMEN: Soft, obese -- DRAIN NOTED Right side EXTREMITIES: Warm, dry SKIN: No rash, no diaphoresis ID ASSESSMENT 38 yo F admit with: 1. SIRS -> Resolving sepsis 2. Acute GNR pyelonephritis with psoas abscess * POD #8-> S/P 05/11/[address] guided left back/psoas fluid collection catheter placement. 3. Hx of obstructive uropathy w/nephrolithiasis * s/p cystoscopy w/right JJ Stent placement 04/17/19 4. Gallbladder sludge versus cholelithiasis per CT 5. Anemia 6. Hx of COPD-> ASTHMA 7. Morbid obesity w/possible Obesity hypoventilation ABX ALLERGIES: KNDA INVASIVES: PIV CURRENT ABX: DAY # 10.5 =>Levaquin #4.5 s/p Merrem 05/09 - 05/15 ID RECOMMENDATIONS/PLAN: 1. Continue current ABX -- concern with elevated ESR @ 125 and persistent leukocytosis is that she needs IV ABX * If the plan is for DC to [facility] when stable -- we could add additional PO coverage w/Augmentin until she can f/u there * Today she agrees to IV ABX - she has PIV in place RUEXT -- Will Rx Unasyn 2. Per Dr. Peck plan is repeat CT when drainage resolves Consultation Date/Type/Reason Admit Date/Time May 09, 2019 at 03:01 Initial Consult Date 05/09/19 Requesting Provider: BETH MON Date/Time of Note DATE: 05/19/19 TIME: 11:18 Exam/Review of Systems Exam Vitals Vital Signs Date Temp Pulse Resp B/P (MAP) Pulse Ox O2 O2 Flow FiO2 Time Delivery Rate 05/19/19 98.1 97 18 126/74 99 Room Air 07:14 (91) Intake and Output 05/18/19 05/18/19 05/19/19 1414:59 22:59 06:59 IntakeIntake Total 200 ml 340 ml OutputOutput Total 10 ml 20 ml BalanceBalance 200 ml 330 ml -20 ml Results Result Diagram: 05/19/19 0432 05/19/19 0432 Results 24hrs Laboratory Tests Test 05/19/19 04:32 White Blood Count 12.2 H Red Blood Count 3.26 L Hemoglobin 8.0 L Hematocrit 27.3 L Mean Corpuscular Volume 83.7 Mean Corpuscular Hemoglobin 24.5 L Mean Corpuscular Hemoglobin Concent 29.3 L Red Cell Distribution Width 20.9 H Platelet Count 516 H Mean Platelet Volume 8.7 Immature Granulocytes % 0.600 H Neutrophils % 52.9 Lymphocytes % 38.2 Monocytes % 6.1 Eosinophils % 1.8 Basophils % 0.4 Nucleated Red Blood Cells % 0.0 Immature Granulocytes # 0.070 H Neutrophils # 6.4 Lymphocytes # 4.7 H Monocytes # 0.7 Eosinophils # 0.2 Basophils # 0.1 Nucleated Red Blood Cells # 0.0 Erythrocyte Sedimentation Rate 135 H Sodium Level 143 Potassium Level 3.8 Chloride Level 107 Carbon Dioxide Level 29 Anion Gap 7 Blood Urea Nitrogen 9 Creatinine 0.77 Est Glomerular Filtrat Rate mL/min > 60 Glucose Level 95 Calcium Level 8.4 Phosphorus Level 5.2 H Magnesium Level 2.0 Total Bilirubin 0.3 Direct Bilirubin 0.00 Indirect Bilirubin 0.3 Aspartate Amino Transf (AST/SGOT) 16 Alanine Aminotransferase (ALT/SGPT) 28 Alkaline Phosphatase 209 H Total Protein 7.5 Albumin 2.9 L Globulin 4.60 H Albumin/Globulin Ratio 0.63 Medications Medication Current Medications IV Flush (NS 3 ml) 3 ml PER PROTOCOL IV Last administered on 05/15/19 05:34; Admin Dose 3 ML; Start 05/09/19 at 03:30 Ondansetron HCl (Zofran Inj) 4 mg Q6H PRN IV NAUSEA/VOMITING; Start 05/09/19 at 03:30 Acetaminophen (Tylenol Tab) 650 mg Q6H PRN PO .PAIN 1-3 OR TEMP Last administered on 05/14/19 01:48; Admin Dose 650 MG; Start 05/09/19 at 03:30 Hydromorphone HCl (Dilaudid) 1 mg Q4H PRN IV .SEVERE PAIN 7-10; Start 05/09/19 at 03:30 Ascorbic Acid (Vitamin C) 500 mg DAILY PO Last administered on 05/19/19 08:30; Admin Dose 500 MG; Start 05/09/19 at 09:00 Ferrous Sulfate (Ferrous Sulfate (Ec)) 325 mg DAILY PO Last administered on 05/19/19 08:30; Admin Dose 325 MG; Start 05/09/19 at 09:00 Docusate Sodium (Colace) 100 mg BID PO Last administered on 05/19/19 08:30; Admin Dose 100 MG; Start 05/12/19 at 21:00 Polyethylene Glycol (Miralax) 17 gm DAILY PO Last administered on 6/30/19at 09:28; Admin Dose 17 GM; Start 05/12/19 at 21:00 Levofloxacin (Levaquin) 750 mg DAILY@06 PO Last administered on 05/19/19at 05:53; Admin Dose 750 MG; Start 05/15/19 at 13:00 Enoxaparin Sodium (Lovenox) 40 mg DAILY SC Last administered on 05/19/19at 08:38; Admin Dose 40 MG; Start 05/18/19 at 09:00 Acetaminophen/ Hydrocodone Bitart ([place] (10/325)) 1 tab Q4H PRN PO MODERATE PAIN LEVEL 4-6; Start 05/17/19 at 20:00 Famotidine (Pepcid) 20 mg DAILY PO Last administered on 05/19/19at 08:30; Admin Dose 20 MG; Start 05/18/19 at 09:00 Albuterol (Ventolin Hfa) 2 puff Q4H RESP THERAPY PRN INH SHORTNESS OF BREATH; Start 05/17/19 at 20:00 FABY MALLORY NP May 19, 2019 11:28
--- NOTE | 2019-05-19 12:38 | CONS ---
Consult Date/Type/Reason Admit Date/Time May 09, 2019 at 03:01 Initial Consult Date 05/09/19 Type of Consultation: Urology Reason for Consultation Right renal stones, right psoas abscess status post drainage. Requesting Provider: BETH MON Date/Time of Note DATE: 05/19/19 TIME: 12:36 Subjective Patient is feeling much better. Objective Vitals Vital Signs Date Temp Pulse Resp B/P (MAP) Pulse Ox O2 O2 Flow FiO2 Time Delivery Rate 05/19/19 98.1 97 18 126/74 99 Room Air 07:14 (91) Intake and Output 05/18/19 05/18/19 05/19/19 1414:59 22:59 06:59 IntakeIntake Total 200 ml 340 ml OutputOutput Total 10 ml 20 ml BalanceBalance 200 ml 330 ml -20 ml Exam The drainage from the accordion drain is decreasing. 30 mL in the past 24 hours. Results/Medications Result Diagram: 05/19/19 0432 05/19/19 0432 Results 24 hrs Laboratory Tests Test 05/19/19 04:32 White Blood Count 12.2 H Red Blood Count 3.26 L Hemoglobin 8.0 L Hematocrit 27.3 L Mean Corpuscular Volume 83.7 Mean Corpuscular Hemoglobin 24.5 L Mean Corpuscular Hemoglobin Concent 29.3 L Red Cell Distribution Width 20.9 H Platelet Count 516 H Mean Platelet Volume 8.7 Immature Granulocytes % 0.600 H Neutrophils % 52.9 Lymphocytes % 38.2 Monocytes % 6.1 Eosinophils % 1.8 Basophils % 0.4 Nucleated Red Blood Cells % 0.0 Immature Granulocytes # 0.070 H Neutrophils # 6.4 Lymphocytes # 4.7 H Monocytes # 0.7 Eosinophils # 0.2 Basophils # 0.1 Nucleated Red Blood Cells # 0.0 Erythrocyte Sedimentation Rate 135 H Sodium Level 143 Potassium Level 3.8 Chloride Level 107 Carbon Dioxide Level 29 Anion Gap 7 Blood Urea Nitrogen 9 Creatinine 0.77 Est Glomerular Filtrat Rate mL/min > 60 Glucose Level 95 Calcium Level 8.4 Phosphorus Level 5.2 H Magnesium Level 2.0 Total Bilirubin 0.3 Direct Bilirubin 0.00 Indirect Bilirubin 0.3 Aspartate Amino Transf (AST/SGOT) 16 Alanine Aminotransferase (ALT/SGPT) 28 Alkaline Phosphatase 209 H Total Protein 7.5 Albumin 2.9 L Globulin 4.60 H Albumin/Globulin Ratio 0.63 Home Meds Reported Medications Acetaminophen* (Acetaminophen*) 500 MG Extra Strength Tablet, 500 MG PO Q4H PRN for PAIN AND OR ELEVATED TEMP, TAB 05/09/19 Ferrous Sulfate* (Ferrous Sulfate*) 325 Mg Tabec, 325 MG PO DAILY, TAB 05/09/19 Ascorbic Acid* (Vitamin C*) 500 Mg Capsule.sa, 500 MG PO DAILY, CAP 05/09/19 Medications Current Medications IV Flush (NS 3 ml) 3 ml PER PROTOCOL IV Last administered on 05/15/19 05:34; Admin Dose 3 ML; Start 05/09/19 at 03:30 Ondansetron HCl (Zofran Inj) 4 mg Q6H PRN IV NAUSEA/VOMITING; Start 05/09/19 at 03:30 Acetaminophen (Tylenol Tab) 650 mg Q6H PRN PO .PAIN 1-3 OR TEMP Last administered on 05/14/19 01:48; Admin Dose 650 MG; Start 05/09/19 at 03:30 Hydromorphone HCl (Dilaudid) 1 mg Q4H PRN IV .SEVERE PAIN 7-10; Start 05/09/19 at 03:30 Ascorbic Acid (Vitamin C) 500 mg DAILY PO Last administered on 05/19/19 08:30; Admin Dose 500 MG; Start 05/09/19 at 09:00 Ferrous Sulfate (Ferrous Sulfate (Ec)) 325 mg DAILY PO Last administered on 05/19/19 08:30; Admin Dose 325 MG; Start 05/09/19 at 09:00 Docusate Sodium (Colace) 100 mg BID PO Last administered on 05/19/19 08:30; Admin Dose 100 MG; Start 05/12/19 at 21:00 Polyethylene Glycol (Miralax) 17 gm DAILY PO Last administered on 05/14/19 09:28; Admin Dose 17 GM; Start 05/12/19 at 21:00 Levofloxacin (Levaquin) 750 mg DAILY@06 PO Last administered on 05/19/19 05:53; Admin Dose 750 MG; Start 05/15/19 at 13:00 Enoxaparin Sodium (Lovenox) 40 mg DAILY SC Last administered on 05/19/19 08:38; Admin Dose 40 MG; Start 05/18/19 at 09:00 Acetaminophen/ Hydrocodone Bitart ([place] (10/325)) 1 tab Q4H PRN PO MODERATE PAIN LEVEL 4-6; Start 05/17/19 at 20:00 Famotidine (Pepcid) 20 mg DAILY PO Last administered on 05/19/19at 08:30; Admin Dose 20 MG; Start 05/18/19 at 09:00 Albuterol (Ventolin Hfa) 2 puff Q4H RESP THERAPY PRN INH SHORTNESS OF BREATH; Start 05/17/19 at 20:00 Ampicillin Sodium/ Sulbactam Sodium 100 ml @ 100 mls/hr Q6 IVPB ; Start 05/19/19 at 13:00 Assessment/Plan Hospital Course (Demo Recall) 38-year-old female was hospitalized earlier this month with right renal stone with obstruction. She underwent cystoscopy and insertion of right ureteral JJ stent on 04/17/2019. Patient was supposed to follow-up with [facility] but she did not. She comes back today feeling discomfort in the right side of the abdomen. She denies any fever or chills and no back pain. CT scan of the abdomen and pelvis showed: Severe right-sided hydronephrosis with perinephric stranding and fluid, unchanged from 04/16/2019. Underlying infection cannot be excluded. There is a right-sided ureteral stent with calcifications surrounding the proximal pigtail within the renal pelvis which is unchanged. Enlargement of the right iliopsoas and iliacus muscles with surrounding stranding suspicious for underlying abscess, increased compared with the prior study. There is increased posterior extension. Distended gallbladder with multiple gallstones. Prominence of the left labia, unchanged. Clinically correlate. CT scan of the abdomen and pelvis with IV contrast done on 05/11/2019 showed: 1. Right xanthogranulomatous pyelonephritis. There is a large abscess infiltrating into the right psoas muscle measuring approximately 3.8 x 4.1 x 13.6 cm. There is infiltration of the right iliacus muscle and right lateral abdominal wall muscles. With extension of the abscess posteriorly into the right paraspinal soft tissues at the level of L5 with component measuring approximately 3.6 x 8.1 x 9.5 cm. Findings appear slightly increased when compared to the prior examination. 2. 1.3 cm calculus remains within the right renal pelvis. A right double-J ureteral stent is in place. 3. Gallbladder sludge versus cholelithiasis. With these findings on the CT scan the patient underwent aspiration and drainage of the abscess. The drainage from the accordion drain is 30mL in the past 24 hours. We will repeat the CT scan in a.m. without and with IV contrast. Then we will decide whether to keep the drain or remove it. CORTNEY PETTY MD May 19, 2019 12:38
--- NOTE | 2019-05-19 13:59 | PN ---
Date/Time of Note Date/Time of Note DATE: 05/19/19 TIME: 13:58 Assessment/Plan VTE Prophylaxis Risk score (from Nsg)>0 risk: 6 SCD applied (from Nsg): Yes SCD contraindicated: low risk/ambulating Pharmacological prophylaxis: LMWH Lines/Catheters IV Catheter Type (from Nrsg): Saline Lock Urinary Cath still in place: No Assessment/Plan Hospital Course A/P 1. Rt Psoas abscess; sp IR drain placement; cont drain care; home w drain care/ outpt CT possible, however, im concerned about lack of f/u on last dc. 2. Nephrolithiasis; chr staghorn. sp JJ stent 3. Anemia 4. Cholelithiasis 5. Asthma 6. Ac stress 7. Obesity 8. CHAPARRITA/ OHS? 9. Sepsis/ pyelo; proteus; drain output poor. Repeat CT. S: 05/17 events noted 05/18 no fever 05/[address] O: vss PE no pallor reg s1s2 no mrg ctab bs dimin; mild tender no rrg; overweight. drain c/d/i no edema Result Diagram: 05/19/19 0432 05/19/19 0432 Results 24hrs Laboratory Tests Test 05/19/19 04:32 White Blood Count 12.2 H Red Blood Count 3.26 L Hemoglobin 8.0 L Hematocrit 27.3 L Mean Corpuscular Volume 83.7 Mean Corpuscular Hemoglobin 24.5 L Mean Corpuscular Hemoglobin Concent 29.3 L Red Cell Distribution Width 20.9 H Platelet Count 516 H Mean Platelet Volume 8.7 Immature Granulocytes % 0.600 H Neutrophils % 52.9 Lymphocytes % 38.2 Monocytes % 6.1 Eosinophils % 1.8 Basophils % 0.4 Nucleated Red Blood Cells % 0.0 Immature Granulocytes # 0.070 H Neutrophils # 6.4 Lymphocytes # 4.7 H Monocytes # 0.7 Eosinophils # 0.2 Basophils # 0.1 Nucleated Red Blood Cells # 0.0 Erythrocyte Sedimentation Rate 135 H Sodium Level 143 Potassium Level 3.8 Chloride Level 107 Carbon Dioxide Level 29 Anion Gap 7 Blood Urea Nitrogen 9 Creatinine 0.77 Est Glomerular Filtrat Rate mL/min > 60 Glucose Level 95 Calcium Level 8.4 Phosphorus Level 5.2 H Magnesium Level 2.0 Total Bilirubin 0.3 Direct Bilirubin 0.00 Indirect Bilirubin 0.3 Aspartate Amino Transf (AST/SGOT) 16 Alanine Aminotransferase (ALT/SGPT) 28 Alkaline Phosphatase 209 H Total Protein 7.5 Albumin 2.9 L Globulin 4.60 H Albumin/Globulin Ratio 0.63 Exam/Review of Systems Exam Vitals Vital Signs Date Temp Pulse Resp B/P (MAP) Pulse Ox O2 O2 Flow FiO2 Time Delivery Rate 05/19/19 98.1 97 18 126/74 99 Room Air 07:14 (91) Intake and Output 05/18/19 05/18/19 05/19/19 1515:00 23:00 07:00 IntakeIntake Total 200 ml 340 ml OutputOutput Total 10 ml 20 ml BalanceBalance 200 ml 330 ml -20 ml Results Results 24hrs Laboratory Tests Test 05/19/19 04:32 White Blood Count 12.2 H Red Blood Count 3.26 L Hemoglobin 8.0 L Hematocrit 27.3 L Mean Corpuscular Volume 83.7 Mean Corpuscular Hemoglobin 24.5 L Mean Corpuscular Hemoglobin Concent 29.3 L Red Cell Distribution Width 20.9 H Platelet Count 516 H Mean Platelet Volume 8.7 Immature Granulocytes % 0.600 H Neutrophils % 52.9 Lymphocytes % 38.2 Monocytes % 6.1 Eosinophils % 1.8 Basophils % 0.4 Nucleated Red Blood Cells % 0.0 Immature Granulocytes # 0.070 H Neutrophils # 6.4 Lymphocytes # 4.7 H Monocytes # 0.7 Eosinophils # 0.2 Basophils # 0.1 Nucleated Red Blood Cells # 0.0 Erythrocyte Sedimentation Rate 135 H Sodium Level 143 Potassium Level 3.8 Chloride Level 107 Carbon Dioxide Level 29 Anion Gap 7 Blood Urea Nitrogen 9 Creatinine 0.77 Est Glomerular Filtrat Rate mL/min > 60 Glucose Level 95 Calcium Level 8.4 Phosphorus Level 5.2 H Magnesium Level 2.0 Total Bilirubin 0.3 Direct Bilirubin 0.00 Indirect Bilirubin 0.3 Aspartate Amino Transf (AST/SGOT) 16 Alanine Aminotransferase (ALT/SGPT) 28 Alkaline Phosphatase 209 H Total Protein 7.5 Albumin 2.9 L Globulin 4.60 H Albumin/Globulin Ratio 0.63 Medications Medication Current Medications IV Flush (NS 3 ml) 3 ml PER PROTOCOL IV Last administered on 05/15/19at 05:34; Admin Dose 3 ML; Start 05/09/19 at 03:30 Ondansetron HCl (Zofran Inj) 4 mg Q6H PRN IV NAUSEA/VOMITING; Start 05/09/19 at 03:30 Acetaminophen (Tylenol Tab) 650 mg Q6H PRN PO .PAIN 1-3 OR TEMP Last administered on 05/14/19 01:48; Admin Dose 650 MG; Start 05/09/19 at 03:30 Hydromorphone HCl (Dilaudid) 1 mg Q4H PRN IV .SEVERE PAIN 7-10; Start 05/09/19 at 03:30 Ascorbic Acid (Vitamin C) 500 mg DAILY PO Last administered on 05/19/19 08:30; Admin Dose 500 MG; Start 05/09/19 at 09:00 Ferrous Sulfate (Ferrous Sulfate (Ec)) 325 mg DAILY PO Last administered on 05/19/19 08:30; Admin Dose 325 MG; Start 05/09/19 at 09:00 Docusate Sodium (Colace) 100 mg BID PO Last administered on 05/19/19 08:30; Admin Dose 100 MG; Start 05/12/19 at 21:00 Polyethylene Glycol (Miralax) 17 gm DAILY PO Last administered on 05/14/19 09:28; Admin Dose 17 GM; Start 05/12/19 at 21:00 Levofloxacin (Levaquin) 750 mg DAILY@06 PO Last administered on 05/19/19 05:53; Admin Dose 750 MG; Start 05/15/19 at 13:00 Enoxaparin Sodium (Lovenox) 40 mg DAILY SC Last administered on 05/19/19 08:38; Admin Dose 40 MG; Start 05/18/19 at 09:00 Acetaminophen/ Hydrocodone Bitart ([place] (10/325)) 1 tab Q4H PRN PO MODERATE PAIN LEVEL 4-6; Start 05/17/19 at 20:00 Famotidine (Pepcid) 20 mg DAILY PO Last administered on 05/19/19 08:30; Admin Dose 20 MG; Start 05/18/19 at 09:00 Albuterol (Ventolin Hfa) 2 puff Q4H RESP THERAPY PRN INH SHORTNESS OF BREATH; Start 05/17/19 at 20:00 Ampicillin Sodium/ Sulbactam Sodium 100 ml @ 100 mls/hr Q6 IVPB ; Start 05/19/19 at 13:00 GONZALEZ DAVIS MD May 19, 2019 13:59
[2019-05-19] MEDS: AMPICILLIN/SULB 3 GM/NS (PMX) 100 ML IVPB SCH ×2 (14:11→20:53)
[2019-05-19 16:15] VITALS: BP 121/77; PULSE 106; RESP 18
[2019-05-19 19:25] VITALS: BP 139/66; PULSE 91; RESP 20
[2019-05-19] MEDS: LACTOBACILLUS RHAMNOSUS CAP PO SCH (20:53)
[2019-05-20] MEDS: AMPICILLIN/SULB 3 GM/NS (PMX) 100 ML IVPB SCH ×4 (01:26→18:23)
[2019-05-20 02:20] VITALS: BP 128/73; PULSE 108; RESP 20
[2019-05-20] MEDS: LEVOFLOXACIN 750 MG TABLET PO SCH (06:50)
[2019-05-20 07:12] VITALS: BP 119/75; PULSE 101; RESP 18
[2019-05-20] MEDS ORDERED: IOHEXOL 300MG/ML 150 ML BTL ONE (08:39)
[2019-05-20] MEDS ORDERED: SOD CHLORIDE 0.9% 100 ML ONE (08:39)
[2019-05-20] MEDS: LACTOBACILLUS RHAMNOSUS CAP PO SCH ×2 (09:16→20:58)
[2019-05-20] MEDS: ASCORBIC ACID 500 MG TAB PO SCH (09:16)
[2019-05-20] MEDS: FAMOTIDINE 20 MG TAB PO SCH (09:16)
[2019-05-20] MEDS: DOCUSATE SODIUM 100 MG CAP PO SCH (09:16)
[2019-05-20] MEDS: FERROUS SULFATE (EC) 325 MG TAB PO SCH (09:17)
[2019-05-20] MEDS: ENOXAPARIN 40 MG/0.4 ML SYG SC SCH (09:19)
--- NOTE | 2019-05-20 10:00 | CONS ---
Consult Date/Type/Reason Admit Date/Time May 09, 2019 at 03:01 Initial Consult Date 05/09/19 Type of Consultation: Urology Reason for Consultation Right psoas abscess, right renal stone and hydronephrosis. Requesting Provider: BETH MON Date/Time of Note DATE: 05/20/19 TIME: 09:58 Subjective Patient is feeling much better. She is ambulating around and denies any pain. Objective Vitals Vital Signs Date Temp Pulse Resp B/P (MAP) Pulse Ox O2 O2 Flow FiO2 Time Delivery Rate 05/20/19 98.4 101 18 119/75 99 Room Air 07:12 (90) Intake and Output 05/19/19 05/19/19 05/20/19 1515:00 23:00 07:00 IntakeIntake Total 400 ml 100 ml OutputOutput Total 30 ml 20 ml BalanceBalance 400 ml 70 ml -20 ml Exam The accordion drain drained 50 mL in the past [address] scan of the abdomen and pelvis this morning to check on the status of her abscess. The report is pending. Results/Medications Result Diagram: 05/20/19 0438 05/20/19 0438 Results 24 hrs Laboratory Tests Test 05/20/19 04:38 White Blood Count 11.8 H Red Blood Count 3.14 L Hemoglobin 7.9 L Hematocrit 26.3 L Mean Corpuscular Volume 83.8 Mean Corpuscular Hemoglobin 25.2 L Mean Corpuscular Hemoglobin Concent 30.0 L Red Cell Distribution Width 21.1 H Platelet Count 484 H Mean Platelet Volume 8.7 Immature Granulocytes % 0.400 Neutrophils % 58.9 Lymphocytes % 32.5 Monocytes % 6.1 Eosinophils % 1.7 Basophils % 0.4 Nucleated Red Blood Cells % 0.0 Immature Granulocytes # 0.050 H Neutrophils # 7.0 Lymphocytes # 3.8 H Monocytes # 0.7 Eosinophils # 0.2 Basophils # 0.1 Nucleated Red Blood Cells # 0.0 Sodium Level 141 Potassium Level 3.8 Chloride Level 106 Carbon Dioxide Level 30 Anion Gap 5 Blood Urea Nitrogen 12 Creatinine 0.76 Est Glomerular Filtrat Rate mL/min > 60 Glucose Level 103 Calcium Level 8.5 Total Bilirubin 0.3 Direct Bilirubin 0.00 Indirect Bilirubin 0.3 Aspartate Amino Transf (AST/SGOT) 19 Alanine Aminotransferase (ALT/SGPT) 18 Alkaline Phosphatase 163 H Total Protein 7.5 Albumin 2.8 L Globulin 4.70 H Albumin/Globulin Ratio 0.59 Home Meds Reported Medications Acetaminophen* (Acetaminophen*) 500 MG Extra Strength Tablet, 500 MG PO Q4H PRN for PAIN AND OR ELEVATED TEMP, TAB 05/09/19 Ferrous Sulfate* (Ferrous Sulfate*) 325 Mg Tabec, 325 MG PO DAILY, TAB 05/09/19 Ascorbic Acid* (Vitamin C*) 500 Mg Capsule.sa, 500 MG PO DAILY, CAP 05/09/19 Medications Current Medications IV Flush (NS 3 ml) 3 ml PER PROTOCOL IV Last administered on 05/15/19 05:34; Admin Dose 3 ML; Start 05/09/19 at 03:30 Ondansetron HCl (Zofran Inj) 4 mg Q6H PRN IV NAUSEA/VOMITING; Start 05/09/19 at 03:30 Acetaminophen (Tylenol Tab) 650 mg Q6H PRN PO .PAIN 1-3 OR TEMP Last administered on 05/14/19 01:48; Admin Dose 650 MG; Start 05/09/19 at 03:30 Hydromorphone HCl (Dilaudid) 1 mg Q4H PRN IV .SEVERE PAIN 7-10; Start 05/09/19 at 03:30 Ascorbic Acid (Vitamin C) 500 mg DAILY PO Last administered on 05/20/19 09:16; Admin Dose 500 MG; Start 05/09/19 at 09:00 Ferrous Sulfate (Ferrous Sulfate (Ec)) 325 mg DAILY PO Last administered on 05/20/19 09:17; Admin Dose 325 MG; Start 05/09/19 at 09:00 Docusate Sodium (Colace) 100 mg BID PO Last administered on 05/20/19 09:16; Admin Dose 100 MG; Start 05/12/19 at 21:00 Levofloxacin (Levaquin) 750 mg DAILY@06 PO Last administered on 05/20/19 06:50; Admin Dose 750 MG; Start 05/15/19 at 13:00 Enoxaparin Sodium (Lovenox) 40 mg DAILY SC Last administered on 05/20/19 09:19; Admin Dose 40 MG; Start 05/18/19 at 09:00 Acetaminophen/ Hydrocodone Bitart ([place] (10)) 1 tab Q4H PRN PO MODERATE PAIN LEVEL 4-6; Start 05/17/19 at 20:00 Famotidine (Pepcid) 20 mg DAILY PO Last administered on 05/20/19at 09:16; Admin Dose 20 MG; Start 05/18/19 at 09:00 Albuterol (Ventolin Hfa) 2 puff Q4H RESP THERAPY PRN INH SHORTNESS OF BREATH; Start 05/17/19 at 20:00 Ampicillin Sodium/ Sulbactam Sodium 100 ml @ 100 mls/hr Q6 IVPB Last administered on 05/20/19at 06:50; Admin Dose 100 MLS/HR; Start 05/19/19 at 13:00 Lactobacillus Acidophilus/ Rhamnosus (Culturelle) 1 cap BID PO Last administered on 05/20/19at 09:16; Admin Dose 1 CAP; Start 05/19/19 at 21:00 Assessment/Plan Hospital Course (Demo Recall) 38-year-old female was hospitalized earlier this month with right renal stone with obstruction. She underwent cystoscopy and insertion of right ureteral JJ stent on 04/17/2019. Patient was supposed to follow-up with [facility] but she did not. She comes back today feeling discomfort in the right side of the abdomen. She denies any fever or chills and no back pain. CT scan of the abdomen and pelvis showed: Severe right-sided hydronephrosis with perinephric stranding and fluid, unchanged from 04/16/2019. Underlying infection cannot be excluded. There is a right-sided ureteral stent with calcifications surrounding the proximal pigtail within the renal pelvis which is unchanged. Enlargement of the right iliopsoas and iliacus muscles with surrounding stranding suspicious for underlying abscess, increased compared with the prior study. There is increased posterior extension. Distended gallbladder with multiple gallstones. Prominence of the left labia, unchanged. Clinically correlate. CT scan of the abdomen and pelvis with IV contrast done on 05/11/2019 showed: 1. Right xanthogranulomatous pyelonephritis. There is a large abscess infiltrating into the right psoas muscle measuring approximately 3.8 x 4.1 x 13.6 cm. There is infiltration of the right iliacus muscle and right lateral abdominal wall muscles. With extension of the abscess posteriorly into the right paraspinal soft tissues at the level of L5 with component measuring approximately 3.6 x 8.1 x 9.5 cm. Findings appear slightly increased when compared to the prior examination. 2. 1.3 cm calculus remains within the right renal pelvis. A right double-J ureteral stent is in place. 3. Gallbladder sludge versus cholelithiasis. With these findings on the CT scan the patient underwent aspiration and drainage of the abscess. The drainage from the accordion drain is 50mL in the past [address] hours. She had a CT scan of the abdomen and pelvis today and the report is pending. For now continue the present treatment. CORTNEY PETTY MD May 20, 2019 10:00
--- NOTE | 2019-05-20 14:38 | CONS ---
Assessment/Plan Assessment/Plan Hospital Course (Demo Recall) ID PROGRESS NOTE CURRENT ABX: DAY # 11.5 =>Levaquin #5.5 + UNASYN #1 s/p Merrem 05/09 - 05/15 24H INTERVAL SUMMARY * POD #9-> S/P 05/11/[address] guided left back/psoas fluid collection catheter placement. * WBC slightly improved -- ESR HIGH @ 135 -- concern persistent infection * The accordion drain drained 50 mL in the past 24 hours. * She is taking POs, ambulatory DIAGNOSTIC IMAGING * 05/20/19 CT: IMPRESSION:Successful percutaneous drainage of large right psoas abscess in patient with xanthogranulomatous pyelonephritis of the right kidney. 2 cm calculus right renal pelvis with double-J ureteral stent. Persistent stranding of perinephric fat not significantly changed.Cholelithiasis. Bibasilar atelectasis. * 05/11/19 CT: IMPRESSION: * 1. Right xanthogranulomatous pyelonephritis. There is a large abscess infiltrating into the right psoas muscle measuring approximately 3.8 x 4.1 x 13.6 cm. There is infiltration of the right iliacus muscle and right lateral abdominal wall muscles. With extension of the abscess posteriorly into the right paraspinal soft tissues at the level of L5 with component me asuring approximately 3.6 x 8.1 x 9.5 cm. Findings appear slightly increased when compared to the prior examination. * 2. 1.3 cm calculus remains within the right renal pelvis. A right double-J ureteral stent is in place. * 3. Gallbladder sludge versus cholelithiasis. MICRO * 05/12/19 FLUID CX (+) BODY FLUID CULTURE Final Organism 1 PROTEUS MIRABILIS QUANTITY 2+ P. MIRAB M.I.C. RX --------- --- AMPICILLIN <=2 S CEFOTAXIME S CIPROFLOXACIN <=0.25 S GENTAMICIN <=1 S LEVOFLOXACIN <=0.12 S TOBRAMYCIN <=1 S TRIMETHOPRIM/SULFAMETHOXAZOLE <=20 S * 04/17/19 CYSTOSCOPY Proteus Mirabilis PHYSICAL EXAMINATION: GENERAL: VSS, NAD HEENT: AT, NC, NECK: Supple, CHEST: Rise symmetrical HEART: Pulse RRR ABDOMEN: Soft, obese -- DRAIN NOTED Right side EXTREMITIES: Warm, dry SKIN: No rash, no diaphoresis ID ASSESSMENT 38 yo F admit with: 1. SIRS -> Resolving sepsis 2. Acute GNR pyelonephritis with psoas abscess * POD #8-> S/P 05/11/[address] guided left back/psoas fluid collection catheter placement. 3. Hx of obstructive uropathy w/nephrolithiasis * s/p cystoscopy w/right JJ Stent placement 04/17/19 4. Gallbladder sludge versus cholelithiasis per CT 5. Anemia 6. Hx of COPD-> ASTHMA 7. Morbid obesity w/possible Obesity hypoventilation ABX ALLERGIES: KNDA INVASIVES: PIV CURRENT ABX: DAY # 11.5 =>Levaquin #5.5 + UNASYN #1 s/p Merrem 05/09 - 05/15 ID RECOMMENDATIONS/PLAN: 1. Continue current ABX -- concern with elevated ESR @ 135 and persistent leuko cytosis is that she needs IV ABX * If the plan is for DC to [facility] when stable -- we could add additional PO coverage w/Augmentin until she can f/u there * Today she agrees to IV ABX - she has PIV in place RUEXT -- Will Rx Unasyn 2. Per Dr. Peck plan is to review repeat CT tomorrow -- Drain output down from 70cc -> to 50cc over 24H 3. Once drain removed -- anticipate DC on PO ABX x 10 days (Levaquin + Augmentin) to [facility] f/u Consultation Date/Type/Reason Admit Date/Time May 09, 2019 at 03:01 Initial Consult Date 05/09/19 Requesting Provider: BETH MON Date/Time of Note DATE: 05/20/19 TIME: 14:34 Exam/Review of Systems Exam Vitals Vital Signs Date Temp Pulse Resp B/P (MAP) Pulse Ox O2 O2 Flow FiO2 Time Delivery Rate 05/20/19 98.4 101 18 119/75 99 Room Air 07:12 (90) Intake and Output 05/19/19 05/19/19 05/20/19 1515:00 23:00 07:00 IntakeIntake Total 400 ml 100 ml OutputOutput Total 30 ml 20 ml BalanceBalance 400 ml 70 ml -20 ml Results Result Diagram: 05/20/19 0438 05/20/19 0438 Results 24hrs Laboratory Tests Test 05/20/19 04:38 White Blood Count 11.8 H Red Blood Count 3.14 L Hemoglobin 7.9 L Hematocrit 26.3 L Mean Corpuscular Volume 83.8 Mean Corpuscular Hemoglobin 25.2 L Mean Corpuscular Hemoglobin Concent 30.0 L Red Cell Distribution Width 21.1 H Platelet Count 484 H Mean Platelet Volume 8.7 Immature Granulocytes % 0.400 Neutrophils % 58.9 Lymphocytes % 32.5 Monocytes % 6.1 Eosinophils % 1.7 Basophils % 0.4 Nucleated Red Blood Cells % 0.0 Immature Granulocytes # 0.050 H Neutrophils # 7.0 Lymphocytes # 3.8 H Monocytes # 0.7 Eosinophils # 0.2 Basophils # 0.1 Nucleated Red Blood Cells # 0.0 Sodium Level 141 Potassium Level 3.8 Chloride Level 106 Carbon Dioxide Level 30 Anion Gap 5 Blood Urea Nitrogen 12 Creatinine 0.76 Est Glomerular Filtrat Rate mL/min > 60 Glucose Level 103 Calcium Level 8.5 Total Bilirubin 0.3 Direct Bilirubin 0.00 Indirect Bilirubin 0.3 Aspartate Amino Transf (AST/SGOT) 19 Alanine Aminotransferase (ALT/SGPT) 18 Alkaline Phosphatase 163 H Total Protein 7.5 Albumin 2.8 L Globulin 4.70 H Albumin/Globulin Ratio 0.59 Medications Medication Current Medications IV Flush (NS 3 ml) 3 ml PER PROTOCOL IV Last administered on 05/15/19at 05:34; Admin Dose 3 ML; Start 05/09/19 at 03:30 Ondansetron HCl (Zofran Inj) 4 mg Q6H PRN IV NAUSEA/VOMITING; Start 05/09/19 at 03:30 Acetaminophen (Tylenol Tab) 650 mg Q6H PRN PO .PAIN 1-3 OR TEMP Last administered on 05/14/19at 01:48; Admin Dose 650 MG; Start 05/09/19 at 03:30 Hydromorphone HCl (Dilaudid) 1 mg Q4H PRN IV .SEVERE PAIN 7-10; Start 05/09/19 at 03:30 Ascorbic Acid (Vitamin C) 500 mg DAILY PO Last administered on 05/20/19at 09:16; Admin Dose 500 MG; Start 05/09/19 at 09:00 Ferrous Sulfate (Ferrous Sulfate (Ec)) 325 mg DAILY PO Last administered on 05/20/19at 09:17; Admin Dose 325 MG; Start 05/09/19 at 09:00 Docusate Sodium (Colace) 100 mg BID PO Last administered on 05/20/19 09:16; Admin Dose 100 MG; Start 05/12/19 at 21:00 Levofloxacin (Levaquin) 750 mg DAILY@06 PO Last administered on 05/20/19 06:50; Admin Dose 750 MG; Start 05/15/19 at 13:00 Enoxaparin Sodium (Lovenox) 40 mg DAILY SC Last administered on 05/20/19 09:19; Admin Dose 40 MG; Start 05/18/19 at 09:00 Acetaminophen/ Hydrocodone Bitart ([place] (10/325)) 1 tab Q4H PRN PO MODERATE PAIN LEVEL 4-6; Start 05/17/19 at 20:00 Famotidine (Pepcid) 20 mg DAILY PO Last administered on 05/20/19 09:16; Admin Dose 20 MG; Start 05/18/19 at 09:00 Albuterol (Ventolin Hfa) 2 puff Q4H RESP THERAPY PRN INH SHORTNESS OF BREATH; Start 05/17/19 at 20:00 Ampicillin Sodium/ Sulbactam Sodium 100 ml @ 100 mls/hr Q6 IVPB Last administered on 05/20/19 12:49; Admin Dose 100 MLS/HR; Start 05/19/19 at 13:00 Lactobacillus Acidophilus/ Rhamnosus (Culturelle) 1 cap BID PO Last administered on 05/20/19 09:16; Admin Dose 1 CAP; Start 05/19/19 at 21:00 FABY MALLORY NP May 20, 2019 14:38
[2019-05-20 15:12] VITALS: BP 146/76; PULSE 108; RESP 18
--- NOTE | 2019-05-20 18:34 | PN ---
Date/Time of Note Date/Time of Note DATE: 05/20/19 TIME: 18:33 Assessment/Plan VTE Prophylaxis Risk score (from Nsg)>0 risk: 3 SCD applied (from Nsg): Yes SCD contraindicated: low risk/ambulating Pharmacological prophylaxis: LMWH Lines/Catheters IV Catheter Type (from Nrsg): Saline Lock Urinary Cath still in place: No Assessment/Plan Hospital Course A/P 1. Rt Psoas abscess; sp IR drain placement; cont drain care; home w drain care/ outpt CT possible, however, im concerned about lack of f/u on last dc. 2. Nephrolithiasis; chr staghorn. sp JJ stent 3. Anemia 4. Cholelithiasis 5. Asthma 6. Ac stress 7. Obesity 8. CHAPARRITA/ OHS? 9. Sepsis/ pyelo; proteus; less drain output. Repeated CT. S: 05/17 events noted 05/18 no fever 05/[address] 05/20: No pain fever or diarrhea. O: vss PE no pallor reg s1s2 no mrg ctab bs dimin; nt, nd; no rrg; overweight. drain c/d/i no edema Result Diagram: 05/20/19 0438 05/20/19 0438 Results 24hrs Laboratory Tests Test 05/20/19 04:38 White Blood Count 11.8 H Red Blood Count 3.14 L Hemoglobin 7.9 L Hematocrit 26.3 L Mean Corpuscular Volume 83.8 Mean Corpuscular Hemoglobin 25.2 L Mean Corpuscular Hemoglobin Concent 30.0 L Red Cell Distribution Width 21.1 H Platelet Count 484 H Mean Platelet Volume 8.7 Immature Granulocytes % 0.400 Neutrophils % 58.9 Lymphocytes % 32.5 Monocytes % 6.1 Eosinophils % 1.7 Basophils % 0.4 Nucleated Red Blood Cells % 0.0 Immature Granulocytes # 0.050 H Neutrophils # 7.0 Lymphocytes # 3.8 H Monocytes # 0.7 Eosinophils # 0.2 Basophils # 0.1 Nucleated Red Blood Cells # 0.0 Sodium Level 141 Potassium Level 3.8 Chloride Level 106 Carbon Dioxide Level 30 Anion Gap 5 Blood Urea Nitrogen 12 Creatinine 0.76 Est Glomerular Filtrat Rate mL/min > 60 Glucose Level 103 Calcium Level 8.5 Total Bilirubin 0.3 Direct Bilirubin 0.00 Indirect Bilirubin 0.3 Aspartate Amino Transf (AST/SGOT) 19 Alanine Aminotransferase (ALT/SGPT) 18 Alkaline Phosphatase 163 H Total Protein 7.5 Albumin 2.8 L Globulin 4.70 H Albumin/Globulin Ratio 0.59 Exam/Review of Systems Exam Vitals Vital Signs Date Temp Pulse Resp B/P (MAP) Pulse Ox O2 O2 Flow FiO2 Time Delivery Rate 05/20/19 98.3 108 18 146/76 99 Room Air 15:12 (99) Intake and Output 05/19/19 05/19/19 05/20/19 1414:59 22:59 06:59 IntakeIntake Total 400 ml 100 ml OutputOutput Total 30 ml 20 ml BalanceBalance 400 ml 70 ml -20 ml Results Results 24hrs Laboratory Tests Test 05/20/19 04:38 White Blood Count 11.8 H Red Blood Count 3.14 L Hemoglobin 7.9 L Hematocrit 26.3 L Mean Corpuscular Volume 83.8 Mean Corpuscular Hemoglobin 25.2 L Mean Corpuscular Hemoglobin Concent 30.0 L Red Cell Distribution Width 21.1 H Platelet Count 484 H Mean Platelet Volume 8.7 Immature Granulocytes % 0.400 Neutrophils % 58.9 Lymphocytes % 32.5 Monocytes % 6.1 Eosinophils % 1.7 Basophils % 0.4 Nucleated Red Blood Cells % 0.0 Immature Granulocytes # 0.050 H Neutrophils # 7.0 Lymphocytes # 3.8 H Monocytes # 0.7 Eosinophils # 0.2 Basophils # 0.1 Nucleated Red Blood Cells # 0.0 Sodium Level 141 Potassium Level 3.8 Chloride Level 106 Carbon Dioxide Level 30 Anion Gap 5 Blood Urea Nitrogen 12 Creatinine 0.76 Est Glomerular Filtrat Rate mL/min > 60 Glucose Level 103 Calcium Level 8.5 Total Bilirubin 0.3 Direct Bilirubin 0.00 Indirect Bilirubin 0.3 Aspartate Amino Transf (AST/SGOT) 19 Alanine Aminotransferase (ALT/SGPT) 18 Alkaline Phosphatase 163 H Total Protein 7.5 Albumin 2.8 L Globulin 4.70 H Albumin/Globulin Ratio 0.59 Medications Medication Current Medications IV Flush (NS 3 ml) 3 ml PER PROTOCOL IV Last administered on 05/15/19at 05:34; Admin Dose 3 ML; Start 05/09/19 at 03:30 Ondansetron HCl (Zofran Inj) 4 mg Q6H PRN IV NAUSEA/VOMITING; Start 05/09/19 at 03:30 Acetaminophen (Tylenol Tab) 650 mg Q6H PRN PO .PAIN 1-3 OR TEMP Last administered on 05/14/19 01:48; Admin Dose 650 MG; Start 05/09/19 at 03:30 Hydromorphone HCl (Dilaudid) 1 mg Q4H PRN IV .SEVERE PAIN 7-10; Start 05/09/19 at 03:30 Ascorbic Acid (Vitamin C) 500 mg DAILY PO Last administered on 05/20/19 09:16; Admin Dose 500 MG; Start 05/09/19 at 09:00 Ferrous Sulfate (Ferrous Sulfate (Ec)) 325 mg DAILY PO Last administered on 05/20/19 09:17; Admin Dose 325 MG; Start 05/09/19 at 09:00 Docusate Sodium (Colace) 100 mg BID PO Last administered on 05/20/19 09:16; Admin Dose 100 MG; Start 05/12/19 at 21:00 Levofloxacin (Levaquin) 750 mg DAILY@06 PO Last administered on 05/20/19 06:50; Admin Dose 750 MG; Start 05/15/19 at 13:00 Enoxaparin Sodium (Lovenox) 40 mg DAILY SC Last administered on 05/20/19 09:19; Admin Dose 40 MG; Start 05/18/19 at 09:00 Acetaminophen/ Hydrocodone Bitart ([place] (10/325)) 1 tab Q4H PRN PO MODERATE PAIN LEVEL 4-6; Start 05/17/19 at 20:00 Famotidine (Pepcid) 20 mg DAILY PO Last administered on 05/20/19 09:16; Admin Dose 20 MG; Start 05/18/19 at 09:00 Albuterol (Ventolin Hfa) 2 puff Q4H RESP THERAPY PRN INH SHORTNESS OF BREATH; Start 05/17/19 at 20:00 Ampicillin Sodium/ Sulbactam Sodium 100 ml @ 100 mls/hr Q6 IVPB Last administered on 05/20/19 18:23; Admin Dose 100 MLS/HR; Start 05/19/19 at 13:00 Lactobacillus Acidophilus/ Rhamnosus (Culturelle) 1 cap BID PO Last administered on 05/20/19 09:16; Admin Dose 1 CAP; Start 05/19/19 at 21:00 GONZALEZ DAVIS MD May 20, 2019 18:34
[2019-05-20 19:10] VITALS: BP 140/79; PULSE 102; RESP 18
[2019-05-21] MEDS: AMPICILLIN/SULB 3 GM/NS (PMX) 100 ML IVPB SCH ×4 (00:42→18:07)
[2019-05-21 02:47] VITALS: BP 128/72; PULSE 96; RESP 18
[2019-05-21] MEDS: LEVOFLOXACIN 750 MG TABLET PO SCH (06:05)
[2019-05-21 07:56] VITALS: BP 133/71; PULSE 90; RESP 18
[2019-05-21] MEDS: FAMOTIDINE 20 MG TAB PO SCH (08:44)
[2019-05-21] MEDS: ASCORBIC ACID 500 MG TAB PO SCH (08:45)
[2019-05-21] MEDS: DOCUSATE SODIUM 100 MG CAP PO SCH (08:45)
[2019-05-21] MEDS: LACTOBACILLUS RHAMNOSUS CAP PO SCH ×2 (08:45→20:44)
[2019-05-21] MEDS: FERROUS SULFATE (EC) 325 MG TAB PO SCH (08:45)
[2019-05-21] MEDS: ENOXAPARIN 40 MG/0.4 ML SYG SC SCH (08:46)
--- NOTE | 2019-05-21 11:50 | CONS ---
Assessment/Plan Assessment/Plan Hospital Course (Demo Recall) ID PROGRESS NOTE CURRENT ABX: DAY # 12.5 =>Levaquin #6.5 + UNASYN #2 s/p Merrem 05/09 - 05/15 24H INTERVAL SUMMARY * POD #10-> S/P 05/11/[address] guided left back/psoas fluid collection catheter placement. * A/A/O -- ambulatory -- no fevers == WBC same as yesterday 11.8 -- * -- ESR HIGH @ 135 on 05/19/19 -- concern persistent infection -- UNASYN IV STARTED DIAGNOSTIC IMAGING * 05/20/19 CT: IMPRESSION:Successful percutaneous drainage of large right psoas abscess in patient with xanthogranulomatous pyelonephritis of the right kidney. 2 cm calculus right renal pelvis with double-J ureteral stent. Persistent stranding of perinephric fat not significantly changed.Cholelithiasis. Bibasilar atelectasis. * 05/11/19 CT: IMPRESSION: * 1. Right xanthogranulomatous pyelonephritis. There is a large abscess infiltrating into the right psoas muscle measuring approximately 3.8 x 4.1 x 13.6 cm. There is infiltration of the right iliacus muscle and right lateral abdominal wall muscles. With extension of the abscess posteriorly into the right paraspinal soft tissues at the level of L5 with component measuring approximately 3.6 x 8.1 x 9.5 cm. Findings appear slightly increased when compared to the prior examination. * 2. 1.3 cm calculus remains within the right renal pelvis. A right double-J ureteral stent is in place. * 3. Gallbladder sludge versus cholelithiasis. MICRO * 05/12/19 FLUID CX (+) BODY FLUID CULTURE Final Organism 1 PROTEUS MIRABILIS QUANTITY 2+ P. MIRAB M.I.C. RX --------- --- AMPICILLIN <=2 S CEFOTAXIME S CIPROFLOXACIN <=0.25 S GENTAMICIN <=1 S LEVOFLOXACIN <=0.12 S TOBRAMYCIN <=1 S TRIMETHOPRIM/SULFAMETHOXAZOLE <=20 S * 04/17/19 CYSTOSCOPY Proteus Mirabilis PHYSICAL EXAMINATION: GENERAL: VSS, NAD HEENT: AT, NC, NECK: Supple, CHEST: Rise symmetrical HEART: Pulse RRR ABDOMEN: Soft, obese -- DRAIN NOTED Right side EXTREMITIES: Warm, dry SKIN: No rash, no diaphoresis ID ASSESSMENT 38 yo F admit with: 1. SIRS -> Resolving sepsis 2. Acute GNR pyelonephritis with psoas abscess * POD #10-> S/P 05/11/[address] guided left back/psoas fluid collection catheter placement. 3. Hx of obstructive uropathy w/nephrolithiasis * s/p cystoscopy w/right JJ Stent placement 04/17/19 4. Gallbladder sludge versus cholelithiasis per CT 5. Anemia 6. Hx of COPD-> ASTHMA 7. Morbid obesity w/possible Obesity hypoventilation ABX ALLERGIES: KNDA INVASIVES: PIV CURRENT ABX: DAY # 12.5 =>Levaquin #6.5 + UNASYN #2 s/p Merrem 05/09 - 05/15 ID RECOMMENDATIONS/PLAN: 1. Continue current ABX -- concern with elevated ESR @ 135 and persistent leukocytosis is that she needs IV ABX * If the plan is for DC to [facility] when stable -- we could add additional PO coverage w/Augmentin until she can f/u there * Today she agrees to IV ABX - she has PIV in place RUEXT -- Will Rx Unasyn 2. Per Dr. Peck plan is to review repeat CT tomorrow -- Drain output down from 70cc -> to 50cc over 24H 3. Once drain removed -- anticipate DC on PO ABX x 10 days (Levaquin + Augmentin) to [facility] f/u Consultation Date/Type/Reason Admit Date/Time May 09, 2019 at 03:01 Initial Consult Date 05/09/19 Requesting Provider: BETH MON Date/Time of Note DATE: 05/21/19 TIME: 11:47 Exam/Review of Systems Exam Vitals Vital Signs Date Temp Pulse Resp B/P (MAP) Pulse Ox O2 O2 Flow FiO2 Time Delivery Rate 05/21/19 98.6 90 18 133/71 96 07:56 (91) 05/20/19 Room Air 15:12 Intake and Output 05/20/19 05/20/19 05/21/19 1515:00 23:00 07:00 IntakeIntake Total 1030 ml 900 ml 200 ml OutputOutput Total 20 ml 10 ml BalanceBalance 1030 ml 880 ml 190 ml Results Result Diagram: 05/21/19 0429 05/21/19 0429 Results 24hrs Laboratory Tests Test 05/21/19 04:29 White Blood Count 11.8 H Red Blood Count 3.20 L Hemoglobin 7.9 L Hematocrit 26.4 L Mean Corpuscular Volume 82.5 Mean Corpuscular Hemoglobin 24.7 L Mean Corpuscular Hemoglobin Concent 29.9 L Red Cell Distribution Width 21.0 H Platelet Count 486 H Mean Platelet Volume 8.7 Immature Granulocytes % 0.500 H Neutrophils % 58.7 Lymphocytes % 31.3 Monocytes % 7.4 Eosinophils % 1.7 Basophils % 0.4 Nucleated Red Blood Cells % 0.0 Immature Granulocytes # 0.060 H Neutrophils # 6.9 Lymphocytes # 3.7 H Monocytes # 0.9 Eosinophils # 0.2 Basophils # 0.1 Nucleated Red Blood Cells # 0.0 Sodium Level 140 Potassium Level 3.8 Chloride Level 105 Carbon Dioxide Level 28 Anion Gap 7 Blood Urea Nitrogen 9 Creatinine 0.78 Est Glomerular Filtrat Rate mL/min > 60 Glucose Level 97 Calcium Level 8.7 Medications Medication Current Medications IV Flush (NS 3 ml) 3 ml PER PROTOCOL IV Last administered on 05/15/19at 05:34; A dmin Dose 3 ML; Start 05/09/19 at 03:30 Ondansetron HCl (Zofran Inj) 4 mg Q6H PRN IV NAUSEA/VOMITING; Start 05/09/19 at 03:30 Acetaminophen (Tylenol Tab) 650 mg Q6H PRN PO .PAIN 1-3 OR TEMP Last adm inistered on 05/14/19at 01:48; Admin Dose 650 MG; Start 05/09/19 at 03:30 Hydromorphone HCl (Dilaudid) 1 mg Q4H PRN IV .SEVERE PAIN 7-10; Start 05/09/19 at 03:30 Ascorbic Acid (Vitamin C) 500 mg DAILY PO Last administered on 05/21/19at 08:45; Admin Dose 500 MG; Start 05/09/19 at 09:00 Ferrous Sulfate (Ferrous Sulfate (Ec)) 325 mg DAILY PO Last administered on 05/21/19at 08:45; Admin Dose 325 MG; Start 05/09/19 at 09:00 Levofloxacin (Levaquin) 750 mg DAILY@06 PO Last administered on 05/21/19 06:05; Admin Dose 750 MG; Start 05/15/19 at 13:00 Enoxaparin Sodium (Lovenox) 40 mg DAILY SC Last administered on 05/21/19 08:46; Admin Dose 40 MG; Start 05/18/19 at 09:00 Acetaminophen/ Hydrocodone Bitart ([place] (10/325)) 1 tab Q4H PRN PO MODERATE PAIN LEVEL 4-6; Start 05/17/19 at 20:00 Famotidine (Pepcid) 20 mg DAILY PO Last administered on 05/21/19 08:44; Admin Dose 20 MG; Start 05/18/19 at 09:00 Albuterol (Ventolin Hfa) 2 puff Q4H RESP THERAPY PRN INH SHORTNESS OF BREATH; Start 05/17/19 at 20:00 Ampicillin Sodium/ Sulbactam Sodium 100 ml @ 100 mls/hr Q6 IVPB Last administered on 05/21/19 06:05; Admin Dose 100 MLS/HR; Start 05/19/19 at 13:00 Lactobacillus Acidophilus/ Rhamnosus (Culturelle) 1 cap BID PO Last administered on 05/21/19 08:45; Admin Dose 1 CAP; Start 05/19/19 at 21:00 Docusate Sodium (Colace) 100 mg DAILY PO Last administered on 05/21/19 08:45; Admin Dose 100 MG; Start 05/21/19 at 09:00 FABY MALLORY NP May 21, 2019 11:50
[2019-05-21 14:37] VITALS: BP 136/87; PULSE 90; RESP 18
--- NOTE | 2019-05-21 16:19 | PN ---
Date/Time of Note Date/Time of Note DATE: 05/21/19 TIME: 16:18 Assessment/Plan VTE Prophylaxis Risk score (from Ns)>0 risk: 2 SCD applied (from Ns): No SCD contraindicated: low risk/ambulating Pharmacological prophylaxis: LMWH Lines/Catheters IV Catheter Type (from Nrs): Peripheral IV Urinary Cath still in place: No Assessment/Plan Hospital Course A/P 1. Rt Psoas abscess; sp IR drain placement. DC drain/ dc home if ok w Urology. 2. Nephrolithiasis; chr [place]. sp JJ stent 3. Anemia 4. Cholelithiasis 5. Asthma 6. Ac stress 7. Obesity 8. [place]/ [facility]? 9. Sepsis/ pyelo; proteus; less drain output. Repeated CT. S: 05/17 events noted 05/18 no fever 05/[address] 05/20: No pain fever or diarrhea. 05/21 no events O: vss PE no pallor reg s1s2 no mrg ctab bs dimin; nt, nd; no rrg; overweight. drain c/d/i no edema Result Diagram: 05/21/19 0429 05/21/19 0429 Results 24hrs Laboratory Tests Test 05/21/19 04:29 White Blood Count 11.8 H Red Blood Count 3.20 L Hemoglobin 7.9 L Hematocrit 26.4 L Mean Corpuscular Volume 82.5 Mean Corpuscular Hemoglobin 24.7 L Mean Corpuscular Hemoglobin Concent 29.9 L Red Cell Distribution Width 21.0 H Platelet Count 486 H Mean Platelet Volume 8.7 Immature Granulocytes % 0.500 H Neutrophils % 58.7 Lymphocytes % 31.3 Monocytes % 7.4 Eosinophils % 1.7 Basophils % 0.4 Nucleated Red Blood Cells % 0.0 Immature Granulocytes # 0.060 H Neutrophils # 6.9 Lymphocytes # 3.7 H Monocytes # 0.9 Eosinophils # 0.2 Basophils # 0.1 Nucleated Red Blood Cells # 0.0 Sodium Level 140 Potassium Level 3.8 Chloride Level 105 Carbon Dioxide Level 28 Anion Gap 7 Blood Urea Nitrogen 9 Creatinine 0.78 Est Glomerular Filtrat Rate mL/min > 60 Glucose Level 97 Calcium Level 8.7 Exam/Review of Systems Exam Vitals Vital Signs Date Temp Pulse Resp B/P (MAP) Pulse Ox O2 O2 Flow FiO2 Time Delivery Rate 05/21/19 98.2 90 18 136/87 99 14:37 (103) 05/20/19 Room Air 15:12 Intake and Output 05/20/19 05/20/19 05/21/19 1515:00 23:00 07:00 IntakeIntake Total 1030 ml 900 ml 200 ml OutputOutput Total 20 ml 10 ml BalanceBalance 1030 ml 880 ml 190 ml Results Results 24hrs Laboratory Tests Test 05/21/19 04:29 White Blood Count 11.8 H Red Blood Count 3.20 L Hemoglobin 7.9 L Hematocrit 26.4 L Mean Corpuscular Volume 82.5 Mean Corpuscular Hemoglobin 24.7 L Mean Corpuscular Hemoglobin Concent 29.9 L Red Cell Distribution Width 21.0 H Platelet Count 486 H Mean Platelet Volume 8.7 Immature Granulocytes % 0.500 H Neutrophils % 58.7 Lymphocytes % 31.3 Monocytes % 7.4 Eosinophils % 1.7 Basophils % 0.4 Nucleated Red Blood Cells % 0.0 Immature Granulocytes # 0.060 H Neutrophils # 6.9 Lymphocytes # 3.7 H Monocytes # 0.9 Eosinophils # 0.2 Basophils # 0.1 Nucleated Red Blood Cells # 0.0 Sodium Level 140 Potassium Level 3.8 Chloride Level 105 Carbon Dioxide Level 28 Anion Gap 7 Blood Urea Nitrogen 9 Creatinine 0.78 Est Glomerular Filtrat Rate mL/min > 60 Glucose Level 97 Calcium Level 8.7 Medications Medication Current Medications IV Flush (NS 3 ml) 3 ml PER PROTOCOL IV Last administered on 05/15/19at 05:34; Admin Dose 3 ML; Start 05/09/19 at 03:30 Ondansetron HCl (Zofran Inj) 4 mg Q6H PRN IV NAUSEA/VOMITING; Start 05/09/19 at 03:30 Acetaminophen (Tylenol Tab) 650 mg Q6H PRN PO .PAIN 1-3 OR TEMP Last administered on 05/14/19at 01:48; Admin Dose 650 MG; Start 05/09/19 at 03:30 Hydromorphone HCl (Dilaudid) 1 mg Q4H PRN IV .SEVERE PAIN 7-10; Start 05/09/19 at 03:30 Ascorbic Acid (Vitamin C) 500 mg DAILY PO Last administered on 05/21/19at 08:45; Admin Dose 500 MG; Start 05/09/19 at 09:00 Ferrous Sulfate (Ferrous Sulfate (Ec)) 325 mg DAILY PO Last administered on 05/21/19 08:45; Admin Dose 325 MG; Start 05/09/19 at 09:00 Levofloxacin (Levaquin) 750 mg DAILY@06 PO Last administered on 05/21/19 06:05; Admin Dose 750 MG; Start 05/15/19 at 13:00 Enoxaparin Sodium (Lovenox) 40 mg DAILY SC Last administered on 05/21/19 08:46; Admin Dose 40 MG; Start 05/18/19 at 09:00 Acetaminophen/ Hydrocodone Bitart ([place] (10)) 1 tab Q4H PRN PO MODERATE PAIN LEVEL 4-6; Start 05/17/19 at 20:00 Famotidine (Pepcid) 20 mg DAILY PO Last administered on 05/21/19 08:44; Admin Dose 20 MG; Start 05/18/19 at 09:00 Albuterol (Ventolin Hfa) 2 puff Q4H RESP THERAPY PRN INH SHORTNESS OF BREATH; Start 05/17/19 at 20:00 Ampicillin Sodium/ Sulbactam Sodium 100 ml @ 100 mls/hr Q6 IVPB Last administered on 05/21/19 12:39; Admin Dose 100 MLS/HR; Start 05/19/19 at 13:00 Lactobacillus Acidophilus/ Rhamnosus (Culturelle) 1 cap BID PO Last administered on 05/21/19 08:45; Admin Dose 1 CAP; Start 05/19/19 at 21:00 Docusate Sodium (Colace) 100 mg DAILY PO Last administered on 05/21/19 08:45; Admin Dose 100 MG; Start 05/21/19 at 09:00 GONZALEZ DAVIS MD May 21, 2019 16:19
--- NOTE | 2019-05-21 18:44 | CONS ---
Consult Date/Type/Reason Admit Date/Time May 09, 2019 at 03:01 Initial Consult Date 05/09/19 Type of Consultation: Urology Reason for Consultation Right psoas abscess Requesting Provider: BETH MON Date/Time of Note DATE: 05/21/19 TIME: 18:39 Subjective She is feeling better and she is up and around. Objective Vitals Vital Signs Date Temp Pulse Resp B/P (MAP) Pulse Ox O2 O2 Flow FiO2 Time Delivery Rate 05/21/19 98.2 90 18 136/87 99 14:37 (103) 05/20/19 Room Air 15:12 Intake and Output 05/20/19 05/20/19 05/21/19 1515:00 23:00 07:00 IntakeIntake Total 1030 ml 900 ml 200 ml OutputOutput Total 20 ml 10 ml BalanceBalance 1030 ml 880 ml 190 ml Exam The abdomen is soft. The accordion drain drained about 30 mL in the past 24 hours. Results/Medications Result Diagram: 05/21/19 0429 05/21/19 0429 Results 24 hrs Laboratory Tests Test 05/21/19 04:29 White Blood Count 11.8 H Red Blood Count 3.20 L Hemoglobin 7.9 L Hematocrit 26.4 L Mean Corpuscular Volume 82.5 Mean Corpuscular Hemoglobin 24.7 L Mean Corpuscular Hemoglobin Concent 29.9 L Red Cell Distribution Width 21.0 H Platelet Count 486 H Mean Platelet Volume 8.7 Immature Granulocytes % 0.500 H Neutrophils % 58.7 Lymphocytes % 31.3 Monocytes % 7.4 Eosinophils % 1.7 Basophils % 0.4 Nucleated Red Blood Cells % 0.0 Immature Granulocytes # 0.060 H Neutrophils # 6.9 Lymphocytes # 3.7 H Monocytes # 0.9 Eosinophils # 0.2 Basophils # 0.1 Nucleated Red Blood Cells # 0.0 Sodium Level 140 Potassium Level 3.8 Chloride Level 105 Carbon Dioxide Level 28 Anion Gap 7 Blood Urea Nitrogen 9 Creatinine 0.78 Est Glomerular Filtrat Rate mL/min > 60 Glucose Level 97 Calcium Level 8.7 Home Meds Reported Medications Acetaminophen* (Acetaminophen*) 500 MG Extra Strength Tablet, 500 MG PO Q4H PRN for PAIN AND OR ELEVATED TEMP, TAB 05/09/19 Ferrous Sulfate* (Ferrous Sulfate*) 325 Mg Tabec, 325 MG PO DAILY, TAB 05/09/19 Ascorbic Acid* (Vitamin C*) 500 Mg Capsule.sa, 500 MG PO DAILY, CAP 05/09/19 Medications Current Medications IV Flush (NS 3 ml) 3 ml PER PROTOCOL IV Last administered on 05/15/19 05:34; Admin Dose 3 ML; Start 05/09/19 at 03:30 Ondansetron HCl (Zofran Inj) 4 mg Q6H PRN IV NAUSEA/VOMITING; Start 05/09/19 at 03:30 Acetaminophen (Tylenol Tab) 650 mg Q6H PRN PO .PAIN 1-3 OR TEMP Last administered on 05/14/19 01:48; Admin Dose 650 MG; Start 05/09/19 at 03:30 Hydromorphone HCl (Dilaudid) 1 mg Q4H PRN IV .SEVERE PAIN 7-10; Start 05/09/19 at 03:30 Ascorbic Acid (Vitamin C) 500 mg DAILY PO Last administered on 05/21/19 08:45; Admin Dose 500 MG; Start 05/09/19 at 09:00 Ferrous Sulfate (Ferrous Sulfate (Ec)) 325 mg DAILY PO Last administered on 05/21/19 08:45; Admin Dose 325 MG; Start 05/09/19 at 09:00 Levofloxacin (Levaquin) 750 mg DAILY@06 PO Last administered on 05/21/19 06:05; Admin Dose 750 MG; Start 05/15/19 at 13:00 Enoxaparin Sodium (Lovenox) 40 mg DAILY SC Last administered on 05/21/19 08:46; Admin Dose 40 MG; Start 05/18/19 at 09:00 Acetaminophen/ Hydrocodone Bitart ([place] (10/325)) 1 tab Q4H PRN PO MODERATE PAIN LEVEL 4-6; Start 05/17/19 at 20:00 Famotidine (Pepcid) 20 mg DAILY PO Last administered on 05/21/19 08:44; Admin Dose 20 MG; Start 05/18/19 at 09:00 Albuterol (Ventolin Hfa) 2 puff Q4H RESP THERAPY PRN INH SHORTNESS OF BREATH; Start 05/17/19 at 20:00 Ampicillin Sodium/ Sulbactam Sodium 100 ml @ 100 mls/hr Q6 IVPB Last administered on 7/7/19at 18:07; Admin Dose 100 MLS/HR; Start 05/19/19 at 13:00 Docusate Sodium (Colace) 100 mg DAILY PO Last administered on 05/21/19at 08:45; Admin Dose 100 MG; Start 05/21/19 at 09:00 Lactobacillus Acidophilus/ Rhamnosus (Culturelle) 1 cap BID PO ; Start 05/21/19 a t 21:00 Assessment/Plan Hospital Course (Demo Recall) 38-year-old female was hospitalized earlier this month with right renal stone with obstruction. She underwent cystoscopy and insertion of right ureteral JJ stent on 04/17/2019. Patient was supposed to follow-up with [facility] but she did not. She comes back today feeling discomfort in the right side of the abdomen. She denies any fever or chills and no back pain. CT scan of the abdomen and pelvis showed: Severe right-sided hydronephrosis with perinephric stranding and fluid, un changed from 04/16/2019. Underlying infection cannot be excluded. There is a right-sided ureteral stent with calcifications surrounding the proximal pigtail within the renal pelvis which is unchanged. Enlargement of the right iliopsoas and iliacus muscles with surrounding stranding suspicious for underlying abscess, increased compared with the prior study. There is increased posterior extension. Distended gallbladder with multiple gallstones. Prominence of the left labia, unchanged. Clinically correlate. CT scan of the abdomen and pelvis with IV contrast done on 05/11/2019 showed: 1. Right xanthogranulomatous pyelonephritis. There is a large abscess infiltrating into the right psoas muscle measuring approximately 3.8 x 4.1 x 13.6 cm. There is infiltration of the right iliacus muscle and right lateral abdominal wall muscles. With extension of the abscess posteriorly into the right paraspinal soft tissues at the level of L5 with component measuring approximately 3.6 x 8.1 x 9.5 cm. Findings appear slightly increased when compared to the prior examination. 2. 1.3 cm calculus remains within the right renal pelvis. A right double-J ureteral stent is in place. 3. Gallbladder sludge versus cholelithiasis. With these findings on the CT scan the patient underwent aspiration and drainage of the abscess. The drainage from the accordion drain is 30mL in the past [address] She had a [address] scan of the abdomen and pelvis on 05/20/2019 and that showed: Successful percutaneous drainage of large right psoas abscess in patient with xanthogranulomatous pyelonephritis of the right kidney. 2 cm calculus right renal pelvis with double-J ureteral stent. Persistent stranding of perinephric fat not significantly changed. Cholelithiasis. Bibasilar atelectasis. Continue to monitor the output from the accordion drain. We will remove the drain once the drainage is 10 to 15 mL per 24 hours. Then the patient will be discharged and she has to go to [facility] for treatment of her kidney stone. CORTNEY PETTY MD May 21, 2019 18:44
[2019-05-21 19:10] VITALS: BP 132/67; PULSE 92; RESP 18
[2019-05-22] MEDS: AMPICILLIN/SULB 3 GM/NS (PMX) 100 ML IVPB SCH ×5 (00:09→23:30)
[2019-05-22 02:16] VITALS: BP 123/58; PULSE 81; RESP 18
[2019-05-22] MEDS: LEVOFLOXACIN 750 MG TABLET PO SCH (05:30)
[2019-05-22 07:27] VITALS: BP 121/69; PULSE 101; RESP 19
[2019-05-22] MEDS: FAMOTIDINE 20 MG TAB PO SCH (08:56)
[2019-05-22] MEDS: LACTOBACILLUS RHAMNOSUS CAP PO SCH ×2 (08:56→21:14)
[2019-05-22] MEDS: FERROUS SULFATE (EC) 325 MG TAB PO SCH (08:56)
[2019-05-22] MEDS: ASCORBIC ACID 500 MG TAB PO SCH (08:56)
[2019-05-22] MEDS: DOCUSATE SODIUM 100 MG CAP PO SCH (08:56)
[2019-05-22] MEDS: ENOXAPARIN 40 MG/0.4 ML SYG SC SCH (08:59)
--- NOTE | 2019-05-22 09:05 | PN ---
Date/Time of Note Date/Time of Note DATE: 05/22/19 TIME: 09:03 Assessment/Plan VTE Prophylaxis Risk score (from Ns)>0 risk: 0 SCD applied (from Nsg): Yes Pharmacological prophylaxis: NA/contraindicated Pharm contraindication: other (Anemia.) Lines/Catheters IV Catheter Type (from [facility]): Peripheral IV Urinary Cath still in place: No Assessment/Plan Hospital Course SUBJECTIVE: Denies any abdominal pain. OBJECTIVE: Physical Exam General: Morbidly obese 38 year-old female lying in bed in no apparent distress. HEENT: Normocephalic, atraumatic. Eyes: Anicteric sclerae, conjunctivae clear. ENT: Nasal septum midline, oral mucosa moist. Neck: Short and obese. Respiratory: Bilaterally clear breath sounds. No use of accessory muscles of res piration. No adventitious breath sounds. Cardiovascular: S1, S2 heard. Regular rate and rhythm. Abdomen: Soft and nondistended. Bowel sounds positive in all 4 quadrants. Right flank area drain that is draining milky secretions. Genitourinary: Tenderness in the right flank. Extremities: No cyanosis, no clubbing, no edema. Peripheral pulses palpable. Neurologic: Cranial nerves II through XII grossly intact. The patient is awake, alert, and oriented. Skin: Normal skin turgor. No skin rashes. ASSESSMENT & PLAN 38-year-old female with comorbidities including obesity, asthma, and iron deficiency anemia with a staghorn calculus within the right renal pelvis status post cystoscopy and stent placement, who was discharged on April 19, 2019, to be followed up with [facility], who came back to the emergency room on 05/09/2019 with chief complaint of right flank pain with underlying sepsis and abdominal imaging showing severe right-sided hydronephrosis with perinephric stranding, who was admitted to inpatient setting for further treatment and evaluation. 1. S/P sepsis with leukocytosis and tachycardia, secondary to underlying complicated urinary tract infection, present on admission. Continue empiric antimicrobials. Urine cultures inconclusive. 2. Severe right-sided hydronephrosis. Status post right ureteral stenting on 04/17/2019. Being followed by urology. 3. Right psoas muscle abscess. Status post IR guided drain placement on 05/11/2019. Culture showing Proteus mirabilis. 4. Iron deficiency anemia. Continue iron supplements. 5. History of asthma. No evidence of any exacerbation. 6. Morbid obesity. Weight reduction and lifestyle changes advised. 7. DVT prophylaxis. Bilateral SCDs. 8. Plan. Continue antimicrobials as per ID. DC planning is to home after the drain is discontinued once the output is minimal (10 to 15 mL in 24 hours). The patient was seen in collaboration with Dr. Mc. Result Diagram: 05/22/19 0455 05/22/19 0500 Results 24hrs Laboratory Tests Test 05/22/19 04:55 05/22/19 05:00 White Blood Count 10.7 Red Blood Count 3.16 L Hemoglobin 7.8 L Hematocrit 26.1 L Mean Corpuscular Volume 82.6 Mean Corpuscular Hemoglobin 24.7 L Mean Corpuscular Hemoglobin Concent 29.9 L Red Cell Distribution Width 21.0 H Platelet Count 448 H Mean Platelet Volume 8.7 Immature Granulocytes % 0.300 Neutrophils % 55.5 Lymphocytes % 34.3 Monocytes % 7.5 Eosinophils % 1.8 Basophils % 0.6 Nucleated Red Blood Cells % 0.0 Immature Granulocytes # 0.030 Neutrophils # 6.0 Lymphocytes # 3.7 H Monocytes # 0.8 Eosinophils # 0.2 Basophils # 0.1 Nucleated Red Blood Cells # 0.0 Sodium Level 141 Potassium Level 3.4 L Chloride Level 107 Carbon Dioxide Level 28 Anion Gap 6 Blood Urea Nitrogen 9 Creatinine 0.76 Est Glomerular Filtrat Rate mL/min > 60 Glucose Level 102 Calcium Level 8.9 Total Bilirubin 0.4 Direct Bilirubin 0.00 Indirect Bilirubin 0.4 Aspartate Amino Transf (AST/SGOT) 15 Alanine Aminotransferase (ALT/SGPT) 10 L Alkaline Phosphatase 124 H Total Protein 7.9 Albumin 3.0 L Globulin 4.90 H Albumin/Globulin Ratio 0.61 Exam/Review of Systems Exam Vitals Vital Signs Date Temp Pulse Resp B/P (MAP) Pulse Ox O2 O2 Flow FiO2 Time Delivery Rate 05/22/19 98.2 101 19 121/69 98 07:27 (86) 05/20/19 Room Air 15:12 Intake and Output 05/21/19 05/21/19 05/22/19 1515:00 23:00 07:00 IntakeIntake Total 350 ml 200 ml OutputOutput Total 40 ml 25 ml BalanceBalance 310 ml 175 ml Results Results 24hrs Laboratory Tests Test 05/22/19 04:55 05/22/19 05:00 White Blood Count 10.7 Red Blood Count 3.16 L Hemoglobin 7.8 L Hematocrit 26.1 L Mean Corpuscular Volume 82.6 Mean Corpuscular Hemoglobin 24.7 L Mean Corpuscular Hemoglobin Concent 29.9 L Red Cell Distribution Width 21.0 H Platelet Count 448 H Mean Platelet Volume 8.7 Immature Granulocytes % 0.300 Neutrophils % 55.5 Lymphocytes % 34.3 Monocytes % 7.5 Eosinophils % 1.8 Basophils % 0.6 Nucleated Red Blood Cells % 0.0 Immature Granulocytes # 0.030 Neutrophils # 6.0 Lymphocytes # 3.7 H Monocytes # 0.8 Eosinophils # 0.2 Basophils # 0.1 Nucleated Red Blood Cells # 0.0 Sodium Level 141 Potassium Level 3.4 L Chloride Level 107 Carbon Dioxide Level 28 Anion Gap 6 Blood Urea Nitrogen 9 Creatinine 0.76 Est Glomerular Filtrat Rate mL/min > 60 Glucose Level 102 Calcium Level 8.9 Total Bilirubin 0.4 Direct Bilirubin 0.00 Indirect Bilirubin 0.4 Aspartate Amino Transf (AST/SGOT) 15 Alanine Aminotransferase (ALT/SGPT) 10 L Alkaline Phosphatase 124 H Total Protein 7.9 Albumin 3.0 L Globulin 4.90 H Albumin/Globulin Ratio 0.61 Medications Medication Current Medications IV Flush (NS 3 ml) 3 ml PER PROTOCOL IV Last administered on 05/15/19at 05:34; Admin Dose 3 ML; Start 05/09/19 at 03:30 Ondansetron HCl (Zofran Inj) 4 mg Q6H PRN IV NAUSEA/VOMITING; Start 05/09/19 at 03:30 Acetaminophen (Tylenol Tab) 650 mg Q6H PRN PO .PAIN 1-3 OR TEMP Last administered on 05/14/19at 01:48; Admin Dose 650 MG; Start 05/09/19 at 03:30 Hydromorphone HCl (Dilaudid) 1 mg Q4H PRN IV .SEVERE PAIN 7-10; Start 05/09/19 at 03:30 Ascorbic Acid (Vitamin C) 500 mg DAILY PO Last administered on 05/22/19at 08:56; Admin Dose 500 MG; Start 05/09/19 at 09:00 Ferrous Sulfate (Ferrous Sulfate (Ec)) 325 mg DAILY PO Last administered on 05/22/19at 08:56; Admin Dose 325 MG; Start 05/09/19 at 09:00 Levofloxacin (Levaquin) 750 mg DAILY@06 PO Last administered on 05/22/19 05:30; Admin Dose 750 MG; Start 05/15/19 at 13:00 Enoxaparin Sodium (Lovenox) 40 mg DAILY SC Last administered on 05/22/19 08:59; Admin Dose 40 MG; Start 05/18/19 at 09:00 Acetaminophen/ Hydrocodone Bitart ([place] (10/325)) 1 tab Q4H PRN PO MODERATE PAIN LEVEL 4-6; Start 05/17/19 at 20:00 Famotidine (Pepcid) 20 mg DAILY PO Last administered on 05/22/19 08:56; Admin Dose 20 MG; Start 05/18/19 at 09:00 Albuterol (Ventolin Hfa) 2 puff Q4H RESP THERAPY PRN INH SHORTNESS OF BREATH; Start 05/17/19 at 20:00 Ampicillin Sodium/ Sulbactam Sodium 100 ml @ 100 mls/hr Q6 IVPB Last administered on 05/22/19 05:30; Admin Dose 100 MLS/HR; Start 05/19/19 at 13:00 Docusate Sodium (Colace) 100 mg DAILY PO Last administered on 05/22/19 08:56; Admin Dose 100 MG; Start 05/21/19 at 09:00 Lactobacillus Acidophilus/ Rhamnosus (Culturelle) 1 cap BID PO Last administered on 05/22/19 08:56; Admin Dose 1 CAP; Start 05/21/19 at 21:00 VIVEK PADGETT NP May 22, 2019 09:05
[2019-05-22] MEDS ORDERED: POTASSIUM CHLORIDE (SR) 10 MEQ TAB PO ONE (11:00)
--- NOTE | 2019-05-22 14:36 | CONS ---
Assessment/Plan Assessment/Plan Hospital Course (Demo Recall) ID PROGRESS NOTE CURRENT ABX: DAY # 13.5 =>Levaquin #7.5 + UNASYN #3 s/p Merrem 05/09 - 05/15 24H INTERVAL SUMMARY * POD #11-> S/P 05/11/[address] guided left back/psoas fluid collection catheter placement. * A/A/O -- ambulatory -- no fevers == WBC NORMALIZED TODAY * -- ESR HIGH @ 135 on 05/19/19 -- concern persistent infection -- UNASYN IV STARTED * --> LETTY DRAIN yesterday 30cc down from prior 50cc DIAGNOSTIC IMAGING * 05/20/19 CT: IMPRESSION:Successful percutaneous drainage of large right psoas abscess in patient with xanthogranulomatous pyelonephritis of the right kidney. 2 cm calculus right renal pelvis with double-J ureteral stent. Persistent stranding of perinephric fat not significantly changed.Cholelithiasis. Bibasilar atelectasis. * 05/11/19 CT: IMPRESSION: * 1. Right xanthogranulomatous pyelonephritis. There is a large abscess infiltrating into the right psoas muscle measuring approximately 3.8 x 4.1 x 13.6 cm. There is infiltration of the right iliacus muscle and right lateral abdominal wall muscles. With extension of the abscess posteriorly into the right paraspinal soft tissues at the level of L5 with component measuring approximately 3.6 x 8.1 x 9.5 cm. Findings appear slightly increased when compared to the prior examination. * 2. 1.3 cm calculus remains within the right renal pelvis. A right double-J ureteral stent is in place. * 3. Gallbladder sludge versus cholelithiasis. MICRO * 05/12/19 FLUID CX (+) BODY FLUID CULTURE Final Organism 1 PROTEUS MIRABILIS QUANTITY 2+ P. MIRAB M.I.C. RX --------- --- AMPICILLIN <=2 S CEFOTAXIME S CIPROFLOXACIN <=0.25 S GENTAMICIN <=1 S LEVOFLOXACIN <=0.12 S TOBRAMYCIN <=1 S TRIMETHOPRIM/SULFAMETHOXAZOLE <=20 S * 04/17/19 CYSTOSCOPY Proteus Mirabilis PHYSICAL EXAMINATION: GENERAL: VSS, NAD HEENT: AT, NC, NECK: Supple, CHEST: Rise symmetrical HEART: Pulse RRR ABDOMEN: Soft, obese -- DRAIN NOTED Right side EXTREMITIES: Warm, dry SKIN: No rash, no diaphoresis ID ASSESSMENT 38 yo F admit with: 1. SIRS -> Resolving sepsis 2. Acute GNR pyelonephritis with psoas abscess * POD #11-> S/P 05/11/[address] guided left back/psoas fluid collection catheter placement. 3. Hx of obstructive uropathy w/nephrolithiasis * s/p cystoscopy w/right JJ Stent placement 04/17/19 4. Gallbladder sludge versus cholelithiasis per CT 5. Anemia 6. Hx of COPD-> ASTHMA 7. Morbid obesity w/possible Obesity hypoventilation ABX ALLERGIES: KNDA INVASIVES: PIV CURRENT ABX: DAY # 12.5 =>Levaquin #6.5 + UNASYN #2 s/p Merrem 05/09 - 05/15 ID RECOMMENDATIONS/PLAN: 1. Continue current ABX -- Improved w/additional Unasyn 2. Per Dr. Peck plan is to remove LETTY prior to discharge when drain output decreases * - Drain output down from 70cc -> to 50cc over 24H --> yesterday 30cc 3. Once drain removed -- anticipate DC on PO ABX x 10 days (Levaquin + Augmentin) to [facility] f/u Consultation Date/Type/Reason Admit Date/Time May 09, 2019 at 03:01 Initial Consult Date 05/09/19 Requesting Provider: BETH MON Date/Time of Note DATE: 05/22/19 TIME: 14:34 Exam/Review of Systems Exam Vitals Vital Signs Date Temp Pulse Resp B/P (MAP) Pulse Ox O2 O2 Flow FiO2 Time Delivery Rate 05/22/19 98.2 101 19 121/69 98 07:27 (86) 05/20/19 Room Air 15:12 Intake and Output 05/21/19 05/21/19 05/22/19 1515:00 23:00 07:00 IntakeIntake Total 350 ml 200 ml OutputOutput Total 40 ml 25 ml BalanceBalance 310 ml 175 ml Results Result Diagram: 05/22/19 0455 05/22/19 0500 Results 24hrs Laboratory Tests Test 05/22/19 04:55 05/22/19 05:00 White Blood Count 10.7 Red Blood Count 3.16 L Hemoglobin 7.8 L Hematocrit 26.1 L Mean Corpuscular Volume 82.6 Mean Corpuscular Hemoglobin 24.7 L Mean Corpuscular Hemoglobin Concent 29.9 L Red Cell Distribution Width 21.0 H Platelet Count 448 H Mean Platelet Volume 8.7 Immature Granulocytes % 0.300 Neutrophils % 55.5 Lymphocytes % 34.3 Monocytes % 7.5 Eosinophils % 1.8 Basophils % 0.6 Nucleated Red Blood Cells % 0.0 Immature Granulocytes # 0.030 Neutrophils # 6.0 Lymphocytes # 3.7 H Monocytes # 0.8 Eosinophils # 0.2 Basophils # 0.1 Nucleated Red Blood Cells # 0.0 Sodium Level 141 Potassium Level 3.4 L Chloride Level 107 Carbon Dioxide Level 28 Anion Gap 6 Blood Urea Nitrogen 9 Creatinine 0.76 Est Glomerular Filtrat Rate mL/min > 60 Glucose Level 102 Calcium Level 8.9 Total Bilirubin 0.4 Direct Bilirubin 0.00 Indirect Bilirubin 0.4 Aspartate Amino Transf (AST/SGOT) 15 Alanine Aminotransferase (ALT/SGPT) 10 L Alkaline Phosphatase 124 H Total Protein 7.9 Albumin 3.0 L Globulin 4.90 H Albumin/Globulin Ratio 0.61 Medications Medication Current Medications IV Flush (NS 3 ml) 3 ml PER PROTOCOL IV Last administered on 05/15/19at 05:34; Admin Dose 3 ML; Start 05/09/19 at 03:30 Ondansetron HCl (Zofran Inj) 4 mg Q6H PRN IV NAUSEA/VOMITING; Start 05/09/19 at 03:30 Acetaminophen (Tylenol Tab) 650 mg Q6H PRN PO .PAIN 1-3 OR TEMP Last administered on 05/14/19at 01:48; Admin Dose 650 MG; Start 05/09/19 at 03:30 Hydromorphone HCl (Dilaudid) 1 mg Q4H PRN IV .SEVERE PAIN 7-10; Start 05/09/19 at 03:30 Ascorbic Acid (Vitamin C) 500 mg DAILY PO Last administered on 05/22/19at 08:56; Admin Dose 500 MG; Start 05/09/19 at 09:00 Ferrous Sulfate (Ferrous Sulfate (Ec)) 325 mg DAILY PO Last administered on 05/22/19at 08:56; Admin Dose 325 MG; Start 05/09/19 at 09:00 Levofloxacin (Levaquin) 750 mg DAILY@06 PO Last administered on 05/22/19 05:30; Admin Dose 750 MG; Start 05/15/19 at 13:00 Enoxaparin Sodium (Lovenox) 40 mg DAILY SC Last administered on 05/22/19 08:59; Admin Dose 40 MG; Start 05/18/19 at 09:00 Acetaminophen/ Hydrocodone Bitart ([place] (10/325)) 1 tab Q4H PRN PO MODERATE PAIN LEVEL 4-6; Start 05/17/19 at 20:00 Famotidine (Pepcid) 20 mg DAILY PO Last administered on 05/22/19 08:56; Admin Dose 20 MG; Start 05/18/19 at 09:00 Albuterol (Ventolin Hfa) 2 puff Q4H RESP THERAPY PRN INH SHORTNESS OF BREATH; Start 05/17/19 at 20:00 Ampicillin Sodium/ Sulbactam Sodium 100 ml @ 100 mls/hr Q6 IVPB Last administered on 05/22/19 11:04; Admin Dose 100 MLS/HR; Start 05/19/19 at 13:00 Docusate Sodium (Colace) 100 mg DAILY PO Last administered on 05/22/19 08:56; Admin Dose 100 MG; Start 05/21/19 at 09:00 Lactobacillus Acidophilus/ Rhamnosus (Culturelle) 1 cap BID PO Last administered on 05/22/19 08:56; Admin Dose 1 CAP; Start 05/21/19 at 21:00 FABY MALLORY NP May 22, 2019 14:36
[2019-05-22 14:42] VITALS: BP 118/78; PULSE 115; RESP 20
--- NOTE | 2019-05-22 18:44 | CONS ---
Consult Date/Type/Reason Admit Date/Time May 09, 2019 at 03:01 Initial Consult Date 05/09/19 Type of Consultation: Urology Reason for Consultation Right psoas abscess Requesting Provider: BETH MON Date/Time of Note DATE: 05/22/19 TIME: 18:39 Subjective Patient is feeling much better. She is ambulating and has no pain Objective Vitals Vital Signs Date Temp Pulse Resp B/P (MAP) Pulse Ox O2 O2 Flow FiO2 Time Delivery Rate 05/22/19 97.2 115 20 118/78 97 14:42 (91) 05/20/19 Room Air 15:12 Intake and Output 05/21/19 05/21/19 05/22/19 1515:00 23:00 07:00 IntakeIntake Total 350 ml 200 ml OutputOutput Total 40 ml 25 ml BalanceBalance 310 ml 175 ml Exam The accordion drain still draining. It did drain 30 mL then 65 mL per 24 hours and now 20 ml Results/Medications Result Diagram: 05/22/19 0455 05/22/19 0500 Results 24 hrs Laboratory Tests Test 05/22/19 04:55 05/22/19 05:00 White Blood Count 10.7 Red Blood Count 3.16 L Hemoglobin 7.8 L Hematocrit 26.1 L Mean Corpuscular Volume 82.6 Mean Corpuscular Hemoglobin 24.7 L Mean Corpuscular Hemoglobin Concent 29.9 L Red Cell Distribution Width 21.0 H Platelet Count 448 H Mean Platelet Volume 8.7 Immature Granulocytes % 0.300 Neutrophils % 55.5 Lymphocytes % 34.3 Monocytes % 7.5 Eosinophils % 1.8 Basophils % 0.6 Nucleated Red Blood Cells % 0.0 Immature Granulocytes # 0.030 Neutrophils # 6.0 Lymphocytes # 3.7 H Monocytes # 0.8 Eosinophils # 0.2 Basophils # 0.1 Nucleated Red Blood Cells # 0.0 Sodium Level 141 Potassium Level 3.4 L Chloride Level 107 Carbon Dioxide Level 28 Anion Gap 6 Blood Urea Nitrogen 9 Creatinine 0.76 Est Glomerular Filtrat Rate mL/min > 60 Glucose Level 102 Calcium Level 8.9 Total Bilirubin 0.4 Direct Bilirubin 0.00 Indirect Bilirubin 0.4 Aspartate Amino Transf (AST/SGOT) 15 Alanine Aminotransferase (ALT/SGPT) 10 L Alkaline Phosphatase 124 H Total Protein 7.9 Albumin 3.0 L Globulin 4.90 H Albumin/Globulin Ratio 0.61 Home Meds Reported Medications Acetaminophen* (Acetaminophen*) 500 MG Extra Strength Tablet, 500 MG PO Q4H PRN for PAIN AND OR ELEVATED TEMP, TAB 05/09/19 Ferrous Sulfate* (Ferrous Sulfate*) 325 Mg Tabec, 325 MG PO DAILY, TAB 05/09/19 Ascorbic Acid* (Vitamin C*) 500 Mg Capsule.sa, 500 MG PO DAILY, CAP 05/09/19 Medications Current Medications IV Flush (NS 3 ml) 3 ml PER PROTOCOL IV Last administered on 05/15/19 05:34; Admin Dose 3 ML; Start 05/09/19 at 03:30 Ondansetron HCl (Zofran Inj) 4 mg Q6H PRN IV NAUSEA/VOMITING; Start 05/09/19 at 03:30 Acetaminophen (Tylenol Tab) 650 mg Q6H PRN PO .PAIN 1-3 OR TEMP Last administered on 05/14/19at 01:48; Admin Dose 650 MG; Start 05/09/19 at 03:30 Hydromorphone HCl (Dilaudid) 1 mg Q4H PRN IV .SEVERE PAIN 7-10; Start 05/09/19 at 03:30 Ascorbic Acid (Vitamin C) 500 mg DAILY PO Last administered on 05/22/19 08:56; Admin Dose 500 MG; Start 05/09/19 at 09:00 Ferrous Sulfate (Ferrous Sulfate (Ec)) 325 mg DAILY PO Last administered on 05/22/19 08:56; Admin Dose 325 MG; Start 05/09/19 at 09:00 Levofloxacin (Levaquin) 750 mg DAILY@06 PO Last administered on 05/22/19 05:30; Admin Dose 750 MG; Start 05/15/19 at 13:00 Enoxaparin Sodium (Lovenox) 40 mg DAILY SC Last administered on 05/22/19 08:59; Admin Dose 40 MG; Start 05/18/19 at 09:00 Acetaminophen/ Hydrocodone Bitart ([place] (10/325)) 1 tab Q4H PRN PO MODERATE PAIN LEVEL 4-6; Start 05/17/19 at 20:00 Famotidine (Pepcid) 20 mg DAILY PO Last administered on 05/22/19 08:56; Admin Dose 20 MG; Start 05/18/19 at 09:00 Albuterol (Ventolin Hfa) 2 puff Q4H RESP THERAPY PRN INH SHORTNESS OF BREATH; Start 05/17/19 at 20:00 Ampicillin Sodium/ Sulbactam Sodium 100 ml @ 100 mls/hr Q6 IVPB Last administered on 05/22/19at 17:05; Admin Dose 100 MLS/HR; Start 05/19/19 at 13:00 Docusate Sodium (Colace) 100 mg DAILY PO Last administered on 05/22/19at 08:56; Admin Dose 100 MG; Start 05/21/19 at 09:00 Lactobacillus Acidophilus/ Rhamnosus (Culturelle) 1 cap BID PO Last administered on 05/22/19at 08:56; Admin Dose 1 CAP; Start 05/21/19 at 21:00 Assessment/Plan Hospital Course (Demo Recall) 38-year-old female was hospitalized earlier this month with right renal stone with obstruction. She underwent cystoscopy and insertion of right ureteral JJ stent on 04/17/2019. Patient was supposed to follow-up with [facility] but she did not. She comes back today feeling discomfort in the right side of the abdomen. She denies any fever or chills and no back pain. CT scan of the abdomen and pelvis showed: Severe right-sided hydronephrosis with perinephric stranding and fluid, unchanged from 04/16/2019. Underlying infection cannot be excluded. There is a right-sided ureteral stent with calcifications surrounding the proximal pigtail within the renal pelvis which is unchanged. Enlargement of the right iliopsoas and iliacus muscles with surrounding stranding suspicious for underlying abscess, increased compared with the prior study. There is increased posterior extension. Distended gallbladder with multiple gallstones. Prominence of the left labia, unchanged. Clinically correlate. CT scan of the abdomen and pelvis with IV contrast done on 05/11/2019 showed: 1. Right xanthogranulomatous pyelonephritis. There is a large abscess infiltrating into the right psoas muscle measuring approximately 3.8 x 4.1 x 13.6 cm. There is infiltration of the right iliacus muscle and right lateral abdominal wall muscles. With extension of the abscess posteriorly into the right paraspinal soft tissues at the level of L5 with component measuring approximately 3.6 x 8.1 x 9.5 cm. Findings appear slightly increased when compared to the prior examination. 2. 1.3 cm calculus remains within the right renal pelvis. A right double-J ureteral stent is in place. 3. Gallbladder sludge versus cholelithiasis. With these findings on the CT scan the patient underwent aspiration and drainage of the abscess. The drainage from the accordion drain is 30mL in the past [address] She had a [address] scan of the abdomen and pelvis on 05/20/2019 and that showed: Successful percutaneous drainage of large right psoas abscess in patient with xanthogranulomatous pyelonephritis of the right kidney. 2 cm calculus right renal pelvis with double-J ureteral stent. Persistent stranding of perinephric fat not significantly changed. Cholelithiasis. Bibasilar atelectasis. Continue to monitor the output from the accordion drain. It has been fluctuating up and down from 30 mL to 65 mL and the last shift was only 20 mL. We will remove the drain once the drainage is 10 to 15 mL per 24 hours. Then the patient will be discharged and she has to go to [facility] for treatment of her kidney stone. CORTNEY PETTY MD May 22, 2019 18:44
[2019-05-22 20:15] VITALS: BP 119/69; PULSE 98; RESP 18
[2019-05-23 01:40] VITALS: BP 122/67; PULSE 93; RESP 18
--- NOTE | 2019-05-23 05:55 | PN ---
Date/Time of Note Date/Time of Note DATE: 05/23/19 TIME: 05:54 Assessment/Plan VTE Prophylaxis Risk score (from Ns)>0 risk: 1 SCD applied (from Nsg): Yes Pharmacological prophylaxis: NA/contraindicated Pharm contraindication: low risk/ambulating Lines/Catheters IV C[facility]ter Type (from [facility] Saline Lock Urinary Cath still in place: No Assessment/Plan Hospital Course SUBJECTIVE: Denies any abdominal pain. OBJECTIVE: Physical Exam General: Morbidly obese 38 year-old female lying in bed in no apparent distress. HEENT: Normocephalic, atraumatic. Eyes: Anicteric sclerae, conjunctivae clear. ENT: Nasal septum midline, oral mucosa moist. Neck: Short and obese. Respiratory: Bilaterally clear breath sounds. No use of accessory muscles of r espiration. No adventitious breath sounds. Cardiovascular: S1, S2 heard. Regular rate and rhythm. Abdomen: Soft and nondistended. Bowel sounds positive in all 4 quadrants. Right flank area drain that is draining milky secretions. Genitourinary: Tenderness in the right flank. Extremities: No cyanosis, no clubbing, no edema. Peripheral pulses palpable. Neurologic: Cranial nerves II through XII grossly intact. The patient is awake, alert, and oriented. Skin: Normal skin turgor. No skin rashes. ASSESSMENT & PLAN 38-year-old female with comorbidities including obesity, asthma, and iron deficiency anemia with a staghorn calculus within the right renal pelvis status post cystoscopy and stent placement, who was discharged on April 19, 2019, to be followed up with [facility], who came back to the emergency room on 05/09/2019 with chief complaint of right flank pain with underlying sepsis and abdominal imaging showing severe right-sided hydronephrosis with perinephric stranding, who was admitted to inpatient setting for further treatment and evaluation. 1. S/P sepsis with leukocytosis and tachycardia, secondary to underlying complicated urinary tract infection, present on admission. Continue empiric antimicrobials. Urine cultures inconclusive. 2. Severe right-sided hydronephrosis. Status post right ureteral stenting on 04/17/2019. Being followed by urology. 3. Right psoas muscle abscess. Status post IR guided drain placement on 05/11/2019. Culture showing Proteus mirabilis. 4. Iron deficiency anemia. Continue iron supplements. 5. History of asthma. No evidence of any exacerbation. 6. Morbid obesity. Weight reduction and lifestyle changes advised. 7. DVT prophylaxis. Bilateral SCDs. 8. Plan. Continue antimicrobials as per ID. DC planning is to home after the drain is discontinued once the output is minimal (10 to 15 mL in 24 hours). The patient was seen in collaboration with Dr. Mc. Result Diagram: 05/23/19 0432 05/22/19 0500 Results 24hrs Laboratory Tests Test 05/23/19 04:32 White Blood Count 11.0 H Red Blood Count 3.14 L Hemoglobin 7.7 L Hematocrit 26.2 L Mean Corpuscular Volume 83.4 Mean Corpuscular Hemoglobin 24.5 L Mean Corpuscular Hemoglobin Concent 29.4 L Red Cell Distribution Width 20.7 H Platelet Count 464 H Mean Platelet Volume 8.9 Immature Granulocytes % 0.300 Neutrophils % 53.7 Lymphocytes % 37.2 Monocytes % 6.6 Eosinophils % 1.5 Basophils % 0.7 Nucleated Red Blood Cells % 0.0 Immature Granulocytes # 0.030 Neutrophils # 5.9 Lymphocytes # 4.1 H Monocytes # 0.7 Eosinophils # 0.2 Basophils # 0.1 Nucleated Red Blood Cells # 0.0 Exam/Review of Systems Exam Vitals Vital Signs Date Temp Pulse Resp B/P (MAP) Pulse Ox O2 O2 Flow FiO2 Time Delivery Rate 05/23/19 98.6 93 18 122/67 100 01:40 (85) 05/20/19 Room Air 15:12 Intake and Output 05/22/19 05/22/19 05/23/19 1414:59 22:59 06:59 IntakeIntake Total 500 ml 1075 ml 100 ml OutputOutput Total 20 ml BalanceBalance 500 ml 1055 ml 100 ml Results Results 24hrs Laboratory Tests Test 05/23/19 04:32 White Blood Count 11.0 H Red Blood Count 3.14 L Hemoglobin 7.7 L Hematocrit 26.2 L Mean Corpuscular Volume 83.4 Mean Corpuscular Hemoglobin 24.5 L Mean Corpuscular Hemoglobin Concent 29.4 L Red Cell Distribution Width 20.7 H Platelet Count 464 H Mean Platelet Volume 8.9 Immature Granulocytes % 0.300 Neutrophils % 53.7 Lymphocytes % 37.2 Monocytes % 6.6 Eosinophils % 1.5 Basophils % 0.7 Nucleated Red Blood Cells % 0.0 Immature Granulocytes # 0.030 Neutrophils # 5.9 Lymphocytes # 4.1 H Monocytes # 0.7 Eosinophils # 0.2 Basophils # 0.1 Nucleated Red Blood Cells # 0.0 Medications Medication Current Medications IV Flush (NS 3 ml) 3 ml PER PROTOCOL IV Last administered on 05/15/19 05:34; Admin Dose 3 ML; Start 05/09/19 at 03:30 Ondansetron HCl (Zofran Inj) 4 mg Q6H PRN IV NAUSEA/VOMITING; Start 05/09/19 at 03:30 Acetaminophen (Tylenol Tab) 650 mg Q6H PRN PO .PAIN 1-3 OR TEMP Last administered on 05/14/19 01:48; Admin Dose 650 MG; Start 05/09/19 at 03:30 Hydromorphone HCl (Dilaudid) 1 mg Q4H PRN IV .SEVERE PAIN 7-10; Start 05/09/19 at 03:30 Ascorbic Acid (Vitamin C) 500 mg DAILY PO Last administered on 05/22/19 08:56; Admin Dose 500 MG; Start 05/09/19 at 09:00 Ferrous Sulfate (Ferrous Sulfate (Ec)) 325 mg DAILY PO Last administered on 05/22/19 08:56; Admin Dose 325 MG; Start 05/09/19 at 09:00 Levofloxacin (Levaquin) 750 mg DAILY@06 PO Last administered on 05/22/19 05:30; Admin Dose 750 MG; Start 05/15/19 at 13:00 Enoxaparin Sodium (Lovenox) 40 mg DAILY SC Last administered on 05/22/19 08:59; Admin Dose 40 MG; Start 05/18/19 at 09:00 Acetaminophen/ Hydrocodone Bitart ([place] (10/325)) 1 tab Q4H PRN PO MODERATE PAIN LEVEL 4-6; Start 05/17/19 at 20:00 Famotidine (Pepcid) 20 mg DAILY PO Last administered on 05/22/19 08:56; Admin Dose 20 MG; Start 05/18/19 at 09:00 Albuterol (Ventolin Hfa) 2 puff Q4H RESP THERAPY PRN INH SHORTNESS OF BREATH; Start 05/17/19 at 20:00 Ampicillin Sodium/ Sulbactam Sodium 100 ml @ 100 mls/hr Q6 IVPB Last administered on 05/22/19at 23:30; Admin Dose 100 MLS/HR; Start 05/19/19 at 13:00 Docusate Sodium (Colace) 100 mg DAILY PO Last administered on 05/22/19at 08:56; Admin Dose 100 MG; Start 05/21/19 at 09:00 Lactobacillus Acidophilus/ Rhamnosus (Culturelle) 1 cap BID PO Last administered on 05/22/19at 21:14; Admin Dose 1 CAP; Start 05/21/19 at 21:00 VIVEK PADGETT NP May 23, 2019 05:55
[2019-05-23] MEDS: AMPICILLIN/SULB 3 GM/NS (PMX) 100 ML IVPB SCH ×4 (06:23→23:47)
[2019-05-23] MEDS: LEVOFLOXACIN 750 MG TABLET PO SCH (06:23)
[2019-05-23 08:23] VITALS: BP 136/70; PULSE 84; RESP 18
[2019-05-23] MEDS: DOCUSATE SODIUM 100 MG CAP PO SCH (09:29)
[2019-05-23] MEDS: LACTOBACILLUS RHAMNOSUS CAP PO SCH ×2 (09:29→21:49)
[2019-05-23] MEDS: FAMOTIDINE 20 MG TAB PO SCH (09:29)
[2019-05-23] MEDS: FERROUS SULFATE (EC) 325 MG TAB PO SCH (09:29)
[2019-05-23] MEDS: ASCORBIC ACID 500 MG TAB PO SCH (09:29)
[2019-05-23] MEDS: ENOXAPARIN 40 MG/0.4 ML SYG SC SCH (09:32)
--- NOTE | 2019-05-23 13:50 | CONS ---
Assessment/Plan Assessment/Plan Hospital Course (Demo Recall) Patient is alert and feels good Microbiology: Urine culture negative, fluid culture grew Proteus mirabilis Antimicrobials: Levaquin Unasyn Physical examination: This is a morbidly obese well-developed middle-aged woman who is alert in no distress. Head atraumatic normocephalic sclera nonicteric neck is obese chest rise symmetrical breath sounds diminished bases. Heart: S1- S2. Abdomen soft bowel sounds present, right sided intra-abdominal drainage catheter with bag full of pus like fluid. Extremities without cyanosis Assessment: 1. Acute pyelonephritis with psoas abscess, status post IR guided drainage 2. Resolving sepsis 3. Morbid obesity Plan: Remains stable, repeat CT noted, urology recommendations noted, continue abx, monitor drain output, DC Levaquin Consultation Date/Type/Reason Admit Date/Time May 09, 2019 at 03:01 Initial Consult Date 05/09/19 Type of Consult id Requesting Provider: BETH MON Date/Time of Note DATE: 05/23/19 TIME: 13:49 Exam/Review of Systems Exam Vitals Vital Signs Date Temp Pulse Resp B/P (MAP) Pulse Ox O2 O2 Flow FiO2 Time Delivery Rate 05/23/19 98.6 84 18 136/70 96 08:23 (92) 05/20/19 Room Air 15:12 Intake and Output 05/22/19 05/22/19 05/23/19 1515:00 23:00 07:00 IntakeIntake Total 500 ml 1075 ml 150 ml OutputOutput Total 20 ml 40 ml BalanceBalance 500 ml 1055 ml 110 ml Results Result Diagram: 05/23/19 0432 05/23/19 0432 Results 24hrs Laboratory Tests Test 05/23/19 04:32 White Blood Count 11.0 H Red Blood Count 3.14 L Hemoglobin 7.7 L Hematocrit 26.2 L Mean Corpuscular Volume 83.4 Mean Corpuscular Hemoglobin 24.5 L Mean Corpuscular Hemoglobin Concent 29.4 L Red Cell Distribution Width 20.7 H Platelet Count 464 H Mean Platelet Volume 8.9 Immature Granulocytes % 0.300 Neutrophils % 53.7 Lymphocytes % 37.2 Monocytes % 6.6 Eosinophils % 1.5 Basophils % 0.7 Nucleated Red Blood Cells % 0.0 Immature Granulocytes # 0.030 Neutrophils # 5.9 Lymphocytes # 4.1 H Monocytes # 0.7 Eosinophils # 0.2 Basophils # 0.1 Nucleated Red Blood Cells # 0.0 Sodium Level 141 Potassium Level 3.9 Chloride Level 106 Carbon Dioxide Level 28 Anion Gap 7 Blood Urea Nitrogen 10 Creatinine 0.75 Est Glomerular Filtrat Rate mL/min > 60 Glucose Level 98 Calcium Level 8.9 Phosphorus Level 5.2 H Magnesium Level 1.8 Medications Medication Current Medications IV Flush (NS 3 ml) 3 ml PER PROTOCOL IV Last administered on 05/15/19 05:34; Admin Dose 3 ML; Start 05/09/19 at 03:30 Ondansetron HCl (Zofran Inj) 4 mg Q6H PRN IV NAUSEA/VOMITING; Start 05/09/19 at 03:30 Acetaminophen (Tylenol Tab) 650 mg Q6H PRN PO .PAIN 1-3 OR TEMP Last administered on 05/14/19 01:48; Admin Dose 650 MG; Start 05/09/19 at 03:30 Hydromorphone HCl (Dilaudid) 1 mg Q4H PRN IV .SEVERE PAIN 7-10; Start 05/09/19 at 03:30 Ascorbic Acid (Vitamin C) 500 mg DAILY PO Last administered on 05/23/19 09:29; Admin Dose 500 MG; Start 05/09/19 at 09:00 Ferrous Sulfate (Ferrous Sulfate (Ec)) 325 mg DAILY PO Last administered on 05/23/19 09:29; Admin Dose 325 MG; Start 05/09/19 at 09:00 Levofloxacin (Levaquin) 750 mg DAILY@06 PO Last administered on 05/23/19 06:23; Admin Dose 750 MG; Start 05/15/19 at 13:00 Enoxaparin Sodium (Lovenox) 40 mg DAILY SC Last administered on 05/23/19 09:32; Admin Dose 40 MG; Start 05/18/19 at 09:00 Acetaminophen/ Hydrocodone Bitart ([place] (10/325)) 1 tab Q4H PRN PO MODERATE PAIN LEVEL 4-6; Start 05/17/19 at 20:00 Famotidine (Pepcid) 20 mg DAILY PO Last administered on 05/23/19 09:29; Admin Dose 20 MG; Start 05/18/19 at 09:00 Albuterol (Ventolin Hfa) 2 puff Q4H RESP THERAPY PRN INH SHORTNESS OF BREATH; Start 05/17/19 at 20:00 Ampicillin Sodium/ Sulbactam Sodium 100 ml @ 100 mls/hr Q6 IVPB Last administered on 05/23/19at 11:16; Admin Dose 100 MLS/HR; Start 05/19/19 at 13:00 Docusate Sodium (Colace) 100 mg DAILY PO Last administered on 05/23/19 09:29; Admin Dose 100 MG; Start 05/21/19 at 09:00 Lactobacillus Acidophilus/ Rhamnosus (Culturelle) 1 cap BID PO Last ad ministered on 05/23/19 09:29; Admin Dose 1 CAP; Start 05/21/19 at 21:00 KVNG JI NP May 23, 2019 13:50
[2019-05-23 15:23] VITALS: BP 121/73; PULSE 85; RESP 18
--- NOTE | 2019-05-23 17:52 | CONS ---
Consult Date/Type/Reason Admit Date/Time May 09, 2019 at 03:01 Initial Consult Date 05/09/19 Type of Consultation: Urology Reason for Consultation Right psoas abscess Requesting Provider: BETH MON Date/Time of Note DATE: 05/23/19 TIME: 17:46 Subjective She is feeling better,ambulating well and has no pain Objective Vitals Vital Signs Date Temp Pulse Resp B/P (MAP) Pulse Ox O2 O2 Flow FiO2 Time Delivery Rate 05/23/19 98.5 85 18 121/73 96 15:23 (89) 05/20/19 Room Air 15:12 Intake and Output 05/22/19 05/22/19 05/23/19 1515:00 23:00 07:00 IntakeIntake Total 500 ml 1075 ml 150 ml OutputOutput Total 20 ml 40 ml BalanceBalance 500 ml 1055 ml 110 ml Exam I did irrigate the Accordion drain with 10ml of normal saline. It is draining thick purulent material 65ml- 60ml and 50ml Results/Medications Result Diagram: 05/23/19 0432 05/23/19 0432 Results 24 hrs Laboratory Tests Test 05/23/19 04:32 White Blood Count 11.0 H Red Blood Count 3.14 L Hemoglobin 7.7 L Hematocrit 26.2 L Mean Corpuscular Volume 83.4 Mean Corpuscular Hemoglobin 24.5 L Mean Corpuscular Hemoglobin Concent 29.4 L Red Cell Distribution Width 20.7 H Platelet Count 464 H Mean Platelet Volume 8.9 Immature Granulocytes % 0.300 Neutrophils % 53.7 Lymphocytes % 37.2 Monocytes % 6.6 Eosinophils % 1.5 Basophils % 0.7 Nucleated Red Blood Cells % 0.0 Immature Granulocytes # 0.030 Neutrophils # 5.9 Lymphocytes # 4.1 H Monocytes # 0.7 Eosinophils # 0.2 Basophils # 0.1 Nucleated Red Blood Cells # 0.0 Sodium Level 141 Potassium Level 3.9 Chloride Level 106 Carbon Dioxide Level 28 Anion Gap 7 Blood Urea Nitrogen 10 Creatinine 0.75 Est Glomerular Filtrat Rate mL/min > 60 Glucose Level 98 Calcium Level 8.9 Phosphorus Level 5.2 H Magnesium Level 1.8 Home Meds Reported Medications Acetaminophen* (Acetaminophen*) 500 MG Extra Strength Tablet, 500 MG PO Q4H PRN for PAIN AND OR ELEVATED TEMP, TAB 05/09/19 Ferrous Sulfate* (Ferrous Sulfate*) 325 Mg Tabec, 325 MG PO DAILY, TAB 05/09/19 Ascorbic Acid* (Vitamin C*) 500 Mg Capsule.sa, 500 MG PO DAILY, CAP 05/09/19 Medications Current Medications IV Flush (NS 3 ml) 3 ml PER PROTOCOL IV Last administered on 05/15/19 05:34; Admin Dose 3 ML; Start 05/09/19 at 03:30 Ondansetron HCl (Zofran Inj) 4 mg Q6H PRN IV NAUSEA/VOMITING; Start 05/09/19 at 03:30 Acetaminophen (Tylenol Tab) 650 mg Q6H PRN PO .PAIN 1-3 OR TEMP Last administered on 05/14/19 01:48; Admin Dose 650 MG; Start 05/09/19 at 03:30 Hydromorphone HCl (Dilaudid) 1 mg Q4H PRN IV .SEVERE PAIN 7-10; Start 05/09/19 at 03:30 Ascorbic Acid (Vitamin C) 500 mg DAILY PO Last administered on 05/23/19 09:29; Admin Dose 500 MG; Start 05/09/19 at 09:00 Ferrous Sulfate (Ferrous Sulfate (Ec)) 325 mg DAILY PO Last administered on 05/23/19 09:29; Admin Dose 325 MG; Start 05/09/19 at 09:00 Enoxaparin Sodium (Lovenox) 40 mg DAILY SC Last administered on 05/23/19 09:32; Admin Dose 40 MG; Start 05/18/19 at 09:00 Acetaminophen/ Hydrocodone Bitart ([place] (10/325)) 1 tab Q4H PRN PO MODERATE PAIN LEVEL 4-6; Start 05/17/19 at 20:00 Famotidine (Pepcid) 20 mg DAILY PO Last administered on 05/23/19 09:29; Admin Dose 20 MG; Start 05/18/19 at 09:00 Albuterol (Ventolin Hfa) 2 puff Q4H RESP THERAPY PRN INH SHORTNESS OF BREATH; Start 05/17/19 at 20:00 Ampicillin Sodium/ Sulbactam Sodium 100 ml @ 100 mls/hr Q6 IVPB Last administered on 05/23/19 17:03; Admin Dose 100 MLS/HR; Start 7/5/19 at 13:00 Docusate Sodium (Colace) 100 mg DAILY PO Last administered on 05/23/19at 09:29; Admin Dose 100 MG; Start 05/21/19 at 09:00 Lactobacillus Acidophilus/ Rhamnosus (Culturelle) 1 cap BID PO Last administered on 05/23/19at 09:29; Admin Dose 1 CAP; Start 05/21/19 at 21:00 Assessment/Plan Hospital Course (Demo Recall) 38-year-old female was hospitalized earlier this month with right renal stone with obstruction. She underwent cystoscopy and insertion of right ureteral JJ stent on 04/17/2019. Patient was supposed to follow-up with [facility] but she did not. She comes back today feeling discomfort in the right side of the abdomen. She denies any fever or chills and no back pain. CT scan of the abdomen and pelvis showed: Severe right-sided hydronephrosis with perinephric stranding and fluid, unchanged from 04/16/2019. Underlying infection cannot be excluded. There is a right-sided ureteral stent with calcifications surrounding the proximal pigtail within the renal pelvis which is unchanged. Enlargement of the right iliopsoas and iliacus muscles with surrounding str anding suspicious for underlying abscess, increased compared with the prior study. There is increased posterior extension. Distended gallbladder with multiple gallstones. Prominence of the left labia, unchanged. Clinically correlate. CT scan of the abdomen and pelvis with IV contrast done on 05/11/2019 showed: 1. Right xanthogranulomatous pyelonephritis. There is a large abscess infiltrating into the right psoas muscle measuring approximately 3.8 x 4.1 x 13.6 cm. There is infiltration of the right iliacus muscle and right lateral abdominal wall muscles. With extension of the abscess posteriorly into the right paraspinal soft tissues at the level of L5 with component measuring approximately 3.6 x 8.1 x 9.5 cm. Findings appear slightly increased when compared to the prior examination. 2. 1.3 cm calculus remains within the right renal pelvis. A right double-J ureteral stent is in place. 3. Gallbladder sludge versus cholelithiasis. With these findings on the CT scan the patient underwent aspiration and drainage of the abscess. The drainage from the accordion drain is 30mL in the past [address] She had a CT scan of the abdomen and pelvis on 05/20/2019 and that showed: Successful percutaneous drainage of large right psoas abscess in patient with xanthogranulomatous pyelonephritis of the right kidney. 2 cm calculus right renal pelvis with double-J ureteral stent. Persistent stranding of perinephric fat not significantly changed. Cholelithiasis. Bibasilar atelectasis. Continue to monitor the output from the accordion drain. 65ml to 60ml to 50ml. I did irrigate the drain with 10ml of normal saline. We will remove the drain once the drainage is 10 to 15 mL per 24 hours. Then the patient will be discharged and she has to go to [facility] for treatment of her kidney stone. CORTNEY PETTY MD May 23, 2019 17:52
[2019-05-23 19:59] VITALS: BP 129/67; PULSE 94; RESP 18
[2019-05-24 01:56] VITALS: BP 123/65; PULSE 98; RESP 18
--- NOTE | 2019-05-24 05:51 | PN ---
Date/Time of Note Date/Time of Note DATE: 05/24/19 TIME: 05:50 Assessment/Plan VTE Prophylaxis Risk score (from Ns)>0 risk: 1 SCD applied (from Ns): No SCD contraindicated: other Pharmacological prophylaxis: NA/contraindicated Pharm contraindication: low risk/ambulating Lines/Catheters IV [facility]ter Type (from [facility] Saline Lock Urinary Cath still in place: No Assessment/Plan Hospital Course SUBJECTIVE: Denies any abdominal pain. OBJECTIVE: Physical Exam General: Morbidly obese 38 year-old female lying in bed in no apparent distress. HEENT: Normocephalic, atraumatic. Eyes: Anicteric sclerae, conjunctivae clear. ENT: Nasal septum midline, oral mucosa moist. Neck: Short and obese. Respiratory: Bilaterally clear breath sounds. No use of accessory muscles of respiration. No adventitious breath sounds. Cardiovascular: S1, S2 heard. Regular rate and rhythm. Abdomen: Soft and nondistended. Bowel sounds positive in all 4 quadrants. Right flank area drain that is draining milky secretions. Genitourinary: Tenderness in the right flank. Extremities: No cyanosis, no clubbing, no edema. Peripheral pulses palpable. Neurologic: Cranial nerves II through XII grossly intact. The patient is awake, alert, and oriented. Skin: Normal skin turgor. No skin rashes. ASSESSMENT & PLAN 38-year-old female with comorbidities including obesity, asthma, and iron deficiency anemia with a staghorn calculus within the right renal pelvis status post cystoscopy and stent placement, who was discharged on April 19, 2019, to be followed up with [facility], who came back to the emergency room on 05/09/2019 with chief complaint of right flank pain with underlying sepsis and abdominal imaging showing severe right-sided hydronephrosis with perinephric stranding, who was admitted to inpatient setting for further treatment and evaluation. 1. S/P sepsis with leukocytosis and tachycardia, secondary to underlying complicated urinary tract infection, present on admission. Continue empiric antimicrobials. Urine cultures inconclusive. 2. Severe right-sided hydronephrosis. Status post right ureteral stenting on 04/17/2019. Being followed by urology. 3. Right psoas muscle abscess. Status post IR guided drain placement on 05/11/2019. Culture showing Proteus mirabilis. 4. Iron deficiency anemia. Continue iron supplements. 5. History of asthma. No evidence of any exacerbation. 6. Morbid obesity. Weight reduction and lifestyle changes advised. 7. DVT prophylaxis. Bilateral SCDs. 8. Plan. Continue antimicrobials as per ID. DC planning is to home after the drain is discontinued once the output is minimal (10 to 15 mL in 24 hours). The patient was seen in collaboration with Dr. Mc. Result Diagram: 05/24/198 05/24/198 Results 24hrs Laboratory Tests Test 05/24/19 04:28 White Blood Count 10.9 H Red Blood Count 3.30 L Hemoglobin 8.1 L Hematocrit 27.6 L Mean Corpuscular Volume 83.6 Mean Corpuscular Hemoglobin 24.5 L Mean Corpuscular Hemoglobin Concent 29.3 L Red Cell Distribution Width 20.5 H Platelet Count 475 H Mean Platelet Volume 8.8 Immature Granulocytes % 0.400 Neutrophils % 46.6 Lymphocytes % 43.1 Monocytes % 7.4 Eosinophils % 1.7 Basophils % 0.8 Nucleated Red Blood Cells % 0.0 Immature Granulocytes # 0.040 H Neutrophils # 5.1 Lymphocytes # 4.7 H Monocytes # 0.8 Eosinophils # 0.2 Basophils # 0.1 Nucleated Red Blood Cells # 0.0 Sodium Level 142 Potassium Level 4.0 Chloride Level 107 Carbon Dioxide Level 27 Anion Gap 8 Blood Urea Nitrogen 7 Creatinine 0.76 Est Glomerular Filtrat Rate mL/min > 60 Glucose Level 94 Calcium Level 9.0 Phosphorus Level 5.1 H Magnesium Level 1.9 Exam/Review of Systems Exam Vitals Vital Signs Date Temp Pulse Resp B/P (MAP) Pulse Ox O2 O2 Flow FiO2 Time Delivery Rate 05/24/19 98.5 98 18 123/65 100 01:56 (84) 05/20/19 Room Air 15:12 Intake and Output 05/23/19 05/23/19 05/24/19 1515:00 23:00 07:00 IntakeIntake Total 1040 ml 390 ml 100 ml OutputOutput Total 50 ml BalanceBalance 1040 ml 340 ml 100 ml Results Results 24hrs Laboratory Tests Test 05/24/19 04:28 White Blood Count 10.9 H Red Blood Count 3.30 L Hemoglobin 8.1 L Hematocrit 27.6 L Mean Corpuscular Volume 83.6 Mean Corpuscular Hemoglobin 24.5 L Mean Corpuscular Hemoglobin Concent 29.3 L Red Cell Distribution Width 20.5 H Platelet Count 475 H Mean Platelet Volume 8.8 Immature Granulocytes % 0.400 Neutrophils % 46.6 Lymphocytes % 43.1 Monocytes % 7.4 Eosinophils % 1.7 Basophils % 0.8 Nucleated Red Blood Cells % 0.0 Immature Granulocytes # 0.040 H Neutrophils # 5.1 Lymphocytes # 4.7 H Monocytes # 0.8 Eosinophils # 0.2 Basophils # 0.1 Nucleated Red Blood Cells # 0.0 Sodium Level 142 Potassium Level 4.0 Chloride Level 107 Carbon Dioxide Level 27 Anion Gap 8 Blood Urea Nitrogen 7 Creatinine 0.76 Est Glomerular Filtrat Rate mL/min > 60 Glucose Level 94 Calcium Level 9.0 Phosphorus Level 5.1 H Magnesium Level 1.9 Medications Medication Current Medications IV Flush (NS 3 ml) 3 ml PER PROTOCOL IV Last administered on 05/15/19 05:34; Admin Dose 3 ML; Start 05/09/19 at 03:30 Ondansetron HCl (Zofran Inj) 4 mg Q6H PRN IV NAUSEA/VOMITING; Start 05/09/19 at 03:30 Acetaminophen (Tylenol Tab) 650 mg Q6H PRN PO .PAIN 1-3 OR TEMP Last administered on 05/14/19 01:48; Admin Dose 650 MG; Start 05/09/19 at 03:30 Hydromorphone HCl (Dilaudid) 1 mg Q4H PRN IV .SEVERE PAIN 7-10; Start 05/09/19 at 03:30 Ascorbic Acid (Vitamin C) 500 mg DAILY PO Last administered on 05/23/19 09:29; Admin Dose 500 MG; Start 05/09/19 at 09:00 Ferrous Sulfate (Ferrous Sulfate (Ec)) 325 mg DAILY PO Last administered on 05/23/19 09:29; Admin Dose 325 MG; Start 05/09/19 at 09:00 Enoxaparin Sodium (Lovenox) 40 mg DAILY SC Last administered on 05/23/19 09:32; Admin Dose 40 MG; Start 05/18/19 at 09:00 Acetaminophen/ Hydrocodone Bitart ([place] (10/325)) 1 tab Q4H PRN PO MODERATE PAIN LEVEL 4-6; Start 05/17/19 at 20:00 Famotidine (Pepcid) 20 mg DAILY PO Last administered on 05/23/19 09:29; Admin Dose 20 MG; Start 05/18/19 at 09:00 Albuterol (Ventolin Hfa) 2 puff Q4H RESP THERAPY PRN INH SHORTNESS OF BREATH; Start 05/17/19 at 20:00 Ampicillin Sodium/ Sulbactam Sodium 100 ml @ 100 mls/hr Q6 IVPB Last administered on 05/23/19at 23:47; Admin Dose 100 MLS/HR; Start 05/19/19 at 13:00 Docusate Sodium (Colace) 100 mg DAILY PO Last administered on 05/23/19 09:29; Admin Dose 100 MG; Start 05/21/19 at 09:00 Lactobacillus Acidophilus/ Rhamnosus (Culturelle) 1 cap BID PO Last administered on 05/23/19 21:49; Admin Dose 1 CAP; Start 05/21/19 at 21:00 VIVEK PADGETT NP May 24, 2019 05:50
[2019-05-24] MEDS: AMPICILLIN/SULB 3 GM/NS (PMX) 100 ML IVPB SCH ×4 (06:49→23:52)
[2019-05-24 08:25] VITALS: BP 143/59; PULSE 93; RESP 18
[2019-05-24] MEDS: DOCUSATE SODIUM 100 MG CAP PO SCH (09:21)
[2019-05-24] MEDS: ASCORBIC ACID 500 MG TAB PO SCH (09:21)
[2019-05-24] MEDS: FAMOTIDINE 20 MG TAB PO SCH (09:21)
[2019-05-24] MEDS: LACTOBACILLUS RHAMNOSUS CAP PO SCH ×2 (09:21→21:25)
[2019-05-24] MEDS: FERROUS SULFATE (EC) 325 MG TAB PO SCH (09:21)
[2019-05-24] MEDS: ENOXAPARIN 40 MG/0.4 ML SYG SC SCH (09:23)
--- NOTE | 2019-05-24 14:30 | CONS ---
Assessment/Plan Assessment/Plan Hospital Course (Demo Recall) Patient is alert feels good Microbiology: Urine culture negative, fluid culture grew Proteus mirabilis Antimicrobials: Unasyn Physical examination: This is a morbidly obese well-developed middle-aged woman who is alert in no distress. Head atraumatic normocephalic sclera nonicteric neck is obese chest rise symmetrical breath sounds diminished bases. Heart: S1- S2. Abdomen soft bowel sounds present, right sided intra-abdominal drainage catheter with bag full of pus like fluid. Extremities without cyanosis Assessment: 1. Acute pyelonephritis with psoas abscess, status post IR guided drainage 2. S/p sepsis 3. Morbid obesity Plan: Remains stable, continue abx, monitor drain output anticipate discharge on oral levofloxacin Consultation Date/Type/Reason Admit Date/Time May 09, 2019 at 03:01 Initial Consult Date 05/09/19 Type of Consult id Requesting Provider: BETH MON Date/Time of Note DATE: 05/24/19 TIME: 14:29 Exam/Review of Systems Exam Vitals Vital Signs Date Temp Pulse Resp B/P (MAP) Pulse Ox O2 O2 Flow FiO2 Time Delivery Rate 05/24/19 98.1 93 18 143/59 98 08:25 (87) 05/20/19 Room Air 15:12 Intake and Output 05/23/19 05/23/19 05/24/19 1515:00 23:00 07:00 IntakeIntake Total 1040 ml 390 ml 100 ml OutputOutput Total 50 ml 40 ml BalanceBalance 1040 ml 340 ml 60 ml Results Result Diagram: 05/24/19 0428 05/24/19 0428 Results 24hrs Laboratory Tests Test 05/24/19 04:28 White Blood Count 10.9 H Red Blood Count 3.30 L Hemoglobin 8.1 L Hematocrit 27.6 L Mean Corpuscular Volume 83.6 Mean Corpuscular Hemoglobin 24.5 L Mean Corpuscular Hemoglobin Concent 29.3 L Red Cell Distribution Width 20.5 H Platelet Count 475 H Mean Platelet Volume 8.8 Immature Granulocytes % 0.400 Neutrophils % 46.6 Lymphocytes % 43.1 Monocytes % 7.4 Eosinophils % 1.7 Basophils % 0.8 Nucleated Red Blood Cells % 0.0 Immature Granulocytes # 0.040 H Neutrophils # 5.1 Lymphocytes # 4.7 H Monocytes # 0.8 Eosinophils # 0.2 Basophils # 0.1 Nucleated Red Blood Cells # 0.0 Sodium Level 142 Potassium Level 4.0 Chloride Level 107 Carbon Dioxide Level 27 Anion Gap 8 Blood Urea Nitrogen 7 Creatinine 0.76 Est Glomerular Filtrat Rate mL/min > 60 Glucose Level 94 Calcium Level 9.0 Phosphorus Level 5.1 H Magnesium Level 1.9 Medications Medication Current Medications IV Flush (NS 3 ml) 3 ml PER PROTOCOL IV Last administered on 05/15/19 05:34; Admin Dose 3 ML; Start 05/09/19 at 03:30 Ondansetron HCl (Zofran Inj) 4 mg Q6H PRN IV NAUSEA/VOMITING; Start 05/09/19 at 03:30 Acetaminophen (Tylenol Tab) 650 mg Q6H PRN PO .PAIN 1-3 OR TEMP Last administered on 05/14/19 01:48; Admin Dose 650 MG; Start 05/09/19 at 03:30 Hydromorphone HCl (Dilaudid) 1 mg Q4H PRN IV .SEVERE PAIN 7-10; Start 05/09/19 at 03:30 Ascorbic Acid (Vitamin C) 500 mg DAILY PO Last administered on 05/24/19 09:21; Admin Dose 500 MG; Start 05/09/19 at 09:00 Ferrous Sulfate (Ferrous Sulfate (Ec)) 325 mg DAILY PO Last administered on 05/24/19 09:21; Admin Dose 325 MG; Start 05/09/19 at 09:00 Enoxaparin Sodium (Lovenox) 40 mg DAILY SC Last administered on 05/24/19 09:23; Admin Dose 40 MG; Start 05/18/19 at 09:00 Acetaminophen/ Hydrocodone Bitart ([place] (10/325)) 1 tab Q4H PRN PO MODERATE PAIN LEVEL 4-6; Start 05/17/19 at 20:00 Famotidine (Pepcid) 20 mg DAILY PO Last administered on 05/24/19 09:21; Admin Dose 20 MG; Start 05/18/19 at 09:00 Albuterol (Ventolin Hfa) 2 puff Q4H RESP THERAPY PRN INH SHORTNESS OF BREATH; Start 05/17/19 at 20:00 Ampicillin Sodium/ Sulbactam Sodium 100 ml @ 100 mls/hr Q6 IVPB Last administered on 7/10/19at 11:41; Admin Dose 100 MLS/HR; Start 05/19/19 at 13:00 Docusate Sodium (Colace) 100 mg DAILY PO Last administered on 05/24/19at 09:21; Admin Dose 100 MG; Start 05/21/19 at 09:00 Lactobacillus Acidophilus/ Rhamnosus (Culturelle) 1 cap BID PO Last administered on 05/24/19at 09:21; Admin Dose 1 CAP; Start 05/21/19 at 21:00 KVNG JI NP May 24, 2019 14:30
[2019-05-24 15:02] VITALS: BP 129/59; PULSE 88; RESP 18
--- NOTE | 2019-05-24 18:29 | CONS ---
Consult Date/Type/Reason Admit Date/Time May 09, 2019 at 03:01 Initial Consult Date 05/09/19 Type of Consultation: Urology Reason for Consultation Right psoas abscess Requesting Provider: BETH MON Date/Time of Note DATE: 05/24/19 TIME: 18:26 Subjective Patient states that she is feeling better and she has no pain. There is no dysuria and no hematuria. Objective Vitals Vital Signs Date Temp Pulse Resp B/P (MAP) Pulse Ox O2 O2 Flow FiO2 Time Delivery Rate 05/24/19 98.2 88 18 129/59 98 15:02 (82) 05/20/19 Room Air 15:12 Intake and Output 05/23/19 05/23/19 05/24/19 1515:00 23:00 07:00 IntakeIntake Total 1040 ml 390 ml 100 ml OutputOutput Total 50 ml 40 ml BalanceBalance 1040 ml 340 ml 60 ml Exam The accordion drain is draining more, 90 mL the last 24 hours. Results/Medications Result Diagram: 05/24/19 0428 05/24/19 0428 Results 24 hrs Laboratory Tests Test 05/24/19 04:28 White Blood Count 10.9 H Red Blood Count 3.30 L Hemoglobin 8.1 L Hematocrit 27.6 L Mean Corpuscular Volume 83.6 Mean Corpuscular Hemoglobin 24.5 L Mean Corpuscular Hemoglobin Concent 29.3 L Red Cell Distribution Width 20.5 H Platelet Count 475 H Mean Platelet Volume 8.8 Immature Granulocytes % 0.400 Neutrophils % 46.6 Lymphocytes % 43.1 Monocytes % 7.4 Eosinophils % 1.7 Basophils % 0.8 Nucleated Red Blood Cells % 0.0 Immature Granulocytes # 0.040 H Neutrophils # 5.1 Lymphocytes # 4.7 H Monocytes # 0.8 Eosinophils # 0.2 Basophils # 0.1 Nucleated Red Blood Cells # 0.0 Sodium Level 142 Potassium Level 4.0 Chloride Level 107 Carbon Dioxide Level 27 Anion Gap 8 Blood Urea Nitrogen 7 Creatinine 0.76 Est Glomerular Filtrat Rate mL/min > 60 Glucose Level 94 Calcium Level 9.0 Phosphorus Level 5.1 H Magnesium Level 1.9 Home Meds Reported Medications Acetaminophen* (Acetaminophen*) 500 MG Extra Strength Tablet, 500 MG PO Q4H PRN for PAIN AND OR ELEVATED TEMP, TAB 05/09/19 Ferrous Sulfate* (Ferrous Sulfate*) 325 Mg Tabec, 325 MG PO DAILY, TAB 05/09/19 Ascorbic Acid* (Vitamin C*) 500 Mg Capsule.sa, 500 MG PO DAILY, CAP 05/09/19 Medications Current Medications IV Flush (NS 3 ml) 3 ml PER PROTOCOL IV Last administered on 05/15/19 05:34; Admin Dose 3 ML; Start 05/09/19 at 03:30 Ondansetron HCl (Zofran Inj) 4 mg Q6H PRN IV NAUSEA/VOMITING; Start 05/09/19 at 03:30 Acetaminophen (Tylenol Tab) 650 mg Q6H PRN PO .PAIN 1-3 OR TEMP Last administered on 05/14/19 01:48; Admin Dose 650 MG; Start 05/09/19 at 03:30 Hydromorphone HCl (Dilaudid) 1 mg Q4H PRN IV .SEVERE PAIN 7-10; Start 05/09/19 at 03:30 Ascorbic Acid (Vitamin C) 500 mg DAILY PO Last administered on 05/24/19 09:21; Admin Dose 500 MG; Start 05/09/19 at 09:00 Ferrous Sulfate (Ferrous Sulfate (Ec)) 325 mg DAILY PO Last administered on 05/24/19 09:21; Admin Dose 325 MG; Start 05/09/19 at 09:00 Enoxaparin Sodium (Lovenox) 40 mg DAILY SC Last administered on 05/24/19 09:23; Admin Dose 40 MG; Start 05/18/19 at 09:00 Acetaminophen/ Hydrocodone Bitart ([place] (10/325)) 1 tab Q4H PRN PO MODERATE PAIN LEVEL 4-6; Start 05/17/19 at 20:00 Famotidine (Pepcid) 20 mg DAILY PO Last administered on 05/24/19 09:21; Admin Dose 20 MG; Start 05/18/19 at 09:00 Albuterol (Ventolin Hfa) 2 puff Q4H RESP THERAPY PRN INH SHORTNESS OF BREATH; Start 05/17/19 at 20:00 Ampicillin Sodium/ Sulbactam Sodium 100 ml @ 100 mls/hr Q6 IVPB Last administered on 05/24/19at 17:48; Admin Dose 100 MLS/HR; Start 05/19/19 at 13:00 Docusate Sodium (Colace) 100 mg DAILY PO Last administered on 05/24/19at 09:21; Admin Dose 100 MG; Start 05/21/19 at 09:00 Lactobacillus Acidophilus/ Rhamnosus (Culturelle) 1 cap BID PO Last administered on 05/24/19at 09:21; Admin Dose 1 CAP; Start 05/21/19 at 21:00 Assessment/Plan Hospital Course (Demo Recall) 38-year-old female was hospitalized earlier this month with right renal stone wi th obstruction. She underwent cystoscopy and insertion of right ureteral JJ stent on 04/17/2019. Patient was supposed to follow-up with [facility] but she did not. She comes back today feeling discomfort in the right side of the abdomen. She denies any fever or chills and no back pain. CT scan of the abdomen and pelvis showed: Severe right-sided hydronephrosis with perinephric stranding and fluid, unchanged from 04/16/2019. Underlying infection cannot be excluded. There is a right-sided ureteral stent with calcifications surrounding the proximal pigtail within the renal pelvis which is unchanged. Enlargement of the right iliopsoas and iliacus muscles with surrounding st randing suspicious for underlying abscess, increased compared with the prior study. There is increased posterior extension. Distended gallbladder with multiple gallstones. Prominence of the left labia, unchanged. Clinically correlate. CT scan of the abdomen and pelvis with IV contrast done on 05/11/2019 showed: 1. Right xanthogranulomatous pyelonephritis. There is a large abscess infiltrating into the right psoas muscle measuring approximately 3.8 x 4.1 x 13.6 cm. There is infiltration of the right iliacus muscle and right lateral abdominal wall muscles. With extension of the abscess posteriorly into the right paraspinal soft tissues at the level of L5 with component measuring approximately 3.6 x 8.1 x 9.5 cm. Findings appear slightly increased when compared to the prior examination. 2. 1.3 cm calculus remains within the right renal pelvis. A right double-J ureteral stent is in place. 3. Gallbladder sludge versus cholelithiasis. With these findings on the CT scan the patient underwent aspiration and drainage of the abscess. The drainage from the accordion drain is 30mL in the past [address] She had a CT scan of the abdomen and pelvis on 05/20/2019 and that showed: Successful percutaneous drainage of large right psoas abscess in patient with xanthogranulomatous pyelonephritis of the right kidney. 2 cm calculus right renal pelvis with double-J ureteral stent. Persistent stranding of perinephric fat not significantly changed. Cholelithiasis. Bibasilar atelectasis. Continue to monitor the output from the accordion drain. 90 mL the last 24 hours. Plan is to wait for the drainage from the drain to be minimal about 10 to 15 mL then remove it and the patient then will follow with [facility] for her kidney stone and the JJ stent. CORTNEY PETTY MD May 24, 2019 18:29
[2019-05-24 19:45] VITALS: BP 129/56; PULSE 88; RESP 18
[2019-05-25 02:50] VITALS: BP 132/74; PULSE 77; RESP 20
--- NOTE | 2019-05-25 03:01 | ERD ---
ER Documentation Chief Complaint Chief Complaint right flank pain x 1 day. HPI Is a 38 female right flank pain for 1 day. Patient has a history of multiple kidney stones in the past. Pain is mild to moderate intensity no exacerbating relieving factors. Mild dysuria associated as well. Denies any fevers or chills. Denies any other current complaints. ROS All systems reviewed and are negative except as per history of present illness. Medications Home Meds Reported Medications Acetaminophen* (Acetaminophen*) 500 MG Extra Strength Tablet, 500 MG PO Q4H PRN for PAIN AND OR ELEVATED TEMP, TAB 05/09/19 Ferrous Sulfate* (Ferrous Sulfate*) 325 Mg Tabec, 325 MG PO DAILY, TAB 05/09/19 Ascorbic Acid* (Vitamin C*) 500 Mg Capsule.sa, 500 MG PO DAILY, CAP 05/09/19 Allergies Allergies: Coded Allergies: No Known Allergy (Unverified , 05/09/19) PMhx/Soc History of Surgery: Yes (JJ Stent placement 04-17-19) Anesthesia Reaction: No Hx Neurological Disorder: No Hx Respiratory Disorders: Yes (asthma) Hx Cardiac Disorders: No Hx Psychiatric Problems: No Hx Miscellaneous Medical Probl: No Hx Alcohol Use: Yes (rarely ) Hx Substance Use: No Hx Tobacco Use: No Smoking Status: Never smoker Physical Exam Physical Exam Const: No acute distress Head: Atraumatic Eyes: Normal Conjunctiva ENT: Normal External Ears, Nose and Mouth. Neck: Full range of motion. No meningismus. Resp: Clear to auscultation bilaterally Cardio: Regular rate and rhythm, no murmurs Abd: Soft, non tender, non distended. Normal bowel sounds Skin: No petechiae or rashes Back: No midline or flank tenderness Ext: No cyanosis, or edema Neur: Awake and alert Psych: Normal Mood and Affect Result Diagram: 05/24/1942705/24/19427 Results 24 hrs Laboratory Tests Test 05/08/19 23:10 05/08/19 23:14 05/09/19 00:58 Urine Color NADEEM Urine Clarity CLOUDY Urine pH 5.0 Urine Specific [place] 1.021 Urine Ketones TRACE mg/dL Urine Nitrite NEGATIVE mg/dL Urine Bilirubin NEGATIVE mg/dL Urine Urobilinogen NEGATIVE mg/dL Urine Leukocyte Esterase 2+ Susan/ul Urine Microscopic RBC 0 /HPF Urine Microscopic WBC 85 /HPF Urine Squamous Epithelial Cells MANY /HPF Urine Bacteria FEW /HPF Urine Mucus MODERATE /HPF Urine Hemoglobin NEGATIVE mg/dL Urine Glucose NEGATIVE mg/dL Urine Total Protein 2+ mg/dl Bedside Urine pH (LAB) 6.0 Bedside Urine Protein (LAB) 2+ Bedside Urine Glucose (UA) Negative Bedside Urine Ketones (LAB) 1+ Bedside Urine Blood Trace-intact Bedside Urine Nitrite (LAB) Negative Bedside Urine Leukocyte Esterase 1+ (L POC Beta HCG, Qualitative NEGATIVE White Blood Count 21.3 10^3/ul Red Blood Count 3.31 10^6/ul Hemoglobin 8.1 g/dl Hematocrit 27.2 % Mean Corpuscular Volume 82.2 fl Mean Corpuscular Hemoglobin 24.5 pg Mean Corpuscular 29.8 g/dl Hemoglobin Concent Red Cell Distribution Width 18.8 % Platelet Count 508 10^3/UL Mean Platelet Volume 8.9 fl Immature Granulocytes % 0.700 % Neutrophils % 84.3 % Lymphocytes % 9.3 % Monocytes % 5.5 % Eosinophils % 0.0 % Basophils % 0.2 % Nucleated Red Blood Cells % 0.0 /100WBC Immature Granulocytes # 0.150 10^3/ul Neutrophils # 17.9 10^3/ul Lymphocytes # 2.0 10^3/ul Monocytes # 1.2 10^3/ul Eosinophils # 0.0 10^3/ul Basophils # 0.0 10^3/ul Nucleated Red Blood Cells # 0.0 10^3/ul Sodium Level 137 mmol/L Potassium Level 4.0 mmol/L Chloride Level 101 mmol/L Carbon Dioxide Level 24 mmol/L Anion Gap 12 Blood Urea Nitrogen 8 mg/dl Creatinine 0.59 mg/dl Est Glomerular Filtrat > 60 mL/min Rate mL/min Glucose Level 96 mg/dl Calcium Level 8.6 mg/dl Total Bilirubin 0.4 mg/dl Direct Bilirubin 0.00 mg/dl Indirect Bilirubin 0.4 mg/dl Aspartate Amino 19 IU/L Transf (AST/SGOT) Alanine 8 IU/L Aminotransferase (ALT/SGPT) Alkaline Phosphatase 110 IU/L Total Protein 8.2 g/dl Albumin 3.0 g/dl Globulin 5.20 g/dl Albumin/Globulin Ratio 0.57 Lipase 11 U/L Current Medications Medications Dose Sig/Yanira Start Time Status Last (Trade) Ordered Route PRN Stop Time Admin Dose Reason Admin Sodium 1,000 ml @ Q1H STAT 05/08/19 DC 05/08/19 Chloride 1,000 mls/hr IV 23:24 23:24 05/09/19 00:23 Morphine 4 mg ONCE STAT 05/08/19 DC 05/09/19 Sulfate IV 23:24 00:47 (morphine) 05/08/19 23:25 Ondansetron 4 mg ONCE STAT 05/08/19 DC 05/09/19 HCl (Zofran IV 23:24 00:46 Inj) 05/08/19 23:25 Piperacillin 100 ml @ ONCE ONCE 05/09/19 DC 05/09/19 Sod/ 200 mls/hr IVPB 03:00 04:22 Tazobactam 05/09/19 03:29 Sod Vancomycin 250 ml @ ONCE ONCE 05/09/19 DC HCl 125 mls/hr IVPB 03:00 05/09/19 04:59 Ondansetron 4 mg BRIDGE ORDER 05/09/19 DC HCl (Zofran PRN IV 03:00 Inj) NAUSEA/VOMITI 05/09/19 09:15 NG 650 mg ER BRIDGE 05/09/19 DC 05/09/19 Acetaminophen PRN PO 03:00 07:56 (Tylenol .MILD PAIN 05/09/19 09:15 Tab) 1-3 OR TEMP Procedures/MDM Medical decision making: Patient has evidence of an infected kidney stone will need admission for further evaluation management antibiotics and specialist treatment. Patient will be admitted to hospitalist with urology consultation. Departure Diagnosis: Primary Impression: Flank pain Condition: Serious SHUN ZIMMERMAN May 25, 2019 03:01
[2019-05-25] MEDS: AMPICILLIN/SULB 3 GM/NS (PMX) 100 ML IVPB SCH ×3 (05:03→17:50)
[2019-05-25 07:49] VITALS: BP 134/72; PULSE 86; RESP 18
[2019-05-25] MEDS: FAMOTIDINE 20 MG TAB PO SCH (09:11)
[2019-05-25] MEDS: LACTOBACILLUS RHAMNOSUS CAP PO SCH ×2 (09:11→21:39)
[2019-05-25] MEDS: FERROUS SULFATE (EC) 325 MG TAB PO SCH (09:11)
[2019-05-25] MEDS: ASCORBIC ACID 500 MG TAB PO SCH (09:11)
[2019-05-25] MEDS: DOCUSATE SODIUM 100 MG CAP PO SCH (09:11)
[2019-05-25] MEDS: ENOXAPARIN 40 MG/0.4 ML SYG SC SCH (09:13)
--- NOTE | 2019-05-25 09:47 | PN ---
Date/Time of Note Date/Time of Note DATE: 05/25/19 TIME: 09:46 Assessment/Plan VTE Prophylaxis Risk score (from Ns)>0 risk: 3 SCD applied (from Ns): Yes Pharmacological prophylaxis: NA/contraindicated Pharm contraindication: low risk/ambulating Lines/Catheters IV [facility] Saline Lock Urinary Cath still in place: No Assessment/Plan Hospital Course SUBJECTIVE: Denies any abdominal pain. OBJECTIVE: Physical Exam General: Morbidly obese 38 year-old female lying in bed in no apparent distress. HEENT: Normocephalic, atraumatic. Eyes: Anicteric sclerae, conjunctivae clear. ENT: Nasal septum midline, oral mucosa moist. Neck: Short and obese. Respiratory: Bilaterally clear breath sounds. No use of accessory muscles of respiration. No adventitious breath sounds. Cardiovascular: S1, S2 heard. Regular rate and rhythm. Abdomen: Soft and nondistended. Bowel sounds positive in all 4 quadrants. Right flank area drain that is draining milky secretions. Genitourinary: Tenderness in the right flank. Extremities: No cyanosis, no clubbing, no edema. Peripheral pulses palpable. Neurologic: Cranial nerves II through XII grossly intact. The patient is awake, alert, and oriented. Skin: Normal skin turgor. No skin rashes. 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 1. S/P sepsis with leukocytosis and tachycardia, secondary to underlying complicated urinary tract infection, present on admission. Continue empiric antimicrobials. Urine cultures inconclusive. 2. Severe right-sided hydronephrosis. Status post right ureteral stenting on 04/17/2019. Being followed by urology. 3. Right psoas muscle abscess. Status post IR guided drain placement on 05/11/2019. Culture showing Proteus mirabilis. 4. Iron deficiency anemia. Continue iron supplements. 5. History of asthma. No evidence of any exacerbation. 6. Morbid obesity. Weight reduction and lifestyle changes advised. 7. DVT prophylaxis. Bilateral SCDs. 8. Plan. Continue antimicrobials as per ID. DC planning is to home after the drain is discontinued once the output is minimal (10 to 15 mL in 24 hours). The patient was seen in collaboration with Dr. Mc. Result Diagram: 05/25/19 0431 05/25/19 0431 Results 24hrs Laboratory Tests Test 05/25/19 04:31 White Blood Count 9.4 Red Blood Count 3.06 L Hemoglobin 7.6 L Hematocrit 25.2 L Mean Corpuscular Volume 82.4 Mean Corpuscular Hemoglobin 24.8 L Mean Corpuscular Hemoglobin Concent 30.2 L Red Cell Distribution Width 20.0 H Platelet Count 428 H Mean Platelet Volume 8.8 Immature Granulocytes % 0.400 Neutrophils % 46.2 Lymphocytes % 43.1 Monocytes % 7.5 Eosinophils % 1.7 Basophils % 1.1 Nucleated Red Blood Cells % 0.0 Immature Granulocytes # 0.040 H Neutrophils # 4.3 Lymphocytes # 4.0 H Monocytes # 0.7 Eosinophils # 0.2 Basophils # 0.1 Nucleated Red Blood Cells # 0.0 Sodium Level 142 Potassium Level 3.5 Chloride Level 107 Carbon Dioxide Level 29 Anion Gap 6 Blood Urea Nitrogen 7 Creatinine 0.74 Est Glomerular Filtrat Rate mL/min > 60 Glucose Level 97 Calcium Level 8.8 Phosphorus Level 5.7 H Magnesium Level 1.7 Exam/Review of Systems Exam Vitals Vital Signs Date Temp Pulse Resp B/P (MAP) Pulse Ox O2 O2 Flow FiO2 Time Delivery Rate 05/25/19 98.5 86 18 134/72 96 Room Air 07:49 (92) Intake and Output 05/24/19 05/24/19 05/25/19 1515:00 23:00 07:00 IntakeIntake Total 1120 ml 540 ml 500 ml OutputOutput Total 80 ml 50 ml BalanceBalance 1120 ml 460 ml 450 ml Results Results 24hrs Laboratory Tests Test 05/25/19 04:31 White Blood Count 9.4 Red Blood Count 3.06 L Hemoglobin 7.6 L Hematocrit 25.2 L Mean Corpuscular Volume 82.4 Mean Corpuscular Hemoglobin 24.8 L Mean Corpuscular Hemoglobin Concent 30.2 L Red Cell Distribution Width 20.0 H Platelet Count 428 H Mean Platelet Volume 8.8 Immature Granulocytes % 0.400 Neutrophils % 46.2 Lymphocytes % 43.1 Monocytes % 7.5 Eosinophils % 1.7 Basophils % 1.1 Nucleated Red Blood Cells % 0.0 Immature Granulocytes # 0.040 H Neutrophils # 4.3 Lymphocytes # 4.0 H Monocytes # 0.7 Eosinophils # 0.2 Basophils # 0.1 Nucleated Red Blood Cells # 0.0 Sodium Level 142 Potassium Level 3.5 Chloride Level 107 Carbon Dioxide Level 29 Anion Gap 6 Blood Urea Nitrogen 7 Creatinine 0.74 Est Glomerular Filtrat Rate mL/min > 60 Glucose Level 97 Calcium Level 8.8 Phosphorus Level 5.7 H Magnesium Level 1.7 Medications Medication Current Medications IV Flush (NS 3 ml) 3 ml PER PROTOCOL IV Last administered on 05/15/19 05:34; Admin Dose 3 ML; Start 05/09/19 at 03:30 Ondansetron HCl (Zofran Inj) 4 mg Q6H PRN IV NAUSEA/VOMITING; Start 05/09/19 at 03:30 Acetaminophen (Tylenol Tab) 650 mg Q6H PRN PO .PAIN 1-3 OR TEMP Last administered on 05/14/19 01:48; Admin Dose 650 MG; Start 05/09/19 at 03:30 Hydromorphone HCl (Dilaudid) 1 mg Q4H PRN IV .SEVERE PAIN 7-10; Start 05/09/19 at 03:30 Ascorbic Acid (Vitamin C) 500 mg DAILY PO Last administered on 05/25/19 09:11; Admin Dose 500 MG; Start 05/09/19 at 09:00 Ferrous Sulfate (Ferrous Sulfate (Ec)) 325 mg DAILY PO Last administered on 05/25/19 09:11; Admin Dose 325 MG; Start 05/09/19 at 09:00 Enoxaparin Sodium (Lovenox) 40 mg DAILY SC Last administered on 05/25/19 09:13; Admin Dose 40 MG; Start 05/18/19 at 09:00 Acetaminophen/ Hydrocodone Bitart ([place] (10/325)) 1 tab Q4H PRN PO MODERATE PAIN LEVEL 4-6; Start 05/17/19 at 20:00 Famotidine (Pepcid) 20 mg DAILY PO Last administered on 05/25/19 09:11; Admin Dose 20 MG; Start 05/18/19 at 09:00 Albuterol (Ventolin Hfa) 2 puff Q4H RESP THERAPY PRN INH SHORTNESS OF BREATH; Start 05/17/19 at 20:00 Ampicillin Sodium/ Sulbactam Sodium 100 ml @ 100 mls/hr Q6 IVPB Last administered on 05/25/19at 05:03; Admin Dose 100 MLS/HR; Start 05/19/19 at 13:00 Docusate Sodium (Colace) 100 mg DAILY PO Last administered on 05/25/19at 09:11; Admin Dose 100 MG; Start 05/21/19 at 09:00 Lactobacillus Acidophilus/ Rhamnosus (Culturelle) 1 cap BID PO Last administered on 05/25/19at 09:11; Admin Dose 1 CAP; Start 05/21/19 at 21:00 VIVEK PADGETT NP May 25, 2019 09:47
--- NOTE | 2019-05-25 11:31 | CONS ---
Assessment/Plan Assessment/Plan Hospital Course (Demo Recall) No events, looks comfortable, no fevers Microbiology: Urine culture negative, fluid culture grew Proteus mirabilis Antimicrobials: Unasyn Physical examination: This is a morbidly obese well-developed middle-aged woman who is alert in no distress. Head atraumatic normocephalic sclera nonicteric neck is obese chest rise symmetrical breath sounds diminished bases. Heart: S1- S2. Abdomen soft bowel sounds present, right sided intra-abdominal drainage catheter with bag full of pus like fluid. Extremities without cyanosis Assessment: 1. Acute pyelonephritis with psoas abscess, status post IR guided drainage 2. S/p sepsis 3. Morbid obesity Plan: Remains stable, continue abx, monitor drain output, anticipate discharge on oral levofloxacin Consultation Date/Type/Reason Admit Date/Time May 09, 2019 at 03:01 Initial Consult Date 05/09/19 Type of Consult id Requesting Provider: BETH MON Date/Time of Note DATE: 05/25/19 TIME: 11:31 Exam/Review of Systems Exam Vitals Vital Signs Date Temp Pulse Resp B/P (MAP) Pulse Ox O2 O2 Flow FiO2 Time Delivery Rate 05/25/19 98.5 86 18 134/72 96 Room Air 07:49 (92) Intake and Output 05/24/19 05/24/19 05/25/19 1515:00 23:00 07:00 IntakeIntake Total 1120 ml 540 ml 500 ml OutputOutput Total 80 ml 50 ml BalanceBalance 1120 ml 460 ml 450 ml Results Result Diagram: 05/25/19 0431 05/25/19 0431 Results 24hrs Laboratory Tests Test 05/25/19 04:31 White Blood Count 9.4 Red Blood Count 3.06 L Hemoglobin 7.6 L Hematocrit 25.2 L Mean Corpuscular Volume 82.4 Mean Corpuscular Hemoglobin 24.8 L Mean Corpuscular Hemoglobin Concent 30.2 L Red Cell Distribution Width 20.0 H Platelet Count 428 H Mean Platelet Volume 8.8 Immature Granulocytes % 0.400 Neutrophils % 46.2 Lymphocytes % 43.1 Monocytes % 7.5 Eosinophils % 1.7 Basophils % 1.1 Nucleated Red Blood Cells % 0.0 Immature Granulocytes # 0.040 H Neutrophils # 4.3 Lymphocytes # 4.0 H Monocytes # 0.7 Eosinophils # 0.2 Basophils # 0.1 Nucleated Red Blood Cells # 0.0 Sodium Level 142 Potassium Level 3.5 Chloride Level 107 Carbon Dioxide Level 29 Anion Gap 6 Blood Urea Nitrogen 7 Creatinine 0.74 Est Glomerular Filtrat Rate mL/min > 60 Glucose Level 97 Calcium Level 8.8 Phosphorus Level 5.7 H Magnesium Level 1.7 Medications Medication Current Medications IV Flush (NS 3 ml) 3 ml PER PROTOCOL IV Last administered on 05/15/19 05:34; Admin Dose 3 ML; Start 05/09/19 at 03:30 Ondansetron HCl (Zofran Inj) 4 mg Q6H PRN IV NAUSEA/VOMITING; Start 05/09/19 at 03:30 Acetaminophen (Tylenol Tab) 650 mg Q6H PRN PO .PAIN 1-3 OR TEMP Last administered on 05/14/19 01:48; Admin Dose 650 MG; Start 05/09/19 at 03:30 Hydromorphone HCl (Dilaudid) 1 mg Q4H PRN IV .SEVERE PAIN 7-10; Start 05/09/19 at 03:30 Ascorbic Acid (Vitamin C) 500 mg DAILY PO Last administered on 05/25/19 09:11; Admin Dose 500 MG; Start 05/09/19 at 09:00 Ferrous Sulfate (Ferrous Sulfate (Ec)) 325 mg DAILY PO Last administered on 05/25/19 09:11; Admin Dose 325 MG; Start 05/09/19 at 09:00 Enoxaparin Sodium (Lovenox) 40 mg DAILY SC Last administered on 05/25/19 09:13; Admin Dose 40 MG; Start 05/18/19 at 09:00 Acetaminophen/ Hydrocodone Bitart ([place] (10/325)) 1 tab Q4H PRN PO MODERATE PAIN LEVEL 4-6; Start 05/17/19 at 20:00 Famotidine (Pepcid) 20 mg DAILY PO Last administered on 05/25/19 09:11; Admin Dose 20 MG; Start 05/18/19 at 09:00 Albuterol (Ventolin Hfa) 2 puff Q4H RESP THERAPY PRN INH SHORTNESS OF BREATH; Start 05/17/19 at 20:00 Ampicillin Sodium/ Sulbactam Sodium 100 ml @ 100 mls/hr Q6 IVPB Last administered on 7/11/19at 05:03; Admin Dose 100 MLS/HR; Start 05/19/19 at 13:00 Docusate Sodium (Colace) 100 mg DAILY PO Last administered on 05/25/19at 09:11; Admin Dose 100 MG; Start 05/21/19 at 09:00 Lactobacillus Acidophilus/ Rhamnosus (Culturelle) 1 cap BID PO Last administered on 05/25/19at 09:11; Admin Dose 1 CAP; Start 05/21/19 at 21:00 KVNG JI NP May 25, 2019 11:31
[2019-05-25 14:51] VITALS: BP 130/80; PULSE 74; RESP 18
--- NOTE | 2019-05-25 17:49 | CONS ---
Consult Date/Type/Reason Admit Date/Time May 09, 2019 at 03:01 Initial Consult Date 05/09/19 Type of Consultation: Urology Reason for Consultation Right psoas abscess. Requesting Provider: BETH MON Date/Time of Note DATE: 05/25/19 TIME: 17:47 Subjective Patient is feeling better, ambulating well and has no pain. Objective Vitals Vital Signs Date Temp Pulse Resp B/P (MAP) Pulse Ox O2 O2 Flow FiO2 Time Delivery Rate 05/25/19 97.8 74 18 130/80 92 Room Air 14:51 (97) Intake and Output 05/24/19 05/24/19 05/25/19 1515:00 23:00 07:00 IntakeIntake Total 1120 ml 540 ml 500 ml OutputOutput Total 80 ml 50 ml BalanceBalance 1120 ml 460 ml 450 ml Exam The accordion drain drained about 130 mL. Results/Medications Result Diagram: 05/25/19 0431 05/25/19 0431 Results 24 hrs Laboratory Tests Test 05/25/19 04:31 White Blood Count 9.4 Red Blood Count 3.06 L Hemoglobin 7.6 L Hematocrit 25.2 L Mean Corpuscular Volume 82.4 Mean Corpuscular Hemoglobin 24.8 L Mean Corpuscular Hemoglobin Concent 30.2 L Red Cell Distribution Width 20.0 H Platelet Count 428 H Mean Platelet Volume 8.8 Immature Granulocytes % 0.400 Neutrophils % 46.2 Lymphocytes % 43.1 Monocytes % 7.5 Eosinophils % 1.7 Basophils % 1.1 Nucleated Red Blood Cells % 0.0 Immature Granulocytes # 0.040 H Neutrophils # 4.3 Lymphocytes # 4.0 H Monocytes # 0.7 Eosinophils # 0.2 Basophils # 0.1 Nucleated Red Blood Cells # 0.0 Sodium Level 142 Potassium Level 3.5 Chloride Level 107 Carbon Dioxide Level 29 Anion Gap 6 Blood Urea Nitrogen 7 Creatinine 0.74 Est Glomerular Filtrat Rate mL/min > 60 Glucose Level 97 Calcium Level 8.8 Phosphorus Level 5.7 H Magnesium Level 1.7 Home Meds Reported Medications Acetaminophen* (Acetaminophen*) 500 MG Extra Strength Tablet, 500 MG PO Q4H PRN for PAIN AND OR ELEVATED TEMP, TAB 05/09/19 Ferrous Sulfate* (Ferrous Sulfate*) 325 Mg Tabec, 325 MG PO DAILY, TAB 05/09/19 Ascorbic Acid* (Vitamin C*) 500 Mg Capsule.sa, 500 MG PO DAILY, CAP 05/09/19 Medications Current Medications IV Flush (NS 3 ml) 3 ml PER PROTOCOL IV Last administered on 05/15/19 05:34; Admin Dose 3 ML; Start 05/09/19 at 03:30 Ondansetron HCl (Zofran Inj) 4 mg Q6H PRN IV NAUSEA/VOMITING; Start 05/09/19 at 03:30 Acetaminophen (Tylenol Tab) 650 mg Q6H PRN PO .PAIN 1-3 OR TEMP Last administered on 05/14/19 01:48; Admin Dose 650 MG; Start 05/09/19 at 03:30 Hydromorphone HCl (Dilaudid) 1 mg Q4H PRN IV .SEVERE PAIN 7-10; Start 05/09/19 at 03:30 Ascorbic Acid (Vitamin C) 500 mg DAILY PO Last administered on 05/25/19 09:11; Admin Dose 500 MG; Start 05/09/19 at 09:00 Ferrous Sulfate (Ferrous Sulfate (Ec)) 325 mg DAILY PO Last administered on 05/25/19 09:11; Admin Dose 325 MG; Start 05/09/19 at 09:00 Enoxaparin Sodium (Lovenox) 40 mg DAILY SC Last administered on 05/25/19 09:13; Admin Dose 40 MG; Start 05/18/19 at 09:00 Acetaminophen/ Hydrocodone Bitart ([place] (10/325)) 1 tab Q4H PRN PO MODERATE PAIN LEVEL 4-6; Start 05/17/19 at 20:00 Famotidine (Pepcid) 20 mg DAILY PO Last administered on 05/25/19 09:11; Admin Dose 20 MG; Start 05/18/19 at 09:00 Albuterol (Ventolin Hfa) 2 puff Q4H RESP THERAPY PRN INH SHORTNESS OF BREATH; Start 05/17/19 at 20:00 Ampicillin Sodium/ Sulbactam Sodium 100 ml @ 100 mls/hr Q6 IVPB Last administered on 05/25/19 12:29; Admin Dose 100 MLS/HR; Start 05/19/19 at 13:00 Docusate Sodium (Colace) 100 mg DAILY PO Last administered on 05/25/19 09:11; Admin Dose 100 MG; Start 05/21/19 at 09:00 Lactobacillus Acidophilus/ Rhamnosus (Culturelle) 1 cap BID PO Last administered on 05/25/19at 09:11; Admin Dose 1 CAP; Start 05/21/19 at 21:00 Assessment/Plan Hospital Course (Demo Recall) 38-year-old female was hospitalized earlier this month with right renal stone with obstruction. She underwent cystoscopy and insertion of right ureteral JJ stent on 04/17/2019. Patient was supposed to follow-up with [facility] but she did not. She comes back today feeling discomfort in the right side of the abdomen. She denies any fever or chills and no back pain. CT scan of the abdomen and pelvis showed: Severe right-sided hydronephrosis with perinephric stranding and fluid, unchanged from 04/16/2019. Underlying infection cannot be excluded. There is a right-sided ureteral stent with calcifications surrounding the proximal pigtail within the renal pelvis which is unchanged. Enlargement of the right iliopsoas and iliacus muscles with surrounding stranding suspicious for underlying abscess, increased compared with the prior study. There is increased posterior extension. Distended gallbladder with multiple gallstones. Prominence of the left labia, unchanged. Clinically correlate. CT scan of the abdomen and pelvis with IV contrast done on 05/11/2019 showed: 1. Right xanthogranulomatous pyelonephritis. There is a large abscess i nfiltrating into the right psoas muscle measuring approximately 3.8 x 4.1 x 13.6 cm. There is infiltration of the right iliacus muscle and right lateral abdominal wall muscles. With extension of the abscess posteriorly into the right paraspinal soft tissues at the level of L5 with component measuring approximately 3.6 x 8.1 x 9.5 cm. Findings appear slightly increased when compared to the prior examination. 2. 1.3 cm calculus remains within the right renal pelvis. A right double-J ureteral stent is in place. 3. Gallbladder sludge versus cholelithiasis. With these findings on the CT scan the patient underwent aspiration and drainage of the abscess. The drainage from the accordion drain is 30mL in the past [address] She had a CT scan of the abdomen and pelvis on 05/20/2019 and that showed: Successful percutaneous drainage of large right psoas abscess in patient with xanthogranulomatous pyelonephritis of the right kidney. 2 cm calculus right renal pelvis with double-J ureteral stent. Persistent stranding of perinephric fat not significantly changed. Cholelithiasis. Bibasilar atelectasis. She continues to have moderate amount of purulent material coming out in the accordion drain. This may take time to stop. I discussed with her the possibility of discharging her and she will learn how to empty the accordion drain and she could go to [facility] [place] [facility] with the drain so they could take care of her abscess as well as the kidney stones and the JJ stent. CORTNEY PETTY MD May 25, 2019 17:49
[2019-05-25 20:00] VITALS: BP 118/75; PULSE 85; RESP 18
[2019-05-25 20:04] VITALS: BP 125/72; PULSE 88; RESP 18
[2019-05-26] MEDS: AMPICILLIN/SULB 3 GM/NS (PMX) 100 ML IVPB SCH ×3 (00:33→12:10)
[2019-05-26 02:00] VITALS: BP_SYST 125; BP_SYST 130; BP_DIAS 70; BP_DIAS 77; PULSE 76; PULSE 91; RESP 18
--- NOTE | 2019-05-26 07:43 | PN ---
Date/Time of Note Date/Time of Note DATE: 05/26/19 TIME: 07:42 Assessment/Plan VTE Prophylaxis Risk score (from Ns)>0 risk: 1 SCD applied (from Nsg): Yes Pharmacological prophylaxis: NA/contraindicated Pharm contraindication: low risk/ambulating Lines/Catheters IV [facility]from [facility] [place] Urinary Cath still in place: No Assessment/Plan Hospital Course SUBJECTIVE: Denies any abdominal pain. OBJECTIVE: Physical Exam General: Morbidly obese 38 year-old female lying in bed in no apparent distress. HEENT: Normocephalic, atraumatic. Eyes: Anicteric sclerae, conjunctivae clear. ENT: Nasal septum midline, oral mucosa moist. Neck: Short and obese. Respiratory: Bilaterally clear breath sounds. No use of accessory muscles of respiration. No adventitious breath sounds. Cardiovascular: S1, S2 heard. Regular rate and rhythm. Abdomen: Soft and nondistended. Bowel sounds positive in all 4 quadrants. Right flank area drain that is draining milky secretions. Genitourinary: Tenderness in the right flank. Extremities: No cyanosis, no clubbing, no edema. Peripheral pulses palpable. Neurologic: Cranial nerves II through XII grossly intact. The patient is awake, alert, and oriented. Skin: Normal skin turgor. No skin rashes. 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 1. S/P sepsis with leukocytosis and tachycardia, secondary to underlying complicated urinary tract infection, present on admission. Continue empiric antimicrobials. Urine cultures inconclusive. 2. Severe right-sided hydronephrosis. Status post right ureteral stenting on 04/17/2019. Being followed by urology. 3. Right psoas muscle abscess. Status post IR guided drain placement on 05/11/2019. Culture showing Proteus mirabilis. 4. Iron deficiency anemia. Continue iron supplements. 5. History of asthma. No evidence of any exacerbation. 6. Morbid obesity. Weight reduction and lifestyle changes advised. 7. DVT prophylaxis. Bilateral SCDs. 8. Plan. Continue antimicrobials as per ID. DC planning is to home after the drain is discontinued once the output is minimal (10 to 15 mL in 24 hours). The patient was seen in collaboration with Dr. Mc. Result Diagram: 05/25/19 04305/25/19430 Exam/Review of Systems Exam Vitals Vital Signs Date Temp Pulse Resp B/P (MAP) Pulse Ox O2 O2 Flow FiO2 Time Delivery Rate 05/26/19 97.8 91 18 130/77 96 Room Air 02:00 (94) Intake and Output 05/25/19 05/25/19 05/26/19 1515:00 23:00 07:00 IntakeIntake Total 660 ml 340 ml 650 ml OutputOutput Total 25 ml BalanceBalance 660 ml 315 ml 650 ml Medications Medication Current Medications IV Flush (NS 3 ml) 3 ml PER PROTOCOL IV Last administered on 05/15/19at 05:34; Admin Dose 3 ML; Start 05/09/19 at 03:30 Ondansetron HCl (Zofran Inj) 4 mg Q6H PRN IV NAUSEA/VOMITING; Start 05/09/19 at 03:30 Acetaminophen (Tylenol Tab) 650 mg Q6H PRN PO .PAIN 1-3 OR TEMP Last administered on 05/14/19at 01:48; Admin Dose 650 MG; Start 05/09/19 at 03:30 Hydromorphone HCl (Dilaudid) 1 mg Q4H PRN IV .SEVERE PAIN 7-10; Start 05/09/19 at 03:30 Ascorbic Acid (Vitamin C) 500 mg DAILY PO Last administered on 05/25/19at 09:11; Admin Dose 500 MG; Start 05/09/19 at 09:00 Ferrous Sulfate (Ferrous Sulfate (Ec)) 325 mg DAILY PO Last administered on 05/25/19at 09:11; Admin Dose 325 MG; Start 05/09/19 at 09:00 Enoxaparin Sodium (Lovenox) 40 mg DAILY SC Last administered on 05/25/19at 09:13; Admin Dose 40 MG; Start 05/18/19 at 09:00 Acetaminophen/ Hydrocodone Bitart ([place] (10/325)) 1 tab Q4H PRN PO MODERATE PAIN LEVEL 4-6; Start 05/17/19 at 20:00 Famotidine (Pepcid) 20 mg DAILY PO Last administered on 05/25/19at 09:11; Admin Dose 20 MG; Start 05/18/19 at 09:00 Albuterol (Ventolin Hfa) 2 puff Q4H RESP THERAPY PRN INH SHORTNESS OF BREATH; Start 05/17/19 at 20:00 Ampicillin Sodium/ Sulbactam Sodium 100 ml @ 100 mls/hr Q6 IVPB Last administered on 05/26/19at 06:00; Admin Dose 100 MLS/HR; Start 05/19/19 at 13:00 Docusate Sodium (Colace) 100 mg DAILY PO Last administered on 05/25/19at 09:11; Admin Dose 100 MG; Start 05/21/19 at 09:00 Lactobacillus Acidophilus/ Rhamnosus (Culturelle) 1 cap BID PO Last administered on 05/25/19at 21:39; Admin Dose 1 CAP; Start 05/21/19 at 21:00 VIVEK PADGETT NP May 26, 2019 07:43
[2019-05-26 07:50] VITALS: BP 109/64; PULSE 97; RESP 18
[2019-05-26] MEDS: DOCUSATE SODIUM 100 MG CAP PO SCH (09:07)
[2019-05-26] MEDS: FAMOTIDINE 20 MG TAB PO SCH (09:07)
[2019-05-26] MEDS: FERROUS SULFATE (EC) 325 MG TAB PO SCH (09:07)
[2019-05-26] MEDS: LACTOBACILLUS RHAMNOSUS CAP PO SCH ×2 (09:07→21:48)
[2019-05-26] MEDS: ASCORBIC ACID 500 MG TAB PO SCH (09:07)
[2019-05-26] MEDS: ENOXAPARIN 40 MG/0.4 ML SYG SC SCH (09:09)
--- NOTE | 2019-05-26 12:31 | CONS ---
Assessment/Plan Assessment/Plan Hospital Course (Demo Recall) No events, feels good, no fevers Microbiology: Urine culture negative, fluid culture grew Proteus mirabilis Antimicrobials: Unasyn Physical examination: This is a morbidly obese well-developed middle-aged woman who is alert in no distress. Head atraumatic normocephalic sclera nonicteric neck is obese chest rise symmetrical breath sounds diminished bases. Heart: S1- S2. Abdomen soft bowel sounds present, right sided intra-abdominal drainage catheter with bag full of pus like fluid. Extremities without cyanosis Assessment: 1. Acute pyelonephritis with psoas abscess, status post IR guided drainage 2. S/p sepsis 3. Morbid obesity Plan: Remains stable, urology rec-s noted, ok dc on PO Levaquin for 10 more days, f/u at [facility] for drain removal and further rec-s re abx based on her status Consultation Date/Type/Reason Admit Date/Time May 09, 2019 at 03:01 Initial Consult Date 05/09/19 Type of Consult id Requesting Provider: BETH MON Date/Time of Note DATE: 05/26/19 TIME: 12:28 Exam/Review of Systems Exam Vitals Vital Signs Date Temp Pulse Resp B/P (MAP) Pulse Ox O2 O2 Flow FiO2 Time Delivery Rate 05/26/19 98.6 97 18 109/64 95 07:50 (79) 05/26/19 Room Air 02:00 Intake and Output 05/25/19 05/25/19 05/26/19 1515:00 23:00 07:00 IntakeIntake Total 660 ml 340 ml 750 ml OutputOutput Total 25 ml BalanceBalance 660 ml 315 ml 750 ml Results Result Diagram: 05/25/19 0431 05/25/19 0431 Medications Medication Current Medications IV Flush (NS 3 ml) 3 ml PER PROTOCOL IV Last administered on 05/15/19at 05:34; Admin Dose 3 ML; Start 05/09/19 at 03:30 Ondansetron HCl (Zofran Inj) 4 mg Q6H PRN IV NAUSEA/VOMITING; Start 05/09/19 at 03:30 Acetaminophen (Tylenol Tab) 650 mg Q6H PRN PO .PAIN 1-3 OR TEMP Last administered on 05/14/19at 01:48; Admin Dose 650 MG; Start 05/09/19 at 03:30 Hydromorphone HCl (Dilaudid) 1 mg Q4H PRN IV .SEVERE PAIN 7-10; Start 05/09/19 at 03:30 Ascorbic Acid (Vitamin C) 500 mg DAILY PO Last administered on 05/26/19 09:07; Admin Dose 500 MG; Start 05/09/19 at 09:00 Ferrous Sulfate (Ferrous Sulfate (Ec)) 325 mg DAILY PO Last administered on 09:07; Admin Dose 325 MG; Start 05/09/19 at 09:00 Enoxaparin Sodium (Lovenox) 40 mg DAILY SC Last administered on 05/26/19 09:09; Admin Dose 40 MG; Start 05/18/19 at 09:00 Acetaminophen/ Hydrocodone Bitart ([place] (10/325)) 1 tab Q4H PRN PO MODERATE PAIN LEVEL 4-6; Start 05/17/19 at 20:00 Famotidine (Pepcid) 20 mg DAILY PO Last administered on 05/26/19 09:07; Admin Dose 20 MG; Start 05/18/19 at 09:00 Albuterol (Ventolin Hfa) 2 puff Q4H RESP THERAPY PRN INH SHORTNESS OF BREATH; Start 05/17/19 at 20:00 Ampicillin Sodium/ Sulbactam Sodium 100 ml @ 100 mls/hr Q6 IVPB Last administered on 05/26/19 12:10; Admin Dose 100 MLS/HR; Start 05/19/19 at 13:00 Docusate Sodium (Colace) 100 mg DAILY PO Last administered on 05/26/19 09:07; Admin Dose 100 MG; Start 05/21/19 at 09:00 Lactobacillus Acidophilus/ Rhamnosus (Culturelle) 1 cap BID PO Last administered on 05/26/19 09:07; Admin Dose 1 CAP; Start 05/21/19 at 21:00 KVNG JI NP May 26, 2019 12:31
[2019-05-26] MEDS ORDERED: LEVOFLOXACIN 750 MG TABLET NGT SCH (13:00)
[2019-05-26 14:40] VITALS: BP 127/87; PULSE 83; RESP 18
[2019-05-26 20:30] VITALS: BP 118/67; PULSE 102; RESP 20
[2019-05-27 01:53] VITALS: BP 116/66; PULSE 67; RESP 17
[2019-05-27] MEDS ORDERED: LEVOFLOXACIN 750 MG TABLET PO SCH (06:00)
[2019-05-27 08:57] VITALS: BP 108/63; PULSE 103; RESP 18
--- NOTE | 2019-05-27 09:07 | CONS ---
Consult Date/Type/Reason Admit Date/Time May 09, 2019 at 03:01 Initial Consult Date 05/09/19 Type of Consultation: Urology Reason for Consultation Right psoas abscess Requesting Provider: BETH MON Date/Time of Note DATE: 05/27/19 TIME: 09:03 Subjective Patient is feeling well, has no pain. Objective Vitals Vital Signs Date Temp Pulse Resp B/P (MAP) Pulse Ox O2 O2 Flow FiO2 Time Delivery Rate 05/27/19 98.6 103 18 108/63 97 Room Air 08:57 (78) Intake and Output 05/26/19 05/26/19 05/27/19 1515:00 23:00 07:00 IntakeIntake Total 400 ml 240 ml 600 ml OutputOutput Total 10 ml 15 ml 40 ml BalanceBalance 390 ml 225 ml 560 ml Exam The accordion drain drained 65ml. Results/Medications Result Diagram: 05/27/19 0441 05/27/19 0441 Results 24 hrs Laboratory Tests Test 05/27/19 04:41 White Blood Count 11.3 #H Red Blood Count 3.30 L Hemoglobin 8.1 L Hematocrit 27.7 L Mean Corpuscular Volume 83.9 Mean Corpuscular Hemoglobin 24.5 L Mean Corpuscular Hemoglobin Concent 29.2 L Red Cell Distribution Width 20.0 H Platelet Count 423 H Mean Platelet Volume 9.0 Immature Granulocytes % 0.400 Neutrophils % 60.1 Lymphocytes % 29.6 Monocytes % 8.0 Eosinophils % 1.2 Basophils % 0.7 Nucleated Red Blood Cells % 0.0 Immature Granulocytes # 0.050 H Neutrophils # 6.8 Lymphocytes # 3.4 H Monocytes # 0.9 Eosinophils # 0.1 Basophils # 0.1 Nucleated Red Blood Cells # 0.0 Sodium Level 138 Potassium Level 3.9 Chloride Level 102 Carbon Dioxide Level 30 Anion Gap 6 Blood Urea Nitrogen 8 Creatinine 0.76 Est Glomerular Filtrat Rate mL/min > 60 Glucose Level 109 Calcium Level 9.0 Phosphorus Level 5.4 H Magnesium Level 1.7 Home Meds Reported Medications Acetaminophen* (Acetaminophen*) 500 MG Extra Strength Tablet, 500 MG PO Q4H PRN for PAIN AND OR ELEVATED TEMP, TAB 05/09/19 Ferrous Sulfate* (Ferrous Sulfate*) 325 Mg Tabec, 325 MG PO DAILY, TAB 05/09/19 Ascorbic Acid* (Vitamin C*) 500 Mg Capsule.sa, 500 MG PO DAILY, CAP 05/09/19 Medications Current Medications IV Flush (NS 3 ml) 3 ml PER PROTOCOL IV Last administered on 05/15/19 05:34; Admin Dose 3 ML; Start 05/09/19 at 03:30 Ondansetron HCl (Zofran Inj) 4 mg Q6H PRN IV NAUSEA/VOMITING; Start 05/09/19 at 03:30 Acetaminophen (Tylenol Tab) 650 mg Q6H PRN PO .PAIN 1-3 OR TEMP Last administered on 05/14/19 01:48; Admin Dose 650 MG; Start 05/09/19 at 03:30 Hydromorphone HCl (Dilaudid) 1 mg Q4H PRN IV .SEVERE PAIN 7-10; Start 05/09/19 at 03:30 Ascorbic Acid (Vitamin C) 500 mg DAILY PO Last administered on 05/26/19 09:07; Admin Dose 500 MG; Start 05/09/19 at 09:00 Ferrous Sulfate (Ferrous Sulfate (Ec)) 325 mg DAILY PO Last administered on 05/26/19 09:07; Admin Dose 325 MG; Start 05/09/19 at 09:00 Enoxaparin Sodium (Lovenox) 40 mg DAILY SC Last administered on 05/26/19 09:09; Admin Dose 40 MG; Start 05/18/19 at 09:00 Acetaminophen/ Hydrocodone Bitart ([place] (10/325)) 1 tab Q4H PRN PO MODERATE PAIN LEVEL 4-6; Start 05/17/19 at 20:00 Famotidine (Pepcid) 20 mg DAILY PO Last administered on 05/26/19 09:07; Admin Dose 20 MG; Start 05/18/19 at 09:00 Albuterol (Ventolin Hfa) 2 puff Q4H RESP THERAPY PRN INH SHORTNESS OF BREATH; Start 05/17/19 at 20:00 Docusate Sodium (Colace) 100 mg DAILY PO Last administered on 05/26/19 09:07; Admin Dose 100 MG; Start 05/21/19 at 09:00 Lactobacillus Acidophilus/ Rhamnosus (Culturelle) 1 cap BID PO Last administered on 05/26/19 21:48; Admin Dose 1 CAP; Start 05/21/19 at 21:00 Levofloxacin (Levaquin) 750 mg DAILY@06 PO Last administered on 05/27/19at 07:24; Admin Dose 750 MG; Start 05/27/19 at 06:00 Assessment/Plan Hospital Course (Demo Recall) 38-year-old female was hospitalized earlier this month with right renal stone with obstruction. She underwent cystoscopy and insertion of right ureteral JJ stent on 04/17/2019. Patient was supposed to follow-up with [facility] but she did not. She comes back today feeling discomfort in the right side of the abdomen. She denies any fever or chills and no back pain. CT scan of the abdomen and pelvis showed: Severe right-sided hydronephrosis with perinephric stranding and fluid, unchanged from 04/16/2019. Underlying infection cannot be excluded. There is a right-sided ureteral stent with calcifications surrounding the proximal pigtail within the renal pelvis which is unchanged. Enlargement of the right iliopsoas and iliacus muscles with surrounding stranding suspicious for underlying abscess, increased compared with the prior study. There is increased posterior extension. Distended gallbladder with multiple gallstones. Prominence of the left labia, unchanged. Clinically correlate. CT scan of the abdomen and pelvis with IV contrast done on 05/11/2019 showed: 1. Right xanthogranulomatous pyelonephritis. There is a large abscess infiltrating into the right psoas muscle measuring approximately 3.8 x 4.1 x 13.6 cm. There is infiltration of the right iliacus muscle and right lateral abdominal wall muscles. With extension of the abscess posteriorly into the right paraspinal soft tissues at the level of L5 with component measuring approximately 3.6 x 8.1 x 9.5 cm. Findings appear slightly increased when compared to the prior examination. 2. 1.3 cm calculus remains within the right renal pelvis. A right double-J ureteral stent is in place. 3. Gallbladder sludge versus cholelithiasis. With these findings on the CT scan the patient underwent aspiration and drainage of the abscess. The drainage from the accordion drain is 30mL in the past [address] She had a CT scan of the abdomen and pelvis on 05/20/2019 and that showed: Successful percutaneous drainage of large right psoas abscess in patient with xanthogranulomatous pyelonephritis of the right kidney. 2 cm calculus right renal pelvis with double-J ureteral stent. Persistent stranding of perinephric fat not significantly changed. Cholelithiasis. Bibasilar atelectasis. She continues to have moderate amount of purulent material coming out in the accordion drain,65ml in the past 24 hours. This may take time to stop. I discussed with her the possibility of discharging her and she will learn how to empty the accordion drain and she could go to [place] [facility] with the drain so they could take care of her abscess as well as the kidney stones and the JJ stent. CORTNEY PETTY MD May 27, 2019 09:07
[2019-05-27] MEDS ORDERED: LEVO750T25 PO (09:15)
[2019-05-27] MEDS: FERROUS SULFATE (EC) 325 MG TAB PO SCH (09:18)
[2019-05-27] MEDS: ASCORBIC ACID 500 MG TAB PO SCH (09:18)
[2019-05-27] MEDS: FAMOTIDINE 20 MG TAB PO SCH (09:18)
[2019-05-27] MEDS: DOCUSATE SODIUM 100 MG CAP PO SCH (09:18)
[2019-05-27] MEDS: LACTOBACILLUS RHAMNOSUS CAP PO SCH (09:18)
[2019-05-27] MEDS: ENOXAPARIN 40 MG/0.4 ML SYG SC SCH (09:20)
--- NOTE | 2019-05-27 09:20 | PDOCDIS ---
Discharge Instructions CONDITION [id number] Patient Condition: Siatq0x Stable HOME CARE INSTRUCTIONS: [id number] Diet Instructions: [id number] Low Fat /Cholesterol FOLLOW UP/APPOINTMENTS Follow-up Plan [facility]. OTHER ORDERS: Other Orders: 1. Complete the course of antibiotics. 2. Take [id number]-[id number]-[id number] pain medications as needed. 3. Empty the drain periodically as instructed by the nurses. 4. Please follow-up with [facility] at the earliest. 5. Please go to the nearest emergency room if you have any persistent fevers, significant pain in the drain area, if the drain comes out accidentally, or any other unusual signs/symptoms. VIVEK PADGETT NP May 27, 2019 09:20
--- NOTE | 2019-05-27 09:56 | DS ---
Date/Time of Note Date/Time of Note DATE: 05/27/19 TIME: 09:53 Discharge Summary Admission/Discharge Info Admit Date/Time May 09, 2019 at 03:01 Discharge Date/Time Discharge Diagnosis 1. S/P sepsis with leukocytosis and tachycardia, present on admission. 2. 2 cm calculus right renal pelvis. S/P right ureteral stenting on 04/17/2019. 3. Right psoas muscle abscess. S/P IR guided drain placement on 05/11/2019. 4. Iron deficiency anemia. 5. History of asthma. 6. Morbid obesity. BMI > 45 kg/m. Patient Condition: Stable Consults 1. Dayton Phan MD, Infectious Diseases. 2. Itz Peck MD, Urology. 3. Venkat Whitt MD, General Surgery. Procedures [place] [address] Radiology Main Line: [phone] DIAGNOSTIC IMAGING REPORT Patient: DREA HUTCHINSON : 1980 Age: 38 Sex: F MR #: [id number] DOS: 05/11/19 0000 Ordering MD: VIVEK PADGETT NP Location: [facility] Room/Bed: 410A PROCEDURE: CT guided left back/psoas fluid collection drainage. CLINICAL INDICATION: left back/psoas fluid collection TECHNIQUE: Informed consent was obtained. The procedure, risks, benefits, complications and alternatives were explained to the patient or the patient's family. Risks including bleeding and infection were explained. The patient or the patient's family understood and was willing to proceed. A procedural pause was performed. The patient's name, date of , and procedure to be performed were verified. One or more of the following dose reduction techniques were used: Automated exposure control, adjustment of the mA and/or kV according to patient size, use of iterative reconstruction technique. DICOM images are available. Using local anesthetic, sterile technique and CT guidance, a 19-gauge coaxial needle was advanced into the fluid collection in the left back.. CT scan was performed confirming position. Purulent fluid was also aspirated confirming position. The inner stylet was removed, leaving the coaxial needle in place within the fluid collection. A 0.035-inch Amplatz guidewire was advanced through the coaxial needle into the fluid collection. The coaxial needle was removed. The tract was dilated to 10 -Macedonian. 10 Macedonian multipurpose drainage catheter was advanced over the guidewire into the fluid collection. The guidewire was removed. Additional scanning was performed confirming position. The catheter was then secured to the patients skin. Approximately 20ml of purulent fluid was aspirated and sent for analysis. The catheter was connected to a drainage bag. A dressing was applied. The patient tolerated procedure well. COMPARISON: None. FINDINGS: Final images demonstrate the drainage catheter in satisfactory position within the fluid collection. Specimens: Fluid from the fluid collection. Blood loss: 1 ml. Complications: None. Rivet Spinner: None. Anesthesia: Local and moderate sedation. Graft/Implant: Abscess drainage catheter. IMPRESSION: 1. Successful CT guided left back/psoas fluid collection catheter placement. 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 Hospital Course The patient had evidence of underlying sepsis upon ER presentation. It was suspected that the sepsis could have been most probably secondary to an underlying urinary tract infection. The patient was started on empiric antimicrobials. An infectious disease consult was obtained. The patient's urine culture was inconclusive. Meanwhile, the patient also had evidence of a possible psoas muscle abscess. This was evaluated by general surgery and the general surgeon did not think it needed surgical exploration. The patient underwent a repeat CT scan of the abdomen and pelvis on 05/11/2019 that was showing a large abscess infiltrating into the right psoas muscle measuring approximately 3.8 x 4.1 x 13.6 cm. Therefore, the patient underwent an IR guided drainage of this abscess on the 05/11/2019. The patient had a catheter with the drainage bag left in place. Abscess culture revealed Proteus mirabilis. The patient's antibiotics per tailored to successfully cover these organisms. The patient continued to have significant drain from the psoas muscle abscess and there was a time when the patient was draining almost 500 mL from the drain every 24 hours. Urology was following the patient. The patient underwent a repeat CT scan of the abdomen and pelvis on 05/20/2019 that was showing the end of to the drain in the right psoas abscess. The patient continued to have significant amount of drain although it was waxing and waning. The initial decision was to discharge this patient home once the drain is minimal (10 to 15 mL in 24 hours). However, the patient never had a 24-hour duration with less than 15 mL of drain. Therefore, a clinical decision was made to discharge this patient home with the drain in place and the patient to follow-up as outpatient. The patient has to follow-up with [facility] for removal of drain as well as for further management of the JJ stent that she has in place for right-sided hydronephrosis secondary to an obstructing renal calculus. The patient had evidence of right-sided hydronephrosis, secondary to a obstructing right-sided renal calculus. The patient had a JJ stent placed on 04/17/2019 at [facility]. She was advised to follow-up with [facility] for further management of this. The patient's chronic problems include iron deficiency anemia. The patient was maintained on iron supplements. She has a history of asthma. She did not have any evidence of asthma exacerbation during the hospital course. The patient is also morbidly obese with a BMI of more than 45 kg/m. The patient was advised on weight reduction and lifestyle changes. The patient had a prolonged hospital course because of the presence of significant amount of drain from the psoas muscle abscess, that delayed the patient to be discharged safely. Currently, the patient's antibiotics have been switched to oral and the patient's drain is more or less stable and the patient can take care of her drain by emptying the drain periodically before she can follow-up with a [facility]. Therefore, the patient will be discharged home today. Discharge Instructions 1. Complete the course of antibiotics. 2. Take fydx-igy-ajfjlnq pain medications as needed. 3. Empty the drain periodically as instructed by the nurses. 4. Please follow-up with [facility] at the earliest. 5. Please go to the nearest emergency room if you have any persistent fevers, significant pain in the drain area, if the drain comes out accidentally, or any other unusual signs/symptoms. The patient verbalized understanding of discharge instructions. At this time I would like to thank all the consultants for seeing the patient and providing clinical recommendations. The patient was seen in collaboration with Dr. Mc. Home Meds Active Scripts Levofloxacin* (Levaquin*) 750 Mg Tablet, 750 MG PO DAILY@06, #10 TAB Prov:VIVEK PADGETT [employer] PRESCRIPTION CLERK 05/27/19 Reported Medications Acetaminophen* (Acetaminophen*) 500 MG Extra Strength Tablet, 500 MG PO Q4H PRN for PAIN AND OR ELEVATED TEMP, TAB 05/09/19 Ferrous Sulfate* (Ferrous Sulfate*) 325 Mg Tabec, 325 MG PO DAILY, TAB 05/09/19 Ascorbic Acid* (Vitamin C*) 500 Mg Capsule.sa, 500 MG PO DAILY, CAP 05/09/19 Follow-up Plan [facility]. Primary Care Provider Care Physician No Primary Time spent on discharge: > 30 minutes Pending Labs RUN DATE: 05/15/19 [facility] PAGE 1 RUN TIME: [id number] [place] [address] Christo Bragg M.D. Assistant Inventory Manager Romario Whiting M.D. Co-Assistant Inventory Manager EMELI#: [id number] Name: DREA HUTCHINSON Age/Sex: 38/F Attend Dr: BETH MON Acct: [id number] MR# : [id number] : 1980 [address] Admit: 05/09/19 Specimen: [id number] Status: Complete Kiera: 05/12/19 Rcvd: 05/12/19 Source: ABD FLUID Sp Descrip: Procedure Result Microbiology GRAM STAIN Final POLYMORPH. LEUKOCYTE 3+ . NO ORGANISM SEEN BODY FLUID CULTURE Final Organism 1 PROTEUS MIRABILIS QUANTITY 2+ P. BEAN M.I.C. RX --------- --- AMPICILLIN <=2 S CEFOTAXIME S CIPROFLOXACIN <=0.25 S GENTAMICIN <=1 S LEVOFLOXACIN <=0.12 S TOBRAMYCIN <=1 S TRIMETHOPRIM/SULFAMETHOXAZOLE <=20 S ......................................................................................... ... Flags: Critical Hi = *H Critical Lo = *L Microbiology Abnormal = * Abnormal Hi = H Abnormal Lo = L Blood Bank Abnormal = * Susceptability Flags: S = Sensitive R = Resistant I = Intermediate END OF REPORT Laboratory Tests Test 05/27/19 04:41 White Blood Count 11.3 10^3/ul (4.8-10.8) Red Blood Count 3.30 10^6/ul (4.20-5.40) Hemoglobin 8.1 g/dl (12.0-16.0) Hematocrit 27.7 % (37.0-47.0) Mean Corpuscular Volume 83.9 fl (82.0-101.0) Mean Corpuscular Hemoglobin 24.5 pg (29.0-33.0) Mean Corpuscular Hemoglobin Concent 29.2 g/dl (32.0-37.0) Red Cell Distribution Width 20.0 % (11.5-14.5) Platelet Count 423 10^3/UL (140-415) Mean Platelet Volume 9.0 fl (7.4-10.4) Immature Granulocytes % 0.400 % (0.001-0.429) Neutrophils % 60.1 % (39.0-77.0) Lymphocytes % 29.6 % (15.0-51.0) Monocytes % 8.0 % (0.0-11.0) Eosinophils % 1.2 % (0.0-7.0) Basophils % 0.7 % (0.0-2.0) Nucleated Red Blood Cells % 0.0 /100WBC (0.0-0.0) Immature Granulocytes # 0.050 10^3/ul (0.0-0.031) Neutrophils # 6.8 10^3/ul (1.6-7.5) Lymphocytes # 3.4 10^3/ul (0.8-2.9) Monocytes # 0.9 10^3/ul (0.3-0.9) Eosinophils # 0.1 10^3/ul (0.0-0.5) Basophils # 0.1 10^3/ul (0.0-0.1) Nucleated Red Blood Cells # 0.0 10^3/ul (0.0-0.0) Sodium Level 138 mmol/L (135-144) Potassium Level 3.9 mmol/L (3.5-5.1) Chloride Level 102 mmol/L (97-110) Carbon Dioxide Level 30 mmol/L (21-31) Anion Gap 6 (5-13) Blood Urea Nitrogen 8 mg/dl (7-20) Creatinine 0.76 mg/dl (0.44-1.00) Est Glomerular Filtrat Rate mL/min > 60 mL/min (>60) Glucose Level 109 mg/dl (70-220) Calcium Level 9.0 mg/dl (8.4-10.2) Phosphorus Level 5.4 mg/dl (2.5-4.9) Magnesium Level 1.7 mg/dl (1.7-2.5) VIVEK PADGETT NP May 27, 2019 09:56
--- NOTE | 2019-05-27 16:36 | CONS ---
Consultation Date/Type/Reason Admit Date/Time May 09, 2019 at 03:01 Initial Consult Date SUBJECTIVE: Patient is awake, alert, afebrile. Feeling good. Pt was seen earlier today in AM. VS: stable T: LAbs: Reviewed. Microbiology: Urine culture negative, fluid culture grew Proteus mirabilis Antimicrobials: Unasyn Physical examination: GEN: This is a morbidly obese well-developed middle-aged woman who is alert in no distress. HENT: Head atraumatic normocephalic, sclera nonicteric, neck is obese PULM: chest rise symmetrical breath sounds diminished bases. Heart: S1-S2. Abdomen: soft, bowel sounds present, right sided intra-abdominal drainage catheter. Extremities without cyanosis Assessment: 1. Acute pyelonephritis with psoas abscess, status post IR guided drainage 2. Resolving sepsis 3. Morbid obesity Plan: Pt is stable. Pending DC today. Ok dc on PO Levaquin for 10 more days, f/u at [facility] for drain removal. Requesting Provider: BETH MON Date/Time of Note DATE: 05/27/19 TIME: 16:33 Exam/Review of Systems Exam Vitals Vital Signs Date Temp Pulse Resp B/P (MAP) Pulse Ox O2 O2 Flow FiO2 Time Delivery Rate 05/27/19 98.6 103 18 108/63 97 Room Air 08:57 (78) Intake and Output 05/26/19 05/26/19 05/27/19 1515:00 23:00 07:00 IntakeIntake Total 400 ml 240 ml 600 ml OutputOutput Total 10 ml 15 ml 40 ml BalanceBalance 390 ml 225 ml 560 ml Results Result Diagram: 05/27/19 0441 05/27/19 0441 Results 24hrs Laboratory Tests Test 05/27/19 04:41 White Blood Count 11.3 #H Red Blood Count 3.30 L Hemoglobin 8.1 L Hematocrit 27.7 L Mean Corpuscular Volume 83.9 Mean Corpuscular Hemoglobin 24.5 L Mean Corpuscular Hemoglobin Concent 29.2 L Red Cell Distribution Width 20.0 H Platelet Count 423 H Mean Platelet Volume 9.0 Immature Granulocytes % 0.400 Neutrophils % 60.1 Lymphocytes % 29.6 Monocytes % 8.0 Eosinophils % 1.2 Basophils % 0.7 Nucleated Red Blood Cells % 0.0 Immature Granulocytes # 0.050 H Neutrophils # 6.8 Lymphocytes # 3.4 H Monocytes # 0.9 Eosinophils # 0.1 Basophils # 0.1 Nucleated Red Blood Cells # 0.0 Sodium Level 138 Potassium Level 3.9 Chloride Level 102 Carbon Dioxide Level 30 Anion Gap 6 Blood Urea Nitrogen 8 Creatinine 0.76 Est Glomerular Filtrat Rate mL/min > 60 Glucose Level 109 Calcium Level 9.0 Phosphorus Level 5.4 H Magnesium Level 1.7 ANTONIA DENT May 27, 2019 16:36
== END 2019-05-27 15:35 | disposition home or self-care (01) | DRG 698 ==
LOC: E/R 22:19 → MS1 05-09 03:01 → CANRESERV 05-09 06:55 → MS1 05-13 17:09
PROVIDERS: ADMIT Family Medicine; ATTEND Internal Medicine
PROC: 0K9P30Z Drainage of Left Hip Muscle with Drainage Device, Percutaneous Approach (ICD-10-PCS; principal; 2019-05-11)
DX: T83.592A Infection and inflammatory reaction due to indwelling ureteral stent, initial encounter (principal); A41.9 Sepsis, unspecified organism; K68.12 Psoas muscle abscess; K68.19 Other retroperitoneal abscess; N13.6 Pyonephrosis; Z68.42 Body mass index [BMI] 45.0-49.9, adult; N39.0 Urinary tract infection, site not specified; N12 Tubulo-interstitial nephritis, not specified as acute or chronic; D50.9 Iron deficiency anemia, unspecified; E66.01 Morbid (severe) obesity due to excess calories; Y83.3 Surgical operation with formation of external stoma as the cause of abnormal reaction of the patient, or of later complication, without mention of misadventure at the time of the procedure; K80.20 Calculus of gallbladder without cholecystitis without obstruction; B96.89 Other specified bacterial agents as the cause of diseases classified elsewhere; J44.9 Chronic obstructive pulmonary disease, unspecified
CPT/HCPCS: 74176; 74177; 74178; 77012; 80048; 80053; 80202; 81001; 81003; 81025; 83036; 83605; 83690; 83735; 84100; 85025; 85610; 85651; 85730; 87070; 87081; 87086; 93005; A4310; C1729; J0295; J1650; J2185; J2250; J2270; J2405; J2543; J3010; J3370; J7030; J7050; Q9967